=== PATIENT | male | born 1945 | race Caucasian/White ===

== ENCOUNTER 2024-01-19 13:45 | Observation (INO) | payer MEDICARE, OTHER, SELFPAY ==
[2024-01-19] VITALS (8 sets, daily range): BP systolic 148–163; BP diastolic 70–83; PULSE 67–78; RESP 15–20; TEMP 36.4–36.7; O2SAT 94–98; BMI 23.8
--- NOTE | ~2024-01-19 | CT_ITS ---
EXAMINATION: CTA chest PE protocol DATE: 01/19/2024 19:09 INDICATION: hypoxia, sob, cough, r/o pe/pna TECHNIQUE: Computed tomography angiography (CTA) of the chest was performed with 100 mL Omnipaque-350 intravenous contrast timed to evaluate the pulmonary arteries. Coronal maximum intensity projection 3D-reconstructions were created by the technologist. The dose-length product (DLP) was 428.00 mGy-cm. Automated exposure control and iterative reconstruction technique were employed. COMPARISON: X-ray chest, same date. FINDINGS: Lung parenchyma and airways: Clear airways. Scattered areas of central and dependent groundglass opac ities with septal thickening. Pleura: Unremarkable. Thoracic inlet, axillae and chest wall: Unremarkable. Thoracic aorta: Mild atherosclerotic calcification. Mediastinum: Normal. Heart and pericardium: Aortic valve calcification. Coronary artery calcifications: Absent. Upper abdomen: Left adrenal adenoma. Partially visualized likely simple right midpole cyst. Uncomplic ated gastric diverticulum. Bones: No acute osseous finding. Pulmonary arteries: Study quality: Adequate. No pulmonary emboli detected. IMPRESSION: No CT evidence of acute pulmonary embolus. Mild interstitial edema. Reviewed, dictated and finalized at location K.
--- NOTE | ~2024-01-19 | XR_ITS ---
EXAMINATION: XR chest 2V Exam Date/Time: 01/19/2024 16:57 CDT HISTORY: sob, cough Comparison: None. RESULT: Lines, tubes, and devices: None. Lungs and pleura: Senescent changes, otherwise clear. Cardiomediastinal silhouette: Ectasia of the ascending aorta and proximal arch. Other: No acute osseous or upper abdominal finding. IMPRESSION: No acute cardiopulmonary process. Ascending aortic ectasia. Reviewed, dictated and finalized at location K.
--- NOTE | 2024-01-19 16:55 | ECG_ITS ---
Measurements Intervals Wilson Rate: 65 P: 55 WV: 146 QRS: -12 QRSD: 113 T: 29 QT: 448 QTc: 468 Interpretive Statements SINUS RHYTHM LEFT VENTRICULAR HYPERTROPHY MINIMAL Q WAVES- HIGH LATERAL LEADS BASELINE ARTIFACT- I, II, AVR, AVL BORDERLINE ECG NO PREVIOUS ECG AVAILABLE FOR COMPARISON Electronically Signed On 01-19-2024 18:53:29 CDT by Krystian [place] D.O.
--- NOTE | 2024-01-19 17:03 | ED.URI ---
HPI - URI/Sore Throat General Chief Complaint: Upper Respiratory Infection <CRISTO Millan Last Filed: 01/19/24 22:09> Stated Complaint: Cough <CRISTO Millan Last Filed: 01/19/24 22:09> Time Seen by Provider: 01/19/24 16:54 <CRISTO Millan Last Filed: 01/19/24 22:09> Source: patient <CRISTO Millan Last Filed: 01/19/24 22:09> Mode of arrival: ambulatory <CRISTO Millan Last Filed: 01/19/24 22:09> Limitations: no limitations <CRISTO Millan Last Filed: 01/19/24 22:09> History of Present Illness HPI Narrative: Patient is a 78 y/o female who presents to the ED with c/o cough and shortness breath. Patient reports having a persistent dry cough over the last 1 week, which has been progressively worsening. He denies production of sputum. Denies known sick contacts. Has been feeling short of breath with coughing and with exertion. Denies chest pain. Denies wheezing. Denies previous lung issues. Denies lower extremity pain or swelling. Denies fevers, congestion, rhinorrhea. Patient tested himself for COVID at home which was negative <CRISTO Millan Last Filed: 01/19/24 22:09> Related Data Home Medications: Home Medications Medication Instructions Recorded Confirmed amiodarone 100 mg tablet (Pacerone) 100 mg PO DAILY 08/08/23 12/11/23 apixaban 5 mg tablet (Eliquis) 5 mg PO BID 08/08/23 12/11/23 atorvastatin 10 mg tablet 10 mg PO DAILY 08/08/23 12/11/23 diltiazem HCl 120 mg capsule,24 120 mg PO DAILY 08/08/23 12/11/23 hr,extended release <CRISTO Millan Last Filed: 01/19/24 22:09> Allergies/Adverse Reactions: Allergies Allergy/AdvReac Type Severity Reaction Status Date / Time No Known Allergies Allergy Unverified 12/11/23 13:12 <Stefanie Caraballo PA-C - Last Filed: 01/19/24 22:09> Review of Systems Review of Systems: CONSTITUTIONAL: Denies fever, chills, or sweats. ENT: Denies rhinorrhea, congestion, sore throat. CARDIOVASCULAR: Denies chest pain, palpitations, or edema. RESPIRATORY: See HPI. GASTROINTESTINAL: Denies abdominal pain, nausea, vomiting, or diarrhea. <Stefanie Caraballo PA-C - Last Filed: 01/19/24 22:09> All systems reviewed & are unremarkable except as noted in HPI and below <Stefanie Caraballo PA-C - Last Filed: 01/19/24 22:09> PMFSH Past Medical History Medical History: Medical History Arthritis of subtalar joint <Stefanie Caraballo PA-C - Last Filed: 01/19/24 22:09> Surgical History Surgical History: Surgical History History of cholecystectomy Status post ankle arthrodesis <Stefanie Caraballo PA-C - Last Filed: 01/19/24 22:09> Family History Family History: Family History Unknown Hypertension Diabetes mellitus Cerebrovascular accident Lung cancer <Stefanie Caraballo PA-C - Last Filed: 01/19/24 22:09> Social History Social History: Social History Smoking status: Never smoker Alcohol intake: unknown Substance use: unknown Occupation/Education: retired Gender identity (if verbalized by the patient): Male <Stefanie Caraballo PA-C - Last Filed: 01/19/24 22:09> Exam Narrative: GENERAL: Elderly, well-nourished, non-toxic, in no acute distress. HEAD: Normocephalic, atraumatic. RESPIRATORY: Airway patent, respirations nonlabored. Clear to auscultation bilaterally, no rales, rhonchi, wheezing. Occasional coughing on exam. No focal lung sounds. CARDIOVASCULAR: Regular rate and rhythm without murmurs, rubs, or gallops. Radial pulses easily palpable MUSCULOSKELETAL: Moves all extremities. No gross deformities. No calf tend
[2024-01-19 17:23] LABS: Basophils Percent Auto 0.3 % (0.2-1.2); Eosinophils Absolute Auto 0.3 K/mm3 (0-0.3); Eosinophils Percent Auto 2.2 % (0-4.4); Hematocrit 37.1 % (42.0-52.0); Hemoglobin 12.7 g/dL (14.0-18.0); Immature Granulocyte Absolute 0.04 K/mm3 (0.00-0.031); Immature Granulocyte Percent A 0.3 % (0-0.5); Lymphocytes Percent Auto 13.3 % (18.3-44.2); Mean Corpuscular HGB Conc 34.2 g/dl (32-36); Mean Corpuscular Hemoglobin 32.9 pg (26-34); Mean Corpuscular Volume 96.1 fl (80-100); Mean Platelet Volume 8.9 fl (7.4-10.4); Monocytes Absolute Auto 0.8 K/mm3 (0.1-0.6); Monocytes Percent Auto 6.2 % (2.6-8.5); Neutrophils Absolute Auto 9.3 K/mm3 (1.3-6.7); Neutrophils Percent Auto 77.7 % (45.5-73.1); Platelet Count Result 314 k/mm3 (150-375); Red Blood Count 3.86 M/mm3 (4.6-6.20); Red Cell Distribution Width 12.3 % (11.5-14.5)
[2024-01-19 17:35] LABS: INR 2.7; Partial Thromboplastin Time 42.7 Seconds (22.3-36.8)
[2024-01-19 17:36] LABS: Alanine Aminotransferase 15 U/L (6-50); Albumin Level 3.8 g/dL (3.5-5.1); Alkaline Phosphatase 89 U/L (38-126); Anion Gap 2 mmol/L (8-16); Aspartate Amino Transferase 31 U/L (17-59); Bilirubin,Total 0.7 mg/dL (0.2-1.3); Blood Urea Nitrogen 9 mg/dL (9-20); Calcium 9.5 mg/dL (8.4-10.2); Carbon Dioxide 31 mmol/L (22-30); Chloride 99 mmol/L (98-107); Estimated CRCL calculation 59 ml/min; Estimated Glomerular Filt Rate > 60; Glucose 105 mg/dL (65-110); Potassium 4.2 mmol/L (3.4-5.0); Sodium 132 mmol/L (137-145)
[2024-01-19 17:48] LABS: NT Pro B Type Natriuretic Pept 156 pg/mL (19.9-100); Troponin I < 0.012 ng/mL (0.000-0.034)
[2024-01-19 18:10] LABS: Influenza A QL RT-PCR Negative (Negative); Influenza B QL RT-PCR Negative (Negative); RSV RNA, RT-PCR Negative (Negative); SARS-CoV-2 RNA PCR Negative (Negative)
--- NOTE | 2024-01-19 20:37 | PC.NURSE ---
Per Stefanie LEMONS G. no blood cultures needed
[2024-01-19] MEDS: AZITHROMYCIN 500 MG/NS 250 ML 500 MG/250 ML BAG 250 MG IVPB (21:13)
--- NOTE | 2024-01-19 23:24 | ADMGEN ---
This patient, Bill Colon, was admitted to Medical Room 250-01. Patient/family oriented to hospital policies and general routines including ID bracelet, bed and alarms, visiting hours, pain management, procedures, bathroom and other care routines, personal items, smoking policy, room service/diet, and visiting hours. Information on how to activate the Rapid Response Team has been discussed. Patient/Family are encouraged to report perceived risks to care and to ask questions if they do not understand what they are told or what they should do.
--- NOTE | 2024-01-19 23:50 | PM.IMHP ---
H&P: HPI History of Present Illness Date/Time: 01/19/24 23:50 Chief Complaint: Shortness of breath, cough Narrative: 78-year-old male with a past medical history of rheumatoid arthritis, essential hypertension, hyperlipidemia, obstructive sleep apnea and paroxysmal atrial fibrillation who presented to the ER via private vehicle from home due to nonproductive cough and shortness of breath. Patient reports the started having nonproductive cough about a week ago. He has had increased shortness of breath with exertion over that time minutes cough became more intractable today. He had 3 episodes of coughing so severely they felt like he needed to go lay down in uses CPAP. After placing his CPAP on for several min into symptoms would resolve and he would go back to his routine activities. He denies any recent ill contacts and is fully vaccinated against COVID RSV and flu. His viral PCRs were negative in the ER. He stated that last week he went to primary care provider and had labs drawn which demonstrated leukocytosis. He has not been having any chest pain or palpitations. He denies any fevers or chills. He has been compliant with his cardiac medications. In the ER his white count was elevated and his x-ray finding suggested a broad differential. The patient subsequently underwent a CTA of the chest which radiology read as mild interstitial edema with scattered central and dependent ground-glass opacities with septal thickening. His BNP in the ER was 156. He denies having any lower extremity swelling, orthopnea, abdominal swelling or weight changes. He reports that his weight is been stable for 2 years. He does have obstructive sleep apnea but is only intermittently compliant with his CPAP. He reports that since he got a new CPAP last year he feels as if the pressure goes too high IM close out the mask into his eye. He has not had a repeat polysomnogram in many years. I am assuming that his CPAP was replaced due to the recall. Patient's vitals were stable in the ER until he was ambulated prior to discharge. On ambulation the patient's oxygen saturations dropped to 88%. Patient denies any history of smoking or chronic lung disease. He has not been wheezing. He reports that his AFib is managed by Dr. Veloz at [place]. He is on chronic anticoagulation with Xarelto. He has been receiving sample packets for quite some time. He has not been having any palpitations. He is in sinus rhythm when he arrived to the ER. Review of Systems Review of Systems: 12 systems were reviewed with pertinent positives and negatives per HPI. Except as documented in the HPI, all other systems were reviewed and are negative. [facility] Past Medical History Medical History (Updated 01/20/24 @ 02:37 by Christianne Manuel DO) Essential hypertension GERD (gastroesophageal reflux disease) Hyperlipidemia Obstructive sleep apnea on CPAP Paroxysmal atrial fibrillation Rheumatoid arthritis Surgical History Surgical History (Updated 01/20/24 @ 02:37 by Christianne Manuel DO) Finger joint replacement of left hand 1st and 2nd digit 1st PIP History of cholecystectomy (~2020) History of partial colectomy (~1989) Due to perforated bowel with colostomy and then later colostomy takedown History of total left knee replacement Status post ankle arthrodesis Status post cataract extraction of both eyes with insertion of intraocular lens Family History Family History Unknown Hypertension Diabetes mellitus Cerebrovascular accident Lung cancer Social History Social History (Updated 01/20/24 @ 02:41 by Christianne Manuel DO) Social History: Patient lives at home with his of 60 years. They raised a daughter and a son. He is retired from [employer]. He is a lifelong nonsmoker and does not drink alcohol or use illicit substances. He is independent activities of daily living. Code status
[2024-01-20] VITALS (11 sets, daily range): BP systolic 127–139; BP diastolic 67–70; PULSE 66–87; RESP 16–20; TEMP 36.7–37.2; O2SAT 93–96
[2024-01-20 05:45] LABS: Basophils Absolute Auto 0.1 K/mm3 (0.0-0.1); Basophils Percent Auto 0.5 % (0.2-1.2); Eosinophils Absolute Auto 0.3 K/mm3 (0-0.3); Eosinophils Percent Auto 3.2 % (0-4.4); Hematocrit 38.3 % (42.0-52.0); Hemoglobin 12.5 g/dL (14.0-18.0); Immature Granulocyte Absolute 0.02 K/mm3 (0.00-0.031); Immature Granulocyte Percent A 0.2 % (0-0.5); Lymphocytes Absolute Auto 1.45 K/mm3 (0.9-3.2); Lymphocytes Percent Auto 15.5 % (18.3-44.2); Mean Corpuscular HGB Conc 32.6 g/dl (32-36); Mean Corpuscular Hemoglobin 32.5 pg (26-34); Mean Corpuscular Volume 99.5 fl (80-100); Mean Platelet Volume 9.1 fl (7.4-10.4); Monocytes Absolute Auto 0.7 K/mm3 (0.1-0.6); Neutrophils Absolute Auto 6.9 K/mm3 (1.3-6.7); Neutrophils Percent Auto 73.6 % (45.5-73.1); Platelet Count Result 322 k/mm3 (150-375); Red Blood Count 3.85 M/mm3 (4.6-6.20); White Blood Count 9.4 K/mm3 (4.5-10.0)
[2024-01-20 05:58] LABS: Anion Gap 6 mmol/L (8-16); Blood Urea Nitrogen 8 mg/dL (9-20); Calcium 9.2 mg/dL (8.4-10.2); Carbon Dioxide 26 mmol/L (22-30); Chloride 100 mmol/L (98-107); Estimated CRCL calculation 67 ml/min; Estimated Glomerular Filt Rate > 60; Glucose 92 mg/dL (65-110); Potassium 3.8 mmol/L (3.4-5.0); Sodium 132 mmol/L (137-145)
[2024-01-20] MEDS: RIVAROXABAN 20 MG TABLET PO (09:20)
[2024-01-20] MEDS: PANTOPRAZOLE 40 MG TABLET PO (09:20)
--- NOTE | 2024-01-20 15:02 | PM.IMPN ---
Progress Note: A&P Assessment and Plan (1) Obstructive sleep apnea on CPAP: Code(s): G47.33 - Obstructive sleep apnea (adult) (pediatric) Status: Acute (2) Acute hypoxic respiratory failure: Code(s): J96.01 - Acute respiratory failure with hypoxia Status: Acute (3) Dyspnea on exertion: Code(s): R06.09 - Other forms of dyspnea Status: Acute (4) Arthritis of subtalar joint: Code(s): M19.079 - Primary osteoarthritis, unspecified ankle and foot Status: Acute (5) Bronchitis: Code(s): J40 - Bronchitis, not specified as acute or chronic Status: Acute Plan Place patient in medical unit under observation status Patient has no X-ray and clinical findings consistent with pneumonia He likely has acute bronchitis Patient started on IV antibiotics in the form of Rocephin and Zithromax which we'll continue on the floor Patient received Lasix 20 mg IV x1 dose in the ED Continue with the DuoNeb breathing treatments on the floor as needed Encourage ambulation on the floor DC patient home on oral antibiotics in am if patient is clinically stable and breathing is back to baseline ? Patient seen and examined at bedside during my morning rounds ? Collaborated with patient's nurse at the bedside in detail and addressed all concerns ? Labs, electrolytes, radiology, investigations and test results reviewed ? Consult/Nursing/Ancilliary notes on the chart reviewed and appreciated ? Spoke with patient/family at the bedside and answered all the questions that they had Repeat labs in a.m. Electrolyte replacement as per protocol. Patient will be monitored very closely on the floor. Further recommendations as per the hospital course. Subjective Date/time seen: 01/20/24 15:02 Interval history: Patient seen and evaluated bedside. Shortness of breath and cough is slowly improving. Review of Systems Review of Systems: 14 systems were reviewed with pertinent positives and negatives per HPI. Except as documented in the HPI/progress notes, all other systems were reviewed and are negative. All systems reviewed & are unremarkable except as noted in HPI and below Exam Narrative: PHYSICAL EXAMINATION: Vital signs: Please see the chart General physical exam: Elderly white gentleman, lying in bed, cooperative and pleasant with exam Head/eyes: Atraumatic, EOMI, PERRLA ENT: Moist mucous membranes, nasal passages clear Neck: Supple, full range of motion, trachea midline CVS: S1 + S2, regular rate and rhythm, no murmurs Respiratory: Bilaterally fair air entry in both lung suarez, mild B/L crackles, symmetric chest expansion, + mild scattered bibasilar rhonchi Abdomen: Soft, non-tender, bowel sounds +ve, no organomegaly Extremities: No clubbing, no cyanosis, no edema, no calf tenderness Musculoskeletal: Moves all, adequate range of motion, no muscle spasms Skin: Warm, dry, no jaundice, no cyanosis Neurological: Awake, alert, oriented x 3, cranial nerves II-XII intact, no focal neurological deficits Psychiatric: Normal mood, non suicidal Objective Data Vital Signs Vital Signs: Vital Signs - 24 hr 01/19/24 17:19 01/19/24 17:26 01/19/24 18:27 Temperature Pulse Rate 67 71 Respiratory Rate 20 15 Blood Pressure 163/77 H Pulse Oximetry 96 96 97 Oxygen Delivery Room Air 01/19/24 19:57 01/19/24 21:14 01/19/24 22:32 Temperature Pulse Rate 69 68 78 Respiratory Rate 20 19 19 Blood Pressure 148/70 H 153/78 H 148/75 H Pulse Oximetry 96 98 Oxygen Delivery 01/19/24 23:37 01/20/24 00:00 01/19/24 23:45 Temperature 36.4 C L Pulse Rate 74 73 Respiratory Rate 20 Blood Pressure 157/83 H Pulse Oximetry 94 Oxygen Delivery Room Air 01/20/24 03:16 01/20/24 04:00 Temperature 37.0 C Pulse Rate 76 66 Respiratory Rate 20 Blood Pressure 136/70 Pulse Oximetry 96 Oxygen Delivery Intake/Output Intake/Output: Intake & Output 01/17/24 01/18/24 0
[2024-01-20] MEDS: dilTIAZem HCL CD 120 MG CAP.24HR PO (17:40)
[2024-01-20] MEDS: AMIODARONE HCL 100 MG TABLET PO (17:40)
[2024-01-20] MEDS: ATORVASTATIN 10 MG TABLET PO (17:40)
[2024-01-20] MEDS: AZITHROMYCIN 500 MG/NS 250 ML 500 MG/250 ML BAG 250 MG IVPB (22:04)
[2024-01-21] VITALS (9 sets, daily range): BP systolic 132–134; BP diastolic 73–75; PULSE 64–86; RESP 16; TEMP 36.4; O2SAT 90–96
[2024-01-21 05:15] LABS: Basophils Absolute Auto 0.1 K/mm3 (0.0-0.1); Basophils Percent Auto 0.6 % (0.2-1.2); Eosinophils Absolute Auto 0.4 K/mm3 (0-0.3); Eosinophils Percent Auto 3.9 % (0-4.4); Hematocrit 36.3 % (42.0-52.0); Immature Granulocyte Absolute 0.01 K/mm3 (0.00-0.031); Immature Granulocyte Percent A 0.1 % (0-0.5); Lymphocytes Absolute Auto 1.44 K/mm3 (0.9-3.2); Mean Corpuscular HGB Conc 33.1 g/dl (32-36); Mean Corpuscular Hemoglobin 32.3 pg (26-34); Mean Corpuscular Volume 97.6 fl (80-100); Mean Platelet Volume 8.9 fl (7.4-10.4); Monocytes Absolute Auto 0.7 K/mm3 (0.1-0.6); Monocytes Percent Auto 7.7 % (2.6-8.5); Neutrophils Absolute Auto 6.5 K/mm3 (1.3-6.7); Neutrophils Percent Auto 71.7 % (45.5-73.1); Platelet Count Result 325 k/mm3 (150-375); Red Blood Count 3.72 M/mm3 (4.6-6.20); Red Cell Distribution Width 12.1 % (11.5-14.5)
[2024-01-21 05:38] LABS: Anion Gap 4 mmol/L (8-16); Blood Urea Nitrogen 7 mg/dL (9-20); Calcium 8.9 mg/dL (8.4-10.2); Carbon Dioxide 27 mmol/L (22-30); Chloride 98 mmol/L (98-107); Estimated CRCL calculation 59 ml/min; Estimated Glomerular Filt Rate > 60; Glucose 97 mg/dL (65-110); Magnesium 1.8 mg/dL (1.6-2.3); Potassium 3.7 mmol/L (3.4-5.0); Sodium 129 mmol/L (137-145)
[2024-01-21] MEDS: PANTOPRAZOLE 40 MG TABLET PO (08:24)
[2024-01-21] MEDS: ATORVASTATIN 10 MG TABLET PO (08:24)
[2024-01-21] MEDS: AMIODARONE HCL 100 MG TABLET PO (08:24)
[2024-01-21] MEDS: dilTIAZem HCL CD 120 MG CAP.24HR PO (08:24)
[2024-01-21] MEDS: RIVAROXABAN 20 MG TABLET PO (08:25)
--- NOTE | 2024-01-21 12:10 | PM.DS ---
DS: Admitting Diagnosis Discharge Date 01/21/2024: Admitting Diagnosis (1) Acute hypoxic respiratory failure: ?Code(s): J96.01 - Acute respiratory failure with hypoxia ?Status:?Acute (2) Dyspnea on exertion: ?Code(s): R06.09 - Other forms of dyspnea ?Status:?Acute (3) Obstructive sleep apnea on CPAP: ?Code(s): G47.33 - Obstructive sleep apnea (adult) (pediatric) ?Status:?Acute DS: Discharge Diagnosis Discharge Diagnosis (1) Bronchitis: Code(s): J40 - Bronchitis, not specified as acute or chronic Status: Acute (2) Obstructive sleep apnea on CPAP: Code(s): G47.33 - Obstructive sleep apnea (adult) (pediatric) Status: Acute (3) Acute hypoxic respiratory failure: Code(s): J96.01 - Acute respiratory failure with hypoxia Status: Acute (4) Dyspnea on exertion: Code(s): R06.09 - Other forms of dyspnea Status: Acute (5) Arthritis of subtalar joint: Code(s): M19.079 - Primary osteoarthritis, unspecified ankle and foot Status: Acute (6) Chronic anticoagulation: Code(s): Z79.01 - [facility] (current) use of anticoagulants Status: Acute (7) Chronic atrial fibrillation: Code(s): I48.20 - Chronic atrial fibrillation, unspecified Status: Acute DS: Summary Hospital Course Reason for hospitalization: Patient admitted with cough and shortness of breath Hospital Course: H&P: HPI History of Present Illness Date/Time: 01/19/24? 23:50 Chief Complaint: Shortness of breath, cough Narrative: 78-year-old male with a past medical history of rheumatoid arthritis, essential hypertension, hyperlipidemia, obstructive sleep apnea and paroxysmal atrial fibrillation who presented to the ER via private vehicle from home due to nonproductive cough and shortness of breath.? Patient reports the started having nonproductive cough about a week ago.? He has had increased shortness of breath with exertion over that time minutes cough became more intractable today.? He had 3 episodes of coughing so severely they felt like he needed to go lay down in uses CPAP.? After placing his CPAP on for several min into symptoms would resolve and he would go back to his routine activities.? He denies any recent ill contacts and is fully vaccinated against COVID RSV and flu.? His viral PCRs were negative in the ER.? He stated that last week he went to primary care provider and had labs drawn which demonstrated leukocytosis.? He has not been having any chest pain or palpitations.? He denies any fevers or chills.? He has been compliant with his cardiac medications.? In the ER his white count was elevated and his x-ray finding suggested a broad differential.? The patient subsequently underwent a CTA of the chest which radiology read as mild interstitial edema with scattered central and dependent ground-glass opacities with septal thickening.? His BNP in the ER was 156.? He denies having any lower extremity swelling, orthopnea, abdominal swelling or weight changes.? He reports that his weight is been stable for 2 years.? He does have obstructive sleep apnea but is only intermittently compliant with his CPAP.? He reports that since he got a new CPAP last year he feels as if the pressure goes too high IM close out the mask into his eye.? He has not had a repeat polysomnogram in many years.? I am assuming that his CPAP was replaced due to the recall.? Patient's vitals were stable in the ER until he was ambulated prior to discharge.? On ambulation the patient's oxygen saturations dropped to 88%.? Patient denies any history of smoking or chronic lung disease.? He has not been wheezing. He reports that his AFib is managed by Dr. Veloz at [place].? He is on chronic anticoagulation with Xarelto.? He has been receiving sample packets for quite some time.? He has not been having any palpitations.? He is in sinus rhythm when he arrived to the ER. 01/20/2024: Place patient in medical unit
--- NOTE | 2024-01-21 14:13 | HOMEO2EVAL ---
Evaluation was performed at [facility] Home Oxygen Evaluation RC: Home Oxygen (O2) Evaluation Start: 01/21/24 10:20 Freq: ONCE Status: Active Protocol: RPE Activity Type Activity Date Activity User E-sign Co-sign Detail Recorded Client Recorded Date Recorded By Document 01/21/24 13:45 GARY [email or web address] 01/21/24 14:13 GARY Document 01/21/24 13:50 GARY [email or web address] 01/21/24 14:13 GARY Document 01/21/24 14:00 GARY [email or web address] 01/21/24 14:13 GARY 01/21/24 01/21/24 01/21/24 13:45 13:50 14:00 Home O2 Evaluation [Oxygen] -Test Phase Resting Exercise Resting -Oxygen Delivery Room Air Room Air Room Air [Pulse Oximetry] -Pulse Oximetry (90-100 %) 96 90 95 [Pulse Rate] -Pulse Rate (60-100 beats/min) 69 86 72 [Comments] -Home Oxygen Evaluation Comments No home O2 needed at this time. [Charges] -Evaluation Charges O2 Evaluation by Pulmonary
--- NOTE | 2024-01-21 14:13 | PCRCNOTE ---
Home o2 eval done, no home O2 needed at this time.
== END 2024-01-21 14:31 | disposition home or self-care (01) ==
LOC: ANHED 21:08 → ANH3MEDSUR 22:00 → ANH2MED 22:50
PROVIDERS: Admitting Provider Internal Medicine; Emergency Provider Physician Assistant; PCP Internal Medicine; Visit Provider Family Medicine
DX: J96.01 Acute respiratory failure with hypoxia (principal); J40 Bronchitis, not specified as acute or chronic; I48.0 Paroxysmal atrial fibrillation; I77.819 Aortic ectasia, unspecified site; G47.33 Obstructive sleep apnea (adult) (pediatric); Z99.89 Dependence on other enabling machines and devices; Z20.822 Contact with and (suspected) exposure to COVID-19; M06.9 Rheumatoid arthritis, unspecified; M19.079 Primary osteoarthritis, unspecified ankle and foot; I10 Essential (primary) hypertension; K21.9 Gastro-esophageal reflux disease without esophagitis; E78.5 Hyperlipidemia, unspecified; Z96.692 Finger-joint replacement of left hand; Z96.652 Presence of left artificial knee joint; Z79.01 Long term (current) use of anticoagulants; Z79.899 Other long term (current) drug therapy
CPT/HCPCS: 36415; 71046; 71275; 80048; 80053; 83735; 83880; 84100; 84484; 85025; 85380; 85610; 85730; 87637; 93005; 94618; 96365; 96366; 96367; 99285; A9270; G0378; J0456; J0696; Q9967

== ENCOUNTER 2024-03-12 23:46 | Inpatient (IN) | payer MEDICARE, OTHER, SELFPAY ==
--- NOTE | ~2024-03-12 | XR_ITS ---
Supine and upright views of the abdomen Clinical history: Small bowel obstruction Findings: NG tube in satisfactory position. Bowel gas pattern is nonspecific. No evidence for obstruc tion or free air. No abnormal mass lesion or calcification is seen. Degenerative change of the lumbar spine noted. Impression: NG tube in satisfactory position. Nonspecific bowel gas pattern currently. Reviewed, dictated and finalized at [facility]. Impression: NG tube in satisfactory position. Nonspecific bowel gas pattern currently.
--- NOTE | ~2024-03-12 | XR_ITS ---
XR abdomen/kub 1V DATE: 03/15/2024 06:12 INDICATION: Small bowel obstruction TECHNIQUE: Portable supine AP views on 03/15/2024 at 0549 [id number] hours COMPARISON: 03/14/24 small bowel follow-through FINDINGS: There is mild residual radiographic contrast material in the rectum and colon. No bowel dil atation is evident. Associated as are intact. No visceromegaly is evident. Osteosclerotic lesions of the intertrochanteric area of the left femur show multiple different diagno sis includes bone islands, osseous sclerotic metastases. Degenerative changes of the lower thoracic and particularly the lumbar spine, including severe degene rative disc disease particularly at L4-5 and L5-S1. IMPRESSION: No evidence of bowel obstruction. Osteosclerotic lesions of the proximal left femur; differential diagnosis Islands, osteosclerotic met astases, possibly from prostate primary; recommend clinical correlation Degenerative changes of thoracic and lumbar spine Reviewed, dictated and finalized at [facility]. Reviewed, dictated and finalized at location [facility]. IMPRESSION: No evidence of bowel obstruction. Osteosclerotic lesions of the proximal left femur; differential diagnosis Islan ds, osteosclerotic metastases, possibly from prostate primary; recommend clinic al correlation Degenerative changes of thoracic and lumbar spine
--- NOTE | ~2024-03-12 | CT_ITS ---
CT of the Abdomen and Pelvis: Indication: Abdominal pain Technique: 2.5 mm axial scans were obtained through the abdomen and pelvis following intravenous adm inistration of 100 cc of Omnipaque 350. Dose reduction technique was used on this scan by utilizing a utomated exposure control and iterative reconstruction technique. The dose-length product (DLP) was 4 72.85 mGy-cm. Findings: Scans through the lung bases are unremarkable. The liver, spleen, pancreas, right adrenal gland, and kidneys are within normal limits. Gallbladder a bsent. 9 mm low-density left adrenal nodule is most likely an adenoma. There are atherosclerotic calc ifications of the aorta. No retroperitoneal lymphadenopathy. Proximal small bowel is relatively distended, and distal small bowel loops are collapsed. No focal, a brupt transition point clearly identified. Possible mild wall thickening of left-sided proximal small bowel loops. There is minimal haziness in the central mesentery with small shotty lymph nodes presen t. Images through the pelvis were performed. Urinary bladder unremarkable. No pelvic mass seen. No ascit es. 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 Impression: Findings suspicious for early or partial small bowel obstruction, as detailed above. Possible associa garrett small bowel enteritis. 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 Reviewed, dictated and finalized at location M. Impression: Findings suspicious for early or partial small bowel obstruction, as detailed a vishal. Possible associated small bowel enteritis. 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
--- NOTE | ~2024-03-12 | XR_ITS ---
Supine and upright views of the abdomen Clinical history: NG tube placement Findings: NG tube side-port is just below the diaphragm. Bowel gas pattern is nonspecific. No evidenc e for obstruction or free air. No abnormal mass lesion or calcification is seen. Osseous structures a re intact. Impression: NG tube side port just below the diaphragm. Further advancement to ensure adequate position in the st omach is advised. Reviewed, dictated and finalized at location . Impression: NG tube side port just below the diaphragm. Further advancement to ensure adequ ate position in the stomach is advised.
--- NOTE | ~2024-03-12 | XR_ITS ---
Portable chest x-ray Comparison: 01/19/2024 Clinical History: Fever Findings: NG tube in satisfactory position. Lungs are clear, without focal consolidation or pleural effusion. Cardiomediastinal silhouette is stable. Bones and soft tissues are unremarkable. Impression: Clear lungs. NG tube in place. Reviewed, dictated and finalized at location . Impression: Clear lungs. NG tube in place.
--- NOTE | ~2024-03-12 | XR_ITS ---
EXAMINATION: XR abdomen gastric tube rechec DATE: 03/13/2024 13:57 INDICATION: Nasogastric tube adjustment. TECHNIQUE: An upright view of the abdomen was obtained. COMPARISON: Abdomen radiograph at 1:41 AM FINDINGS: The lower abdomen is excluded. The nasogastric tube tip is in the distal stomach. IMPRESSION: 1. Nasogastric tube tip in the distal stomach. Reviewed, dictated and finalized at location A.
--- NOTE | ~2024-03-12 | XR_ITS ---
EXAMINATION: XR sm bowel follow through DATE: 03/14/2024 10:55 INDICATION: Small bowel obstruction. TECHNIQUE: Oral contrast was administered, and a time course of radiographs of the abdomen was obtain ed. Fluoroscopy of the small bowel was not performed. Fluoroscopy exposure time was 0 minutes. The to jacqueline number of images was 3. COMPARISON: CT abdomen and pelvis 03/13/2024 FINDINGS: The nasogastric tube tip is in the stomach. There is a diverticulum in the second portion of the duod enum. There are dilated loops of jejunum. The ileum is normal in caliber. Transit time from the stoma ch to proximal colon was approximately 45 minutes. IMPRESSION: 1. Dilated jejunum without focal transition point, consistent with adynamic ileus. Reviewed, dictated and finalized at location A. IMPRESSION: 1. Dilated jejunum without focal transition point, consistent with adynamic ile us.
[2024-03-12 23:52] VITALS: BP 136/80; PULSE 86; RESP 18; TEMP 36.2; O2SAT 100
[2024-03-13] VITALS (7 sets, daily range): BP systolic 112–132; BP diastolic 56–87; PULSE 72–98; RESP 16–22; TEMP 37–38.1; O2SAT 93–98; BMI 26.4
[2024-03-13 00:18] LABS: Basophils Percent Auto 0.3 % (0.2-1.2); Eosinophils Percent Auto 0.3 % (0-4.4); Hematocrit 45.2 % (42.0-52.0); Hemoglobin 15.3 g/dL (14.0-18.0); Immature Granulocyte Absolute 0.07 K/mm3 (0.00-0.031); Immature Granulocyte Percent A 0.6 % (0-0.5); Lymphocytes Absolute Auto 1.77 K/mm3 (0.9-3.2); Lymphocytes Percent Auto 16.1 % (18.3-44.2); Mean Corpuscular HGB Conc 33.8 g/dl (32-36); Mean Corpuscular Hemoglobin 32.7 pg (26-34); Mean Corpuscular Volume 96.6 fl (80-100); Mean Platelet Volume 9.8 fl (7.4-10.4); Monocytes Absolute Auto 0.4 K/mm3 (0.1-0.6); Monocytes Percent Auto 3.9 % (2.6-8.5); Neutrophils Absolute Auto 8.7 K/mm3 (1.3-6.7); Neutrophils Percent Auto 78.8 % (45.5-73.1); Platelet Count Result 274 k/mm3 (150-375); Red Blood Count 4.68 M/mm3 (4.6-6.20); Red Cell Distribution Width 12.5 % (11.5-14.5)
[2024-03-13 00:25] LABS: Appearance Urine Clear (Clear); Bacteria Urine None Seen /hpf; Bilirubin Urine Negative (Negative); Blood Urine Negative (Negative); Color Urine Dark Yellow (Yellow); Glucose Urine UA Negative (Negative); Ketones Urine Trace mg/dL (Negative); Leukocyte Esterase Ur Negative LEU/UL (Negative); Nitrate Urine Negative (Negative); Non Pathogenic Casts 0-2; Protein Urine Trace mg/dL (Negative); Specific Grav Ur 1.023 (1.001-1.035); Squamous Epithelial Cell Urine None Seen /hpf (Few); WBC Urine 0-5 /hpf (0-3)
[2024-03-13 00:26] LABS: Add Urine Microscopic? YES
--- NOTE | 2024-03-13 00:40 | ECG_ITS ---
SEE SCANNED COPY FOR CONFIRMED REPORT MTDD
[2024-03-13] MEDS: SODIUM CHLORIDE 0.9% IV 2,000 ML 999 ML IV CONT (00:49)
[2024-03-13] MEDS: ONDANSETRON INJ 4 MG/2 ML VIAL IV PUSH (00:50)
[2024-03-13] MEDS: HYDROmorphone HCL INJ (*CRX) 1 MG/ML SYR 0.5 MG IV PUSH (00:53)
--- NOTE | 2024-03-13 00:57 | PC.NURSE ---
Pt to CT via stretcher on tele monitor.
[2024-03-13 01:15] LABS: INR 1.9; Prothrombin Time 23.4 Seconds (11.1-14.7)
[2024-03-13 01:23] LABS: Estimated CRCL calculation 35 ml/min; Estimated Glomerular Filt Rate 49
[2024-03-13 01:30] LABS: Alanine Aminotransferase 20 U/L (6-50); Albumin Level 4.7 g/dL (3.5-5.1); Alkaline Phosphatase 98 U/L (38-126); Anion Gap 9 mmol/L (4-12); Aspartate Amino Transferase 36 U/L (17-59); Bilirubin,Total 1.5 mg/dL (0.2-1.3); Blood Urea Nitrogen 13 mg/dL (9-20); Calcium 10.1 mg/dL (8.4-10.2); Carbon Dioxide 26 mmol/L (22-30); Chloride 99 mmol/L (98-107); Estimated CRCL calculation 44 ml/min; Estimated Glomerular Filt Rate > 60; Glucose 118 mg/dL (65-110); Lipase 44 U/L (23-300); Potassium 4.2 mmol/L (3.4-5.0); Sodium 134 mmol/L (137-145)
[2024-03-13 01:35] LABS: Magnesium 1.9 mg/dL (1.6-2.3); Phosphorus 2.9 mg/dL (2.5-4.5)
--- NOTE | 2024-03-13 01:37 | ED.GENADULT ---
HPI - General Adult General Chief complaint: Abdominal Pain Stated complaint: abd pain Time Seen by Provider: 03/13/24 00:31 History of Present Illness HPI narrative: This is a 78-year-old male with history of small-bowel obstructions presenting with abdominal pain, nausea/vomiting. Symptoms started earlier today. The pain is primarily on the left side of his abdomen. He has had a bowel movement today which for several hard stools. Patient says this feels similar to when he has had small bowel obstructions in the past. Patient has history of partial colectomy due to diverticulitis in 1999. Related Data Home Medications Medication Instructions Recorded Confirmed amiodarone 100 mg tablet (Pacerone) 100 mg PO DAILY 08/08/23 03/12/24 atorvastatin 10 mg tablet 10 mg PO DAILY 08/08/23 03/12/24 diltiazem HCl 120 mg capsule,24 120 mg PO DAILY 08/08/23 03/12/24 hr,extended release omeprazole 20 mg capsule,delayed 20 mg PO DAILY 01/19/24 03/12/24 release rivaroxaban 20 mg tablet (Xarelto) 20 mg PO DAILY 01/19/24 03/12/24 Allergies Allergy/AdvReac Type Severity Reaction Status Date / Time No Known Allergies Allergy Unverified 03/12/24 08:49 [facility] Past Medical History Medical History Chronic anticoagulation Chronic atrial fibrillation Essential hypertension GERD (gastroesophageal reflux disease) Hyperlipidemia Obstructive sleep apnea on CPAP Paroxysmal atrial fibrillation Rheumatoid arthritis Surgical History Surgical History Finger joint replacement of left hand 1st and 2nd digit 1st PIP History of cholecystectomy (~2020) History of partial colectomy (~1989) Due to perforated bowel with colostomy and then later colostomy takedown History of total left knee replacement Status post ankle arthrodesis Status post cataract extraction of both eyes with insertion of intraocular lens Family History Family History Unknown Hypertension Diabetes mellitus Cerebrovascular accident Lung cancer Social History Social History Social History: Patient lives at home with his of 60 years. They raised a daughter and a son. He is retired from [employer]. He is a lifelong nonsmoker and does not drink alcohol or use illicit substances. He is independent activities of daily living. Code status: Full code (however he states he would not want to be on ventilator long-term or received G-tube feeds.) Healthcare power of box toe stitcher: Gage Colon (son) Smoking status: Never smoker Second hand tobacco smoke exposure: No Alcohol intake: never Substance use: never Substance use type: does not use Do You Feel Safe in your Home?: Yes Lack of Transportation: No Lack of Food: Never True Current Housing: I Have Housing Concerned About Future Housing: No Difficulty Paying Gas/Electric Bills: No Difficulty Paying for Meds: No Currently Unemployed: No Education: High School Diploma/GED Difficulty w/ Childcare or Family Care: No Occupation/Education: retired Gender identity (if verbalized by the patient): Male Spiritual care concerns: No Exam Narrative: APPEARANCE: patient is tremulous, he appears uncomfortable Head: atraumatic. EYES: EOMI, NOSE: Atraumatic NECK: Trachea midline RESPIRATORY: No increased rate of breathing CTAB CARDIOVASCULAR: RRR, No peripheral edema ABDOMINAL: abdomen is tender primarily in the left side with voluntary guarding. MUSCULOSKELETAl: No obvious deformities NEURO: Alert. Moving 4/4 extremities SKIN:: Warm, dry. Normal color PSYCHIATRIC: Normal affect Course Vital Signs Vital signs: Vital Signs Temperature 97.2 F L 03/12/24 23:52 Pulse Rate 86 03/12/24 23:52 Respiratory Rate 18 03/12/24 23:52
[2024-03-13] MEDS: LIDOCAINE HCL 1% LOCAL INJ 10 ML VIAL INFILTRATE (01:41)
[2024-03-13 02:24] LABS: Lactic Acid Reflex 1.6 mmol/L (0.7-2.0)
[2024-03-13 02:34] LABS: Influenza A QL RT-PCR Negative (Negative); Influenza B QL RT-PCR Negative (Negative); RSV RNA, RT-PCR Negative (Negative); SARS-CoV-2 RNA PCR Negative (Negative)
--- NOTE | 2024-03-13 04:18 | ADMGEN ---
This patient, Bill Colon, was admitted to 3 [facility] Surg Room 311-01. Patient/family oriented to hospital policies and general routines including ID bracelet, bed and alarms, visiting hours, pain management, procedures, bathroom and other care routines, personal items, smoking policy, room service/diet, and visiting hours. Information on how to activate the Rapid Response Team has been discussed. Patient/Family are encouraged to report perceived risks to care and to ask questions if they do not understand what they are told or what they should do.
[2024-03-13] MEDS: LACTATED RINGERS 1,000 ML 125 ML IV CONT ×3 (04:29→20:38)
--- NOTE | 2024-03-13 07:46 | PM.IMHP ---
H&P: HPI History of Present Illness Date/Time: 03/13/24 07:46 Chief Complaint: Abdominal pain Narrative: ?This is a 78-year-old male with history of of AFib on Xarelto, GERD, partial colectomy due to diverticulitis 2020,small-bowel obstructions present ED with a chief complaint of abdomen pain, nausea vomiting diarrhea started yesterday morning. The pain located left side of the abdomen, patient had a bowel movement yesterday. Patient denies chest pain, shortness breath, headache, focal weakness. patient came to ED for evaluation treatment. Upon arrival in the ED, patient had a low-grade fever 105 over the night, blood pressure stable, no O2 desaturation on room air, patient had tachycardia tachypnea 22. patient has mild leukocytosis 11,000. CT scan was done in the ED, showed early versus partial small-bowel obstruction on the left. NG tube was placed in the ED. and patient was admitted hospital for further evaluation and treatment. Review of Systems Review of Systems: ROS negative except above PMFSH Past Medical History Medical History (Updated 03/13/24 @ 08:00 by Elmer Neely MD) Chronic anticoagulation Chronic atrial fibrillation Essential hypertension GERD (gastroesophageal reflux disease) Hyperlipidemia Obstructive sleep apnea on CPAP Paroxysmal atrial fibrillation Rheumatoid arthritis Surgical History Surgical History Finger joint replacement of left hand 1st and 2nd digit 1st PIP History of cholecystectomy (~2020) History of partial colectomy (~1989) Due to perforated bowel with colostomy and then later colostomy takedown History of total left knee replacement Status post ankle arthrodesis Status post cataract extraction of both eyes with insertion of intraocular lens Family History Family History Unknown Hypertension Diabetes mellitus Cerebrovascular accident Lung cancer Social History Social History Social History: Patient lives at home with his of 60 years. They raised a daughter and a son. He is retired from [employer]. He is a lifelong nonsmoker and does not drink alcohol or use illicit substances. He is independent activities of daily living. Code status: Full code (however he states he would not want to be on ventilator long-term or received G-tube feeds.) Healthcare power of traffic law attorney: Gage Colon (son) Smoking status: Never smoker Second hand tobacco smoke exposure: No Alcohol intake: never Substance use: never Substance use type: does not use Do You Feel Safe in your Home?: Yes Lack of Transportation: No Lack of Food: Never True Current Housing: I Have Housing Concerned About Future Housing: No Difficulty Paying Gas/Electric Bills: No Difficulty Paying for Meds: No Currently Unemployed: No Education: Decline to Answer Difficulty w/ Childcare or Family Care: No Occupation/Education: retired Gender identity (if verbalized by the patient): Male Spiritual care concerns: No Meds Home Medications and Allergies Home Medications Medication Instructions Recorded Confirmed Type amiodarone 100 mg tablet (Pacerone) 200 mg PO DAILY 08/08/23 03/13/24 History atorvastatin 10 mg tablet 10 mg PO DAILY 08/08/23 03/13/24 History diltiazem HCl 120 mg capsule,24 120 mg PO DAILY 08/08/23 03/13/24 History hr,extended release omeprazole 20 mg capsule,delayed 20 mg PO DAILY 01/19/24 03/13/24 History release rivaroxaban 20 mg tablet (Xarelto) 20 mg PO DAILY 01/19/24 03/13/24 History Allergies Allergy/AdvReac Type Severity Reaction Status Date / Time No Known Allergies Allergy Unverified 03/12/24 08:49 Vital Signs Vital Signs - 24 hr 03/12/24 23:52 03/13/24 00:40 03/13/24 02:07 Temperature 97.2 F L Pulse Rate 86 87 94 Respirat
[2024-03-13] MEDS: PHENOL/SOD PHENO SPRAY CHERRY (*BKC) 1 SPRAY MUCOUS MEM (09:07)
[2024-03-13] MEDS: PIPERACILLN/TAZ 3.375GM/NS50ML 3.375 GM/50 ML BAG IVPB ×3 (09:08→20:37)
[2024-03-13] MEDS: ENOXAPARIN 80 MG/0.8 ML SYRINGE 75 MG SUB-Q ×2 (09:08→20:37)
[2024-03-13 10:41] LABS: Appearance Urine Clear (Clear); Bilirubin Urine Negative (Negative); Blood Urine Negative (Negative); Color Urine Yellow (Yellow); Glucose Urine UA Negative (Negative); Ketones Urine Negative (Negative); Leukocyte Esterase Ur Negative LEU/UL (Negative); Nitrate Urine Negative (Negative); Protein Urine Negative (Negative)
[2024-03-13 10:53] LABS: Add Urine Microscopic? NO; Specific Grav Ur 1.034 (1.001-1.035)
[2024-03-13 11:35] LABS: Toxigenic C. Diff NEGATIVE (NEGATIVE)
--- NOTE | 2024-03-13 13:11 | PM.CNGS ---
Assessment and Plan Assessment and plan (1) Partial small bowel obstruction: Code(s): K56.600 - Partial intestinal obstruction, unspecified as to cause Status: Acute Assessment and Plan: CT showing early or partial small bowel obstruction, as well as possible enteritis. He does have a history of abdominal surgery that could cause intraabdominal adhesions, as well as previous small bowel obstructions that have resolved with conservative management. He is already clinically improving and has had two bowel movements today. No peritoneal signs on exam. No signs of having a high-grade small bowel obstruction. We would recommend to continue conservative treatment with NG tube decompression, bowel rest, IV fluids and analgesics as needed. Will continue to monitor with serial abdominal exams and imaging. (2) Chronic atrial fibrillation: Code(s): I48.20 - Chronic atrial fibrillation, unspecified Status: Acute Assessment and Plan: EKG showing sinus rhythm with heart rate in the 80's. Currently taking Xarelto for anticoagulation. (3) Chronic anticoagulation: Code(s): Z79.01 - longterm (current) use of anticoagulants Status: Acute Assessment and Plan: Hold Xarelto (4) Essential hypertension: Code(s): I10 - Essential (primary) hypertension Status: Acute (5) GERD (gastroesophageal reflux disease): Code(s): K21.9 - Gastro-esophageal reflux disease without esophagitis Status: Acute Plan I have discussed the patient's case and plan of care with Dr. Pimentel. Thank you for allowing us to see the patient in consultation and we will continue to follow along with you. History of Present Illness Consult details Consult date: 03/13/24 Reason for consult: other (Small bowel obstruction) Requesting physician: Tucker Cox MD Narrative: This is a 78-year-old man who we have been asked to see in surgical consultation for a small bowel obstruction. He has had a colon resection with colostomy for perforated diverticulitis in 1999, with reversal of his colostomy three months later. He also has a history of small bowel obstructions x2 in the past treated conservatively at [facility]. His last hospitalization was over a year ago. He reports eating meatloaf two days ago and noticing some abdominal bloating the following day. Yesterday, he developed generalized abdominal pain and distention. This felt similar to his previous bowel obstructions. He developed nausea and vomiting, and decided to present to the ER for evaluation. In the ED, vital signs were stable and he was afebrile. Labs showed WBC count 11,000, PT 23.4, INR 1.9, lactic acid 1.6. UA negative. CTA abdomen and pelvis showed findings suspicious for early or partial small bowel obstruction with possible associated small bowel enteritis, probable mild mesenteric panniculitis. He was admitted to the Hospitalist. NG tube placed. KUB shows NG tube side port just below diaphragm, recommending advancement. CDiff was ordered and negative. He is now seen on the medical floor. He has had two loose bowel movements this morning. He feels his abdominal pain and distention has improved significantly since being admitted. He developed a low-grade fever early this morning with tmax 100.5F. He reports having some abdominal soreness, but no pain. He reports having loose stools chronically after he started taking some [id number] medication for his bowels. He believes it may be Metamucil. He reports about a week ago, he did have 4-5 liquid stools in one day, but no persistent new diarrhea. He also has a history of atrial fibrillation and is taking Xarelto. He reports taking his last dose yesterday morning. Review of Systems Review of Systems: All systems reviewed & are unremarkable except as noted in HPI and below Constitutional: Constitutional: Reports no additional constitutional complaints, Denies chills, Denies fatigue and Denies fever(s) Ey
[2024-03-14] MEDS: PIPERACILLN/TAZ 3.375GM/NS50ML 3.375 GM/50 ML BAG IVPB ×2 (03:48→08:14)
[2024-03-14 05:31] LABS: Hematocrit 36.7 % (42.0-52.0); Hemoglobin 11.7 g/dL (14.0-18.0); Mean Corpuscular HGB Conc 31.9 g/dl (32-36); Mean Corpuscular Hemoglobin 31.9 pg (26-34); Mean Platelet Volume 9.4 fl (7.4-10.4); Platelet Count Result 199 k/mm3 (150-375); Red Blood Count 3.67 M/mm3 (4.6-6.20); Red Cell Distribution Width 12.3 % (11.5-14.5); White Blood Count 6.4 K/mm3 (4.5-10.0)
[2024-03-14] MEDS: LACTATED RINGERS 1,000 ML 125 ML IV CONT (05:40)
[2024-03-14 05:43] LABS: Anion Gap 6 mmol/L (4-12); Blood Urea Nitrogen 9 mg/dL (9-20); Calcium 8.6 mg/dL (8.4-10.2); Carbon Dioxide 26 mmol/L (22-30); Chloride 104 mmol/L (98-107); Estimated CRCL calculation 48 ml/min; Estimated Glomerular Filt Rate > 60; Glucose 78 mg/dL (65-110); Potassium 3.9 mmol/L (3.4-5.0); Sodium 136 mmol/L (137-145)
[2024-03-14 06:00] VITALS: BP 152/70; PULSE 80; RESP 16; TEMP 36.4; O2SAT 95
[2024-03-14] MEDS: ENOXAPARIN 80 MG/0.8 ML SYRINGE 75 MG SUB-Q (08:14)
--- NOTE | 2024-03-14 10:27 | PM.IMPN ---
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: Code(s): I48.0 - Paroxysmal atrial fibrillation; I38 - Endocarditis, valve unspecified Status: Chronic (3) Essential hypertension: Code(s): I10 - Essential (primary) hypertension Status: Acute (4) GERD (gastroesophageal reflux disease): Code(s): K21.9 - Gastro-esophageal reflux disease without esophagitis Status: Acute (5) SIRS (systemic inflammatory response syndrome): Code(s): R65.10 - Systemic inflammatory response syndrome (SIRS) of non-infectious origin without acute organ dysfunction Status: Acute (6) Sepsis: Code(s): A41.9 - Sepsis, unspecified organism Status: Acute Plan small-bowel obstruction Patient has history of partial colectomy due to diverticulitis 1999, came to ED with abdomen pain associated with nausea vomiting CT scan showed early stage history of partial small-bowel obstruction NG tube is placed, place patient on intermittent suction Keep patient NPO Optimize pain management Start fluid resuscitation Follow-up BMP and electrolyte, correct electrolyte abnormality accordingly Consult general surgeon for evaluation treatment SIRS VERSUS SEPSIS patient has a fever 100.5, leukocytosis 11,000, tachycardia tachypnea, sepsis versus SIRS CT scan suggest small-bowel enteritis patient is immunocompromised will empirically start Zosyn IV 03/14 follow-up blood culture, stool culture, chest x-ray, , urinalysis, unremarkable c diff negative, received fluid resuscitation changed to Augmentin p.o. Paroxysmal AFib Now patient has sinus rhythm Telemetry monitoring Hold oral medications of amiodarone, Xarelto, Cardizem Provide Lovenox 1 milligram/kilos q.12 hour during p.o. 03/14 resume home meds GERD Hold omeprazole 20 mg daily p.o. Start Protonix 40 mg daily IV hold rest of the home medications during p.o. Patient may stay more than 2 midnights based on patient condition and clinical studies Subjective Date/time seen: 03/14/24 10:27 Interval history: patient feels better today, NG tube is removed, patient tolerated cardiac diet, patient has diarrhea, watery stool, patient afebrile, blood pressure stable Exam Narrative: GENERAL: Pleasant, in no acute distress. Well-nourished. - EYES: EOMI. Anicteric. - HENT: Moist mucous membranes. - LUNGS: Clear to auscultation bilaterally, no wheezing, rhonchi, or rales. - CARDIOVASCULAR: Regular rate and rhythm. No murmur. No JVD. - ABDOMEN: Soft, diffused , prominent left lower quadrant tender and somewhat distended. No palpable masses. - EXTREMITIES: No edema. Peripheral pulses 2+. Non-tender. - NEUROLOGIC: No focal neurological deficits. CN II-XII grossly intact. - PSYCHIATRIC: Awake, Alert and oriented x 3. Appropriate mood and affect. - SKIN: No rashes or lesions. Warm. - LYMPH: No cervical lymphadenopathy. Objective Data Vital Signs Vital Signs: Vital Signs - 24 hr 03/13/24 14:00 03/13/24 22:00 03/13/24 20:00 Temperature 98.6 F 99.5 F Pulse Rate 73 72 Respiratory Rate 16 20 Blood Pressure 112/56 L 123/60 Pulse Oximetry 95 96 Oxygen Delivery Room Air 03/14/24 06:00 03/14/24 08:00 Temperature 97.5 F L Pulse Rate 80 Respiratory Rate 16 Blood Pressure 152/70 H Pulse Oximetry 95 Oxygen Delivery Room Air Intake/Output Intake/Output: Intake & Output 03/11/24 03/12/24 03/13/24 03/14/24 23:59 23:59 23:59 23:59 Intake Total 3989.6 1275 Output Total 500 1100 Balance 3489.6 175 Meds/Results Medications: Active Medications Generic Name Dose Route Start Last Admin Trade Name Freq PRN Reason Stop Dose Admin Enoxaparin Sodium 75 mg 03/13/24 09:00 03/14/24 08:14 Enoxaparin
--- NOTE | 2024-03-14 13:56 | PM.PNGS ---
Progress Note: A&P Assessment and Plan (1) Partial small bowel obstruction: Code(s): K56.600 - Partial intestinal obstruction, unspecified as to cause Status: Acute Assessment and Plan: Appears to have resolved by small-bowel series done today. Will discontinue nasogastric tube and start full liquid diet. 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 Subjective Subjective Date/Time Seen: 03/14/24 13:56 Patient reports: feels better, pain is less (No abdominal pain), bowel movement and afebrile Interval history: Abdominal pain is gone. Patient had small-bowel follow-through with water-soluble contrast. Transit time was 45 minutes. Although some small intestine was still dilated, it can take some time for the bowel to resume its normal diameter even after it has started functioning normally again. Review of Systems Review of Systems: All systems reviewed & are unremarkable except as noted in HPI and below (HPI) Exam Const: General: comfortable and no acute distress Orientation/consciousness: patient oriented x3 GI: Inspection: non-distended, scaphoid and no visible herniation GI Palp: Yes Soft to palpation, No Tenderness to palpation present (GI), No Guarding due to palpation present (GI) and No Rebound tenderness present Auscultation: normal bowel sounds Neuro: General: patient oriented x3 and no focal motor deficits Extrem: General: no calf tenderness and no edema Psych: Affect: normal affect Insight: Good insight present (Psych) Judgement: Good judgement present (Psych) Objective Data Vital Signs Vital Signs: Vital Signs - 24 hr 03/13/24 14:00 03/13/24 22:00 03/13/24 20:00 Temperature 37.0 C 37.5 C Pulse Rate 73 72 Respiratory Rate 16 20 Blood Pressure 112/56 L 123/60 Pulse Oximetry 95 96 Oxygen Delivery Room Air 03/14/24 06:00 03/14/24 08:00 Temperature 36.4 C L Pulse Rate 80 Respiratory Rate 16 Blood Pressure 152/70 H Pulse Oximetry 95 Oxygen Delivery Room Air Intake/Output Intake/Output: Intake & Output 03/11/24 03/12/24 03/13/24 03/14/24 23:59 23:59 23:59 23:59 Intake Total 3989.6 2256.7 Output Total 500 1900 Balance 3489.6 356.7 Meds/Results Medications: Active Medications Generic Name Dose Route Start Last Admin Trade Name Freq PRN Reason Stop Dose Admin Amoxicillin/Clavulanate Potassium 1 tablet 03/14/24 21:00 Amoxicillin/Clavulanate K 875-125 Mg Tab PO Q12HR LILO Enoxaparin Sodium 75 mg 03/13/24 09:00 03/14/24 08:14 Enoxaparin 80 Mg/0.8 Ml Syringe SUB-Q 75 mg Q12HR LILO Administration Hydromorphone HCl 0.5 mg 03/13/24 14:00 Hydromorphone Hcl Inj (*Crx) 1 Mg/Ml Syr IV PUSH Q2H PRN Pain Rated 7-10 Ondansetron HCl 4 mg 03/13/24 03:06 Ondansetron Inj 4 Mg/2 Ml Vial IV PUSH Q4H PRN Nausea Phenol 1 spray 03/13/24 08:30 03/13/24 09:07 Phenol/Sod Pheno Runge Fernando (*Bkc) MUCOUS MEM 1 spray PRN PRN Administration Sore Throat Radiology Results: ITS Impressions Abdomen/Pelvis CTA 03/13/24 05:49 Impression: Findings suspicious for early or partial small bowel obstruction, as detailed above. Possible associated small bowel enteritis. 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 Chest X-Ray 03/13/24 08:42 Impression: Clear lungs. NG tube in place. Abdomen X-Ray 03/14/24 05:56 Impression: NG tube in satisfactory position. Nonspecific bowel gas pattern currently. Small Bowel X-Ray 03/14/24 10:58 IMPRESSION: 1. Dilated jejunu
[2024-03-14 14:00] VITALS: BP 152/77; PULSE 81; RESP 16; TEMP 36.3; O2SAT 96
[2024-03-14] MEDS: AMOXICILLIN/CLAVULANATE K 875-125 MG TAB 1 TABLET PO (20:02)
[2024-03-14 21:45] VITALS: BP 157/69; PULSE 99; RESP 13; TEMP 37.3; O2SAT 94
[2024-03-15 05:45] VITALS: BP 141/64; PULSE 72; RESP 13; TEMP 37; O2SAT 96
[2024-03-15 06:43] LABS: Hematocrit 38.8 % (42.0-52.0); Hemoglobin 12.4 g/dL (14.0-18.0); Mean Corpuscular Hemoglobin 32.1 pg (26-34); Mean Corpuscular Volume 100.5 fl (80-100); Mean Platelet Volume 9.6 fl (7.4-10.4); Platelet Count Result 226 k/mm3 (150-375); Red Blood Count 3.86 M/mm3 (4.6-6.20); Red Cell Distribution Width 12.2 % (11.5-14.5); White Blood Count 6.6 K/mm3 (4.5-10.0)
[2024-03-15 06:56] LABS: Anion Gap 5 mmol/L (4-12); Blood Urea Nitrogen 9 mg/dL (9-20); Calcium 9.2 mg/dL (8.4-10.2); Carbon Dioxide 28 mmol/L (22-30); Chloride 104 mmol/L (98-107); Estimated CRCL calculation 53 ml/min; Estimated Glomerular Filt Rate > 60; Glucose 84 mg/dL (65-110); Potassium 3.7 mmol/L (3.4-5.0); Sodium 137 mmol/L (137-145)
[2024-03-15] MEDS: RIVAROXABAN 20 MG TABLET PO (09:56)
[2024-03-15] MEDS: PANTOPRAZOLE 40 MG TABLET PO (09:56)
[2024-03-15 09:57] VITALS: PULSE 72
[2024-03-15] MEDS: AMIODARONE HCL 200 MG TABLET PO (09:57)
[2024-03-15] MEDS: AMOXICILLIN/CLAVULANATE K 875-125 MG TAB 1 TABLET PO (09:57)
[2024-03-15] MEDS: dilTIAZem HCL CD 120 MG CAP.24HR PO (09:57)
[2024-03-15] MEDS: ATORVASTATIN 10 MG TABLET PO (09:57)
--- NOTE | 2024-03-15 13:46 | PM.DS ---
DS: Admitting Diagnosis Discharge Date March 15, 2024 Admitting Diagnosis Bowel obstruction DS: Discharge Diagnosis Discharge Diagnosis (1) Partial small bowel obstruction: Code(s): K56.600 - Partial intestinal obstruction, unspecified as to cause Status: Acute (2) SIRS (systemic inflammatory response syndrome): Code(s): R65.10 - Systemic inflammatory response syndrome (SIRS) of non-infectious origin without acute organ dysfunction Status: Acute (3) Sepsis: Code(s): A41.9 - Sepsis, unspecified organism Status: Acute (4) GERD (gastroesophageal reflux disease): Code(s): K21.9 - Gastro-esophageal reflux disease without esophagitis Status: Acute (5) Essential hypertension: Code(s): I10 - Essential (primary) hypertension Status: Acute DS: Summary Hospital Course Hospital Course: A 78-year-old male with a past medical history AFib on Xarelto, GERD, partial colectomy with colostomy status post reversal due to diverticulitis, history of SBO, essential hypertension, hyperlipidemia, JULIA presented with abdominal pain and distension. He was admitted on 03/13 and had NG tube placed. Subsequently was removed on 03/14 patient has tolerated a full regular diet since then. He had evidence of sepsis with leukocytosis, fever, most likely due to small bowel enteritis/small-bowel obstruction. Changed to Augmentin. The patient is feeling well and tolerating diet and therefore he will be discharged home in stable condition on 03/15/2024 with a continued dosing of Augmentin. He will resume his amiodarone Xarelto on Cardizem and has for his paroxysmal AFib the patient was in sinus rhythm and there were no complications. He was full code during his admission. Adverse effects, risks, benefits of medications discussed with the patient to which he understands and agrees to the plan he knows follow-up with primary care physician within 2 weeks as well. Time Spent with Patient Time attestation: Total time spent providing and/or coordinating discharge services: Exam Const: General: comfortable and no acute distress Eyes: Pupils: Equal, round and reactive pupils present Neck: Neck: supple Resp: Effort & Inspection: normal respiratory effort Auscultation: clear to auscultation bilaterally Cardio: Rate: regular rate Rhythm: regular rhythm GI: Inspection: non-distended GI Palp: Yes Soft to palpation and No Tenderness to palpation present (GI) Extrem: General: no edema DS: Data Data Completed and Pending Labs on day of discharge: Labs from last 24 hours 03/15/24 06:28 WBC 6.6 RBC 3.86 L Hgb 12.4 L Hct 38.8 L MCV 100.5 H MCH 32.1 MCHC 32.0 RDW 12.2 Plt Count 226 MPV 9.6 Sodium 137 Potassium 3.7 Chloride 104 Carbon Dioxide 28 Anion Gap 5 BUN 9 Creatinine 0.90 Estim Creat Clear Calc 53 Estimated GFR > 60 Glucose 84 Calcium 9.2 Preliminary micro results at discharge 03/13/24 08:45 Blood Culture - Preliminary Blood 03/13/24 08:32 Blood Culture - Preliminary Blood 03/13/24 02:06 Blood Culture - Preliminary Blood 03/13/24 02:06 Blood Culture - Preliminary Blood Discharge Plan Discharge Attending physician on discharge: Selene Read Consulting providers: Andre Pimentel Discharging Clinician: Selene Read Patient Disposition: Home, Self-Care Activity: may shower Diet: low fiber Patient Instructions: Antibiotic Form, Low Fiber Diet (GEN), Pain Management (DC), Bowel Obstruction (DC) Stand Alone Forms: General Discharge Information Follow-up/Referrals: Josep,MD Andrea [Primary Care Provider] - 2 Weeks Discharge Medications: New amoxicillin-pot clavulanate 1,000-62.5 mg tablet extended release 12 hr 1 tablet PO Q12H Qty: 14 0RF Continued amiodarone [Pacerone] 100 mg tablet 200 mg PO DAILY atorvastatin 10 mg tablet 10 mg PO DAILY diltiazem HCl 120 mg c
== END 2024-03-15 14:35 | disposition home or self-care (01) | DRG 389 ==
LOC: ANHED 03-13 03:06 → ANH3MEDSUR 03-13 03:41
PROVIDERS: Hospitalist; Surgery; Admitting Provider Internal Medicine; Emergency Provider Emergency Medicine; PCP Internal Medicine; Visit Provider General Practice
DX: K56.600 Partial intestinal obstruction, unspecified as to cause (principal); I48.20 Chronic atrial fibrillation, unspecified; R65.10 Systemic inflammatory response syndrome (SIRS) of non-infectious origin without acute organ dysfunction; K52.9 Noninfective gastroenteritis and colitis, unspecified; I10 Essential (primary) hypertension; K21.9 Gastro-esophageal reflux disease without esophagitis; E78.5 Hyperlipidemia, unspecified; M06.9 Rheumatoid arthritis, unspecified; G47.33 Obstructive sleep apnea (adult) (pediatric); Z20.822 Contact with and (suspected) exposure to COVID-19; Z96.692 Finger-joint replacement of left hand; Z96.652 Presence of left artificial knee joint; Z79.01 Long term (current) use of anticoagulants; Z98.1 Arthrodesis status
CPT/HCPCS: 36415; 71045; 74018; 74174; 74250; 80048; 80053; 81001; 81003; 83605; 83690; 83735; 84100; 85025; 85027; 85610; 87040; 87045; 87427; 87449; 87493; 87637; 93005; 96361; 96374; 96375; 99285; A9270; J1170; J1650; J2405; J2543; J7030; J7120; Q9967

== ENCOUNTER 2024-03-25 10:46 | Outpatient (CLI) | payer MEDICARE, OTHER, SELFPAY ==
--- NOTE | 2024-03-25 11:07 | ECG_ITS ---
SEE SCANNED COPY FOR CONFIRMED REPORT MTDD
[2024-03-25 11:08] LABS: Basophils Percent Auto 0.5 % (0.2-1.2); Eosinophils Absolute Auto 0.2 K/mm3 (0-0.3); Eosinophils Percent Auto 2.3 % (0-4.4); Hematocrit 39.8 % (42.0-52.0); Hemoglobin 12.9 g/dL (14.0-18.0); Immature Granulocyte Absolute 0.01 K/mm3 (0.00-0.031); Immature Granulocyte Percent A 0.2 % (0-0.5); Lymphocytes Absolute Auto 1.56 K/mm3 (0.9-3.2); Lymphocytes Percent Auto 23.5 % (18.3-44.2); Mean Corpuscular HGB Conc 32.4 g/dl (32-36); Mean Corpuscular Hemoglobin 31.8 pg (26-34); Mean Platelet Volume 9.1 fl (7.4-10.4); Monocytes Absolute Auto 0.4 K/mm3 (0.1-0.6); Monocytes Percent Auto 6.5 % (2.6-8.5); Neutrophils Absolute Auto 4.5 K/mm3 (1.3-6.7); Platelet Count Result 284 k/mm3 (150-375); Red Blood Count 4.06 M/mm3 (4.6-6.20); Red Cell Distribution Width 12.2 % (11.5-14.5); White Blood Count 6.6 K/mm3 (4.5-10.0)
[2024-03-25 11:19] LABS: Anion Gap 5 mmol/L (4-12); Blood Urea Nitrogen 6 mg/dL (9-20); Calcium 9.3 mg/dL (8.4-10.2); Carbon Dioxide 30 mmol/L (22-30); Chloride 103 mmol/L (98-107); Estimated Glomerular Filt Rate > 60; Glucose 109 mg/dL (65-110); Potassium 3.7 mmol/L (3.4-5.0); Sodium 138 mmol/L (137-145)
== END 2024-03-25 10:47 | disposition home or self-care (01) ==
LOC: ANHLAB 10:48
PROVIDERS: PCP Internal Medicine; Visit Provider Orthopaedic Surgery
DX: R53.83 Other fatigue (principal); M19.079 Primary osteoarthritis, unspecified ankle and foot; I48.20 Chronic atrial fibrillation, unspecified; Z79.01 Long term (current) use of anticoagulants
CPT/HCPCS: 36415; 80048; 85025; 93005

== ENCOUNTER 2024-05-15 02:12 | Day surgery (SDC) | payer MEDICARE, OTHER, SELFPAY ==
--- NOTE | 2024-04-21 14:05 | PC.NURSE ---
Report to the Outpatient Waiting Room, entrance under the green pavilion located off [facility], at time _0630 on date _05/01/24 . Planned Procedure Time: ___829 . Time changes happen often and if your time is changed the preop area will call you the afternoon before. - You and your visitor will be asked to self-screen and do not enter if you have any COVID symptoms. - A mask is optional within the hospital at this time. Patients may have clear liquids (water, carbonated beverages, clear teas, apple juice) until 3 hours prior to surgery( 5:30 AM) with a maximum of 20 ounces. - No food from midnight until time of surgery - Infants may have breast milk until 4 hours before surgery, infant formula 6 hours prior to surgery. - Children will be allowed to drink immediately following surgery. If applicable, please bring a bottle or sippy cup to assist with drinking. Juice, water, soda, and popsicles are readily available. For infants on formula, please bring formula the day of surgery. Pacifiers are allowed. Take the following medications with a SIP of water the morning of surgery: ___NONE DO NOT STOP ANY OF YOUR OTHER PRESCRIPTION MEDICATIONS PRIOR TO SURGERY ?EXCEPT THE FOLLOWING Medications to discontinue per physician PT STATES PER DR SMALLS HOLD XARELTO 5 DAYS PRE OP .LAST DOSE 04/25/24. HOLD ALL VITAMINS 3 DAYS PRE OP.LAST DOSE 04/27/24 Please no make-up, nail north korean, hairspray, perfume, deodorant, or body powder the day of surgery. No jewelry (including any body piercings) or valuables the day of surgery, leave them at home. Please take a shower or bath the night before, or the morning of, surgery with an antibacterial soap. Wear comfortable, loose fitting clothing. Children are encouraged to wear pajamas. - Jewelry must be removed prior to entering the operating room. Rings and piercings that are not removed may be cut off. - The hospital will not accept responsibility for valuables. - Please leave all valuables, including medications, at home the day of surgery. If you are going home after surgery, a licensed shuttle driver must drive you home. - NO public transportation without another adult if you receive anesthesia. - We recommend that an adult stay with you for 24 hours following discharge. - We also recommend that you do not drive, make important decision, drink alcoholic beverages, or take any drugs that were not prescribed by your health care provider for at least 24 hours after your discharge time. For Pediatric surgeries, we recommend two adults accompany the child home. Follow any additional instructions given to you from your surgeon. If you or anyone in your household have experienced Covid symptoms in the past week, please notify your surgeon or the nurse liaison at the phone number below for possible testing. Telephone instructions given to __PT AND CHITRA and asked if any additional questions and then verbalized understanding. Patient advised to call surgeon office or pre surgery nurse liaison [phone] if any additional questions.
[2024-04-21 14:14] VITALS: BMI 26.3
--- NOTE | 2024-04-30 12:28 | PM.IMHP ---
H&P: HPI History of Present Illness Date/Time: 04/30/24 12:28 Chief Complaint: Right ankle pain Narrative: 78-year-old gentleman with right ankle pain for the past 3 years. 20 years status post ankle arthrodesis. Now pain around the hindfoot. Unrelieved with cortisone injections, bracing and medication. Presents for operative treatment. Review of Systems Constitutional: Constitutional: Denies fever(s) Eyes: Eyes: Denies blurry vision ENT: Reports Normal hearing present Cardiovascular: Cardiovascular: Denies chest pain and Denies dyspnea Respiratory: Respiratory: Denies dyspnea and Denies wheezing Gastrointestinal: Gastrointestinal: Denies abdominal pain Genitourinary: Genitourinary: Denies urinary urgency Musculoskeletal: Musculoskeletal: Reports as per HPI and Denies numbness Integumentary/Breasts: Skin/Breast: Denies changing lesions and Denies sores Neurologic: Reports Normal hearing present, Denies behavioral changes, Denies confusion, Denies numbness and Denies convulsions Psychiatric: Psychiatric: Denies behavioral changes, Denies confusion and Denies hallucinations Endocrine: Endocrine: Denies heat intolerance Hematologic/Lymphatic: Hematologic/Lymphatic: Denies easy bleeding Allergic/Immunologic: Allergic/Immunologic: Denies wheezing PMFSH Past Medical History Medical History Chronic anticoagulation Chronic atrial fibrillation Essential hypertension GERD (gastroesophageal reflux disease) Hyperlipidemia Obstructive sleep apnea on CPAP Paroxysmal atrial fibrillation Rheumatoid arthritis Surgical History Surgical History Finger joint replacement of left hand 1st and 2nd digit 1st PIP History of cholecystectomy (~2020) History of partial colectomy (~1989) Due to perforated bowel with colostomy and then later colostomy takedown History of total left knee replacement Status post ankle arthrodesis Status post cataract extraction of both eyes with insertion of intraocular lens Family History Family History Unknown Hypertension Diabetes mellitus Cerebrovascular accident Lung cancer Social History Social History Social History: Patient lives at home with his of 60 years. They raised a daughter and a son. He is retired from [employer]. He is a lifelong nonsmoker and does not drink alcohol or use illicit substances. He is independent activities of daily living. Code status: Full code (however he states he would not want to be on ventilator long-term or received G-tube feeds.) Healthcare power of ip attorney: Gage Colon (son) Smoking status: Never smoker Second hand tobacco smoke exposure: No Alcohol intake: never Substance use: never Substance use type: does not use Do You Feel Safe in your Home?: Yes Lack of Transportation: No Lack of Food: Never True Current Housing: I Have Housing Concerned About Future Housing: No Difficulty Paying Gas/Electric Bills: No Difficulty Paying for Meds: No Currently Unemployed: No Education: Decline to Answer Difficulty w/ Childcare or Family Care: No Living arrangements: with family Occupation/Education: retired Gender identity (if verbalized by the patient): Male Spiritual care concerns: No Meds Home Medications and Allergies Home Medications Medication Instructions Recorded Confirmed Type amiodarone 100 mg tablet (Pacerone) 200 mg PO HS 08/08/23 04/21/24 History atorvastatin 10 mg tablet 10 mg PO DAILY 08/08/23 04/21/24 History diltiazem HCl 120 mg capsule,24 120 mg PO HS 08/08/23 04/21/24 History hr,extended release omeprazole 20 mg capsule,delayed 20 mg PO DAILY 01/19/24 04/21/24 History release rivaroxaban 20 mg tablet (Xarelto) 20 mg PO
--- NOTE | 2024-05-09 13:46 | PC.NURSE ---
Report to the Outpatient Waiting Room, entrance under the green pavilion located off [facility], at time __7:00 AM on date _05/15/24 . Planned Procedure Time: __9:00 AM . Time changes happen often and if your time is changed the preop area will call you the afternoon before. - You and your visitor will be asked to self-screen and do not enter if you have any COVID symptoms. - A mask is optional within the hospital at this time. Patients may have clear liquids (water, carbonated beverages, clear teas, apple juice) until 3 hours prior to surgery( 6:00 AM) with a maximum of 20 ounces. - No food from midnight until time of surgery - Infants may have breast milk until 4 hours before surgery, infant formula 6 hours prior to surgery. - Children will be allowed to drink immediately following surgery. If applicable, please bring a bottle or sippy cup to assist with drinking. Juice, water, soda, and popsicles are readily available. For infants on formula, please bring formula the day of surgery. Pacifiers are allowed. Take the following medications with a SIP of water the morning of surgery: ___NONE DO NOT STOP ANY OF YOUR OTHER PRESCRIPTION MEDICATIONS PRIOR TO SURGERY ?EXCEPT THE FOLLOWING Medications to discontinue per physician ___HOLD ALL VITAMINS AND SUPPLEMENTS 3 DAYS PRE OP.LAST DOSE 05/11/24.PT STATES HOLD XARELTO PER DR SMALLS.LAST DOSE 05/08/24 Please no make-up, nail guyanese, hairspray, perfume, deodorant, or body powder the day of surgery. No jewelry (including any body piercings) or valuables the day of surgery, leave them at home. Please take a shower or bath the night before, or the morning of, surgery with an antibacterial soap. Wear comfortable, loose fitting clothing. Children are encouraged to wear pajamas. - Jewelry must be removed prior to entering the operating room. Rings and piercings that are not removed may be cut off. - The hospital will not accept responsibility for valuables. - Please leave all valuables, including medications, at home the day of surgery. If you are going home after surgery, a licensed bus driver supervisor must drive you home. - NO public transportation without another adult if you receive anesthesia. - We recommend that an adult stay with you for 24 hours following discharge. - We also recommend that you do not drive, make important decision, drink alcoholic beverages, or take any drugs that were not prescribed by your health care provider for at least 24 hours after your discharge time. Follow any additional instructions given to you from your surgeon. If you or anyone in your household have experienced Covid symptoms in the past week, please notify your surgeon or the nurse liaison at the phone number below for possible testing. Telephone instructions given to ___PATIENT and asked if any additional questions and then verbalized understanding. Patient advised to call surgeon office or pre surgery nurse liaison [phone] if any additional questions.
--- NOTE | 2024-05-09 14:01 | PC.NURSE ---
PT STATES HAD STRESS TEST 04/28/24 AND HEART CATH 04/30/24. CLEARED FOR SURGERY PER DR SMALLS. NO OTHER CHANGE IN HEALTH HX
--- NOTE | 2024-05-14 15:35 | WPDANESEPPF ---
Anes - Initial Pre Proc Eval Procedure: Operation Date: 05/15/24 09:00 Proposed Procedures p Right Subtalar Arthrodesis, - Nadeem Reyna MD s Possible Iliac Crest Bone Graft - Nadeem Reyna MD Date/Time: 05/14/24 15:35 Surgeon: Nadeem Reyna MD Pre Op Diagnosis: right subtalar arthritis, pain Patient Data Age: 78 Gender: M Height: 1.68 m Weight: 73.95 kg Allergies Allergy/AdvReac Type Severity Reaction Status Date / Time No Known Allergies Allergy Unverified 05/15/24 07:22 Home Medications Medication Instructions Recorded Confirmed Type amiodarone 100 mg tablet (Pacerone) 200 mg PO HS 08/08/23 05/15/24 History atorvastatin 10 mg tablet 10 mg PO DAILY 08/08/23 05/15/24 History diltiazem HCl 120 mg capsule,24 120 mg PO HS 08/08/23 05/15/24 History hr,extended release omeprazole 20 mg capsule,delayed 20 mg PO DAILY 01/19/24 05/15/24 History release rivaroxaban 20 mg tablet (Xarelto) 20 mg PO DAILY 01/19/24 05/15/24 History multivitamin 1 tablet PO DAILY 04/21/24 05/15/24 History tramadol 50 mg tablet 50 mg PO PRN PRN Pain 04/21/24 05/15/24 History Patient hx anesthesia problems: none Family hx anesthesia problems: none Results Review: All pre-operative results and documents have been reviewed as part of the pre-operative evaluation. [facility] Past Medical History Medical History Chronic anticoagulation Chronic atrial fibrillation Essential hypertension GERD (gastroesophageal reflux disease) Hyperlipidemia Obstructive sleep apnea on CPAP Paroxysmal atrial fibrillation Rheumatoid arthritis Surgical History Surgical History Finger joint replacement of left hand 1st and 2nd digit 1st PIP History of cholecystectomy (~2020) History of partial colectomy (~1989) Due to perforated bowel with colostomy and then later colostomy takedown History of total left knee replacement Status post ankle arthrodesis Status post cataract extraction of both eyes with insertion of intraocular lens Family History Family History Unknown Hypertension Diabetes mellitus Cerebrovascular accident Lung cancer Social History Social History Social History: Patient lives at home with his of 60 years. They raised a daughter and a son. He is retired from [employer]. He is a lifelong nonsmoker and does not drink alcohol or use illicit substances. He is independent activities of daily living. Code status: Full code (however he states he would not want to be on ventilator long-term or received G-tube feeds.) Healthcare power of county attorney: Gage Colon (son) Smoking status: Never smoker Second hand tobacco smoke exposure: No Alcohol intake: never Substance use: never Substance use type: does not use Do You Feel Safe in your Home?: Yes Lack of Transportation: No Lack of Food: Never True Current Housing: I Have Housing Concerned About Future Housing: No Difficulty Paying Gas/Electric Bills: No Difficulty Paying for Meds: No Currently Unemployed: No Education: Decline to Answer Difficulty w/ Childcare or Family Care: No Living arrangements: with family Occupation/Education: retired Gender identity (if verbalized by the patient): Male Spiritual care concerns: No Anes - Eval Final PreProcedure Day of Procedure 05/14/24 15:35 Patient weight: overweight Heart: regular rate and rhythm Lungs: clear to auscultation Airway: Mallampati scale class III Neurological: alert and oriented Last oral intake: >/= 8 hours ASA classification: III Emergent: no Anesthetic plan: proceed Anesthesia type and monitoring: general LMA and standard monitoring Results Review: All pre-operative results and documents have been reviewe
[2024-05-15] VITALS (9 sets, daily range): BP systolic 136–167; BP diastolic 54–71; PULSE 56–65; RESP 12–18; TEMP 36.3–36.7; O2SAT 96–100
--- NOTE | ~2024-05-15 | XR_ITS ---
EXAMINATION: XR surgery orthopedic DATE: 05/15/2024 11:16 INDICATION: Right subtalar arthrodesis TECHNIQUE: 3 fluoroscopic images of the right ankle and hindfoot were obtained during procedure perfo rmed by Dr. Reyna. Radiologist was not present for the imaging or procedure. The amount of fluorosc opy time used during this procedure was 0.4 minutes. COMPARISON: 08/08/2023 FINDINGS: Subtalar arthrodesis spanned by 3 cannulated screws which extend into the talus and one across the pr eviously diffuse ankle joint into the distal tibia. Smooth corticated margins to a prior distal fibul ar osteotomy. Alignment of the arthrodesis and visualized mid and hindfoot appears near-anatomic. No acute fractures identified. IMPRESSION: 1. Fluoroscopy utilized during right subtalar arthrodesis which appears in near-anatomic alignment, n egative for postoperative purposes. Reviewed, dictated and finalized at location A. IMPRESSION: 1. Fluoroscopy utilized during right subtalar arthrodesis which appears in near -anatomic alignment, negative for postoperative purposes.
--- NOTE | 2024-05-15 06:57 | WPDHPUPDATE1 ---
History and Physical Update Update Date/Time: 05/15/24 06:57 History and Physical has been reviewed, including an updated exam of the patient. There are NO changes in the patient's condition. Risks, benefits, and alternatives have been discussed and questions answered. Patient agrees to proceed with procedure.
[2024-05-15] MEDS: ACETAMINOPHEN 500 MG TABLET 1000 MG PO (07:16)
[2024-05-15] MEDS: KETOROLAC 15 MG/ML VIAL (*BKC) IV PUSH (07:16)
[2024-05-15] MEDS: LACTATED RINGERS 1,000 ML 30 ML IV CONT ×2 (07:16→11:33)
[2024-05-15 08:59] LABS: Prothrombin Time 13.7 Seconds (11.1-14.7)
--- NOTE | 2024-05-15 09:13 | WPDANESPNB ---
Anes - Peripheral Nerve Block Date/Time: 05/15/24 09:13 I have discussed with the patient/family/POA the placement of a peripheral nerve block for post-operative pain management, including associated risks, benefits, complications, and side effects. Alternative methods of post-operative analgesia were detailed. Questions were solicited and answers provided to the satisfaction of the patient/family/POA. Time-Out: A pre-procedural Time-Out was completed immediately before starting the procedure and confirmed: Patient Identification, Site, Procedure, Patient Position and the Availability of Requisite Equipment. Clinical Indications: Acute post-operative pain management requested by the operative surgeon. Nerve Block Insertion Note Anes-nerve block: posterior fossa sciatic right Patient position: supine (for adductor canal) and other (right lateral for popliteal) Skin prep: chlorhexidine Needle: 22 gauge, stimulating, insulated echogenic needle. Needle length: 80 mm Technique: nerve stimulation lost at (mA) (for popliteal lost at 0.2) and ultrasound Injectate: bupivacaine 0.5% with epi 5 mcg/ml (30 ml no epi) Observations: tolerated well Complications: none Procedure start time:: 904 Procedure end time:: 908
[2024-05-15] MEDS: ceFAZolin 2 GM/D5W 50 ML 2 GM/50 ML BAG IVPB (09:22)
--- NOTE | 2024-05-15 11:51 | P.OP_ITS ---
Procedure Note - Detailed Date of Procedure 05/15/24 Pre-op Diagnosis right subtalar arthritis, pain Post-op Diagnosis Same Procedure Performed Right ankle subtalar arthrodesis with allograft. 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 Failed treatment with bracing, cortisone injections and medication. Presents now for operative treatment. Description of Procedure Patient identified in the preoperative holding. Informed consent given. Operative extremity marked. Patient received intravenous antibiotics. Patient brought to the operating room where underwent general anesthetic by anesthesia team. Positioned supine on operating room table. Time-out performed confirming the patient, site of the surgery and the plan. A bump placed under the right hip. Right lower extremity then prepped draped usual sterile surgical fashion using a ChloraPrep skin solution. Foot and ankle exsanguinated and a thigh tourniquet inflated to 250 mmHg. Oblique incision made from the tip of the fibula to the base of the 4th metatarsal with a 15 blade knife. Hemostasis controlled electrocautery. Capsulotomy was performed over the sinus tarsi with a 15 blade knife. Joints were then prepared using osteotomes, curettes and rongeur to remove the cartilage and subchondral bone surface as well as feather the arthrodesis site. The subtalar joint was then reduced and pinned and checked with image intensification. Fixation was achieved with 7.0 mm cannulated screws placed percutaneously from the heel. Good reduction and compression were noted. Arthrocell allograft bone matrix prepared on the back table and applied to the graft site prior to fixation. the space in the sinus tarsi area was grafted with iliac crest allograft which was opened on the back table, shaped and impacted into the opening. Wound thoroughly irrigated With saline solution and fascia repaired with 0 Vicryl interrupted suture. Subcutaneous tissue repaired with 2 Vicryl suture subcutaneous tissue repaired with 3 0 Monocryl interrupted suture and skin repaired with harjit. Stab incisions closed with 3 Monocryl and harjit. Sterile gauze dressing applied. Well-padded short-leg Splint applied. The patient was then woken from anesthesia, extubated and taken to the recovery room in stable condition. All sponge, needle, instrument counts were correct at the end of the case. Implants Arthrex 7.0 mm cannulated screw x3 Estimated Blood Loss 10 Tourniquet Time Total Tourniquet Time: 70 Drains No Packing No Pathology None sent Complications None Condition Stable Disposition PACU [facility] Billing Surgery - Charge Forward: Surgery Billing ([id number])
[2024-05-15] MEDS: PROPARACAINE HCL 0.5% 15 ML OPHTH SOLN 1 DROP EACH EYE (12:17)
[2024-05-15] MEDS: DICLOFENAC SODIUM 0.1% OPHTH SOLN 2.5 ML BOTTLE 1 DROP EACH EYE (12:24)
== END 2024-05-15 13:53 | disposition home or self-care (01) ==
PROVIDERS: Anesthesiology; PCP Internal Medicine; Visit Provider Orthopaedic Surgery
PROC: (CPT 28750; principal; 2024-05-15 09:00)
PROC: (CPT 28725; 2024-05-15 09:00)
DX: M19.071 Primary osteoarthritis, right ankle and foot (principal); G89.18 Other acute postprocedural pain; I48.20 Chronic atrial fibrillation, unspecified; I10 Essential (primary) hypertension; K21.9 Gastro-esophageal reflux disease without esophagitis; E78.5 Hyperlipidemia, unspecified; G47.33 Obstructive sleep apnea (adult) (pediatric); M06.9 Rheumatoid arthritis, unspecified; Z79.01 Long term (current) use of anticoagulants; Z90.49 Acquired absence of other specified parts of digestive tract
CPT/HCPCS: 28725; 64445; 36415; 85610; 99199; A9270; C1713; J0690; J1644; J1885; J2405; J2704; J3010; J7120

== ENCOUNTER 2024-09-09 09:00 | Emergency (ER) | payer MEDICARE, OTHER, SELFPAY ==
[2024-09-09] VITALS (8 sets, daily range): BP systolic 141–156; BP diastolic 67–73; PULSE 60–71; RESP 14–16; TEMP 36.7–36.8; O2SAT 97–100
--- NOTE | ~2024-09-09 | XR_ITS ---
EXAMINATION: XR chest 2V DATE: 09/09/2024 09:25 INDICATION: Chest pain. TECHNIQUE: Frontal and lateral views of the chest were obtained. COMPARISON: Chest single view 03/13/2024, chest CT 01/19/2024 FINDINGS: There is no pneumonia, pleural effusion, or pneumothorax. The heart size is normal. The bra chiocephalic vessels are tortuous. There is mild chronic anterior wedging of T11 and T12 vertebral shayla dies. IMPRESSION: 1. No acute cardiopulmonary disease. Reviewed, dictated and finalized at location A. UNT MANAGER FOREST SERVICE
--- NOTE | 2024-09-09 09:01 | ECG_ITS ---
Test Date: 2024-09-09 09:11:24 Measurements Intervals [place] Rate: 71 P: -14 MN: 142 QRS: -18 QRSD: 109 T: 67 QT: 328 QTc: 356 Interpretive Statements SINUS RHYTHM LEFT VENTRICULAR HYPERTROPHY AND ST-T CHANGE BASELINE ARTIFACT- I, II, AVR, AVL, V4 BORDERLINE ECG No previous ECG available for comparison Electronically Signed On 09-09-2024 09:14:34 SCREW SUPERVISOR by Krystian Molina D.O.
--- NOTE | 2024-09-09 09:18 | ED.CHESTPAIN ---
HPI - Chest Pain General Chief Complaint: Chest Pain Stated Complaint: chest pain Time Seen by Provider: 09/09/24 09:07 Source: patient Mode of arrival: ambulatory History of Present Illness HPI narrative: Patient is a 78-year-old male, with PMH of AFIB on Xarelto/Amiodarone, HTN, HLD, who presents to the ED with c/o CP. Patient reports having pain throughout his L sided chest, L lateral chest, and under his L axillary region, for the past 3 or so days. States pain has been fairly constant. It is worse with movement of his LUE. Denies any recent strenuous activity or heavy lifting. Tried taking Tylenol w/o significant change in pain. Denies SOB or pleuritic pain. Reports minimal cough over past couple days. Denies fevers, lower extremity BLE pain or swelling. Patient reports he had his R ankle fused around [address] Reyna. He has been doing well since the surgery. He notes he had an abnormal stress test prior to the surgery but underwent cardiac catheterization as pre-op work-up, which he reports was unremarkable. Sees Dr. Veloz with Cardiology. Related Data Home Medications Medication Instructions Recorded Confirmed amiodarone 100 mg tablet (Pacerone) 200 mg PO HS 08/08/23 08/27/24 atorvastatin 10 mg tablet 10 mg PO DAILY 08/08/23 08/27/24 diltiazem HCl 120 mg capsule,24 120 mg PO HS 08/08/23 08/27/24 hr,extended release omeprazole 20 mg capsule,delayed 20 mg PO DAILY 01/19/24 08/27/24 release rivaroxaban 20 mg tablet (Xarelto) 20 mg PO DAILY 01/19/24 08/27/24 multivitamin 1 tablet PO DAILY 04/21/24 08/27/24 tramadol 50 mg tablet 50 mg PO PRN PRN Pain 04/21/24 08/27/24 Allergies Allergy/AdvReac Type Severity Reaction Status Date / Time No Known Allergies Allergy Verified 09/09/24 09:12 Review of Systems Review of Systems: All systems reviewed & are unremarkable except as noted in HPI. All systems reviewed & are unremarkable except as noted in HPI and below PMFSH Past Medical History Medical History Chronic anticoagulation Chronic atrial fibrillation Encounter for postoperative care Essential hypertension GERD (gastroesophageal reflux disease) Hyperlipidemia Obstructive sleep apnea on CPAP Paroxysmal atrial fibrillation Rheumatoid arthritis Surgical History Surgical History Finger joint replacement of left hand 1st and 2nd digit 1st PIP History of cholecystectomy (~2020) History of partial colectomy (~1989) Due to perforated bowel with colostomy and then later colostomy takedown History of total left knee replacement Status post ankle arthrodesis Status post cataract extraction of both eyes with insertion of intraocular lens Family History Family History Unknown Hypertension Diabetes mellitus Cerebrovascular accident Lung cancer Social History Social History Social History: Patient lives at home with his of 60 years. They raised a daughter and a son. He is retired from [employer] He is a lifelong nonsmoker and does not drink alcohol or use illicit substances. He is independent activities of daily living. Code status: Full code (however he states he would not want to be on ventilator long-term or received G-tube feeds.) Healthcare power of staff attorney: Gage Colon (son) Smoking status: Never smoker Second hand tobacco smoke exposure: No Alcohol intake: never Substance use: never Substance use type: does not use Do You Feel Safe in your Home?: Yes Lack of Transportation: No Lack of Food: Never True Current Housing: I Have Housing Concerned About Future Housing: No Difficulty Paying Gas/Electric Bills: No Difficulty Paying for Meds: No Currently Unemployed: No Education: Decline to Answer Difficulty w/ Childcare or Family Care: No Living arrangements: with family Occupation/Education: retired Gender identity (if verbalized by the patient): Male Spiritual care concerns: No Exam Narrative: GENERAL: Elderly but well appearing, well-nourished, non-toxic, in no acute distress. HEAD: Normocephalic, atraumatic. RESPIRATORY: Airway patent, respirations nonlabored. Clear to auscultation bilaterally, no rales, rhonchi, wheezing. CARDIOVASCULAR: Regular rate and rhythm without murmurs, rubs, or gallops. MUSCULOSKELETAL: Moves all extremities. No gross deformities. Mild TTP throughout L anterior/lateral chest wall into midline axillary region. No palpable bony deformities. Reproducible discomfort report with abduction/flexion of LUE. SKIN: Warm, dry, normal color. NEURO: A&O X3. Speech clear. Cranial nerves II-XII grossly intact. No ataxic movements. PSYCHIATRIC: Appropriate mood and affect. Normal interaction. Course Vital Signs Vital signs: Vital Signs Temperature 98.2 F 09/09/24 09:06 Pulse Rate 71 09/09/24 09:06 Respiratory Rate 15 09/09/24 09:06 Blood Pressure 154/73 H 09/09/24 09:06 Pulse Oximetry 99 09/09/24 09:06 Oxygen Delivery Room Air 09/09/24 09:06 Temperature 98.0 F 09/09/24 09:52 Pulse Rate 60 09/09/24 12:51 Respiratory Rate 16 09/09/24 12:51 Blood Pressure 156/72 H 09/09/24 12:51 Pulse Oximetry 100 09/09/24 12:51 Oxygen Delivery Room Air 09/09/24 11:10 MDM - Chest Pain MDM Narrative Medical decision making narrative: Patient presented to ED with several day history of left-sided chest wall pain. Worse with movement of left upper extremity. No recent reported strenuous activity. Vital signs are stable upon arrival. Patient is in no acute distress. He does have reproducible chest wall tenderness on exam. EKG is without concerning ischemic changes, does show LVH. Baseline troponin is undetectable. BNP WNL. Chest x-ray is clear. Remainder of basic laboratory studies are unremarkable. Patient is on Xarelto and is compliant with this. I have low suspicion for PE. He denies any shortness of breath, pleuritic pain, no tachycardia or hypoxia is noted today. Patient does have a HEART score =4, however 3 hr trop also undetectable. I have low suspicion for ACS at this time. Also reassuring is the fact patient had a recent cardiac cath which did not show any clinically significant stenosis. Additionally, he is feeling much better after tylenol and flexeril in the ED. Pain is more consistent with musculoskeletal etiology. Feel he is safe for discharge with close outpatient follow-up. Recommended continued f/u with grinding machine operator and pcp. Given strict return precautions. He is in agreement with this plan and feels comfortable going home. Discharged in stable condition. Medical Records Data Attestation: I reviewed the patient's medical records. Lab Data Attestation: I reviewed the patient's lab results. 09/09/24 09:18 09/09/24 09:18 Labs: Lab Results 09/09/24 09/09/24 Range/Units 09:18 11:55 WBC 5.4 (4.5-10.0) K/mm3 RBC 4.41 L (4.6-6.20) M/mm3 Hgb 13.9 L (14.0-18.0) g/dL Hct 42.6 (42.0-52.0) % MCV 96.6 (80-100) fl MCH 31.5 (26-34) pg MCHC 32.6 (32-36) g/dl RDW 12.7 (11.5-14.5) % Plt Count 265 (150-375) k/mm3 MPV 9.4 (7.4-10.4) fl Immature Gran % (Auto) 0.2 (0-0.5) % Neut % (Auto) 64.0 (45.5-73.1) % Lymph % (Auto) 25.8 (18.3-44.2) % [place] % (Auto) 7.2 (2.6-8.5) % Eos % (Auto) 2.2 (0-4.4) % Baso % (Auto) 0.6 (0.2-1.2) % Lymph # (Auto) 1.39 (0.9-3.2) K/mm3 [place] # (Auto) 0.4 (0.1-0.6) K/mm3 Eos # (Auto) 0.1 (0-0.3) K/mm3 Baso # (Auto) 0.0 (0.0-0.1) K/mm3 Abs Immat Gran (auto) 0.01 (0.00-0.031) K/mm3 Absolute Neuts (auto) 3.4 (1.3-6.7) K/mm3 Absolute Nucleated RBC 0.000 (0.0-0.012) K/mm3 Nucleated RBC % 0.0 (0.0-0.2) % PT 25.8 H (11.1-14.7) Seconds INR 2.3 APTT 37.8 H (22.3-36.8) Seconds Sodium 134 L (137-145) mmol/L Potassium 3.9 (3.4-5.0) mmol/L Chloride 99 (98-107) mmol/L Carbon Dioxide 26 (22-30) mmol/L Anion Gap 9 (4-12) mmol/L BUN 11 D (9-20) mg/dL Creatinine 1.00 (0.7-1.3) mg/dL Estim Creat Clear Calc 48 ml/min Estimated GFR > 60 (59 - ) Glucose 124 H (65-110) mg/dL Calcium 9.4 (8.4-10.2) mg/dL Total Bilirubin 0.9 (0.2-1.3) mg/dL AST 34 (17-59) U/L ALT 18 (6-50) U/L Alkaline Phosphatase 80 (38-126) U/L Troponin I < 0.012 < 0.012 (0.000-0.034) ng/mL NT-Pro-B Natriuret Pep 101 H (19.9-100) pg/mL Total Protein 8.0 (6.3-8.2) g/dL Albumin 4.5 (3.5-5.1) g/dL Lipase 104 (23-300) U/L Imaging Data Attestation: I personally reviewed and interpreted this imaging study as follows: Radiologist's impression: ITS Impressions Chest X-Ray 09/09/24 09:26 IMPRESSION: 1. No acute cardiopulmonary disease. ECG Data EKG #1: Attestation: I personally reviewed and interpreted this ECG as follows: ECG completion date: 09/09/24 ECG completion time: 09:11 EKG Interpretation: normal rate (71), sinus rhythm, non-specific ST changes and other (LVH) Discharge Plan Discharge Clinical Impression: Left-sided chest wall pain Patient Disposition: Home, Self-Care Condition: Stable Instructions: Antibiotic Form, Angina (ED), Chest Wall Pain (ED) Additional Instructions: Your workup here was reassuring against a cardiac cause of your chest pain. Continue home medications. Continue Tylenol as needed for pain. You may use lidocaine patches to area pain. Take muscle relaxers as needed and prescribed. Recommend taking these at night as they may cause sedation. Do not drive, operate heavy machinery, drink alcohol while on muscle relaxers as this may cause further sedation. Follow-up with your primary care doctor and grinding machine operator for further evaluation. Call offices to make appointments for follow-up. Return to the ED if you experience worsening or severe pain, difficulty breathing or feeling short of breath, unable to keep down food or drink, pain or swelling in legs, persistent fevers, or any other symptoms of concern. Prescriptions: New cyclobenzaprine 5 mg tablet 5 mg PO TID PRN (Reason: muscle spasm) Qty: 15 0RF lidocaine 5 % adhesive patch,medicated 1 patch topical DAILY Qty: 15 0RF Rx Instructions: leave on most painful area for up to 12 hrs No Action amiodarone [Pacerone] 100 mg tablet 200 mg PO HS atorvastatin 10 mg tablet 10 mg PO DAILY diltiazem HCl 120 mg capsule,extended release 24 hr 120 mg PO HS omeprazole 20 mg capsule,delayed release(DR/EC) 20 mg PO DAILY Xarelto 20 mg Tablet 20 mg PO DAILY multivitamin Tablet 1 tablet PO DAILY tramadol 50 mg tablet 50 mg PO PRN PRN (Reason: Pain) Hold Instructions: Resume on 06/15/24. While taking hydrocodone hydrocodone-acetaminophen 5-325 mg tablet 1 tablet PO Q6H PRN (Reason: pain) Qty: 20 0RF polyethylene glycol 3350 17 gram powder in packet 17 g PO DAILY PRN (Reason: constipation) Qty: 14 1RF sennosides-docusate sodium [Senna with Docusate Sodium] 8.6-50 mg tablet 1 tab-cap PO BID PRN (Reason: constipation) Qty: 20 1RF Follow-up/Referrals: Josep,MD Andrea [Primary Care Provider] - Time of Disposition: 12:17 Quality HEART score for chest pain patients History: slightly suspicious ECG: normal Age: > or = to 65 years Risk factors: > or = to 3 risk factors of atherosclerotic disease Troponin: < or = to 1x normal limit Heart score: 4
[2024-09-09 09:32] LABS: Basophils Percent Auto 0.6 % (0.2-1.2); Eosinophils Absolute Auto 0.1 K/mm3 (0-0.3); Eosinophils Percent Auto 2.2 % (0-4.4); Hematocrit 42.6 % (42.0-52.0); Hemoglobin 13.9 g/dL (14.0-18.0); Immature Granulocyte Absolute 0.01 K/mm3 (0.00-0.031); Immature Granulocyte Percent A 0.2 % (0-0.5); Lymphocytes Absolute Auto 1.39 K/mm3 (0.9-3.2); Lymphocytes Percent Auto 25.8 % (18.3-44.2); Mean Corpuscular HGB Conc 32.6 g/dl (32-36); Mean Corpuscular Hemoglobin 31.5 pg (26-34); Mean Corpuscular Volume 96.6 fl (80-100); Mean Platelet Volume 9.4 fl (7.4-10.4); Monocytes Absolute Auto 0.4 K/mm3 (0.1-0.6); Monocytes Percent Auto 7.2 % (2.6-8.5); Neutrophils Absolute Auto 3.4 K/mm3 (1.3-6.7); Platelet Count Result 265 k/mm3 (150-375); Red Blood Count 4.41 M/mm3 (4.6-6.20); Red Cell Distribution Width 12.7 % (11.5-14.5); White Blood Count 5.4 K/mm3 (4.5-10.0)
[2024-09-09 09:34] LABS: INR 2.3; Prothrombin Time 25.8 Seconds (11.1-14.7)
[2024-09-09 09:35] LABS: Partial Thromboplastin Time 37.8 Seconds (22.3-36.8)
[2024-09-09 09:38] LABS: Alanine Aminotransferase 18 U/L (6-50); Albumin Level 4.5 g/dL (3.5-5.1); Alkaline Phosphatase 80 U/L (38-126); Anion Gap 9 mmol/L (4-12); Aspartate Amino Transferase 34 U/L (17-59); Bilirubin,Total 0.9 mg/dL (0.2-1.3); Blood Urea Nitrogen 11 mg/dL (9-20); Calcium 9.4 mg/dL (8.4-10.2); Carbon Dioxide 26 mmol/L (22-30); Chloride 99 mmol/L (98-107); Estimated CRCL calculation 48 ml/min; Estimated Glomerular Filt Rate > 60; Glucose 124 mg/dL (65-110); Lipase 104 U/L (23-300); Potassium 3.9 mmol/L (3.4-5.0); Sodium 134 mmol/L (137-145)
[2024-09-09] MEDS: ASPIRIN 81 MG CHEWABLE TABLET 324 MG PO (09:41)
[2024-09-09] MEDS: ACETAMINOPHEN 500 MG TABLET 1000 MG PO (09:47)
[2024-09-09 09:49] LABS: Troponin I < 0.012 ng/mL (0.000-0.034)
[2024-09-09] MEDS: CYCLOBENZAPRINE HCL 5 MG TABLET PO (09:50)
[2024-09-09 10:29] LABS: NT Pro B Type Natriuretic Pept 101 pg/mL (19.9-100)
--- NOTE | 2024-09-09 11:54 | ECG_ITS ---
Test Date: 2024-09-09 12:00:31 Measurements Intervals [place] Rate: 58 P: 34 [place]: 175 QRS: -21 QRSD: 106 T: 1 QT: 461 QTc: 454 Interpretive Statements SINUS BRADYCARDIA LEFT VENTRICULAR HYPERTROPHY AND ST-T CHANGE MINIMAL Q WAVES- HIGH LATERAL LEADS BORDERLINE T WAVE ABNORMALITY- INFERIOR LEADS BORDERLINE ECG Compared to ECG 09/09/2024 09:11:24 HEART RATE HAS DECREASED Electronically Signed On 09-09-2024 12:16:01 PLOW SHAKER by Krystian Molina D.O.
[2024-09-09 12:24] LABS: Troponin I < 0.012 ng/mL (0.000-0.034)
== END 2024-09-09 12:53 | disposition home or self-care (01) ==
PROVIDERS: Emergency Medicine; Emergency Provider Physician Assistant; PCP Internal Medicine
DX: R07.89 Other chest pain (principal); I48.20 Chronic atrial fibrillation, unspecified; I10 Essential (primary) hypertension; E78.5 Hyperlipidemia, unspecified; M06.9 Rheumatoid arthritis, unspecified; G47.33 Obstructive sleep apnea (adult) (pediatric); K21.9 Gastro-esophageal reflux disease without esophagitis; Z96.698 Presence of other orthopedic joint implants; Z96.652 Presence of left artificial knee joint; Z98.1 Arthrodesis status; Z96.1 Presence of intraocular lens; Z98.42 Cataract extraction status, left eye; Z98.41 Cataract extraction status, right eye; Z90.49 Acquired absence of other specified parts of digestive tract; Z79.01 Long term (current) use of anticoagulants; Z79.899 Other long term (current) drug therapy; R00.1 Bradycardia, unspecified; I51.7 Cardiomegaly; R94.31 Abnormal electrocardiogram [ECG] [EKG]
CPT/HCPCS: 36415; 71046; 80053; 83690; 83880; 84484; 85025; 85610; 85730; 93005; 99284; A9270

== ENCOUNTER 2025-02-08 08:05 | Emergency (ER) | payer MEDICARE, OTHER, SELFPAY ==
[2025-02-08] VITALS (13 sets, daily range): BP systolic 100–185; BP diastolic 73–88; PULSE 59–72; RESP 7–19; TEMP 36.1; O2SAT 98–100
--- NOTE | ~2025-02-08 | XR_ITS ---
XR chest 2V Ordering provider: Gerry White MD History: 79 years Male with . CP . Comparison: September 09, 2024 FINDINGS: MEDIASTINUM: The cardiac silhouette is not enlarged. LUNGS: No infiltrates, effusions or pneumothorax. OTHER: No free air under the diaphragm. Degenerative changes of the spine. IMPRESSION: No acute cardiopulmonary pathology. Reviewed, dictated and finalized at location A.
--- NOTE | 2025-02-08 08:07 | ECG_ITS ---
Test Date: 2025-02-08 08:18:41 Measurements Intervals [place] Rate: 65 P: 33 MS: 155 QRS: -16 QRSD: 117 T: 52 QT: 412 QTc: 431 Interpretive Statements SINUS RHYTHM INTRAVENTRICULAR CONDUCTION DELAY LEFT VENTRICULAR HYPERTROPHY WITH ST-T CHANGE MINIMAL Q WAVES- HIGH LATERAL LEADS BASELINE ARTIFACT- I, II, III, AVR, AVL, AVF, V1-V6 BORDERLINE ECG Compared to ECG 09/09/2024 12:00:31 HEART RATE HAS INCREASED Electronically Signed On 02-08-2025 12:07:56 CDT by Krystian Molina D.O.
--- OUTSIDE RECORDS SUMMARY | 2025-02-08 08:07 | XMS_ITS | Clinical Summary ---
Author Organization [facility] Address [address] [place] [address] Care Team Providers Care Supervisor Coin Machine Name Role Phone Unavailable Primary Care Provider Unavailabl e Source Comments [facility],non-owned Affiliates and Associated Physician Practices is amultiple site organization consisting of ambulatory clinics and hospital sitesin [place], [place], [place] and [place]. This disclosure is being madepursuant to the Care Everywhere program and may not contain all information available regarding this patient. Last updated 18.[facility] [place] Social History Tobacco Use Types Packs/Day Years Used Date Smoking Tobacco: Never Assessed Sex and Gender Information Value Date Recorded Sex Assigned at Not on file Gender Identity Not on file Sexual Orientation Not on file Plan of Treatment Health Maintenance Due Date Last Done Comments MEDICARE AWV 12 MONTHS 1944 DTAP/TDAP/TD VACCINES (1 - Tdap) 1963 PNEUMOCOCCAL VACCINE 50+ (1 of 1 - PCV) 1994 ZOSTER VACCINE (1 of 2) 1994 Respiratory Syncytial Virus (RSV) Vaccine Pt: or over 60 yrs (1 - 1-dose 75+ series) 2019 COVID-19 VACCINE ( - 2023-2 5 season) 2024 INFLUENZA VACCINE (#1) 2024 DEPRESSION SCREENING 11/05/2024 HEPATITIS B VACCINE Aged Out No longe r eligible based on patient's age to complete this topic HIB VACCINE Aged Out No longer eligi ble based on patient's age to complete this topic HPV VACCINE Aged Out No longer eligi ble based on patient's age to complete this topic MENINGOCOCCAL (Group B) VACC INE SHARED DECISION-MAKING Aged Out No longer eligibl e based on patient's age to complete this topic MENINGOCOCCAL GROUPS A/C/Y/W VACCINE Aged Out No longer eligible b ased on patient's age to complete this topic
--- OUTSIDE RECORDS SUMMARY | 2025-02-08 08:07 | XMS_ITS | Encounter Summary ---
Author Organization [facility] Address [address] [place] [address] Care Team Providers Care Radar Systems Engineer Name Role Phone Unavailable Primary Care Provider Unavailabl e Encounter Details Date Type Department Care Team (Late st Contact Info) Description 12/11/2019 Lab Requisition [facility] [address] [place] [id number] Andre Sutton MD [address] [place] [address] Social History Tobacco Use Types Packs/Day Years Used Date Smoking Tobacco: Never Assessed Sex and Gender Information Value Date Recorded Sex Assigned at Not on file Gender Identity Not on file Sexual Orientation Not on file documented as of this encounter Plan of Treatment Not on file documented as of this encounter Procedures Procedure Name Priority Date/Time Associated Diagnosis Comments DERMATOPATHOLOGY Routine 12/09/2019 12:0 0 AM CASH MANAGEMENT COORDINATOR documented in this encounter Results * DERMATOPATHOLOGY (12/09/2019 12:00 AM CASH MANAGEMENT COORDINATOR) Case Report Dermatopathology Report Case: [id number] Authorizing Provider: Andre Sutton MD Collected: 12/09/2019 12:00 AM Ordering Location: [facility] Received: 12/11/2019 12:17 PM Pathologist: Brayan Loving MD Specimen: Skin, top left shoulder 0 4:52 PM CASH MANAGEMENT COORDINATOR DERMATOPATHOLOGY LABORATORY Final Diagnosis Specimen A. SKIN, top left shoulder: BENIGN VERRUCOUS KERATOSIS, INFLAMED (L82.1) 0 4:52 PM CASH MANAGEMENT COORDINATOR DERMATOPATHOLOGY LABORATORY Clinical History R/O SCC. 0 4:52 PM CASH MANAGEMENT COORDINATOR DERMATOPATHOLOGY LABORATORY Gross Description Specimen A: Received is one formalin filled container labeled with the patient's name and designated top left shoulder. The specimen consists of a shave biopsy measuring [id number], bisected. Jar 0. 0 4:52 PM [facility]ER[facility] Microscopic Description Specimen A. SKIN, top left shoulder: Sections show hyperkeratosis, papillomatosis, hypergranulosis, and acanthosis. Inflammatory cells are present within the dermis. These histological findings can be seen in a verruca vulgaris or a seborrheic keratosis. 0 4:52 PM [facility] DERMATOPATH[facility]Y [facility]OR[facility] Disclaimer An external and internal positive and negative controls are appropriate for the histochemical, immunohistochemical and immunofluorescence stain(s) in this case (if any), except where stated explicitly. The performance characteristics of the stain(s) cited in this report were developed and its performance characteristic determined by the Dermatopathology Laboratory at [facility], directed by Dr. Diana Loving. These tests need not be, and therefore are not, approved by the [place] Food and Drug Administration. The tests are used for clinical purposes. Billing Codes Specimen Charges Stain Charges 58374 1 0 4:52 PM [facility]ERMAT[facility] Embedded Images 0 4:52 PM [facility]ERMAT[facility]ORY Pathology/Cytolog y TISSUE SPECIMEN FROM SKIN / Unknown 12/09/2019 12/11/2019 12:17 PM CASH MANAGEMENT COORDINATOR Andre Sutton MD LAB - PATHOLOGY/CYTO LOGY ORDERABLES DERMATOPATHOLOGY LABORATORY [facility] - Department of Dermatology [address] [place] [address], [address] [place] [address], [facility] [phone] documented in this encounter Visit Diagnoses Not on filedocumented in this encounter
--- OUTSIDE RECORDS SUMMARY | 2025-02-08 08:07 | XMS_ITS | Encounter Summary ---
Author Organization [facility] Address [address] [place] [address] Care Team Providers Care Pet Nutrition Specialist Name Role Phone Unavailable Primary Care Provider Unavailabl e Encounter Details Date Type Department Care Team (Late st Contact Info) Description 11/20/2018 Lab Requisition [facility] Care DermPath Lab [address] [facility] [place] [id number] Andre Sutton MD [address] [place] [address] Social History Tobacco Use Types Packs/Day Years Used Date Smoking Tobacco: Never Assessed Sex and Gender Information Value Date Recorded Sex Assigned at Not on file Gender Identity Not on file Sexual Orientation Not on file documented as of this encounter Plan of Treatment Not on file documented as of this encounter Procedures Procedure Name Priority Date/Time Associated Diagnosis Comments DERMATOPATHOLOGY Routine 11/19/2018 12:0 0 AM [facility] documented in this encounter Results * DERMATOPATHOLOGY (11/19/2018 12:00 AM [facility]) Case Report Dermatopathology Report Case: [id number] Authorizing Provider: Andre Sutton MD Collected: 11/19/2018 12:00 AM Pathologist: Brayan Loving MD Received: 11/20/2018 11:33 AM Specimens: A) - Skin, left lateral upper eyelid B) - Skin, left lateral end of brow C) - Skin, left post edge of helix rim superiorly D) - Skin, left neck behind earlobe 9 2:45 PM [facility] DERMATOPATHOLOGY LABORATORY Final Diagnosis Specimen A. SKIN, left lateral upper eyelid: BASAL CELL CARCINOMA, NODULAR TYPE (C44.119) Specimen B. SKIN, left lateral end of brow: BASAL CELL CARCINOMA, NODULAR TYPE (C44.319) Specimen C. 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 SKIN, left neck behind earlobe: BASAL CELL CARCINOMA, INFILTRATIVE PATTERN (C44.41) 9 2:45 PM [facility] DERMATOPATHOLOGY LABORATORY Clinical History A-B: R/O BCC. C: R/O dys nevus, lentigo. D: R/O SCC. 9 2:45 PM [facility] DERMATOPATHOLOGY LABORATORY Gross Description Specimen A: Received is one formalin filled container labeled with the patient's name and designated left lateral upper eyelid. The specimen consists of a shave biopsy (2 pieces) measuring 5w6z4qj & 5q0y4kt. Jar 0+. Specimen B: Received is one formalin filled container labeled with the patient's name and designated left lateral end of brow. The specimen consists of a shave biopsy (2 pieces) measuring 2m8s5hl & 2d1j1bi. Jar 0. Specimen C: Received is one formalin filled container labeled with the patient's name and designated left post edge of helix rim superiorly. The specimen consists of a shave biopsy measuring 0s1w6ta. Jar 0. Specimen D: Received is one formalin filled container labeled with the patient's name and designated left neck behind earlobe. The specimen consists of a shave biopsy measuring 7x6x8tp. Jar 0. 9 2:45 PM [facility] DERMATOPATHOLOGY LABORATORY Microscopic Description Specimen A. SKIN, left lateral upper eyelid: Within the dermis there are aggregates of basaloid cells with a high nuclear to cytoplasmic ratio and peripheral palisading. Specimen B. SKIN, left lateral end of brow: Within the dermis there are aggregates of basaloid cells with a high nuclear to cytoplasmic ratio and peripheral palisading. Specimen C. SKIN, left post edge of helix rim superiorly: The epidermis is acanthotic and shows full thickness disorderly maturation of keratinocytes, mitoses at different levels, and dyskeratotic cells. There is overlying parakeratosis and hyperkeratosis. A Mib-1/Ki-67 immunostain shows an increased proliferative index throughout the epidermis. Specimen D. SKIN, left neck behind earlobe: Within the dermis there are nodular aggregates of basaloid cells associated with fibromyxoid stroma and epithelial-stromal clefts. At the advancing margin of the neoplasm, there are smaller angulated nests that infiltrate the dermis. 2:45 PM [facility] DERMATOPATHOLOGY LABORATORY Disclaimer An external and internal positive and negative controls are appropriate for the histochemical, immunohistochemical and immunofluorescence stain(s) in this case (if any), except where stated explicitly. The performance characteristics of the stain(s) cited in this report were developed and its performance characteristic determined by the Dermatopathology Laboratory at [facility], directed by Dr. Diana Loving. These tests need not be, and therefore are not, approved by the [place] Food and Drug Administration. The tests are used for clinical purposes. Billing Codes Specimen Charges Stain Charges 64977 35908 38483 38999 1 1 1 1 32126 1 9 2:45 PM [facility] DERMATOPATHOLOGY LABORATORY Embedded Images 2:45 PM [facility] DERMATOPATHOLOGY LABORATORY Pathology/Cytology TISSUE SPECIMEN FROM SKIN / Unknown 11/19/2018 11/20/2018 11:33 AM [facility] Miscellaneous samples (specimen) TISSUE SPECIMEN FROM SKIN / Unknown 11/19/2018 11/20/2018 11:33 AM [facility] Miscellaneous samples (specimen) TISSUE SPECIMEN FROM SKIN / Unknown 11/19/2018 11/20/2018 11:33 AM [facility] Miscellaneous samples (specimen) TISSUE SPECIMEN FROM SKIN / Unknown 11/19/2018 11/20/2018 11:33 AM [facility] Andre Sutton MD LAB - PATHOLOGY/CYTO LOGY ORDERABLES DERMATOPATHOLOGY LABORATORY [facility] - Department of Dermatology [address] [place] [address], 5th [place] [address], [facility] [phone] documented in this encounter Visit Diagnoses Not on filedocumented in this encounter
--- OUTSIDE RECORDS SUMMARY | 2025-02-08 08:07 | XMS_ITS | Clinical Summary ---
Author Organization [facility] Address [address] [address] Care Team Providers Care Summer Clerk Name Role Phone Andrea Car MD Primary Care Provider [phone] Social History Tobacco Use Types Packs/Day Years Used Date Smoking Tobacco: Never Assessed Sex and Gender Information Value Date Recorded Sex Assigned at Not on file Legal Sex Male 11:09 AM EST Gender Identity Not on file Sexual Orientation Not on file Plan of Treatment Health Maintenance Due Date Last Done Comments Influenza Vaccine (Season Ended) 2025 08/05/2021, 08/05/2020, 08/26/2019, Additional history exists Pneumococcal Vaccine: 65+ Years Completed 11/12/2018, 11/06/2017 Hepatitis B Vaccine Aged Out No longe r eligible based on patient's age to complete this topic Insurance MEDICARE [facility] [place] [address] Care Teams Summer Clerk Relationship Specialty Start Date End Date Andrea Car MD [address] [facility], [address] [place] [address] PCP - General Internal Medicine 10/31/24
--- OUTSIDE RECORDS SUMMARY | 2025-02-08 08:07 | XMS_ITS | Continuity of Care Document ---
Author Organization [facility] Address [address] [place] [address] Phone Care Team Providers Care Encoding Machine Operator Name Role Phone Doisy, Edward Unavailable Unavailable Advance Directives Directive Yes / No Effective Date File Name No Information Encounters Encounter Description Practice Location Reason(s) For Visit Diagnoses Date Provider Providers Copied on Encounter Formerly [facility], [address], [place], [place], [id number], [place] tel:[phone] [facility] No Information [phone] Doisy Edward. [address] [facility] , [address], [place], [address], [place]. tel:[phone] Family History Family Member Type Diagnosis Age At Onset No Information Payers Payer name Insurance type Covered republican ID Authoriza tion(s) No Information Social History [...]
--- OUTSIDE RECORDS SUMMARY | 2025-02-08 08:07 | XMS_ITS | Encounter Summary ---
Author Organization [facility] Address [address] [place] [address] Care Team Providers Care Side Piece Coverer Name Role Phone Unavailable Primary Care Provider Unavailabl e Encounter Details Date Type Department Care Team (Late st Contact Info) Description 08/01/2021 Lab Requisition [facility] DermPath Lab [address] [place] [phone] Andre Sutton MD [address] [place] [address] Social History Tobacco Use Types Packs/Day Years Used Date Smoking Tobacco: Never Assessed Sex and Gender Information Value Date Recorded Sex Assigned at Not on file Gender Identity Not on file Sexual Orientation Not on file documented as of this encounter Plan of Treatment Not on file documented as of this encounter Procedures Procedure Name Priority Date/Time Associated Diagnosis Comments DERMATOPATHOLOGY Routine 07/29/2021 12:0 0 AM CDT documented in this encounter Results * DERMATOPATHOLOGY (07/29/2021 12:00 AM CDT) Case Report Dermatopathology Report Case: [id number] Authorizing Provider: Andre Sutton MD Collected: 07/29/2021 12:00 AM Ordering Location: [facility] DermPath Lab Received: 08/01/2021 01:01 PM Pathologist: Vicky Robles MD Specimens: A) - Skin, right side nose B) - Skin, right medial cheek below eye C) - Skin, behind middle of left earlobe D) - Skin, dorsal left hand 2:54 PM CDT DERMATOPATHOLOGY LABORATORY Amended Report Regarding specimen B, site changed from right medial cheek above eye to right medial cheek below eye. 2:54 PM CDT DERMATOPATHOLOGY LABORATORY Final Diagnosis Specimen A. 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 SKIN, behind middle of left earlobe: HYPERPLASTIC (HYPERTROPHIC) ACTINIC KERATOSIS (L57.0) SEBORRHEIC KERATOSIS (L82.1) (see microscopic description) Specimen D. 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 Check margins. B-D: R/O SCC. 2:54 PM [facility] DERMATOPATHOLOGY LABORATORY Gross Description Specimen A: Received is one formalin filled container labeled with the patients name and designated right side nose. The specimen consists of a shave removal measuring 3a8x1ff. The margin is inked green. Jar 0. Specimen B: Received is one formalin filled container labeled with the patient's name and designated right medial cheek below eye. The specimen consists of a shave biopsy measuring 9h4g2pe and 8x9k0ys. Jar 0. Specimen C: Received is one formalin filled container labeled with the patient's name and designated behind middle of left earlobe. The specimen consists of a shave biopsy measuring 6n5x4jn. Jar 0. Specimen D: Received is one formalin filled container labeled with the patient's name and designated dorsal left hand. The specimen consists of a shave biopsy measuring 2d5t8lh. Jar 0. 1 2:54 PM [facility] DERMATOPATHOLOGY LABORATORY Microscopic Description Specimen A. SKIN, right side nose: Tangential sectioning is present, somewhat limiting evaluation. There are prominent sebaceous gland lobules present. There is no evidence of epithelial dysplasia or malignancy in multiple deeper sections examined. Specimen B. SKIN, right medial cheek below eye: The epidermis shows parakeratosis, full thickness disorderly maturation of keratinocytes, and dyskeratotic cells. There is adjacent epidermal hyperplasia with disorderly maturation of keratinocytes with nuclear pleomorphism confined to the lower half of the epidermis. Focally there is a suprabasilar cleft with acantholytic cells. Specimen C. SKIN, behind middle of left earlobe: There is hyperkeratosis alternating with parakeratosis. There is epidermal hyperplasia with disorderly maturation of keratinocytes with nuclear pleomorphism confined to the lower half of the epidermis. Adnexal extension of the lesion is seen. Sections show an associated acanthotic lesion composed of relatively uniform keratinocytes. There is hyperkeratosis and pseudo horn cysts formation. Specimen D. SKIN, dorsal left hand: The epidermis shows parakeratosis, full thickness disorderly maturation of keratinocytes, mitoses at different levels, and dyskeratotic cells. 1 2:54 PM CDT DERMATOPATHOLOGY LABORATORY Disclaimer An external and internal positive and negative controls are appropriate for the histochemical, immunohistochemical and immunofluorescence stain(s) in this case (if any), except where stated explicitly. The performance characteristics of the stain(s) cited in this report were developed and its performance characteristic determined by the Dermatopathology Laboratory at [facility], directed by Dr. Diana Loving. These tests need not be, and therefore are not, approved by the [place] Food and Drug Administration. The tests are used for clinical purposes. Billing Codes Specimen Charges Stain Charges 74335 58664 24615 90045 1 1 1 1 1 2:54 PM CDT DERMATOPATHOLOGY LABORATORY Embedded Images 1 2:54 PM CDT DERMATOPATHOLOGY LABORATORY Pathology/Cytology TISSUE SPECIMEN FROM SKIN / Unknown 07/29/2021 08/01/2021 1:01 PM CDT Miscellaneous samples (specimen) TISSUE SPECIMEN FROM SKIN / Unknown 07/29/2021 08/01/2021 1:01 PM CDT Miscellaneous samples (specimen) TISSUE SPECIMEN FROM SKIN / Unknown 07/29/2021 08/01/2021 1:01 PM CDT Miscellaneous samples (specimen) TISSUE SPECIMEN FROM SKIN / Unknown 07/29/2021 08/01/2021 1:01 PM CDT Andre Sutton MD LAB - PATHOLOGY/CYTO LOGY ORDERABLES DERMATOPATHOLOGY LABORATORY [facility] - Department of Dermatology [facility] Special[facility] [address] [place] [address], [address] [phone] documented in this encounter Visit Diagnoses Not on filedocumented in this encounter
--- OUTSIDE RECORDS SUMMARY | 2025-02-08 08:07 | XMS_ITS | Encounter Summary ---
Author Organization [facility] Address [address] [facility] [place] [address] Care Team Providers Care Driller Operator Name Role Phone Unavailable Primary Care Provider Unavailabl e Encounter Details Date Type Department Care Team (Late st Contact Info) Description 05/12/2019 Lab Requisition [facility] Care DermPath Lab [address] [place] [phone] Andre Sutton MD [address] [place] [address] Social History Tobacco Use Types Packs/Day Years Used Date Smoking Tobacco: Never Assessed Sex and Gender Information Value Date Recorded Sex Assigned at Not on file Gender Identity Not on file Sexual Orientation Not on file documented as of this encounter Plan of Treatment Not on file documented as of this encounter Procedures Procedure Name Priority Date/Time Associated Diagnosis Comments DERMATOPATHOLOGY Routine 05/09/2019 12:0 0 AM CDT documented in this encounter Results * DERMATOPATHOLOGY (05/09/2019 12:00 AM CDT) Case Report Dermatopathology Report Case: [id number] Authorizing Provider: Andre Sutton MD Collected: 05/09/2019 12:00 AM Pathologist: Brayan Loving MD Received: 05/12/2019 01:16 PM Specimen: Skin, right upper lateral cutaneous lip 9 4:19 PM CDT DERMATOPATHOLOGY LABORATORY Final Diagnosis Specimen A. SKIN, right upper lateral cutaneous lip: VERRUCA VULGARIS, IRRITATED AND INFLAMED (B07.8) OVERLYING CUTANEOUS HORN (L85.8) 9 4:19 PM CDT DERMATOPATHOLOGY LABORATORY Clinical History R/O ISK, SCC, HAK 4:19 PM CDT DERMATOPATHOLOGY LABORATORY Gross Description Specimen A: Received is one formalin filled container labeled with the patient's name and designated right upper lateral cutaneous lip. The specimen consists of a shave biopsy measuring 4x4x10 mm, bisected. Jar 0. 4:19 PM CDT DERMATOPATHOLOGY LABORATORY Microscopic Description Specimen A. SKIN, right upper lateral cutaneous lip: Sections show papillomatosis with overlying parakeratosis. Some of the cells within the granular layer show coarsened keratohyalin granules. Within the dermis, dilated vessels, and a patchy lymphocytic infiltrate are present. There is a column of marked compact hyperkeratosis. 4:19 PM CDT DERMATOPATHOLOGY LABORATORY Disclaimer An external and internal positive and negative controls are appropriate for the histochemical, immunohistochemical and immunofluorescence stain(s) in this case (if any), except where stated explicitly. The performance characteristics of the stain(s) cited in this report were developed and its performance characteristic determined by the Dermatopathology Laboratory at [facility], directed by Dr. Diana Loving. These tests need not be, and therefore are not, approved by the [place] Food and Drug Administration. The tests are used for clinical purposes. Billing Codes Specimen Charges Stain Charges 07624 1 4:19 PM CDT DERMATOPATHOLOGY LABORATORY Embedded Images 4:19 PM CDT DERMATOPATHOLOGY LABORATORY Pathology/Cytolog y TISSUE SPECIMEN FROM SKIN / Unknown 05/09/2019 05/12/2019 1:16 PM CDT Andre Sutton MD LAB - PATHOLOGY/CYTO LOGY ORDERABLES DERMATOPATHOLOGY LABORATORY [facility] - Department of Dermatology [address] [place] [address], [address] [place] [address], [facility] [[email or web address]] [phone] documented in this encounter Visit Diagnoses Not on filedocumented in this encounter
--- OUTSIDE RECORDS SUMMARY | 2025-02-08 08:07 | XMS_ITS | Patient Health Record ---
Author Organization [facility] Address [address] [place] [address] Care Team Providers Care Key Maker Name Role Phone Andrea Car Primary Care Provider Clari Dudley DPM, Maurice Unavailable [phone] ALLERGIES No Known Allergies REASON FOR REFERRAL No Information MEDICATIONS Medication SIG (Take, Route, Fr equency, Duration) Notes Start Date End Date Status Atorvastatin Calcium Active Omeprazole Active Eliquis Active Pacerone Active SOCIAL HISTORY Tobacco Use: Social History Observation Description Date Details (start date - stop date) Never Smoker NA - NA Sex Assigned At : Social History Observation Description Sex Assigned At Unknown Tobacco Use: Question Answer Notes Patient is a: nonsmoker Alcohol screening: Question Answer Notes Did you have a drink containing alcohol in the p ast year? No Points 0 Interpretation Negative PLAN OF TREATMENT No Information Insurance Providers Payer Name Payer Address Payer Phone Subscriber Number Group Number Insured Name Patient Relationship to Insured Coverage Start Date Coverage End Date Medicare [address] [place] [phone] [id number] Bill Colon Self - patient is the insured [place] [employer] [place] [address] [place] [phone] [id number] Bill Colon Self - patient is the insured MEDICAL (GENERAL) HISTORY Medical History History ICD Code heart disease Atrial fibrillation acid reflux rheumatoid arthritis Surgical History Surgery Date(Month/Year) gallbladder knee surgery colon resection
--- OUTSIDE RECORDS SUMMARY | 2025-02-08 08:08 | XMS_ITS | Data Portability ---
Author Organization [place] [facility], Main Office Address [address] [place] [address] Care Team Providers Care Supervisor Delivery Department Name Role Phone MONSE CAR Primary Care Provider [phone] MONSE ACR Referring Provider JAMESON VELOZ Rn Office [facility] - PULMONOLOGY Pulmonologi st CATIA PERDOMO Hand Surgeon Unavailable TAMELA WHITE Orthopedic Surgeon Assessment Encounter Date Assessment Date Assessment LastModified by Organization Details LastModified Time 01/08/2024 01/08/2024 12/06/2021: PSA 0.37 04/09/2023: MCV 99.1 08/07/2023: PSA 1.2 Glob 2.5, TP WNL MCV 99.3 01/01/2024: Glob 2.5L WBC 11.9, MCV 98.8 Not available 01/08/2024 10:04:23 01/29/2024 01/29/2024 12/06/2021: PSA 0.37 04/09/2023: MCV 99.1 08/07/2023: PSA 1.2 Glob 2.5, TP WNL MCV 99.3 01/01/2024: Glob 2.5L WBC 11.9, MCV 98.8 Not available 01/29/2024 16:52:10 04/03/2024 04/03/2024 12/06/2021: PSA 0.37 04/09/2023: MCV 99.1 08/07/2023: PSA 1.2 Glob 2.5, TP WNL MCV 99.3 01/01/2024: Glob 2.5L WBC 11.9, MCV 98.8 03/13/2024: WBC 11.0H 03/25/2024: Dr White H/H 12.9/39.8 12/06/2021: PSA 0.37 04/09/2023: MCV 99.1 08/07/2023: PSA 1.2 Glob 2.5, TP WNL MCV 99.3 01/01/2024: Glob 2.5L WBC 11.9, MCV 98.8 Not available 04/03/2024 10:00:30 06/10/2024 06/10/2024 12/06/2021: PSA 0.37 04/09/2023: MCV 99.1 08/07/2023: PSA 1.2 Glob 2.5, TP WNL MCV 99.3 01/01/2024: Glob 2.5L WBC 11.9, MCV 98.8 03/15/2024: Sushil H/H 12.4/38.8 06/06/2024: Na 131 Not available 06/10/2024 09:29:44 10/14/2024 10/14/2024 12/06/2021: PSA 0.37 04/09/2023: MCV 99.1 08/07/2023: PSA 1.2 Glob 2.5, TP WNL MCV 99.3 01/01/2024: Glob 2.5L WBC 11.9, MCV 98.8 03/15/2024: Sushil H/H 12.4/38.8 06/06/2024: Na 131 10/06/2204: Na 129 MCV 100 [email or web address] Not available 10/25/2024 14:16:42 Plan of Treatment Reminders Order Date Submit Date Provider Last Modified By Organization Details Last Modified Time Details Appointments Any 15 2024 09:15A Brayan salguero MD Not available Not available Not available Lab vitamin B12 + folate, serum or blood 2023 024 [email or web address] [facility] - Outpatient Lab, [address] [place], [address], 10/14/2024 11:12:12 lipid panel, serum [email or web address] - Outpatient Lab, [address] [place], [address], 10/14/2024 11:12:11 CMP, serum or plasma [email or web address] - Outpatient Lab, [address] [place], [address], 10/14/2024 11:12:11 CBC w/ auto diff [email or web address] [facility], [address] [place], [address], 10/14/2024 11:12:11 TSH + free T4, serum [address] - Outpatient Lab, [address] [place], [address], 10/14/2024 11:12:11 CBC w/ auto diff 2023 [address] [email or web address] [facility], [address] [place], [address], 10/14/2024 11:12:12 CMP, serum or plasma 2023 024 [facility] - Outpatient Lab, [address] [place], [address], 10/14/2024 12:01:38 CBC w/ auto diff 2023 024 [email or web address] [facility] Outpatient Lab, [address] [place], [address], 12/11/2024 12:17:27 vitamin B12 + folate, serum or blood 2023 024 [email or web address] [facility] - Outpatient Lab, [address] [place], [address], 12/11/2024 12:17:27 lipid panel, serum [address] Outpatient Lab, [address] [place], [address], 12/11/2024 12:17:26 CMP, serum or plasma [address] Outpatient Lab, [address] [place], [address], 12/11/2024 12:17:27 CBC w/ auto diff [address] Outpatient Lab, [address] [place], [address], 12/11/2024 12:17:27 TSH + free T4, serum [address] Outpatient Lab, [address] [place], [address], 12/11/2024 12:17:27 CBC w/ auto diff 2023 024 [facility] Outpatient Lab, [address] [place], [address], 06/06/2024 10:35:58 vitamin B12 + folate, serum or blood [address] Outpatient Lab, [address] [place], [address], 10/06/2024 09:05:59 lipid panel, serum 2023 024 [facility] Outpatient Lab, [address] [place], [address], 06/06/2024 11:01:46 CMP, serum or plasma 2023 024 [facility] Outpatient Lab, [address] [place], [address], 06/06/2024 11:01:55 CBC w/ auto diff [address] Outpatient Lab, [address] [place], [address], 10/06/2024 09:05:59 TSH + free T4, serum [address] Outpatient Lab, [address] [place], [address], 10/06/2024 09:05:59 CBC w/ auto diff 2023 024 [facility] Lab, [address] [place], [address], 03/25/2024 15:47:57 vitamin B12 + folate, serum or blood [address] Lab, [address] [place], [address], 07/09/2024 09:25:11 lipid panel, serum [address] Lab, [address] [place], [address], 07/09/2024 09:25:10 CMP, serum or plasma 2023 024 [facility] Outpatient Lab, [address] [place], [address], 03/13/2024 07:49:01 CBC w/ auto diff [address] Outpatient Lab, [address] [place], [address], 07/09/2024 09:25:11 TSH + free T4, serum [address] Outpatient Lab, [address] [place], [address], 07/09/2024 09:25:11 Referral orthopedi c surgeon referral - Please call patient to schedule. 2023 024 [email or web address] Tamela White MD, [address] [place] [address] [address], [place], [address], 10/27/2024 17:49:38 pulmonolo gist referral 2023 024 [email or web address] Helen Cerda, [address] [place] [address] [place] [address], [address], 10/14/2024 13:28:08 nephrolog ist referral - Please call patient to schedule. 2023 024 [email or web address] [place], [address] [address], [address], [place], [address], 12/30/2024 15:08:55 orthopedi c surgeon referral 2023 024 [email or web address] Tamela White MD, [address] [place] [address] [address], [place], [address], 12/11/2024 12:17:16 pulmonolo gist referral 2023 024 [email or web address] Helen Cerda, [address] [place] [address] [place] [address], [address], 12/11/2024 12:17:14 orthopedi c surgeon referral 2023 024 [email or web address] Tamela White MD, [address] [place] [address] [address], [place], [address], 10/06/2024 09:05:40 podiatris t referral 2023 024 [email or web address] Tamela White MD, [address] [place] [address] [address], [place], [address], 11/03/2024 17:20:35 cardiolog ist referral 2023 024 [email or web address] [place], [address], [address], [place], [address], 10/06/2024 09:05:39 pulmonolo gist referral 2023 024 [email or web address] Helen Cerda, [address] [facility] [address] [place], [address], 10/06/2024 09:05:38 pulmonolo gist referral 2023 024 [email or web address] Helen Cerda, [address] [facility] [address] [place], [address], 09/08/2024 09:00:45 orthopedi c surgeon referral 2023 024 [email or web address] Tamela White MD, [address] [facility] [address], [place], [address], 01/05/2025 08:47:47 cardiolog ist referral 2023 024 [email or web address] [place], [address], [address], [place], [address], 07/09/2024 09:25:27 pulmonolo gist referral 2023 024 [email or web address] Rocky Shirley MD, [address] [place], [address], 08/05/2024 08:42:51 Procedures None recorded. Surgeries None recorded. Imaging None recorded. Medication Orders None recorded. Patient TargetsNo targets recorded. Patient Instructions Encounter Date Encounter Id Patient Instructions Last Modified By Organization Details Last Modified Time 06/10/2024 [id number] Personalized Hea lt Plan and Screening Recommendations Advance Directives - Do you have one? Advance Directives - Do we have your advance directive on file in your health record? Primary Prevention/Interven tion (prevents or decreases the chance of common diseases from occurring) Smoking Risk: Alcohol Misuse Screening: Weight: Physical activity: Nutrition: Fall Risk (screened today): Vaccines Pneumococcal: Influenza: Chronic Disease Risks Stroke: I have no recommendations Active diagnosis, Continue current treatment plan Heart Attack: I have no recommendations Act karina diagnosis, Continue current treatment plan Clogging of the Arteries: I have no recommendations Act karina diagnosis, Continue current treatment plan Diabetes: Active diagnosis, Continue current treatment plan Secondary Prevention/Interven tion (detects treatable diseases before they may cause symptoms, disability, or ) Prostate Cancer Screening: Colon Cancer Screening: Date Screening Last Performed: Eye Disease Screening: Dementia Risk: Depression Screening: Active diagnosis, Continue current treatment plan [email or web address] Not available 06/10/2024 08:22:36 10/14/2024 [id number] dementia rating scale-2* [email or web address] Not available 11/03/2024 16:56:49 alcohol misuse* [email or web address] Not available 11/03/2024 16:56:59 depression screening* [email or web address] Not available 11/03/2024 16:57:04 Timed Up and Go test (TUG)* [email or web address] Not available 11/03/2024 16:57:13 multi-dimensiona l health assessment questionnaire* Not available 10/14/2024 11:26:14 advance care planning: care instructions [email or web address] Not available 10/25/2024 14:16:44 advance directiv es: care instructions [email or web address] Not available 10/25/2024 14:16:44 [place] Advance Directives [email or web address] Not available 10/25/2024 14:16:44 Personalized a lt Plan and Screening Recommendations Advance Directives - Do you have one? No You have indicated that you are capable of preparing your advance care directive Advance Directives - Do we have your advance directive on file in your health record? Primary Prevention/Interven tion (prevents or decreases the chance of common diseases from occurring) Smoking Risk: Non Smoker Alcohol Misuse Screening: Negative Weight: Appropriate Overwei ght continue your current weight loss efforts try to lose 5% of your body weight try to lose 10% of your body weight Physical activity: Need more exercise/physical activity minimum of 10-20 minutes of activity that causes mild breathlessness/day minimum of 20-30 minutes activity that causes mild breathlessness/day Nutrition: Good Average Refer to attached handout Heart-Healthy Diet: After Your Visit Fall Risk (screened today): Low Intermediate Refer to attached handout Preventing Falls: After your Visit Vaccines Pneumococcal: Ordered Recommended today Recommended today, but you have declined No further needed Influenza: Ordered Recommended today Chronic Disease Risks Stroke: Low Risk Intermediate Risk Heart Attack: Low risk Intermediate Risk Clogging of the Arteries: Low risk Intermediate Risk Diabetes: Low Risk Intermediate Risk I have no recommendations Ref er to attached handout Pre-diabetes: After Your Visit Drastically limit sugar and products made with any type of flour (bread, pasta, cereal, cookies, crackers, etc.) Secondary Prevention/Interven tion (detects treatable diseases before they may cause symptoms, disability, or ) Prostate Cancer Screening: Colon Cancer Screening: Colonoscopy Date Screening Last Performed: 05/21/2022 Eye Disease Screening: Ordered Recommended today Dementia Risk: Low I have no recommendations Depression Screening: Negative Not available 10/14/2024 08:28:55 Reason for Referral Physical Therapy Resident Referral for D yspnea on exertion Referring Physician: Zeus Loomis Medicine, Encounter Date: 01/08/2024 Rn Office Referral for At rial fibrillation Referring Physician: Zeus Loomis Medicine, Encounter Date: 01/08/2024 Orthopedic Surgeon Referral for Pain of right ankle joint Referring Physician: Zeus Loomis, Encounter Date: 01/08/2024 Physical Therapy Resident Referral for D yspnea on exertion Referring Physician: Zeus Loomis, Encounter Date: 01/29/2024 Physical Therapy Resident Referral for D yspnea on exertion Referring Physician: Zeus Loomis Medicine, Encounter Date: 06/10/2024 Orthopedic Surgeon Referral for Osteoarthritis Referring Physician: Zeus Loomis Medicine, Encounter Date: 06/10/2024 Physical Therapy Resident Referral for D yspnea on exertion Referring Physician: Zeus Loomis, Encounter Date: 04/03/2024 Rn Office Referral for At rial fibrillation Referring Physician: Zeus Loomis, Encounter Date: 04/03/2024 Orthopedic Surgeon Referral for Pain of right ankle joint Referring Physician: Monse Car Internal Medicine, Encounter Date: 04/03/2024 Data Processing Systems Consultant Referral for Pain in right foot Referring Physician: Monse Car Internal Medicine, Encounter Date: 04/03/2024 Physical Therapy Resident Referral for D yspnea on exertion Referring Physician: Monse Car Internal Medicine, Encounter Date: 10/14/2024 Orthopedic Surgeon Referral for Osteoarthritis Please call patient to schedule. Referring Physician: Monse Car Internal Medicine, Encounter Date: 10/14/2024 Polysomnograph Tech Referral for Hy ponatremia Please call patient to schedule. Referring Physician: Zeus Loomis Medicine, Encounter Date: 10/14/2024 Results Created Date Observation Date Name Description Value Unit Range Abnormal Flag Note LastModifiedBy Organization Detail LastModifiedTime 01/01/20 24 01/01/2024 CBC/C OMPLE TE BLD COUNT W/DIF F white blood cells 11.9 x10'3 /uL 4.2-10 .8 high Not Available [facility] (Lab) [address] [place], [address], 01/01/2024 11:07:46 01/01/20 24 01/01/2024 CBC/C OMPLE TE BLD COUNT W/DIF F red blood cells 4.01 x10'6 /uL 4.10-5 .80 low Not Available [facility] (Lab) [address] [place], [address], 01/01/2024 11:07:46 01/01/20 24 01/01/2024 CBC/C OMPLE TE BLD COUNT W/DIF F hemoglobin 13.5 g/dL 13.2-1 7.0 Not Available [facility] (Lab) [address] [place], [address], 01/01/2024 11:07:46 01/01/20 24 01/01/2024 CBC/C OMPLE TE BLD COUNT W/DIF F hematocrit 39.6 % 39.3-5 0.0 Not Available [facility] (Lab) [address] [place], [address], 01/01/2024 11:07:46 01/01/20 24 01/01/2024 CBC/C OMPLE TE BLD COUNT W/DIF F mean red cell volume 98.8 fL 80.0-9 7.0 high Not Available [facility] (Lab) [address] [place], [address], 01/01/2024 11:07:46 01/01/20 24 01/01/2024 CBC/C OMPLE TE BLD COUNT W/DIF F mean red cell hemoglobin 33.7 pg 27.0-3 3.0 high Not Available [facility] (Lab) [address] [place], [address], 01/01/2024 11:07:46 01/01/20 24 01/01/2024 CBC/C OMPLE TE BLD COUNT W/DIF F mean RBC HGB concentratio n 34.1 g/dL 31.0-3 6.0 Not Available [facility] (Lab) [address] [place], [address], 01/01/2024 11:07:46 01/01/20 24 01/01/2024 CBC/C OMPLE TE BLD COUNT W/DIF F red cell distribution width 12.7 % 11.8-1 5.5 Not Available [facility] (Lab) [address] [place], [address], 01/01/2024 11:07:46 01/01/20 24 01/01/2024 CBC/C OMPLE TE BLD COUNT W/DIF F platelets 321 x10'3 /uL 150-40 0 Not Available [facility] (Lab) [address] [place], [address], 01/01/2024 11:07:46 01/01/20 24 01/01/2024 CBC/C OMPLE TE BLD COUNT W/DIF F mean platelet volume 9.8 fL 9.0-12 .4 Not Available [facility] (Lab) [address] [place], [address], 01/01/2024 11:07:46 01/01/20 24 01/01/2024 CBC/C OMPLE TE BLD COUNT W/DIF F neutrophils 81.5 % 39.0-7 2.0 high Not Available [facility] (Lab) [address] [place], [address], 01/01/2024 11:07:46 01/01/20 24 01/01/2024 CBC/C OMPLE TE BLD COUNT W/DIF F lymphocytes 10.6 % 16.0-4 7.0 low Not Available [facility] (Lab) [address] [place], [address], 01/01/2024 11:07:46 01/01/20 24 01/01/2024 CBC/C OMPLE TE BLD COUNT W/DIF F monocytes 5.2 % 5.0-12 .0 Not Available [facility] (Lab) [address] [place], [address], 01/01/2024 11:07:46 01/01/20 24 01/01/2024 CBC/C OMPLE TE BLD COUNT W/DIF F eosinophils 1.9 % 1.0-7. 0 Not Available [facility] (Lab) [address] [place], [address], 01/01/2024 11:07:46 01/01/20 24 01/01/2024 CBC/C OMPLE TE BLD COUNT W/DIF F basophils 0.4 % 0.0-2. 0 Not Available [facility] (Lab) [address] [place], [address], 01/01/2024 11:07:46 01/01/20 24 01/01/2024 CBC/C OMPLE TE BLD COUNT W/DIF F immature granulocytes 0.4 % 0.00-0 .50 Not Available [facility] (Lab) [address] [place], [address], 01/01/2024 11:07:46 01/01/20 24 01/01/2024 CBC/C OMPLE TE BLD COUNT W/DIF F neutrophils, absolute count 9.72 x10'3 /uL 1.5-8. 0 high Not Available [facility] (Lab) [address] [facility] [place], [address], 01/01/2024 11:07:46 01/01/20 24 01/01/2024 CBC/C OMPLE TE BLD COUNT W/DIF F lymphocytes, absolute count 1.26 x10'3 /uL 1.07-3 .43 Not Available [facility] (Lab) [address] [place], [address], 01/01/2024 11:07:46 01/01/20 24 01/01/2024 CBC/C OMPLE TE BLD COUNT W/DIF F monocytes, absolute count 0.62 x10'3 /uL 0.29-0 .99 Not Available [facility] (Lab) [address] [place], [address], 01/01/2024 11:07:46 01/01/20 24 01/01/2024 CBC/C OMPLE TE BLD COUNT W/DIF F eosinophils, absolute count 0.23 x10'3 /uL 0.02-0 .53 Not Available [facility] (Lab) [address] [place], [address], 01/01/2024 11:07:46 01/01/20 24 01/01/2024 CBC/C OMPLE TE BLD COUNT W/DIF F basophils, absolute count 0.05 x10'3 /uL 0.01-0 .08 Not Available [facility] (Lab) [address] [place], [address], 01/01/2024 11:07:46 01/01/20 24 01/01/2024 CBC/C OMPLE TE BLD COUNT W/DIF F immature granulocytes ,absolute 0.05 x10'3 /uL 0.00-0 .05 Not Available [facility] (Lab) [address] [place], [address], 01/01/2024 11:07:46 01/01/20 24 01/01/2024 CBC/C OMPLE TE BLD COUNT W/DIF F nucleated red blood cells 0.0 % -0 Not Available [facility] (Lab) [address] [place], [address], 01/01/2024 11:07:46 01/01/20 24 01/01/2024 CBC/C OMPLE TE BLD COUNT W/DIF F NRBC# 0.00 x10'3 /uL Not Available [facility] (Lab) [address] [place], [address], 01/01/2024 11:07:46 01/01/20 24 01/01/2024 LIPID PANEL cholesterol 136 mg/dL 140-19 9 low NIH ROBERTO NSUS RECOM MENDA TION FOR STEF STERO L: ADULT CHILD LOW RISK: <200 <170 BORDE RLINE : <200- 239 ----- HIGH RISK: >240 >200 Not Available [facility] (Lab) [address] [place], [address], 01/01/2024 11:21:08 01/01/20 24 01/01/2024 LIPID PANEL triglyceride s 75 mg/dL 0-150 NIH ROBERTO NSUS REPOR T RECOM MENDA TION FOR TRIGL YCERI OLYA: ADULT CHILD LOW RISK: <150 ----- BODER LINE: 150-1 99 ----- HIGH RISK: >200 ----- Not Available [facility] (Lab) [address] [place], [address], 01/01/2024 11:21:08 01/01/20 24 01/01/2024 LIPID PANEL HDL cholesterol 53 mg/dL 40- Not Available [facility] (Lab) [address] [place], [address], 01/01/2024 11:21:08 01/01/20 24 01/01/2024 LIPID PANEL LDL cholesterol, calculated 68 mg/dL 0-130 NIH ROBERTO NSUS REPOR T RECOM MENDA TIONS FOR LDL: ADULT CHILD LOW RISK <130 <110 (OPTI MAL LDL) <100 ----- COLEDE RLINE : 130-1 59 ----- HIGH RISK: >160 >130 A TRIGL YCERI DE RESUL T >400 INVAL IDATE S THE CALCU LATIO N FOR LDL FRACT IONAT ION - THE LDL RESUL T WILL NOT BE REPOR MONICO. Not Available [facility] (Lab) [address] [place], [address], 01/01/2024 11:21:08 01/01/20 24 01/01/2024 COMPR EHENS KARINA METAB OLIC PANEL sodium 136 mmol/ L 137-14 5 low Not Available [facility] (Lab) [address] [place], [address], 01/01/2024 11:21:13 01/01/20 24 01/01/2024 COMPR EHENS KARINA METAB OLIC PANEL potassium 4.2 mmol/ L 3.5-5. 1 Not Available [facility] (Lab) [address] [place], [address], 01/01/2024 11:21:13 01/01/20 24 01/01/2024 COMPR EHENS KARINA METAB OLIC PANEL chloride 99 mmol/ L 98-107 Not Available [facility] (Lab) [address] [place], [address], 01/01/2024 11:21:13 01/01/20 24 01/01/2024 COMPR EHENS KARINA METAB OLIC PANEL carbon dioxide 29 mmol/ L 22-30 Not Available [facility] (Lab) [address] [place], [address], 01/01/2024 11:21:13 01/01/20 24 01/01/2024 COMPR EHENS KARINA METAB OLIC PANEL anion gap 12.2 mmol/ L 14-22 low Not Available [facility] (Lab) [address] [place], [address], 01/01/2024 11:21:13 01/01/20 24 01/01/2024 COMPR EHENS KARINA METAB OLIC PANEL glucose 84 mg/dL 70-99 Not Available [facility] (Lab) [address] [place], [address], 01/01/2024 11:21:13 01/01/20 24 01/01/2024 COMPR EHENS KARINA METAB OLIC PANEL BUN 8 mg/dL 8-19 Not Available [facility] (Lab) [address] [place], [address], 01/01/2024 11:21:13 01/01/20 24 01/01/2024 COMPR EHENS KARINA METAB OLIC PANEL creatinine 0.82 mg/dL 0.66-1 .25 Not Available [facility] (Lab) [address] [place], [address], 01/01/2024 11:21:13 01/01/20 24 01/01/2024 COMPR EHENS KARINA METAB OLIC PANEL GFR >60 Refer ence Range : [place] ge GFR Healt hy Adult : >60 mL/mi n/1.7 3 m2 Chron ic Kidne y Disea se: 15-60 mL/mi n/1.7 3 m2 Kidne y Failu re: <15/m L/min /1.73 m2 www.n iddk. nih.g ov The MDRD study equat ion has not been valid ated in child eddie <18 years of age; pregn ant women ; the elder ly >85 years of age; or in some racia l or ethni c subgr oups, such as Hispa nics. Outsi de the valid ated irma eters , estim ated GFR is less accur ate, requi ring clini gurpreet judgm ent on a case- by-ca se basis . Clini gurpreet inter preta tion for other races and ages must be made by the clini sarah. The MDRD study equat ion has not been valid ated for the evalu ation of serum creat inine relat ed to nutri blake l statu s or medic ation usage . For perso ns <18 years of age, a pedia tric GFR calcu lator is avail able on the [facility] websi te: https ://hardeep haynes.eliza malcolm.o rg/pr ofess ional s/kdo qi/gf r_cal culat or Not Available [facility] (Lab) [address] [place], [address], 01/01/2024 11:21:13 01/01/20 24 01/01/2024 COMPR EHENS KARINA METAB OLIC PANEL alkaline phosphatase 103 U/L 38-126 Not Available [facility] (Lab) [address] [place], [address], 01/01/2024 11:21:13 01/01/20 24 01/01/2024 COMPR EHENS KARINA METAB OLIC PANEL alanine aminotransfe rase 15 U/L 0-50 Not Available [facility] (Lab) [address] [place], [address], 01/01/2024 11:21:13 01/01/20 24 01/01/2024 COMPR EHENS KARINA METAB OLIC PANEL aspartate aminotransfe rase 29 U/L 15-46 Not Available [facility] (Lab) [address] [place], [address], 01/01/2024 11:21:13 01/01/20 24 01/01/2024 COMPR EHENS KARINA METAB OLIC PANEL bilirubin, total 0.90 mg/dL 0.20-1 .30 Not Available [facility] (Lab) [address] [place], [address], 01/01/2024 11:21:13 01/01/20 24 01/01/2024 COMPR EHENS KARINA METAB OLIC PANEL calcium 9.6 mg/dL 8.4-10 .2 Not Available [facility] (Lab) [address] [place], [address], 01/01/2024 11:21:13 01/01/20 24 01/01/2024 COMPR EHENS KARINA METAB OLIC PANEL total protein 6.5 g/dL 6.3-8. 2 Not Available [facility] (Lab) [address] [place], [address], 01/01/2024 11:21:13 01/01/20 24 01/01/2024 COMPR EHENS KARINA METAB OLIC PANEL albumin 4.0 g/dL 3.0-4. 4 Not Available [facility] (Lab) [address] [place], [address], 01/01/2024 11:21:13 01/01/20 24 01/01/2024 COMPR EHENS KARINA METAB OLIC PANEL globulin 2.5 g/dL 2.6-4. 2 low Not Available [facility] (Lab) [address] [place], [address], 01/01/2024 11:21:13 01/01/20 24 01/01/2024 COMPR EHENS KARINA METAB OLIC PANEL A/G ratio 1.6 ratio 1.0-2. 0 Not Available [facility] (Lab) [address] [place], [address], 01/01/2024 11:21:13 01/01/20 24 01/01/2024 T4 FREE free T4 1.45 NG/dL 0.78-2 .19 Not Available [facility] (Lab) [address] [place], [address], 01/01/2024 11:47:27 01/01/20 24 01/01/2024 TSH thyroid-stim ulating hormone 2.790 uIU/m L 0.465- 4.680 Not Available [facility] (Lab) [address] [place], [address], 01/01/2024 11:49:18 01/01/20 24 01/01/2024 VITAM IN B12 ([facility] ) vb12 404 pg/mL 239-93 1 Not Available [facility] (Lab) [address] [place], [address], 01/01/2024 12:27:58 01/01/20 24 01/01/2024 FOLAT E, SERUM /PLAS MA folate >20.0 NG/mL 2.76-2 0.0 Not Available [facility] (Lab) [address] [place], [address], 01/01/2024 12:28:04 06/06/20 24 06/06/2024 CBC/C OMPLE TE BLD COUNT W/DIF F white blood cells 4.6 x10'3 /uL 4.2-10 .8 Not Available [facility] (Lab) [address] [place], [address], 06/06/2024 10:35:58 06/06/20 24 06/06/2024 CBC/C OMPLE TE BLD COUNT W/DIF F red blood cells 4.34 x10'6 /uL 4.10-5 .80 Not Available [facility] (Lab) [address] [place], [address], 06/06/2024 10:35:58 06/06/20 24 06/06/2024 CBC/C OMPLE TE BLD COUNT W/DIF F hemoglobin 13.8 g/dL 13.2-1 7.0 Not Available [facility] (Lab) [address] [place], [address], 06/06/2024 10:35:58 06/06/20 24 06/06/2024 CBC/C OMPLE TE BLD COUNT W/DIF F hematocrit 41.5 % 39.3-5 0.0 Not Available [facility] (Lab) [address] [place], [address], 06/06/2024 10:35:58 06/06/20 24 06/06/2024 CBC/C OMPLE TE BLD COUNT W/DIF F mean red cell volume 95.6 fL 80.0-9 7.0 Not Available [facility] (Lab) [address] [place], [address], 06/06/2024 10:35:58 06/06/20 24 06/06/2024 CBC/C OMPLE TE BLD COUNT W/DIF F mean red cell hemoglobin 31.8 pg 27.0-3 3.0 Not Available [facility] (Lab) [address] [place], [address], 06/06/2024 10:35:58 06/06/20 24 06/06/2024 CBC/C OMPLE TE BLD COUNT W/DIF F mean RBC HGB concentratio n 33.3 g/dL 31.0-3 6.0 Not Available [facility] (Lab) [address] [place], [address], 06/06/2024 10:35:58 06/06/20 24 06/06/2024 CBC/C OMPLE TE BLD COUNT W/DIF F red cell distribution width 12.6 % 11.8-1 5.5 Not Available [facility] (Lab) [address] [place], [address], 06/06/2024 10:35:58 08/02/06/06/2024 CBC/C OMPLE TE BLD COUNT W/DIF F platelets 281 x10'3 /uL 150-40 0 Not Available [facility] (Lab) [address] [place], [address], 06/06/2024 10:35:58 06/06/20 24 06/06/2024 CBC/C OMPLE TE BLD COUNT W/DIF F mean platelet volume 9.8 fL 9.0-12 .4 Not Available [facility] (Lab) [address] [place], [address], 06/06/2024 10:35:58 06/06/20 24 06/06/2024 CBC/C OMPLE TE BLD COUNT W/DIF F neutrophils 55.2 % 39.0-7 2.0 Not Available [facility] (Lab) [address] [place], [address], 06/06/2024 10:35:58 06/06/20 24 06/06/2024 CBC/C OMPLE TE BLD COUNT W/DIF F lymphocytes 29.2 % 16.0-4 7.0 Not Available [facility] (Lab) [address] [place], [address], 06/06/2024 10:35:58 06/06/20 24 06/06/2024 CBC/C OMPLE TE BLD COUNT W/DIF F monocytes 10.3 % 5.0-12 .0 Not Available [facility] (Lab) [address] [place], [address], 06/06/2024 10:35:58 06/06/20 24 06/06/2024 CBC/C OMPLE TE BLD COUNT W/DIF F eosinophils 4.2 % 1.0-7. 0 Not Available [facility] (Lab) [address] [place], [address], 06/06/2024 10:35:58 06/06/20 24 06/06/2024 CBC/C OMPLE TE BLD COUNT W/DIF F basophils 0.9 % 0.0-2. 0 Not Available [facility] (Lab) [address] [place], [address], 06/06/2024 10:35:58 06/06/20 24 06/06/2024 CBC/C OMPLE TE BLD COUNT W/DIF F immature granulocytes 0.2 % 0.00-0 .50 Not Available [facility] (Lab) [address] [place], [address], 06/06/2024 10:35:58 06/06/20 24 06/06/2024 CBC/C OMPLE TE BLD COUNT W/DIF F neutrophils, absolute count 2.51 x10'3 /uL 1.5-8. 0 Not Available [facility] (Lab) [address] [place], [address], 06/06/2024 10:35:58 06/06/20 24 06/06/2024 CBC/C OMPLE TE BLD COUNT W/DIF F lymphocytes, absolute count 1.33 x10'3 /uL 1.07-3 .43 Not Available [facility] (Lab) [address] [place], [address], 06/06/2024 10:35:58 06/06/20 24 06/06/2024 CBC/C OMPLE TE BLD COUNT W/DIF F monocytes, absolute count 0.47 x10'3 /uL 0.29-0 .99 Not Available [facility] (Lab) [address] [place], [address], 06/06/2024 10:35:58 06/06/20 24 06/06/2024 CBC/C OMPLE TE BLD COUNT W/DIF F eosinophils, absolute count 0.19 x10'3 /uL 0.02-0 .53 Not Available [facility] (Lab) [address] [place], [address], 06/06/2024 10:35:58 06/06/20 24 06/06/2024 CBC/C OMPLE TE BLD COUNT W/DIF F basophils, absolute count 0.04 x10'3 /uL 0.01-0 .08 Not Available [facility] (Lab) [address] [place], [address], 06/06/2024 10:35:58 06/06/20 24 06/06/2024 CBC/C OMPLE TE BLD COUNT W/DIF F immature granulocytes ,absolute 0.01 x10'3 /uL 0.00-0 .05 Not Available [facility] (Lab) [address] [place], [address], 06/06/2024 10:35:58 06/06/20 24 06/06/2024 CBC/C OMPLE TE BLD COUNT W/DIF F nucleated red blood cells 0.0 % -0 Not Available [facility] (Lab) [address] [place], [address], 06/06/2024 10:35:58 06/06/20 24 06/06/2024 CBC/C OMPLE TE BLD COUNT W/DIF F NRBC# 0.00 x10'3 /uL Not Available [facility] (Lab) [address] [place], [address], 06/06/2024 10:35:58 06/06/20 24 06/06/2024 LIPID PANEL cholesterol 136 mg/dL 140-19 9 low NIH ROBERTO NSUS RECOM MENDA TION FOR STEF STERO L: ADULT CHILD LOW RISK: <200 <170 BORDE RLINE : <200- 239 ----- HIGH RISK: >240 >200 Not Available [facility] (Lab) [address] [place], [address], 06/06/2024 11:01:46 06/06/20 24 06/06/2024 LIPID PANEL triglyceride s 82 mg/dL 0-150 NIH ROBERTO NSUS REPOR T RECOM MENDA TION FOR TRIGL YCERI OLYA: ADULT CHILD LOW RISK: <150 ----- BODER LINE: 150-1 99 ----- HIGH RISK: >200 ----- Not Available [facility] (Lab) [address] [place], [address], 06/06/2024 11:01:46 06/06/20 24 06/06/2024 LIPID PANEL HDL cholesterol 60 mg/dL 40- Not Available [facility] (Lab) [address] [place], [address], 06/06/2024 11:01:46 06/06/20 24 06/06/2024 LIPID PANEL LDL cholesterol, calculated 60 mg/dL 0-130 NIH ROBERTO NSUS REPOR T RECOM MENDA TIONS FOR LDL: ADULT CHILD LOW RISK <130 <110 (OPTI MAL LDL) <100 ----- RUTH RLINE : 130-1 59 ----- HIGH RISK: >160 >130 A TRIGL YCERI DE RESUL T >400 INVAL IDATE S THE CALCU LATIO N FOR LDL FRACT IONAT ION - THE LDL RESUL T WILL NOT BE REPOR MONICO. Not Available [facility] (Lab) [address] [place], [address], 06/06/2024 11:01:46 06/06/20 24 06/06/2024 COMPR EHENS KARINA METAB OLIC PANEL sodium 131 mmol/ L 137-14 5 low Not Available [facility] (Lab) [address] [place], [address], 06/06/2024 11:01:55 06/06/20 24 06/06/2024 COMPR EHENS KARINA METAB OLIC PANEL potassium 4.5 mmol/ L 3.5-5. 1 Not Available [facility] (Lab) [address] [place], [address], 06/06/2024 11:01:55 06/06/20 24 06/06/2024 COMPR EHENS KARINA METAB OLIC PANEL chloride 100 mmol/ L 98-107 Not Available [facility] (Lab) [address] [place], [address], 06/06/2024 11:01:55 06/06/20 24 06/06/2024 COMPR EHENS KARINA METAB OLIC PANEL carbon dioxide 28 mmol/ L 22-30 Not Available [facility] (Lab) [address] [place], [address], 06/06/2024 11:01:55 06/06/20 24 06/06/2024 COMPR EHENS KARINA METAB OLIC PANEL anion gap 7.5 mmol/ L 14-22 low Not Available [facility] (Lab) [address] [place], [address], 06/06/2024 11:01:55 06/06/20 24 06/06/2024 COMPR EHENS KARINA METAB OLIC PANEL glucose 93 mg/dL 70-99 Not Available [facility] (Lab) [address] [place], [address], 06/06/2024 11:01:55 06/06/20 24 06/06/2024 COMPR EHENS KARINA METAB OLIC PANEL BUN 7 mg/dL 8-19 low Not Available [facility] (Lab) [address] [place], [address], 06/06/2024 11:01:55 06/06/20 24 06/06/2024 COMPR EHENS KARINA METAB OLIC PANEL creatinine 0.88 mg/dL 0.66-1 .25 Not Available [facility] (Lab) [address] [place], [address], 06/06/2024 11:01:55 06/06/20 24 06/06/2024 COMPR EHENS KARINA METAB OLIC PANEL GFR >60 Refer ence Range : [place] ge GFR Healt hy Adult : >60 mL/mi n/1.7 3 m2 Chron ic Kidne y Disea se: 15-60 mL/mi n/1.7 3 m2 Kidne y Failu re: <15/m L/min /1.73 m2 www.n iddk. nih.g ov The MDRD study equat ion has not been valid ated in child eddie <18 years of age; pregn ant women ; the elder ly >85 years of age; or in some racia l or ethni c subgr oups, such as Hispa nics. Outsi de the valid ated irma eters , estim ated GFR is less accur ate, requi ring clini gurpreet judgm ent on a case- by-ca se basis . Clini gurpreet inter preta tion for other races and ages must be made by the clini sarah. The MDRD study equat ion has not been valid ated for the evalu ation of serum creat inine relat ed to nutri blake l statu s or medic ation usage . For perso ns <18 years of age, a pedia tric GFR calcu lator is avail able on the [facility] websi te: https ://hardeep malcolm.o rg/pr ofess ional s/kdo qi/gf r_cal culat or Not Available [facility] (Lab) [address] [place], [address], 06/06/2024 11:01:55 06/06/20 24 06/06/2024 COMPR EHENS KARINA METAB OLIC PANEL alkaline phosphatase 85 U/L 38-126 Not Available [facility] (Lab) [address] [place], [address], 06/06/2024 11:01:55 06/06/20 24 06/06/2024 COMPR EHENS KARINA METAB OLIC PANEL alanine aminotransfe rase 27 U/L 0-50 Not Available [facility] (Lab) [address] [place], [address], 06/06/2024 11:01:55 06/06/20 24 06/06/2024 COMPR EHENS KARINA METAB OLIC PANEL aspartate aminotransfe rase 39 U/L 15-46 Not Available [facility] (Lab) [address] [place], [address], 06/06/2024 11:01:55 06/06/20 24 06/06/2024 COMPR EHENS KARINA METAB OLIC PANEL bilirubin, total 0.90 mg/dL 0.20-1 .30 Not Available [facility] (Lab) [address] [place], [address], 06/06/2024 11:01:55 06/06/20 24 06/06/2024 COMPR EHENS KARINA METAB OLIC PANEL calcium 9.7 mg/dL 8.4-10 .2 Not Available [facility] (Lab) [address] [place], [address], 06/06/2024 11:01:55 06/06/20 24 06/06/2024 COMPR EHENS KARINA METAB OLIC PANEL total protein 7.2 g/dL 6.3-8. 2 Not Available [facility] (Lab) [address] [place], [address], 06/06/2024 11:01:55 06/06/20 24 06/06/2024 COMPR EHENS KARINA METAB OLIC PANEL albumin 4.3 g/dL 3.0-4. 4 Not Available [facility] (Lab) [address] [place], [address], 06/06/2024 11:01:55 06/06/20 24 06/06/2024 COMPR EHENS KARINA METAB OLIC PANEL globulin 2.9 g/dL 2.6-4. 2 Not Available [facility] (Lab) [address] [place], [address], 06/06/2024 11:01:55 06/06/20 24 06/06/2024 COMPR EHENS KARINA METAB OLIC PANEL A/G ratio 1.5 ratio 1.0-2. 0 Not Available [facility] (Lab) [address] [place], [address], 06/06/2024 11:01:55 06/06/20 24 06/06/2024 TSH thyroid-stim ulating hormone 3.130 uIU/m L 0.465- 4.680 Not Available [facility] (Lab) [address] [place], [address], 06/06/2024 11:44:17 06/06/20 24 06/06/2024 T4 FREE free T4 1.27 NG/dL 0.78-2 .19 Not Available [facility] (Lab) [address] [place], [address], 06/06/2024 11:44:33 06/06/20 24 06/06/2024 VITAM IN B12 ([facility] ) vb12 474 pg/mL 239-93 1 Not Available [facility] (Lab) [address] [place], [address], 06/06/2024 12:07:47 06/06/20 24 06/06/2024 FOLAT E, SERUM /PLAS MA folate >20.0 NG/mL 2.76-2 0.0 Not Available [facility] (Lab) [address] [place], [address], 06/06/2024 12:08:07 01/19/20 24 01/19/2024 CT, angio gram, chest , w/ contr ast No observ ation record ed. [address] [address], [place], [address], 05/20/2024 09:20:59 03/13/20 24 03/13/2024 CT, angio gram, abdom en + pelvi s, w/ contr ast No observ ation record ed. [address], [place], [address], 05/21/2024 17:48:22 03/13/20 24 03/13/2024 XR, abdom en No observ ation record ed. [facility] [address], [place], [address], 05/21/2024 17:48:45 03/13/20 24 03/13/2024 XR, chest , 1 view No observ ation record ed. [address], [place], [address], 05/21/2024 17:48:59 03/13/20 24 03/13/2024 XR, abdom en No observ ation record ed. [address], [place], [address], 05/22/2024 12:31:18 03/14/20 24 03/14/2024 XR, kidne y + urete r + bladd er No observ ation record ed. [address] [address], [place], [address], 05/22/2024 12:31:39 03/14/20 24 03/14/2024 RF, small bowel , w/ contr ast PO No observ ation record ed. [address] [address], [place], [address], 05/22/2024 12:32:31 03/15/20 24 03/15/2024 XR, kidne y + urete r + bladd er No observ ation record ed. [address], [place], [address], 05/22/2024 12:35:13 04/28/20 24 04/28/2024 imagi ng/di agnos tic resul t No observ ation record ed. [address] [facility] [address], [place], [address], 09/11/2024 09:18:30 05/15/20 24 05/15/2024 imagi ng/di agnos tic resul t No observ ation record ed. [address] [address], [place], [address], 09/11/2024 09:19:46 05/21/20 24 05/21/2024 XR, ankle No observ ation record ed. [address], [place], [address], 09/15/2024 10:11:08 08/25/20 24 08/14/2024 compl ete PFT w/ post [facility] hodil ator mehreen metry * No observ ation record ed. [address] [place], [address], 09/15/2024 15:52:01 08/26/20 24 08/14/2024 PFT, compl ete No observ ation record ed. [address] [facility] [address], [place], [address], 09/18/2024 09:48:20 09/09/20 24 09/09/2024 imagi ng/di agnos tic resul t No observ ation record ed. [address], [place], [address], 09/09/2024 10:30:49 09/11/20 XR, hand, 3 or more view [facility] [address] [place], [place] [address] [phone] Patien t Name: BILL WRIGHT [facility] ion #: [id number] Sex: M : 1945 4 Dictat ed By: Jean Paul Waldrop ms Attend ing Physic rachael: CATIA PERDOMO Physic rachael: CATIA PERDOMO Exam Date: 2023 10:27 AM Exam Name: XR HAND RT 3V Admitt ing Diagno sis(es ): PROCED URE: Right hand radiog raphs. INDICA TION: 78 years old, Male; RT HAND PAIN. TECHNI QUE: 3 views of the right hand were obtain ed. COMPAR DUSTY: Radiog raphs of the right hand perfor med on 2022. FINDIN GS: There is no eviden ce of fractu re or disloc ation. There is narrow ing of the proxim al and distal interp halang eal joints with centra l erosio ns, consis tent with erosiv e arthri tis. This is increa sed since prior radiog raph from 2022. There is severe 1st carpom etacar pal joint space narrow ing. The joint spaces are otherw ise mainta ined. There are vascul ar calcif icatio ns in the wrist. IMPRES ALEXIS: 1. Severe erosiv e osteoa rthrit is, increa sed since the prior radiog raph from 2022. 2. Severe carpom etacar pal osteoa rthrit is. 3. No fractu re or disloc ation. Electr onical ly Signed by: Jean Paul Waldrop ms at 2023 10:41: 33 AM Page 1 [email or web address] [facility] (Imaging) [address] [place], [address], 09/11/2024 14:46:49 09/11/20 24 09/11/2024 imagi ng/di agnos tic resul t No observ ation record ed. [facility] [address] [place], [address], 09/11/2024 11:45:38 11/25/19 25 11/12/2024 XR, ankle No observ ation record ed. JOEL Not Available 2024 10:35:10 12/03/19 25 12/02/2024 imagi ng/di agnos tic resul t No observ ation record ed. [facility] [address], [place], [address], 12/03/2024 19:57:11 Result Notes None recorded. Problems Name Problem SNOMED Code Status Onset Date Resolution Date Notes Provider Name and Address Organization Details Recorded Time Cervical radiculiti s 32538656 Active Not Available [facility] 3 00:31:43 Nocturia 654691457 Active Not Available [facility] 3 00:31:44 Radiothera py follow-up 716028867 Active Not Available [facility] 3 00:31:44 Raynaud's phenomenon 569255899 Active Not Available [facility] 3 00:31:44 Disorder of prostate 41156090 Active 2021 Not Available [facility] 3 00:31:44 Osteoarthr itis 860040413 Active Not Available [facility] 3 00:31:44 Rupture of tendon of biceps 155589460 Active Not Available [facility] 3 00:31:44 Disorder of tendon of biceps 363169579 Active Not Available [facility] 3 00:31:44 Atrial fibrillati on 44208810 Active 2016 Not Available [facility] 3 00:31:44 Hyperlipid emia 39964450 Active [facility] Available [facility] 3 00:31:44 Essential hypertensi on 73245207 Active Not Available [facility] 3 00:31:44 Rheumatoid arthritis 38283644 Active Not Available [facility] 3 00:31:44 COVID-19 336073908 Active 2021 Not Available [facility] 3 00:31:44 Localized, primary osteoarthr itis of the hand 034668046 Active 2022 Not Available [facility] 3 00:31:44 Chronic constipati on 348146389 Active 2022 Not Available [facility] 3 00:31:44 Hypothyroi dism 47540765 Active 2022 Not Available [facility] 3 00:31:44 Gastroesop hageal reflux disease without esophagiti s 121533835 Active 2022 Not Available [facility] 3 00:31:44 Obstructiv e sleep apnea syndrome 35860637 Active 2022 Not Available [facility] 3 00:31:44 Skin lesion 87497135 Active 2022 Not Available [facility] 3 00:31:44 Small bowel obstructio n 539061501 Active 2022 Not Available [facility] 3 00:31:44 Cataract 734998431 Active 2022 Not Available [facility] 3 00:31:44 Pain in right foot 1335826992661 07 Active 2022 Not Available [facility] 3 00:31:44 Pain of bilateral hands 7468035797205 9109 Active 2022 Not Available [facility] 3 00:31:44 Cholecysti tis 23042082 Active 2022 Not Available [facility] 3 00:31:44 Benign paroxysmal positional vertigo 490291161 Active 2022 Not Available [facility] 3 00:31:44 Arthritis 7828233 Active 2022 Not Available [facility] 3 00:31:44 Dyspnea on exertion 09888878 Active 2022 Not Available [facility] 3 00:31:44 Pain of left knee joint 8119250443624 07 Active 2022 Not Available [facility] 3 00:31:44 Anemia 953437669 Active 2022 Angy vernon, [facility] 3 14:24:26 Macrocytos is 582134151 Active 2022 Monse boyd MD [address], [place], [address] , [facility] 3 09:15:36 Leukocytos is 309430556 Active 2023 oMnse boyd MD [address], [place], [address] , [facility] 4 09:58:35 Pain of right ankle joint 6872930230285 9106 Active 2023 Monse boyd MD [address] [facility] [address], [place], [address] , [facility] [employer] [facility] 4 10:03:53 Bronchitis 13642600 Active 2023 Monse boyd MD [address], [facility] [address], [place], [address] , [facility] [employer] [facility] 4 17:06:06 Nasal congestion 28409640 Active 2023 Chay Louis CMA null, [facility] [employer] [facility] 4 15:20:42 Hyponatrem ia 02924518 Active 2023 Monse boyd MD [address], [facility] [address], [place], [address] , [facility] [employer] [facility] 4 22:19:41 Notes:Medical History: COVID infection 04/2021 Eosinophils 10/uL JULIA on CPAP c/o [facility] Atrial fibrillation on Pacerone/Eliquis since 2016 Hypertension Hyperlipidemia ZECHARIAH B12 deficiency RA of fingers Raynaud's phenomenon Procedure History: Exploratory laparotomy for bowel perforation 1999 5 colonoscopies 1999- 2021 Right ankle fusion 2003 Left knee replacement surgery 2020 Cholecystectomy 2020 EGD 2020 Problem Notes None recorded. Procedures Surgical History Date Name Laterality Status Provider Name and Address Organization Details Recorded Time 10/14/20 24 Medicare Wellness CPT Code, subsequent completed Zay Grace LPN [facility] [employer] [facility] 10/14/2024 08:24:27 10/14/20 24 Advanced Care Planning completed Zay Grace LPN [facility] [employer] [facility] 10/14/2024 10:55:34 06/10/20 24 Medicare Wellness CPT Code, subsequent completed Zay Grace LPN [facility] [employer] [facility] 06/10/2024 08:22:38 04/12/20 23 Medicare Wellness CPT Code, subsequent completed Kati Lancaster RN [facility] [employer] [facility] 04/12/2023 09:19:11 05/18/20 22 Colonoscopy completed Not Available [facility] 01/03/2023 01:12:49 05/24/20 21 Knee Replacement completed Not Available [facility] 01/03/2023 01:12:49 06/16/20 19 Cataract Surgery completed Not Available [facility] 01/03/2023 01:12:49 08/03/20 15 repair of ruptured tendon completed Not Available [facility] 01/03/2023 01:12:49 Colon Surgery completed Not Available [facility] 01/03/2023 01:12:49 Orthopedic Surgery completed Not Available [facility] 01/03/2023 01:12:49 Orthopedic Surgery completed Not Available [facility] 01/03/2023 01:12:49 Orthopedic Surgery completed Not Available [facility] 01/03/2023 01:12:49 Orthopedic Surgery completed Not Available [facility] 01/03/2023 01:12:49 Cataract Surgery completed Not Available [facility] 01/03/2023 01:12:49 Cholecystectomy completed Not Available [facility] 01/03/2023 01:12:49 Ankle Surgery completed CLARISSE Hernandez CA - [facility] 10/14/2024 10:13:26 Imaging Results Imaging Date Name Status LastModified by Organization Details LastModified Time 01/19/2024 CT, angiogram, chest, w/ contrast completed [address], [address], 05/20/2024 09:20:59 03/13/2024 CT, angiogram, abdomen + pelvis, w/ contrast completed [address], [address], 05/21/2024 17:48:22 03/13/2024 XR, abdomen completed [address], [address], 05/21/2024 17:48:45 03/13/2024 XR, chest, 1 view completed [address], [address], 05/21/2024 17:48:59 03/13/2024 XR, abdomen completed [address], [address], 05/22/2024 12:31:18 03/14/2024 XR, kidney + ureter + bladder completed [address] [facility], [place], [address], 05/22/2024 12:31:39 03/14/2024 RF, small bowel, w/ contrast PO completed [address], [place], [address], 05/22/2024 12:32:31 03/15/2024 XR, kidney + ureter + bladder completed [address], [place], [address], 05/22/2024 12:35:13 04/28/2024 imaging/diagnostic result completed [address] [facility] [address], [place], [address], 09/11/2024 09:18:30 05/15/2024 imaging/diagnostic result completed [address] [address], [place], [address], 09/11/2024 09:19:46 05/21/2024 XR, ankle completed [address] [address], [place], [address], 09/15/2024 10:11:08 08/14/2024 complete PFT w/ post bronchodilator spirometry* completed [address] [place], [address], 09/15/2024 15:52:01 08/14/2024 PFT, complete completed [address] [facility] [address], [place], [address], 09/18/2024 09:48:20 09/09/2024 imaging/diagnostic result active [address] [place] [address], [address], 09/09/2024 10:30:49 09/11/2024 XR, hand, 3 or more view completed [email or web address] [facility] [address] [place], [address], 09/11/2024 14:46:49 09/11/2024 imaging/diagnostic result active [facility] [address] [place], [address], 09/11/2024 11:45:38 11/12/2024 XR, ankle active [place] Information no t available 11/25/2024 10:35:10 12/02/2024 imaging/diagnostic result active [facility] [address] [facility] [address], [place], [address], 12/03/2024 19:57:11 Procedure Notes None recorded. Medical Equipment None Reported. Allergies No known drug allergies Medications Name Sig Start Date Stop Date Status Note LastModified by Organization Details LastModified Time cyclobenz aprine 10 mg tablet Take 1 tablet every day by oral route at bedtime. 11/06 completed Not Available Not Available Not Available amoxicill in 500 mg capsule 04/15 completed Not Available Not Available Not Available Miralax 17 gram/dose oral powder Take 17 g by oral route. 08/25 completed Not Available Not Available Not Available cefuroxim e axetil 250 mg tablet active Not Available Not Available Not Available sildenafi l 50 mg tablet TAKE 1 TAB BY MOUTH 1/2 HR PRIOR TO SEX WEEKLY NEEDED. GO TO ER IF ERECTION LASTS MORE THAN 4 HOURS. active Not Available Not Available No t Available atorvasta tin 10 mg tablet TAKE 1 TABLET BY MOUTH ONCE DAILY active Not Available Not Available No t Available azithromy nellie 250 mg tablet Take by oral route.2t abs first day then 1 daily 12/14 completed Not Available Not Available Not Available ofloxacin 0.3 % eye drops INSTILL 1 DROP 3 TIMES DAILY STARTING 2 DAYS BEFORE SURGERY, CONTINUI NG FOR 1 WEEK AFTER. 12/14 completed Not Available Not Available Not Available amiodaron e 200 mg tablet TAKE 1 TABLET BY MOUTH ONCE DAILY active Not Available Not Available No t Available metoprolo l succinate ER 50 mg tablet,ex tended release 24 hr Take 1 tablet every day by oral route as directed for 90 days. 11/22 completed Not Available Not Available Not Available hydrocodo ne 5 mg-acetam inophen 325 mg tablet TAKE 1 TABLET BY MOUTH EVERY 6 HOURS NEEDED FOR PAIN active Not Available Not Available No t Available meloxicam 15 mg tablet TAKE ONE TABLET DAILY 11/06 completed Not Available Not Available Not Available Medrol (Javier) 4 mg tablets in a dose pack TAKE THE MEDROL DOSE PACK PO DIRECTED 03/09 completed Not Available Not Available Not Available fluoroura cil 5 % topical cream 01/05 completed Not Available Not Available Not Available sennoside s 8.6 mg-docusa te sodium 50 mg tablet Take 2 tablets every day by oral route. 08/25 completed Not Available Not Available Not Available prednison e 5 mg tablet TAKE 1 TO 3 TABLETS BY MOUTH ONCE DAILY active Not Available Not Available No t Available penicilli n V potassium 500 mg tablet active Not Available Not Available Not Available metronida zole 500 mg tablet TAKE 1 TABLET BY MOUTH THREE TIMES DAILY FOR 7 DAYS 02/14 completed Not Available Not Available Not Available acetamino phen 300 mg-codein e 30 mg tablet active Not Available Not Available Not Available Plavix 75 mg tablet Take 1 tablet every day by oral route. 08/31 completed Not Available Not Available Not Available ciproflox acin 500 mg tablet TAKE 1 TABLET BY MOUTH EVERY 12 HOURS FOR 7 DAYS 03/24 completed Not Available Not Available Not Available peg-elect rolyte solution 420 gram oral solution 08/10 completed Not Available Not Available Not Available tramadol 50 mg tablet TAKE 1 TABLET BY MOUTH EVERY 4 HOURS NEEDED FOR PAIN . DO NOT EXCEED 5 PER 24 HOURS 06/10 completed Not Available Not Available Not Available amoxicill in 500 mg tablet Take 1 tablet twice a day by oral route as directed for 7 days. 10/15 completed Not Available Not Available Not Available ketorolac 0.5 % eye drops INSTILL 1 DROP 3 TIMES DAILY STARTING 2 DAYS BEFORE SURGERY, CONTINUE FOR 2 WEEKS AFTER 12/14 completed Not Available Not Available Not Available meloxicam 7.5 mg tablet TAKE 1 TAB DAILY active Not Available Not Available No t Available Zofran 4 mg tablet Take 1 tablet twice a day by oral route as needed. active Not Available Not Available No t Available prednisol one acetate 1 % eye drops,shaniqua pension INSTILL 1 DROP 3 TIMES DAILY STARTING AFTER SURGERY, CONTINUE FOR 3 WEEKS 12/14 completed Not Available Not Available Not Available methotrex ate sodium 2.5 mg tablet TAKE 5 TABLETS BY MOUTH IN THE MORNING AND 5 IN THE EVENING EVERY 7 DAYS active Not Available Not Available No t Available Kenalog 10 mg/mL suspensio n for injection in office 08/30 completed [facility]: [phone] Not Available Not Available Not Available hydrocodo ne 7.5 mg-acetam inophen 325 mg tablet 04/12 completed Not Available Not Available Not Available cephalexi n 500 mg capsule TAKE 1 CAPSULE BY MOUTH EVERY 6 HOURS 01/05 completed Not Available Not Available Not Available erythromy nellie 5 mg/gram (0.5 %) eye ointment APPLY A SMALL AMOUNT TO LEFT EYE TWICE DAILY FOR 7 DAYS 04/03 completed Not Available Not Available Not Available indometha nellie 25 mg capsule active Not Available Not Available Not Available metoprolo l tartrate 50 mg tablet TAKE ONE TABLET TWICE DAILY 02/21 completed Not Available Not Available Not Available nitroglyc demetrius 0.4 mg sublingua l tablet DISSOLVE 1 TABLET UNDER THE TONGUE NEEDED FOR CHEST PAIN - TAKE 1 TABLET AT THE ONSET OF CHEST PAIN, REPEAT AFTER 5 MINUTES FOR 2 DOSES T 10/15 completed Not Available Not Available Not Available docusate sodium 100 mg capsule TAKE 1 CAPSULE BY MOUTH TWICE DAILY NEEDED FOR CONSTIPA TION 02/14 completed Not Available Not Available Not Available gabapenti n 300 mg capsule 10/15 completed Not Available Not Available Not Available omeprazol e 20 mg capsule,d elayed release TAKE 1 CAPSULE BY MOUTH ONCE DAILY NEEDED active Not Available Not Available No t Available cephalexi n 500 mg tablet Take 1 tablet every 6 hours by oral route. 06/07 completed Not Available Not Available Not Available diltiazem CD 120 mg capsule,e xtended release 24 hr TAKE 1 CAPSULE BY MOUTH ONCE DAILY active Not Available Not Available No t Available folic acid 1 mg tablet Take 1 tablet every day by oral route. 03/15 completed Not Available Not Available Not Available Aspir-81 mg tablet,de layed release Take 1 tablet every day by oral route for 90 days. 11/22 completed Not Available Not Available Not Available Cheratuss in AC 10 mg-100 mg/5 mL oral liquid Take 10 mL 3 times a day by oral route. active Not Available Not Available No t Available levofloxa nellie 500 mg tablet TAKE 1 TABLET BY MOUTH ONCE DAILY FOR 7 DAYS 01/05 completed Not Available Not Available Not Available fluticaso ne propionat e 50 mcg/actua tion nasal spray,shaniqua pension USE 1 SPRAY INTO EACH NOSTRIL ONCE A DAY 09/17 completed Not Available Not Available Not Available loratadin e 10 mg tablet TAKE ONE TABLET DAILY 09/17 completed Not Available Not Available Not Available amoxicill in 875 mg-potass ium clavulana te 125 mg tablet TAKE 1 TABLET BY MOUTH EVERY 12 HOURS FOR 7 DAYS active Not Available Not Available No t Available Tylenol Extra Strength 500 mg tablet Take 2 tablets every 6 hours by oral route. 08/25 completed Not Available Not Available Not Available oxycodone 5 mg tablet Take 1 tablet every 4 hours by oral route. active Not Available Not Available No t Available neomycin 3.5 mg/g-poly myxin B 10,000 unit/g-de xameth 0.1 % eye oint active Not Available Not Available Not Available azithromy nellie 500 mg tablet TAKE 1 TABLET BY MOUTH ONCE DAILY FOR 3 DAYS 01/28 completed Not Available Not Available Not Available amoxicill in-potass ium clavulana te 1,000 mg-62.5 mg tablet,ex t.rel 12hr TAKE 1 TABLET BY MOUTH EVERY 12 HOURS 04/03 completed Not Available Not Available Not Available ezetimibe 10 mg tablet 09/11 completed Not Available Not Available Not Available cyclobenz aprine 5 mg tablet TAKE 1 TABLET BY MOUTH THREE TIMES DAILY NEEDED FOR MUSCLE SPASM active Not Available Not Available No t Available Pacerone 100 mg tablet TAKE 1 TABLET BY MOUTH ONCE DAILY 01/07 completed Not Available Not Available Not Available metoprolo l tartrate 25 mg tablet TAKE 1 TABLET TWICE DAILY 05/27 completed Not Available Not Available Not Available methotrex ate 12/[address] Baak started with folic acid on 1, f.u in 2 months Not Available Not Available Not Available lidocaine (PF) 10 mg/mL (1 %) injection solution In office injectio n administ ered by the provider 04/06 completed [facility]: [id number] 6-17 Not Available Not Available Not Available Bystolic 10 mg tablet Take 1 tablet every day by oral route. active Not Available Not Available No t Available GaviLyte- G 236 gram-22.7 4 gram-6.74 gram-5.86 gram oral solution USE DIRECTED 08/10 completed Not Available Not Available Not Available Johanna Allergy 180 mg tablet Take 1 tablet every day by oral route for 6 days. active Not Available Not Available No t Available ropivacai ne (PF) 5 mg/mL (0.5 %) injection solution in office 08/30 completed [facility] 07083-07 4- Not Available Not Available Not Available Xarelto 20 mg tablet Take 1 tablet every day by oral route. active Not Available Not Available No t Available lidocaine 5 % topical ointment 10/15 completed Not Available Not Available Not Available Eliquis 5 mg tablet TAKE 1 TABLET BY MOUTH TWICE DAILY 08/30 completed changed to xarelto Not Available Not Available Not Available Eliquis 2.5 mg tablet TAKE 1 TABLET BY MOUTH TWICE DAILY 06/07 completed Not Available Not Available Not Available Eliquis take 2 tabs daily 11/25 completed Pt will start this when he is finished with his Xarelto per Vardi Not Available Not Available Not Available Procto-Me d HC 2.5 % topical cream perineal applicato r INSERT INTO THE RECTUM TWICE DAILY NEEDED FOR HEMORRHO IDS 04/06 completed Not Available Not Available Not Available Linzess 72 mcg capsule Take 1 capsule every day by oral route as needed for 90 days. 04/06 completed Not Available Not Available Not Available Shingrix (PF) 50 mcg/0.5 mL intramusc ular suspensio n, kit 11/25 completed Not Available Not Available Not Available Paxlovid 300 mg (150 mg x 2)-100 mg tablets in a dose pack Take 1 dose pk by oral route as directed for 5 days. 01/07 completed Not Available Not Available Not Available Vitals Date Recorded Body height Body mass index (BMI) Body weight Body temperature Heart rate Systolic blood pressure Diastolic blood pressure Provider Name and Address Organization Details Last Updated DateTime 4 165.1 cm 27.8 kg/m2 95117.9 3 g 97.7 [degF] 78 /min 120 mm[Hg] 62 mm[Hg] CLARISSE Hernandez Yodio 4 09:41:17 Date Recorded Body height Body mass index (BMI) Body weight Body temperature Heart rate Systolic blood pressure Diastolic blood pressure Provider Name and Address Organization Details Last Updated DateTime 4 165.1 cm 27.1 kg/m2 60216.5 6 g 97.7 [degF] 78 /min 118 mm[Hg] 62 mm[Hg] CLARISSE Hernandez Yodio 4 16:46:14 Date Recorded Body height Body mass index (BMI) Body weight Body temperature Heart rate Systolic blood pressure Diastolic blood pressure Provider Name and Address Organization Details Last Updated DateTime 4 165.1 cm 27 kg/m2 18704.9 6 g 97.7 [degF] 78 /min 144 mm[Hg] 76 mm[Hg] CLARISSE Hernandez Yodio 4 09:51:27 Date Recorded Body height Body temperature Heart rate Oxygen saturation Oxygen saturation in Arterial blood by Pulse oximetry Systolic blood pressure Diastolic blood pressure Provider Name and Address Organization Details Last Updated DateTime 4 165.1 cm 98.1 [degF] 66 /min 99 % 99 % 136 mm[Hg] 62 mm[Hg] Nelsy Romero MA Yodio 4 09:48:03 Date Recorded Body height Body mass index (BMI) Body weight Body temperature Heart rate Systolic blood pressure Diastolic blood pressure Provider Name and Address Organization Details Last Updated DateTime 4 165.1 cm 27.1 kg/m2 83794.5 6 g 97.7 [degF] 66 /min 120 mm[Hg] 68 mm[Hg] Bell Garg Mary Yodio 4 10:15:11 Date Recorded Respiratory rate Pain severity - 0-10 verbal numeric rating [Score] - Reported Provider Name and Address Organization Details Last Updated DateTime 10/14/2024 16 /min 0 Zay Grace LPN [place] - [facility] [employer] [facility] 10/14/2024 10:54:51 Social History Question Answer Notes LastModified by Organization Details LastModified Time Tobacco Smoking Status Never Smoker Not Available [facility] 01/03/2023 01:10:23 Do You Have An Advance Directive? No PATIENT DECLINED INFORMATION MIGRATION.030 [id number] Information not available 01/03/2023 What Is Your Level Of Alcohol Consumption? None MIGRATION.030 [id number] Information not available 01/03/2023 Are You Blind Or Do You Have Difficulty Seeing? No MIGRATION.030 [id number] Information not available 01/03/2023 What Is Your Level Of Caffeine Consumption? Heavy MIGRATION.030 [id number] Information not available 01/03/2023 In The 14 Days Before Symptom Onset, Have You Had Close Contact With A Laboratory-conf irmed COVID-19 While That Case Was Ill? No MIGRATION.030 [id number] Information not available 01/03/2023 In The 14 Days Before Symptom Onset, Have You Had Close Contact With A Person Who Is Under Investigation For COVID-19 While That Person Was Ill? No MIGRATION.030 [id number] Information not available 01/03/2023 Are You Currently Employed? No Retired Information not available 04/12/2023 Are You Deaf Or Do You Have Serious Difficulty Hearing? Yes MIGRATION.030 [id number] Information not available 01/03/2023 What Type Of Diet Are You Following? REGULAR MIGRATION.300 [id number] Information not available 01/03/2023 What Is The Highest Grade Or Level Of School You Have Completed Or The Highest Degree You Have Received? JD31519-6 MIGRATION.[id number] Information not available 01/03/2023 Do You Have An Electrostatic Air Filter? No Information not available 03/15/2023 Have There Been Any Changes To Your Family Or Social Situation? Yes MIGRATION.030 [id number] Information not available 01/03/2023 What Is The Fluoride Status Of Your Home? Unknown MIGRATION.300 [id number] Information not available 01/03/2023 Are There Any Guns Present In Your Home? Yes MIGRATION.0301 [id number] Information not available 01/03/2023 Do You Have A Humidifier? No Information not available 03/15/2023 Do You Use Insect Repellent Routinely? No MIGRATION.0301 [id number] Information not available 01/03/2023 Where Do You Live? [place]House MIGRATION.0301 [id number] Information not available 01/03/2023 Do You Have A Medical Power Of Environmental Remediation Specialist? No MIGRATION.0301 [id number] Information not available 01/03/2023 Do You Have Moisture Problems In Your Home? No Information not available 03/15/2023 What Was The Date Of Your Most Recent Tobacco Screening? 10/14/2024 Information not available 10/14/2024 Do You Have Any Pets? No MIGRATION.0301 [id number] Information not available 01/03/2023 What Is Your Relationship Status? MIGRATION.0301 [id number] Information not available 01/03/2023 Do You Use Your Seat Belt Or Car Seat Routinely? Yes MIGRATION.0301 [id number] Information not available 01/03/2023 Do You Have Smoke And Carbon Monoxide Detectors In Your Home? Yes MIGRATION.0301 675393 Information not available 01/03/2023 Are You Passively Exposed To Smoke? No MIGRATION.0301 [id number] Information not available 01/03/2023 Are There Any Smokers In Your House? No MIGRATION.0301 [id number] Information not available 01/03/2023 What Types Of Sporting Activities Do You Participate In? None MIGRATION.0301 [id number] Information not available 01/03/2023 Do You Feel Stressed (tense, Restless, Nervous, Or Anxious, Or Unable To Sleep At Night)? [id number] MIGRATION.0301 [id number] Information not available 01/03/2023 Do You Use Any Illicit Or Recreational Drugs? No MIGRATION.0301 [id number] Information not available 01/03/2023 Do You Use Sunscreen Routinely? Yes MIGRATION.0301 793007 Information not available 01/03/2023 Has Tobacco Cessation Counseling Been Provided? No N/a MIGRATION.0301 117142 Information not available 01/03/2023 Have You Recently Traveled Abroad? No MIGRATION.0301 [id number] Information not available 01/03/2023 Do You Have Any Dietary Restrictions? No MIGRATION.0301 145173 Information not available 01/03/2023 Do You Or Have You Ever Used Any Other Forms Of Tobacco Or Nicotine? No MIGRATION.0301 585011 Information not available 01/03/2023 Sex: Male Functional Status Question Answer Note LastModified by Organizat ion Details LastModified Time Do you have difficulty walking or climbing stairs? No MIGRATION.[id number] 026 Information not available 01/03/2023 Do you have transportation difficulties? No MIGRATION.[id number] 026 Information not available 01/03/2023 Are you able to walk? YESWOREST MIGRATION.[id number] 026 Information not available 01/03/2023 Do you have difficulty doing errands alone? No MIGRATION.[id number] 026 Information not available 01/03/2023 Are you able to care for yourself? Yes MIGRATION.[id number] 026 Information not available 01/03/2023 Do you have difficulty dressing or bathing? No MIGRATION.[id number] 026 Information not available 01/03/2023 What is your exercise level? Occasional MIGRATION.[id number] 026 Information not available 01/03/2023 Mental Status Question Answer Note LastModified by Organizat ion Details LastModified Time Do you have difficulty concentrating, remembering or making decisions? No MIGRATION.[id number] Information not available 01/03/2023 Family History Relationship Description Onset Age of this Age Resolved Age Notes LastModified by Organization Details LastModified Time Father Malignant tumor of lung MIGRATION.624 [id number] Not available 01/03/2023 01:12:57 Mother Cerebrovascu lar accident [email or web address] Not available 09/2023 11:45:57 Medical History Condition Response NERVE DISEASE N BLINDNESS N RHEUMATIC FEVER N KIDNEY STONES N BLADDER PROBLEMS N MRSA N OTHER # 1 Y POLIO N LUNG DISEASE/DISORDER N HISTORY OF DRUG ABUSE N COPD N RADIATION / CHEMOTHERAPY N Other # 2 N BLOOD DISEASES N EAR OR HEARING PROBLEMS N MUMPS N SHINGLES N DEPRESSION (INCLUDING POST ) N BOWEL PROBLEMS N STROKE/TIA N ULCERS N BENIGN PROSTATIC HYPERPLASIA N MEASLES N HYPOTENSION N MYOCARDIAL INFARCTION N OBESITY N GERD/NAUSEA Y ANEURYSM N URINARY/BLADDER/KIDNEY PROBLEMS N CORONARY ARTERY DISEASE (CAD) N ADDICTION CONCERNS N Impotence N ENDOMETRIOSIS N USE OF BLOOD THINNERS Y SKIN PROBLEMS Y GASTROINTESTINAL DISORDER N PERIPHERAL VASCULAR DISEASE N MUSCLE,JOINT OR BONE PROBLEMS N GASTROINTESTINAL BLEEDING N BLOOD CLOTS N ASTHMA N CATARACTS N ERECTILE DYSFUNCTION N VARICOSITIES N GI PROBLEMS N Low Testosterone N INFERTILITY N AIDS/HIV N CHEMOTHERAPY / RADIATION N LIVER DISEASE N MALE HYPOGONADISM N HYPERTENSION Y Deficiency N TOURETTE'S N ANXIETY DISORDER N BLOOD TRANSFUSION N ANEMIA/BLOOD DISORDER N CHRONIC EAR INFECTIONS N BRONCHITIS N TUBERCULOSIS N GLAUCOMA N FOOT PROBLEM N DIVERTICULITIS N CHICKENPOX N SLEEP APNEA Y INFECTIOUS DISEASE N HEART ARRHYTHMIA N PROSTATE N INSOMNIA N HIGH CHOLESTEROL / HYPERLIPIDEMIA Y EYE PROBLEMS N HYPERTHYROIDISM N EDEMA N CHRONIC PAIN SYNDROME N HYPOTHYROIDISM N CAROTID BLOCKAGE N CONSTIPATION N BACK / NECK PROBLEMS Y ATHEROSCLEROSIS N BREAST PROBLEMS N DIALYSIS N ECZEMA N OSTEOPOROSIS N ARTHRITIS Y APPENDICITIS N DIABETES, TYPE N BAD TEETH N ENT N HEARTBURN / REFLUX N AUTISM SPECTRUM DISORDER (ASD) N HEPATITIS / LIVER DISEASE N GOUT N SLEEP DISORDER N ALZHEIMER'S DISEASE N Brain Problems N HERPES N DEMENTIA N SEIZURES/EPILEPSY N HEADACHES/MIGRAINES N VASCULAR DISEASE N PACEMAKER N Blood Disorder N DIZZINESS Y KIDNEY DISEASE N HEART DISEASE/HEART PROBLEMS N MULTIPLE SCLEROSIS N CARDIAC ARRHYTHMIA N CANCER: SPECIFY N Gall Stones N ATRIAL FIBRILLATION Y PULMONARY EMBOLISM N AUTOIMMUNE DISEASE N Immunizations Vaccine Type Date Status Note Provider Nam e and Address Organization Details Recorded Time zoster recombinant 9 completed CYNDY Hunt, [facility] 06/05/2024 14:19:52 zoster recombinant 9 completed CYNDY Hunt, [facility] 06/05/2024 14:19:52 Influenza, high-dose, quadrivalent, PF 0 completed CYNDY Hunt, [facility] 06/05/2024 14:19:52 Influenza, high-dose, quadrivalent, PF 3 completed CYNDY Hunt, [facility] 06/05/2024 14:19:52 Influenza, high-dose, quadrivalent, PF 1 completed CYNDY Hunt, [facility] 06/05/2024 14:19:52 COVID-19, mRNA, LNP-S, PF, 100 mcg/0.5mL dose or 50 mcg/0.25mL dose 1 completed Zay Grace LPN null, [facility] 06/05/2024 14:19:52 COVID-19, mRNA, LNP-S, PF, 100 mcg/0.5mL dose or 50 mcg/0.25mL dose 1 completed Zay Grace LPN null, [facility] 06/05/2024 14:19:52 COVID-19, mRNA, LNP-S, PF, 100 mcg/0.5mL dose or 50 mcg/0.25mL dose 2 completed CYNDY Hunt, [facility] 06/05/2024 14:19:52 COVID-19, mRNA, LNP-S, bivalent, PF, 50 mcg/0.5 mL or 25mcg/0.25 mL dose 2 completed CYNDY Hunt, [facility] 06/05/2024 14:19:53 RSV, recombinant, protein subunit RSVpreF, adjuvant reconstituted, 0.5 mL, PF 3 [facility] 14:19:53 COVID-19, mRNA, LNP-S, PF, 50 mcg/0.5 mL 3 completed Zay Grace LPN null, [facility] 06/05/2024 14:19:53 Tdap 3 completed CYNDY Hunt, [facility] 06/05/2024 14:19:53 Influenza, high-dose, trivalent, PF 9 completed CYNDY Hunt, [facility] 06/05/2024 14:19:53 SARS-COV-2 (COVID-19) vaccine, UNSPECIFIED 1 completed CYNDY Hunt, [facility] 06/05/2024 14:19:53 SARS-COV-2 (COVID-19) vaccine, UNSPECIFIED 1 completed CYNDY Hunt, [facility] [employer] [facility] 06/05/2024 14:19:53 COVID-19, mRNA, LNP-S, PF, 100 mcg/0.5mL dose or 50 mcg/0.25mL dose 1 completed CYNDY Hunt, [facility] [employer] [facility] 06/05/2024 14:19:52 Influenza, high-dose, trivalent, PF 0 completed CYNDY Hunt, [facility] [employer] [facility] 06/05/2024 14:19:53 Influenza, high-dose, quadrivalent, PF 2 completed Not Available [facility] 07/27/2023 00:31:47 pneumococcal polysaccharide PPV23 9 completed Not Available [facility] 07/27/2023 00:31:47 Influenza, high-dose, trivalent, PF 8 completed Not Available [facility] 07/27/2023 00:31:47 Pneumococcal conjugate PCV 13 8 completed Not Available [facility] 07/27/2023 00:31:47 Influenza, high-dose, trivalent, PF 7 completed Not Available [facility] 07/27/2023 00:31:47 Influenza, high-dose, trivalent, PF 4 completed Not Available [facility] 07/27/2023 00:31:47 Influenza, high-dose, trivalent, PF 6 completed Not Available [facility] 07/27/2023 00:31:47 Influenza, high-dose, trivalent, PF 5 completed Not Available [facility] 07/27/2023 00:31:47 Influenza, split virus, trivalent, preservative 3 completed CYNDY Hunt, [facility] [employer] [facility] 06/05/2024 14:19:53 Past Encounters Encounter ID Performer Location Encounter Start Date Encounter Closed Date Diagnosis/Indication Diagnosis SNOMED-CT Code Diagnosis ICD10 Code Diagnosis Note [id number] [facility] [address] [place] [address] 01/12/2021 00:00:00 01/12/2021 15:50:11 [id number] [facility] Internal [facility] [address] [place] [address] Harrye., [facility] [address] [place] [address] 03/15/2021 00:00:00 03/15/2021 15:21:49 [id number] [facility] [address] [address] 03/24/2021 00:00:00 03/24/2021 15:05:25 [id number] [facility] [place] [address] [place] [address] 04/12/2021 00:00:00 04/19/2021 09:47:22 [id number] [facility] Internal [facility] [address] [place] [address] Jayleen., [address] [address] 04/28/2021 00:00:00 05/12/2021 10:17:56 [id number] [facility] [address] [address] 06/02/2021 00:00:00 06/02/2021 10:51:39 [id number] [facility] [address] [place] [address] Jayleen., [facility] [address] [place] [address] 06/07/2021 00:00:00 06/07/2021 18:00:53 [id number] [facility] [address] [address] 06/23/2021 00:00:00 07/03/2021 21:24:45 [id number] [facility] [address] [address] 07/07/2021 00:00:00 07/07/2021 11:44:45 [id number] [facility] [address] [address] 08/25/2021 00:00:00 08/25/2021 12:43:03 [id number] [facility] [place] [address] [place] [address] 08/30/2021 00:00:00 08/30/2021 12:50:00 [id number] [facility] [address] [place] [address] Harrye., [address] [address] 01/05/2022 00:00:00 01/05/2022 18:36:52 [id number] [facility] [place] [address] [place] [address] 02/14/2022 00:00:00 02/14/2022 12:31:28 [id number] [facility] [address] Harrye., [address] [address] 04/06/2022 00:00:00 04/12/2022 12:19:52 [id number] _ATHENA_M IGRATION_ DEFAULT_1 _1 , 04/26/2022 00:00:00 04/26/2022 12:23:04 [id number] [facility] [address] [address] 06/01/2022 00:00:00 06/01/2022 14:57:27 [id number] [facility] [place] [address] [place] [address] 07/26/2022 00:00:00 07/26/2022 17:46:04 [id number] [facility] [address] Harrye., [address] [address] 08/10/2022 00:00:00 08/10/2022 11:08:42 [id number] [facility] [place] [address] [place] [address] 10/25/2022 00:00:00 10/25/2022 17:25:47 [id number] [facility] [address] [address] 12/14/2022 00:00:00 12/14/2022 09:39:41 [id number] Catia Perdomo MD [facility] [place] [address] [facility] [address] [place] [address] 02/21/2023 15:55:42 02/21/2023 16:26:04 Pain of bilateral hands [id number] M79.641 M79.642 sterile technique in standard protocol we injected 1 cc xylocaine 1 cc Kenalog into the right index D IP and PIP and the right long D IP and PIP Localized, primary osteoarthritis of the hand [id number] M19.049 we will schedule the patient to do PIP arthroplas ties of the index and the long finger he understand s the risks the benefits alternativ es that there will be a little stiffness he will still have a little angulation of those digits especially the index which will tend to drift a little bit ulnarly and wishes to proceed having failed extensive conservati ve treatment Osteoarthritis 240596176 M19.90 [id number] Kuldeep [place] [address] 03/08/2023 10:36:51 03/08/2023 16:31:40 Pain of left knee joint 7207598657 51357 M25.562 [id number] Rocky Shirley MD [facility] [place] [address] 03/15/2023 10:42:20 03/16/2023 08:36:00 Dyspnea on exertion 02411243 R06.09 R05.9 T78.40XA D89.9 [id number] Monse boyd MD [facility] Internal Med [address] [address] 04/12/2023 08:49:16 04/12/2023 09:33:28 Screening - NAD 666669243 Z13.9 C-scope: 12/07/11 Dr Vizcarra and next in 7 years, referred again 04/15/19, and he will schedule this himselfC-s cope 07/30/19, Dr Vizcarra, next in 3 yearsC-sco pe: 05/18/2022 : Dr Jean, next in 5 yearrs UTD on flu shotUTD PCV #13 11/06/17 #23 11/12/18UT D shingles vaccineCan do tdap vaccineUTD on COVID 19 vaccineRTC in 6 months as per his requestdo labsER if worseHe and his did verbalize their understand ing of the above Atrial fibrillation 4943 6004 I48.91 ECHO 06/21/2022 Not on amiodarone On diltiazemO n eliquisSLH V Dr Veloz 05/04/[address] [address] Veloz 05/05/2022 Hyperlipidemia 56302210 E78.5 On atorvastat in 10mg dailyGet labs Chronic constipation 236 168365 K59.09 Was given linzess in the pastCan renew Hypothyroidism 30719413 E03.9 US thyroid: 04/13/2022 TSH/FT4 WNL 04/09/2023 Declines any meds 12/14/2022 Benign par oxysmal positional vertigo 295165307 H81.13 Bilateral -Doing very well now Gastroesop hageal reflux disease without esophagitis 493334861 K21.9 On PPI, take as neededDoes well Obstructiv e sleep apnea syndrome 35402863 G47.33 He does use his CPAP and is doing well on this Osteoarthritis 047321646 M19.[address] Benson, has given him shots in the neckDid see Dr Downs, and was told he may need surgery, he did get PT and he felt betterDoes wellDr Leanne 07/26/2022 , next 10/25/2022 Skin lesion 72998754 L98 .9 Noted on the left upper back, raised crusted, non tenderSeen by Dr Castañeda, the dermatolog ist in [place], [place] as he has been there beforeDoes well now History of total knee arthroplasty 2412910275 105 Z96.659 S/p L TKRDoes well now Small siva l obstruction 049970655 K56.609 Admitted 07/20 to 07/23 [facility], seen by G surgery, NG tube placed, cr improved from 1.43 to 1.04, was able to pass gas and stool and d/cDoes well today, no complaints Cataract 138249063 H26.9 Is to get L eye cataract surgeryDat e: TBDSurgeon : Dr Forbes Pain of bi lateral hands 4160921367 5112584 M79.[address] Perdomo, 04/10/2023 , next apt 05/22/2023 Pain in right foot 14186 20500 [address] Dudley Cholecystitis 54469028 K 81.9 S/p ERCP 10/20 and lap stef 10/21, then diagnosed with pancreatit is, now does well Dyspnea on exertion 6084 5006 R06.09 PFT 01/24/2023 : [facility] chest 03/15/2023 Dr Shirley 03/15/2023 Pain of le ft knee joint 0446435016 [address] Kc 03/08/2023 , treated with MDP Screening for malignant neoplasm of prostate 505227557 Z12.5 Adult heal th examination 665658394 Z00.00 Screening for disorder 923704326 Z13.9 [id number] Catia Perdomo MD [facility] [place] [address] [place] [address] 04/10/2023 13:47:16 04/10/2023 14:04:45 Arthritis 8415165 M19.049 remove sutures today. We will start him out with david taping for the 1st few weeks for the left index and long PIP. Localized, primary osteoarthritis of the hand 321548187 M19.049 Injected the right index and long PIP and D IP starting standard protocol with 1 cc xylocaine 1 cc Kenalog standard technique sterile protocol for each [id number] ROMERO Garcia [facility] [place] [address] [place] [address] 05/22/2023 13:42:13 05/22/2023 14:10:58 Localized, primary osteoarthritis of the hand 510072006 M19.049 [id number] ROMERO Vega [facility] [place] [address] [place] [address] 06/15/2023 14:01:02 06/15/2023 15:39:43 Localized, primary osteoarthritis of the hand 973732302 M19.638 [id number] Monse boyd MD [facility] Internal Med [address] [facility], [address] [place] [address] 08/30/2023 09:08:09 08/30/2023 10:36:13 Screening - NAD 212141463 Z13.9 C-scope: 12/07/11 Dr Vizcarra and next in 7 years, referred again 04/15/19, and he will schedule this himselfC-s cope 07/30/19, Dr Vizcarra, next in 3 yearsC-sco pe: 05/18/2022 : Dr Jean, next in 5 yearrs UTD on flu shotUTD PCV #13 11/06/17 #23 11/12/18UT D shingles vaccineCan do tdap vaccineUTD on COVID 19 vaccineRTC in 6 months as per his requestdo labsER if worseHe and his did verbalize their understand ing of the above Atrial fibrillation 4943 6004 I48.91 ECHO 06/21/2022 ECHO 08/02/2023 PFT 08/10/2023 : [facility] Not on amiodarone On diltiazemO n eliquis, unable to afford the eliquis, will switch to xarelto 20mg daily 08/30/2023 , did discuss with Dr Veloz too today and he agrees samples provided with 6 bottles with 7 pills each, lot # [id number], exp 06/2025[facility] V Dr Veloz 05/04/[address] [facility] [address] Veloz 05/05/2022 Hyperlipidemia 64069661 E78.5 On atorvastat in 10mg daily Get labs Chronic constipation 236 833189 K59.09 Was given linzess in the past Can renew Hypothyroidism 06164234 E03.9 US thyroid: 04/13/2022 TSH/FT4 WNL 04/09/2023 Declines any meds 12/14/2022 Benign par oxysmal positional vertigo 239701338 H81.13 Bilateral - Doing very well now Gastroesop hageal reflux disease without esophagitis 253531398 K21.9 On PPI, take as neededDoes well Obstructiv e sleep apnea syndrome 71518228 G47.33 He does use his CPAP and is doing well on this Osteoarthritis 644070380 M19.[address] Benson, has given him shots in the neck Did see Dr Downs, and was told he may need surgery, he did get PT and he felt better Does well Dr Perdomo 07/26/2022 , next 10/25/2022 Skin lesion 26943227 L98 .9 Noted on the left upper back, raised crusted, non tenderSeen by Dr Castañeda, the dermatolog ist in [place], [place] as he has been there before Does well now History of total knee arthroplasty 1488874582 105 Z96.659 S/p L TKR Does well now Small siva l obstruction 965775833 K56.609 Admitted 07/20 to 07/23 [facility], seen by G surgery, NG tube placed, cr improved from 1.43 to 1.04, was able to pass gas and stool and d/c Does well today, no complaints Cataract 248734405 H26.9 Is to get L eye cataract surgery Date: TBDSurgeon : Dr Forbes Pain of bi lateral hands 5378199096 6039978 M79.[address] Perdomo, 04/10/2023 , next apt 05/22/2023 Pain in right foot 02371 39449 [address] Dudley Cholecystitis 24670465 K 81.9 S/p ERCP 10/20 and lap stef 10/21, then diagnosed with pancreatit is, now does well Dyspnea on exertion 6084 5006 R06.09 PFT 01/24/2023 : [facility] chest 03/15/2023 Dr Shirley 03/15/2023 Pain of le ft knee joint 0412075824 [address] Kc 03/08/2023 , treated with MDP Macrocytosis 942834552 D 75.89 [id number] Monse boyd MD [facility] Internal Med [address] , [address] [place] [address] 01/08/2024 09:23:05 01/08/2024 10:05:49 Screening - NAD 087193093 Z13.9 C-scope: 12/07/11 Dr Vizcarra and next in 7 years, referred again 04/15/19, and he will schedule this himselfC-s cope 07/30/19, Dr Vizcarra, next in 3 yearsC-sco pe: 05/18/2022 : Dr Jean, next in 5 yearrs UTD on flu shotUTD PCV #13 18 #23 11/12/18UT D shingles vaccineCan do tdap vaccineUTD on COVID 19 vaccineRTC in 6 months as per his requestdo labsER if worseHe and his did verbalize their understand ing of the above Atrial fibrillation 4943 6004 I48.91 ECHO 06/21/2022 ECHO 08/02/2023 PFT 08/10/2023 : [facility] On amiodarone On xareltoOn diltiazemO n eliquis, unable to afford the eliquis, will switch to xarelto 20mg daily 08/30/2023 , did discuss with Dr Veloz too today and he agrees samples provided with 6 bottles with 7 pills each, lot # [id number], exp 06/2025[facility] V Dr Veloz 05/04/[address] [facility] [address] Veloz 05/05/2022 Hyperlipidemia 22492499 E78.5 On atorvastat in 10mg daily Get labs Chronic constipation 236 783794 K59.09 Was given linzess in the past Can renew Hypothyroidism 92022480 E03.9 US thyroid: 04/13/2022 TSH/FT4 WNL 04/09/2023 Declines any meds 12/14/2022 Benign par oxysmal positional vertigo 448641675 H81.13 Bilateral - Doing very well now Gastroesop hageal reflux disease without esophagitis 456981884 K21.9 On PPI, take as neededDoes well Obstructiv e sleep apnea syndrome 63847179 G47.33 He does use his CPAP and is doing well on this Osteoarthritis 713320383 M19.[address] Benson, has given him shots in the neck Did see Dr Downs, and was told he may need surgery, he did get PT and he felt better Does well Dr Perdomo 07/26/2022 , next 10/25/2022 Skin lesion 88282141 L98 .9 Noted on the left upper back, raised crusted, non tenderSeen by Dr Castañeda, the dermatolog ist in [place] as he has been there before Does well now History of total knee arthroplasty 8170232457 105 Z96.659 S/p L TKR Does well now Small siva l obstruction 390783436 K56.609 Admitted 07/20 to 07/23 [facility], seen by G surgery, NG tube placed, cr improved from 1.43 to 1.04, was able to pass gas and stool and d/c Does well today, no complaints Cataract 964219157 H26.9 Is to get L eye cataract surgery Date: TBDSurgeon : Dr Forbes Pain of bi lateral hands 3943899475 0825441 M79.[address] Perdomo, 04/10/2023 , next apt 05/22/2023 Pain in right foot 80370 89578 [address] Dudley Cholecystitis 00690982 K 81.9 S/p ERCP 10/20 and lap stef 10/21, then diagnosed with pancreatit is, now does well Dyspnea on exertion 6084 5006 R06.09 PFT 01/24/2023 : [facility] chest 03/15/2023 Dr Shirley 03/15/2023 Pain of le ft knee joint 8874788009 [address] Kc 03/08/2023 , treated with MDP Macrocytosis 745441038 D 75.89 Leukocytosis 660427306 D 72.829 Repeat the labs Pain of ri ght ankle joint 0127096883 1689973 M25.523 [id number] Monse boyd MD [facility] Internal [facility] [address] [facility], [address] [place] [address] 01/29/2024 16:31:21 01/29/2024 17:20:09 Screening - NAD 928676205 Z13.9 C-scope: 12/07/11 Dr Vizcarra and next in 7 years, referred again 04/15/19, and he will schedule this himselfC-s cope 07/30/19, Dr Vizcarra, next in 3 yearsC-sco pe: 05/18/2022 : Dr Jean, next in 5 yearrs UTD on flu shotUTD PCV #13 18 #23 11/12/18UT D shingles vaccineCan do tdap vaccineUTD on COVID 19 vaccineRTC in 6 months as per his requestdo labsER if worseHe and his did verbalize their understand ing of the above Bronchitis 33904077 J40 [facility], treated with IV rocephinDo es well now 01/29/2024 Pulse Ox 96% on RANo SOB or POLANCO, no cough, no wheezing nowShould see pulmonary, was referred last OV Dyspnea on exertion 6084 5006 R06.09 PFT 01/24/2023 : [facility] chest 03/15/2023 Dr Shirley 03/15/2023 OV 01/29/2024 :S/p d/c from [place] for bronchitis , does not want to see Dr Garcia to Dr Cerda in [place] [id number] Monse boyd MD [facility] Internal Med [facility] [address] [facility], [address] [place] [address] 06/10/2024 09:24:37 06/10/2024 10:22:53 Screening - NAD 510239633 Z13.9 C-scope: 12/07/11 Dr Vizcarra and next in 7 years, referred again 04/15/19, and he will schedule this himselfC-s cope 07/30/19, Dr Vizcarra, next in 3 yearsC-sco pe: 05/18/2022 : Dr Jean, next in 5 yearrs UTD on flu shotUTD PCV #13 11/06/17 #23 11/12/18UT D shingles vaccineCan do tdap vaccineUTD on COVID 19 vaccineGet RSV vaccineRTC in 3 months as per his requestdo labsNELDA if worseHe and his did verbalize their understand ing of the above Bronchitis 03050002 J40 Ad[facility] and [facility], treated with IV rocephinDo es well now 01/29/2024 Pulse Ox 96% on RANo SOB or POLANCO, no cough, no wheezing nowShould see pulmonary, was referred last OV Dyspnea on exertion 6084 5006 R06.09 PFT 01/24/2023 : [facility] chest 03/15/2023 Dr Shirley 03/15/2023 OV 01/29/2024 :S/p d/c from [place] for bronchitis , does not want to see Dr Garcia to Dr Cerda in [place] OV 06/10/2024 : Referral to Dr Cerda provided again Atrial fibrillation 4943 6004 I48.91 ECHO 06/21/2022 ECHO 08/02/2023 PFT 08/10/2023 : [facility] On amiodarone 200mg dailyOn xarelto 20mg dailyOn diltiazem Off eliquis, unable to afford the eliquis, switched to xarelto 20mg daily 08/30/2023 , did discuss with Dr Magdiel StoutHV Dr Veloz 05/04/[address] [facility] [address] Veloz 05/05/[address] [facility] [address] Veloz 05/28/2024 , next in 11/2024 Hyperlipidemia 59838967 E78.5 On atorvastat in 10mg dailyGet labs Chronic constipation 236 229726 K59.09 Was given linzess in the pastCan renew as needed Hypothyroidism 20904845 E03.9 US thyroid: 04/13/2022 TSH/FT4 WNL 04/09/2023 Declines any meds 12/14/2022 Benign par oxysmal positional vertigo 986506880 H81.13 Bilateral - Doing very well now Gastroesop hageal reflux disease without esophagitis 816661661 K21.9 On PPI, take as neededDoes well Obstructiv e sleep apnea syndrome 50395700 G47.33 He does use his CPAP and is doing well on this Osteoarthritis 230005587 M19.[address] Benson, has given him shots in the neckDid see Dr Downs, and was told he may need surgery, he did get PT and he felt betterDoes well Dr Perdomo 07/26/2022 , next 10/25/2022 [facility] D/c 03/15/2024 XR KUB 03/15/2024 : Dr Pimentel GI for SBO: Osteoscler otic lesions of the proximal L femurGet a referral to ortho Sees Dr Maribell Luna lesion 21238179 L98 .9 Noted on the left upper back, raised crusted, non tenderSeen by Dr Castañeda, the dermatolog ist in [place], [place] as he has been there before Does well now History of total knee arthroplasty 4637946162 105 Z96.659 S/p L TKR Does well now Small siva l obstruction 498400493 K56.609 Admitted 07/20 to 07/23 [facility], seen by G surgery, NG tube placed, cr improved from 1.43 to 1.04, was able to pass gas and stool and d/c Does well today, no complaints Admitted and d[facility]c [facility], [facility], treated with augmentin Cataract 654272453 H26.9 Is to get L eye cataract surgery Date: TBDSurgeon : Dr Forbes Pain of bi lateral hands 6215058951 2556657 M79.[address] Perdomo, 04/10/2023 , next apt 05/22/2023 Pain in right foot 11323 63389 9[address] Luiz White Cholecystitis 34687435 K 81.9 S/p ERCP 10/20 and lap stef 10/21, then diagnosed with pancreatit is, now does well Pain of le ft knee joint 2124919291 [address] Kc 03/08/2023 , treated with MDP Macrocytosis 109761906 D 75.89 Leukocytosis 719273999 D 72.829 Repeat the labs [id number] Monse boyd MD [facility] Internal Med [address] [facility], [address] [place] [address] 04/03/2024 09:40:41 04/03/2024 10:21:12 Screening - NAD 796322116 Z13.9 C-scope: 12/07/11 Dr Vizcarra and next in 7 years, referred again 04/15/19, and he will schedule this himselfC-s cope 07/30/19, Dr Vizcarra, next in 3 yearsC-sco pe: 05/18/2022 : Dr Jean, next in 5 yearrs UTD on flu shotUTD PCV #13 11/06/17 #23 11/12/18UT D shingles vaccineCan do tdap vaccineUTD on COVID 19 vaccineRTC in 6 months as per his requestdo angelicaER if worseHe and his did verbalize their understand ing of the above Bronchitis 68999452 J40 [place] [place] [place] [facility] [place], treated with IV rocephinDo es well now 01/29/2024 Pulse Ox 96% on RANo SOB or POLANCO, no cough, no wheezing nowShould see pulmonary, was referred last OV OV 04/03/2024 :Dr Shirley 03/05/2023, needs a f/u apt Dyspnea on exertion 6084 5006 R06.09 PFT 01/24/2023 : [facility] chest 03/15/2023 Dr Shirley 03/15/2023 OV 01/29/2024 :S/p d/c from [place] for bronchitis , does not want to see Dr Garcia to Dr Cerda in [place] Atrial fibrillation 4943 6004 I48.91 ECHO 06/21/2022 ECHO 08/02/2023 PFT 08/10/2023 : [facility] On amiodarone On xareltoOn diltiazem On eliquis, unable to afford the eliquis, will switch to xarelto 20mg daily 08/30/2023 , did discuss with Dr Veloz too today and he agrees samples provided with 6 bottles with 7 pills each, lot # [id number], exp 06/2025S V Dr Veloz 05/04/[address] [facility] [address] Veloz 05/05/2022 Hyperlipidemia 43156331 E78.5 On atorvastat in 10mg daily Get labs Chronic constipation 236 581183 K59.09 Was given linzess in the past Can renew Hypothyroidism 38089565 E03.9 US thyroid: 04/13/2022 TSH/FT4 WNL 04/09/2023 Declines any meds 12/14/2022 Benign par oxysmal positional vertigo 101688551 H81.13 Bilateral - Doing very well now Gastroesop hageal reflux disease without esophagitis 213623840 K21.9 On PPI, take as neededDoes well Obstructiv e sleep apnea syndrome 05358713 G47.33 He does use his CPAP and is doing well on this Osteoarthritis 624445683 M19.[address] Benson, has given him shots in the neckDid see Dr Downs, and was told he may need surgery, he did get PT and he felt better Does well Dr Perdomo 07/26/2022 Skin lesion 05457586 L98 .9 Noted on the left upper back, raised crusted, non tenderSeen by Dr Castañeda, the dermatolog ist in [place], [place] as he has been there before Does well now History of total knee arthroplasty 0210216119 105 Z96.659 S/p L TKR Does well now Small siva l obstruction 888177206 K56.609 Admitted 07/20 to 07/23 [facility], seen by G surgery, NG tube placed, cr improved from 1.43 to 1.04, was able to pass gas and stool and d/c Does well today, no complaints Admitted and D/c [facility] 03/13/2024 to 03/15/2024 , treated for enteritis with augmentin, does well now Pain in right foot 17592 57368 [address] Chava mistry sees Dr White and is to get surgery on 04/28/2024 to fuse the R ankle Cholecystitis 40694119 K 81.9 S/p ERCP 10/20 and lap stef 10/21, then diagnosed with pancreatit is, now does well Pain of le ft knee joint 0367497283 [address] Kc 03/08/2023 , treated with MDP Macrocytosis 310259154 D 75.89 Leukocytosis 786866941 D 72.829 Repeat the labs Pain of ri ght ankle joint 2306091621 3334335 M25.[address] White [id number] Monse boyd MD [facility] Internal Med [address] , [address] [place] [address] 10/14/2024 10:03:23 10/14/2024 11:08:17 Screening - NAD 472183411 Z13.9 C-scope: 12/07/11 Dr Vizcarra and next in 7 years, referred again 04/15/19, and he will schedule this himselfC-s cope 07/30/19, Dr Vizcarra, next in 3 yearsC-sco pe: 05/18/2022 : Dr Jean, next in 5 yearrs UTD on flu shotUTD PCV #13 18 #23 11/12/18UT D shingles vaccineCan do tdap vaccineUTD on COVID 19 vaccineGet RSV vaccineRTC in 3 months as per his requestdo Dino if worseHe and his did verbalize their understand ing of the above Bronchitis 27654490 J40 Ad[facility] and [facility], treated with IV rocephinDo es well now 01/29/2024 Pulse Ox 96% on RANo SOB or POLANCO, no cough, no wheezing nowShould see pulmonary, was referred last OV Dyspnea on exertion 6084 5006 R06.09 PFT 01/24/2023 : [facility] chest 03/15/2023 Dr Shirley 03/15/2023 OV 01/29/2024 :S/p d/c from [place] for bronchitis , does not want to see Dr Garcia to Dr Cerda in [place] OV 06/10/2024 : Referral to Dr Cerda provided again Atrial fibrillation 4943 6004 I48.91 ECHO 06/21/2022 ECHO 08/02/2023 PFT 08/10/2023 : [facility] On amiodarone 200mg dailyOn xarelto 20mg dailyOn diltiazem Off eliquis, unable to afford the eliquis, switched to xarelto 20mg daily 08/30/2023 , did discuss with Dr Magdiel StoutHV Dr Veloz 05/04/[address] [facility] [address] Veloz 05/05/[address] [facility] [address] Veloz 05/28/2024 , next in 11/2024 Hyperlipidemia 87722540 E78.5 On atorvastat in 10mg dailyGet labs Chronic constipation 236 476326 K59.09 Was given linzess in the pastCan renew as needed Hypothyroidism 55663336 E03.9 US thyroid: 04/13/2022 TSH/FT4 WNL 04/09/2023 Declines any meds 12/14/2022 Benign par oxysmal positional vertigo 437220904 H81.13 Bilateral - Doing very well now Gastroesop hageal reflux disease without esophagitis 245457232 K21.9 On PPI, take as neededDoes well Obstructiv e sleep apnea syndrome 49872248 G47.33 He does use his CPAP and is doing well on this Osteoarthritis 827312629 M19.[address] Benson, has given him shots in the neckDid see Dr Downs, and was told he may need surgery, he did get PT and he felt betterDoes well Dr Perdomo 07/26/2022 , next 10/25/2022 [facility] D/c 03/15/2024 XR KUB 03/15/2024 : Dr Pimentel GI for SBO: Osteoscler otic lesions of the proximal L femurGet a referral to ortho Sees Dr White Skin lesion 57622319 L98 .9 Noted on the left upper back, raised crusted, non tenderSeen by Dr Castañeda, the dermatolog ist in [place], [place] as he has been there before Does well now History of total knee arthroplasty 9326555066 105 Z96.659 S/p L TKR Does well now Small siva l obstruction 109156385 K56.609 Admitted 07/20 to 07/23 [facility], seen by G surgery, NG tube placed, cr improved from 1.43 to 1.04, was able to pass gas and stool and d/c Does well today, no complaints Admitted and d/c [facility]15[facility], [facility], treated with augmentin Pain of bi lateral hands 1212528698 3019547 M79.[address] Perdomo, 04/10/2023 , next apt 05/22/2023 Pain in right foot 30777 00265 [address] Luiz White Cholecystitis 54454031 K 81.9 S/p ERCP 10/20 and lap stef 10/21, then diagnosed with pancreatit is, now does well Pain of le ft knee joint 2366229232 [address] Kc 03/08/2023 , treated with MDP Macrocytosis 488618507 D 75.89 Leukocytosis 055793915 D 72.829 Repeat the labs Hyponatremia 92760652 E8 7.1 Get a referral to Dr Doyle neph[address], his sees him, also advised on fluid restrictio n and get labs again Adult heal th examination 427611911 Z00.00 Screening for disorder 208948248 Z13.9 Health Concerns Section Related Observation LastModified by Organization Detai ls LastModified Time None Recorded Concern Status LastModified by Organization Details LastModified Time None Recorded Advance Directives Directive N: PATIENT DECLINED INFORMAT ION Payers Encounter Date Sequence Insurance Name Policy Number Policy Hinds Covered Member ID Hinds Member ID Guarantor Name 01/08/2024 1 [place] Bill Colon [id number] Bill Colon 01/08/2024 2 [employer] (MEDICARE SUPPLEMENT) Bill Colon [id number] Bill Colon 01/29/2024 1 [place] Colon [id number] Bill Colon 01/29/2024 2 [employer] (MEDICARE SUPPLEMENT) Bill Colon [id number] Bill Colon 04/03/2024 1 [place] Bill Colon [id number] Bill Colon 04/03/2024 2 [employer] (MEDICARE SUPPLEMENT) Bill Colon [id number] Bill Colon 06/10/2024 1 [place] Bill Colon [id number] Bill Colon 06/10/2024 2 [employer] (MEDICARE SUPPLEMENT) Bill Colon [id number] Bill Colon 10/14/2024 1 [place] Bill Colon [id number] Bill Colon 10/14/2024 2 [employer] (MEDICARE SUPPLEMENT) Bill Colon [id number] Bill Colon Notes Date Note Type Note Provider Name and Address Organization Details Recorded Time 01/08/2024 text/html Here to mer Nice Hx:HTNGERDColon surgeryReviewed social family and surgical historyHere with his and is here to discuss above and get labs if needed OV 12/25/17:Here for his routine follow upHe did see Dr Veloz and is here to discuss his above visit OV 04/16/18:Here for his routine apt and also is here for his MVWHe states that he is doing well at this timeHe did do the labs on 04/10/18 and is here to discuss these OV 10/25/18:Here for his routine aptIs doing well at this timeHe did see his arthritis doctor OV 04/15/19:Here for his routine aptHe did do the labsHe may require cataract surgery, but feels really well and is doing a lot of his yard work now OV 05/27/19:Here for his pre-op surgical visit follow upHe is doing very wellIs to get cataract surgery OV 06/19/19:Here for ACV:C/o dizzy spells, when he gets up from a bent over positionNo chest painNo SOB, Syncope, presyncope, POLANCO, orthopnea or PNDNo headaches, no diplopiaDid have a earache, no fevers or chillsNo N/VNo rash OV 11/25/2019:Here for his routine aptHe is here with his wifeHe did do the labsHe feels well todayHe would like to get his viagra renewed, he is now on eliquis and would like to get samplesHe also has a mole on the back and would like to get a events assistant apt OV 05/25/2020:Here for his routine aptHe is doing very wellHe did do the labsWas admitted for SBO s/p surgery by Dr Abdul, now does well, good apetite is taking laxatives for constipation OV 12/07/2020;Here for his routine aptHe feels wellHe did do the labs and is here with his wifeHe has seen Dr Melendez, but still has c/o of hand painOV 06/07/2021:Here for his routine aptHe is doing very well, here with his Herson did do the labs on 06/03/2021OV 01/05/2022:Here for his routine aptHe is doing wellHe did do the labs OV 04/06/2022:Here for his routine 3 month f/u visit and MWVHe is here with his wifeHe is doing wellOV 08/10/2022:Post hosp, [facility] 07/20 to 07/23 for SBOStates that he is now doing well, his appetite is back and he is passing gas and stoolHe did do the labs on 08/07/2022 OV 12/14/2022:Here for his f/u apt, he is doing well today, he is here with his , would like to get eliquis samples, did do the labs on 12/12/2022 OV 04/12/2023: Here for his f/u apt with his , is doing well and he did do the labs OV 08/30/2023: Here for his routine apt, he did do the labs, here with his , also feels that the eliquis is getting more difficult to get as it is very expensive OV 01/08/2024: Here for his f/u apt, he feels well today, here with his Monse Car MD [address] [facility], [facility] [address], [place], [address], [place] [facility] [employer] 01/08/2024 14:14:53 01/29/2024 text/html Here to mer Nice Hx:HTNGERDColon surgeryReviewed social family and surgical historyHere with his and is here to discuss above and get labs if needed OV 12/25/17:Here for his routine follow upHe did see Dr Veloz and is here to discuss his above visit OV 04/16/18:Here for his routine apt and also is here for his MVWHe states that he is doing well at this timeHe did do the labs on 04/10/18 and is here to discuss these OV 10/25/18:Here for his routine aptIs doing well at this timeHe did see his arthritis doctor OV 04/15/19:Here for his routine aptHe did do the labsHe may require cataract surgery, but feels really well and is doing a lot of his yard work now OV 05/27/19:Here for his pre-op surgical visit follow upHe is doing very wellIs to get cataract surgery OV 08/15/19:Here for ACV:C/o dizzy spells, when he gets up from a bent over positionNo chest painNo SOB, Syncope, presyncope, POLANCO, orthopnea or PNDNo headaches, no diplopiaDid have a earache, no fevers or chillsNo N/VNo rash OV 11/25/2019:Here for his routine aptHe is here with his wifeHe did do the labsHe feels well todayHe would like to get his viagra renewed, he is now on eliquis and would like to get samplesHe also has a mole on the back and would like to get a events assistant apt OV 05/25/2020:Here for his routine aptHe is doing very wellHe did do the labsWas admitted for SBO s/p surgery by Dr Abdul, now does well, good apetite is taking laxatives for constipation OV 12/07/2020;Here for his routine aptHe feels wellHe did do the labs and is here with his wifeHe has seen Dr Melendez, but still has c/o of hand painOV 06/07/2021:Here for his routine aptHe is doing very well, here with his Herson did do the labs on 06/03/2021OV 01/05/2022:Here for his routine aptHe is doing wellHe did do the labs OV 04/06/2022:Here for his routine 3 month f/u visit and MWVHe is here with his wifeHe is doing wellOV 08/10/2022:Post hosp, [facility] 07/20 to 07/23 for SBOStates that he is now doing well, his appetite is back and he is passing gas and stoolHe did do the labs on 2OV 12/14/2022:Here for his f/u apt, he is doing well today, he is here with his , would like to get eliquis samples, did do the labs on 12/12/2022 OV 04/12/2023: Here for his f/u apt with his , is doing well and he did do the labs OV 08/30/2023: Here for his routine apt, he did do the labs, here with his , also feels that the eliquis is getting more difficult to get as it is very expensive OV 01/08/2024: Here for his f/u apt, he feels well today, here with his OV 01/29/2024: S/p hospitalization for bronchitis, d/c from [facility] on 01/21/2024, does very well now Monse Car MD [address], [address], [place], [address], [facility] [employer] 01/29/2024 17:46:33 04/03/2024 text/html Here to mer Nice Hx:HTNGERDColon surgeryReviewed social family and surgical historyHere with his and is here to discuss above and get labs if needed OV 12/25/17:Here for his routine follow upHe did see Dr Veloz and is here to discuss his above visit OV 04/16/18:Here for his routine apt and also is here for his MVWHe states that he is doing well at this timeHe did do the labs on 04/10/18 and is here to discuss these OV 10/25/18:Here for his routine aptIs doing well at this timeHe did see his arthritis doctor OV 04/15/19:Here for his routine aptHe did do the labsHe may require cataract surgery, but feels really well and is doing a lot of his yard work now OV 05/27/19:Here for his pre-op surgical visit follow upHe is doing very wellIs to get cataract surgery OV 06/19/19:Here for ACV:C/o dizzy spells, when he gets up from a bent over positionNo chest painNo SOB, Syncope, presyncope, POLANCO, orthopnea or PNDNo headaches, no diplopiaDid have a earache, no fevers or chillsNo N/VNo rash OV 11/25/2019:Here for his routine aptHe is here with his wifeHe did do the labsHe feels well todayHe would like to get his viagra renewed, he is now on eliquis and would like to get samplesHe also has a mole on the back and would like to get a events assistant apt OV 05/25/2020:Here for his routine aptHe is doing very wellHe did do the labsWas admitted for SBO s/p surgery by Dr Abdul, now does well, good apetite is taking laxatives for constipation OV 12/07/2020;Here for his routine aptHe feels wellHe did do the labs and is here with his wifeHe has seen Dr Melendez, but still has c/o of hand painOV 06/07/2021:Here for his routine aptHe is doing very well, here with his Herson did do the labs on 06/03/2021OV 01/05/2022:Here for his routine aptHe is doing wellHe did do the labs OV 04/06/2022:Here for his routine 3 month f/u visit and MWVHe is here with his wifeHe is doing wellOV 08/10/2022:Post hosp, [facility] 07/20 to 07/23 for SBOStates that he is now doing well, his appetite is back and he is passing gas and stoolHe did do the labs on 2OV 12/14/2022:Here for his f/u apt, he is doing well today, he is here with his , would like to get eliquis samples, did do the labs on 12/12/2022 OV 04/12/2023: Here for his f/u apt with his , is doing well and he did do the labs OV 08/30/2023: Here for his routine apt, he did do the labs, here with his , also feels that the eliquis is getting more difficult to get as it is very expensive OV 01/08/2024: Here for his f/u apt, he feels well today, here with his OV 01/29/2024: S/p hospitalization for bronchitis, d/c from [facility] on 01/21/2024, does very well now Monse Car MD [address] [facility], [facility] [address], [place], [address], [place] [facility] [employer] 04/03/2024 10:43:43 06/10/2024 text/html Here to mer Nice Hx:HTNGERDColon surgeryReviewed social family and surgical historyHere with his and is here to discuss above and get labs if needed OV 12/25/17:Here for his routine follow upHe did see Dr Veloz and is here to discuss his above visit OV 04/16/18:Here for his routine apt and also is here for his MVWHe states that he is doing well at this timeHe did do the labs on 04/10/18 and is here to discuss these OV 10/25/18:Here for his routine aptIs doing well at this timeHe did see his arthritis doctor OV 04/15/19:Here for his routine aptHe did do the labsHe may require cataract surgery, but feels really well and is doing a lot of his yard work now OV 05/27/19:Here for his pre-op surgical visit follow upHe is doing very wellIs to get cataract surgery OV 06/19/19:Here for ACV:C/o dizzy spells, when he gets up from a bent over positionNo chest painNo SOB, Syncope, presyncope, POLANCO, orthopnea or PNDNo headaches, no diplopiaDid have a earache, no fevers or chillsNo N/VNo rash OV 11/25/2019:Here for his routine aptHe is here with his wifeHe did do the labsHe feels well todayHe would like to get his viagra renewed, he is now on eliquis and would like to get samplesHe also has a mole on the back and would like to get a events assistant apt OV 05/25/2020:Here for his routine aptHe is doing very wellHe did do the labsWas admitted for SBO s/p surgery by Dr Abdul, now does well, good apetite is taking laxatives for constipation OV 12/07/2020;Here for his routine aptHe feels wellHe did do the labs and is here with his wifeHe has seen Dr Melendez, but still has c/o of hand painOV 06/07/2021:Here for his routine aptHe is doing very well, here with his Herson did do the labs on 06/03/2021OV 01/05/2022:Here for his routine aptHe is doing wellHe did do the labs OV 04/06/2022:Here for his routine 3 month f/u visit and MWVHe is here with his wifeHe is doing wellOV 08/10/2022:Post hosp, [facility] 07/20 to 07/23 for SBOStates that he is now doing well, his appetite is back and he is passing gas and stoolHe did do the labs on 08/07/2022V 12/14/2022:Here for his f/u apt, he is doing well today, he is here with his , would like to get eliquis samples, did do the labs on 12/12/2022 OV 04/12/2023: Here for his f/u apt with his , is doing well and he did do the labs OV 08/30/2023: Here for his routine apt, he did do the labs, here with his , also feels that the eliquis is getting more difficult to get as it is very expensive OV 01/08/2024: Here for his f/u apt, he feels well today, here with his OV 01/29/2024: S/p hospitalization for bronchitis, d/c from [place] on 01/21/2024, does very well now OV 06/10/2024: Here for his f/u apt, he is doing well today, he did have his foot surgery done and is using a scooter now, here with his Monse Car MD [address] [facility], [facility] [address], [place], [address], [facility] [employer] 06/10/2024 10:26:42 10/14/2024 text/html Here to mer Nice Hx:HTNGERDColon surgeryReviewed social family and surgical historyHere with his and is here to discuss above and get labs if needed OV 12/25/17:Here for his routine follow upHe did see Dr Veloz and is here to discuss his above visit OV 04/16/18:Here for his routine apt and also is here for his MVWHe states that he is doing well at this timeHe did do the labs on 04/10/18 and is here to discuss these OV 10/25/18:Here for his routine aptIs doing well at this timeHe did see his arthritis doctor OV 04/15/19:Here for his routine aptHe did do the labsHe may require cataract surgery, but feels really well and is doing a lot of his yard work now OV 05/27/19:Here for his pre-op surgical visit follow upHe is doing very wellIs to get cataract surgery OV 06/19/19:Here for ACV:C/o dizzy spells, when he gets up from a bent over positionNo chest painNo SOB, Syncope, presyncope, POLANCO, orthopnea or PNDNo headaches, no diplopiaDid have a earache, no fevers or chillsNo N/VNo rash OV 11/25/2019:Here for his routine aptHe is here with his wifeHe did do the labsHe feels well todayHe would like to get his viagra renewed, he is now on eliquis and would like to get samplesHe also has a mole on the back and would like to get a events assistant apt OV 05/25/2020:Here for his routine aptHe is doing very wellHe did do the labsWas admitted for SBO s/p surgery by Dr Abdul, now does well, good apetite is taking laxatives for constipation OV 12/07/2020;Here for his routine aptHe feels wellHe did do the labs and is here with his wifeHe has seen Dr Melendez, but still has c/o of hand painOV 06/07/2021:Here for his routine aptHe is doing very well, here with his Herson did do the labs on 06/03/2021OV 01/05/2022:Here for his routine aptHe is doing wellHe did do the labs OV 04/06/2022:Here for his routine 3 month f/u visit and MWVHe is here with his wifeHe is doing wellOV 08/10/2022:Post hosp, [facility] 07/20 to 07/23 for SBOStates that he is now doing well, his appetite is back and he is passing gas and stoolHe did do the labs on 2OV 12/14/2022:Here for his f/u apt, he is doing well today, he is here with his , would like to get eliquis samples, did do the labs on 12/12/2022 OV 04/12/2023: Here for his f/u apt with his , is doing well and he did do the labs OV 08/30/2023: Here for his routine apt, he did do the labs, here with his , also feels that the eliquis is getting more difficult to get as it is very expensive OV 01/08/2024: Here for his f/u apt, he feels well today, here with his OV 01/29/2024: S/p hospitalization for bronchitis, d/c from [facility] on 01/21/2024, does very well now OV 06/10/2024: Here for his f/u apt, he is doing well today, he did have his foot surgery done and is using a scooter now, here with his OV 10/14/2024: Here for his f/u apt, he is doing well today, he is here with his Monse Car MD [address] [place] [address], [address], [place], [address], [facility] 10/25/2024 14:19:28
--- OUTSIDE RECORDS SUMMARY | 2025-02-08 08:08 | XMS_ITS | Data Portability ---
Author Organization [place] - [facility], [facility] Vascular Address [address] [place] [address] Care Team Providers Care Power Tool Repairer Name Role Phone MONSE JARA Primary Care Provider MONSE JARA Referring Provider [phone] CATIA PERDOMO Orthopedic Surgeon [phone] Assessment No assessment recorded. Plan of Treatment Reminders Order Date Submit Date Provider Last Modified By Organization Details Last Modified Time Details Appointments None recorded. Lab None recorded. Referral None recorded. Procedures None recorded. Surgeries None recorded. Imaging None recorded. Medication Orders Kenalog 40 mg/mL suspension for injection 2023 024 [email or web address] Not available 15:39:39 Kenalog 40 mg/mL suspension for injection 2023 024 rhanegan Not available 4 15:28:31 Kenalog 40 mg/mL suspension for injection 2023 024 rhanegan Not available 4 15:29:57 Kenalog 40 mg/mL suspension for injection 2023 024 rhanegan Not available 4 15:37:25 Kenalog 40 mg/mL suspension for injection 2023 024 rhanegan Not available 4 15:38:38 Kenalog 40 mg/mL suspension for injection 2022 023 rhanegan Not available 4 11:58:16 Kenalog 40 mg/mL suspension for injection 2022 023 rhanegan Not available 4 11:58:16 Kenalog 40 mg/mL suspension for injection 2022 023 rhanegan Not available 4 11:58:16 Kenalog 40 mg/mL suspension for injection 2022 023 rhanegan Not available 4 11:58:16 Patient TargetsNo targets recorded. Patient InstructionsNo instructions recorded. Reason for Referral None Reported. Results Created Date Observation Date Name Description Value Unit Range Abnormal Flag Note LastModifiedBy Organization Detail LastModifiedTime 09/11/20 24 09/11/2024 XR, hand, 3 or more view No observ ation record ed. rhanegan [facility] [address] [place] [address], [address], 09/11/2024 13:33:49 Result Notes None recorded. Problems Name Problem SNOMED Code Status Onset Date Resolution Date Notes Provider Name and Address Organization Details Recorded Time Pain in finger of right hand 2506322676397 09 Active 2022 Ovi vernon, [facility] 3 10:00:02 Osteoarthr itis of joint of bilateral hands 1900138893495 09 Active 2022 Catia Perdomo MD [address] [place] [address], [phone] , [facility] 3 10:10:48 Pain in right hand 6853624599229 09 Active 2023 Mya Velasquez null, [facility] 4 09:52:08 Pain in finger of left hand 7262913058320 05 Active 2023 Ovi vernon, [facility] 4 12:20:23 Localized, primary osteoarthr itis of the hand 106754552 [place] 2023 [place] [address] [place] [address], [phone] , [facility] 4 13:14:23 Renewal of prescripti on Active 2021 Not Available [facility] 3 04:54:51 Cervical radiculiti s 30094600 Active Not Available [facility] 3 04:54:51 Nocturia 251478770 Active Not Available [facility] 3 04:54:51 Pain of right ankle joint 9881871765838 9106 Active 2021 Not Available [facility] 3 04:54:51 Radiothera py follow-up 690771721 Active Not Available [facility] 3 04:54:52 Raynaud's disease 827947784 Active Not Available [facility] 3 04:54:52 Raynaud's phenomenon 497227963 Active Not Available [facility] 3 04:54:52 Sprain of elbow and forearm 217774379 Active Not Available [facility] 3 04:54:52 Disorder of prostate 26435545 Active 2021 Not Available [facility] 3 04:54:52 Follow-up orthopedic assessment 356297135 Active Not Available [facility] 3 04:54:52 Sinusitis 46302464 Active Not Available [facility] 3 04:54:52 Cervical arthritis 945806070 Active Not Available [facility] 3 04:54:52 Osteoarthr itis 825841581 Active Not Available [facility] 3 04:54:52 Rupture of tendon of biceps 010570056 Active Not Available [facility] 3 04:54:52 Disorder of tendon of biceps 758484312 Active Not Available [facility] 3 04:54:52 Screening for malignant neoplasm of prostate Active 2021 Not Available [facility] 3 04:54:52 Atrial fibrillati on 00391860 Active 2016 Not Available [facility] 3 04:54:53 Upper respirator y infection 06889254 Active 2021 Not Available [facility] 3 04:54:53 Hyperlipid emia 93465251 Active Not Available [facility] 3 04:54:53 Essential hypertensi on 49122549 Active Not Available [facility] 3 04:54:53 Cardiac arrhythmia 535666337 Active Not Available [facility] 3 04:54:53 Rheumatoid arthritis 96968896 Active Not Available [facility] 3 04:54:53 Pain in elbow 35277786 Active Not Available [facility] 3 04:54:53 COVID-19 285764272 Active 2021 Not Available [facility] 3 04:54:53 Pain in limb 52342463 Active Not Available [facility] 3 04:54:53 Problem Notes None recorded. Procedures Surgical History Date Name Laterality Status Provider Name and Address Organization Details Recorded Time 05/18/20 22 Colonoscopy completed Not Available [facility] 11/12/2022 04:53:44 05/24/20 21 Knee Replacement completed Not Available [facility] 11/12/2022 04:53:44 06/16/20 19 Cataract Surgery completed Not Available [facility] 11/12/2022 04:53:44 08/03/20 15 repair of ruptured tendon completed Not Available [facility] 11/12/2022 04:53:44 Colon Surgery completed Not Available [facility] 11/12/2022 04:53:44 Orthopedic Surgery completed Not Available [facility] 11/12/2022 04:53:44 Orthopedic Surgery completed Not Available [facility] 11/12/2022 04:53:44 Orthopedic Surgery completed Not Available [facility] 11/12/2022 04:53:44 Orthopedic Surgery completed Not Available [facility] 11/12/2022 04:53:44 Cholecystectomy completed Not Available [facility] 11/12/2022 04:53:44 Imaging Results Imaging Date Name Status LastModified by Organiz ation Details LastModified Time 09/11/2024 XR, hand, 3 or more view completed [facility] [address] [address], [place], [address], 09/11/2024 13:33:49 Procedure Notes None recorded. Medical Equipment None [...] Not Available Not Available No t Available ofloxacin 0.3 % eye drops INSTILL 1 DROP 3 TIMES DAILY STARTING 2 DAYS BEFORE SURGERY, CONTINUI NG FOR 1 WEEK AFTER. 09/02 completed Not Available Not Available Not Available [...] MOUTH EVERY 6 HOURS NEEDED FOR PAIN 09/11 completed Not Available Not Available Not Available meloxicam 15 mg tablet TAKE ONE [...] Not Available Not Available No t Available Zithromax Z-Javier 250 mg tablet Take by oral route.2t abs first day then 1 daily 09/02 completed Not Available Not Available Not Available penicilli n V potassium 500 mg [...] DO NOT EXCEED 5 PER 24 HOURS 09/11 completed Not Available Not Available Not Available amoxicill in 500 mg tablet Take 1 tablet twice a day by oral route as directed for 7 days. 10/15 completed Not Available Not Available Not Available ketorolac 0.5 % eye drops INSTILL 1 DROP 3 TIMES DAILY STARTING 2 DAYS BEFORE SURGERY, CONTINUE FOR 2 WEEKS AFTER 09/02 completed Not Available Not Available Not Available Kenalog 40 mg/mL suspensio n for injection Take 1 mL by injectio n route. 2023 active 1ml kenalog 40mg/ml with 1ml 1% lidocain e injected into left small PIP joint Not Available Not Available Not Available meloxicam [...] STARTING AFTER SURGERY, CONTINUE FOR 3 WEEKS 09/02 completed Not Available Not Available Not Available methotrex ate sodium 2.5 mg tablet TAKE 5 TABLETS BY MOUTH IN THE MORNING AND 5 IN THE EVENING EVERY 7 DAYS active Not Available Not Available No t Available Kenalog 10 mg/mL suspensio n for injection In office injectio n administ ered by the provider 09/02 completed ND: [id number] 4-20 Not Available Not Available Not Available hydrocodo ne 7.5 mg-acetam inophen 325 mg tablet 09/02 completed Not Available Not Available Not Available cephalexi n 500 mg capsule TAKE 1 CAPSULE BY MOUTH EVERY 6 HOURS 01/05 completed Not Available Not Available Not Available erythromy nellie 5 mg/gram (0.5 %) eye ointment APPLY A SMALL AMOUNT TO LEFT EYE TWICE DAILY FOR 7 DAYS 09/11 completed Not Available Not Available Not [...] completed Not Available Not Available Not Available methylpre dnisolone 4 mg tablets in a dose pack TAKE BY MOUTH DIRECTED ON INSIDE OF PACKAGE 09/02 completed Not Available Not Available Not Available [...] te 125 mg tablet TAKE 1 TABLET EVERY 12 HOURS FOR 7 DAYS UNTIL ALL TAKEN 09/17 completed Not Available Not Available Not Available Tylenol Extra Strength 500 mg tablet [...] BY MOUTH ONCE DAILY FOR 3 DAYS 09/11 completed Not Available Not Available Not Available amoxicill in-potass ium clavulana te 1,000 mg-62.5 mg tablet,ex t.rel 12hr TAKE 1 TABLET BY MOUTH EVERY 12 HOURS 09/11 completed Not Available Not Available Not Available ezetimibe 10 mg tablet 09/11 completed Not Available Not Available Not Available Pacerone 100 mg tablet TAKE 1 TABLET BY MOUTH ONCE DAILY active Not Available Not Available No t Available metoprolo l tartrate 25 mg tablet TAKE 1 TABLET TWICE DAILY 05/27 completed Not Available Not Available Not Available methotrex ate 12/[address] Melendez started with folic acid on 1, f.u in 2 months Not Available Not Available Not Available tramadol active Not Available Not Avai lable Not Available lidocaine (PF) 10 mg/mL (1 %) injection solution In office injectio n administ ered by the provider 04/06 completed [facility]: [phone] Not Available Not Available Not [...] (PF) 5 mg/mL (0.5 %) injection solution Take 80 mg by injectio n route. active Not Available Not Available No t Available Xarelto 20 mg tablet Take 1 tablet every day by oral route. active Not Available Not Available No t Available lidocaine 5 % topical ointment 10/15 completed Not Available Not Available Not Available Eliquis 5 mg tablet TAKE 1 TABLET BY MOUTH TWICE DAILY 09/11 completed Not Available Not Available Not [...] mg tablets in a dose pack Take 3 tablets twice a day by oral route for 5 days. active Not Available Not Available No t Available Vitals Date Recorded Body height Heart rate Oxygen saturation Oxygen saturation in Arterial blood by Pulse oximetry Body mass index (BMI) Body weight Systolic blood pressure Diastolic blood pressure Provider Name and Address Organization Details Last Updated DateTime 3 165.1 cm 72 /min 97 % 97 % 28.6 kg/m2 26909.8 9 g 188 mm[Hg] 86 mm[Hg] [facility] 3 09:54:59 Date Recorded Body height Body mass index (BMI) Body weight Heart rate Oxygen saturation Oxygen saturation in Arterial blood by Pulse oximetry Systolic blood pressure Diastolic blood pressure Provider Name and Address Organization Details Last Updated DateTime 4 165.1 cm 27 kg/m2 25586.9 6 g 73 /min 96 % 96 % 175 mm[Hg] 102 mm[Hg] [facility] 4 11:58:36 Date Recorded Body mass index (BMI) Body height Heart rate Body temperature Body weight Systolic blood pressure Diastolic blood pressure Provider Name and Address Organization Details Last Updated DateTime 2 28.7 kg/m2 162.56 cm 60 /min 97.6 [degF] 80110.9 3 g 140 mm[Hg] 72 mm[Hg] Not Available [facility] 04:54:27 Date Recorded Body mass index (BMI) Body height Body weight Provider Name and Address Organization Details Last Updated DateTime 10/25/2022 29 kg/m2 165.1 cm 00930.07 g Not Available [facility] 11/12/2022 04:54:34 Date Recorded Body height Provider Name an d Address Organization Details Last Updated DateTime 07/26/2022 162.56 cm Not Available [facility] 04:54:29 Social History Question Answer Notes LastModified by Organization Details LastModified Time Tobacco Smoking Status Never Smoker Not Available [facility] 11/12/2022 04:53:30 Do You Have An Advance Directive? No PATIENT DECLINED INFORMATION MIGRATION.106 [id number] Information not available 11/12/2022 What Is Your Level Of Alcohol Consumption? None MIGRATION.106 496331 Information not available 11/12/2022 Are You Blind Or Do You Have Difficulty Seeing? No MIGRATION.106 [id number] Information not available 11/12/2022 What Is Your Level Of Caffeine Consumption? Heavy MIGRATION.106 407721 Information not available 11/12/2022 In The 14 Days Before Symptom Onset, Have You Had Close Contact With A Laboratory-conf irmed COVID-19 While That Case Was Ill? No MIGRATION.106 [id number] Information not available 11/12/2022 In The 14 Days Before Symptom Onset, Have You Had Close Contact With A Person Who Is Under Investigation For COVID-19 While That Person Was Ill? No MIGRATION.106 511738 Information not available 11/12/2022 Are You Currently Employed? No RETIRED MIGRATION.106 [id number] Information not available 11/12/2022 Are You Deaf Or Do You Have Serious Difficulty Hearing? Yes MIGRATION.106 132341 Information not available 11/12/2022 What Type Of Diet Are You Following? REGULAR MIGRATION.106 054913 Information not available 11/12/2022 What Is The Highest Grade Or Level Of School You Have Completed Or The Highest Degree You Have Received? [id number] MIGRATION.106 Information not available 11/12/2022 Have There Been Any Changes To Your Family Or Social Situation? Yes MIGRATION.106 468372 Information not available 11/12/2022 What Is The Fluoride Status Of Your Home? Unknown MIGRATION.106 881662 Information not available 11/12/2022 Are There Any Guns Present In Your Home? Yes MIGRATION.106 520674 Information not available 11/12/2022 Do You Use Insect Repellent Routinely? No MIGRATION.106 358273 Information not available 11/12/2022 Where Do You Live? [place] MIGRATION.106 Information not available 11/12/2022 Do You Feel Safe At Home Yes MIGRATION.106 Information not available 11/12/2022 Do You Have A Medical Power Of Garage Manager? No MIGRATION.106 073965 Information not available 11/12/2022 What Was The Date Of Your Most Recent Tobacco Screening? 09/11/2024 rhanegan Information not available 09/02/2024 Do You Have Any Pets? No MIGRATION.106 976671 Information not available 11/12/2022 What Is Your Relationship Status? MIGRATION.106 Information not available 11/12/2022 Do You Use Your Seat Belt Or Car Seat Routinely? Yes MIGRATION.106 525324 Information not available 11/12/2022 Do You Have Smoke And Carbon Monoxide Detectors In Your Home? Yes MIGRATION.106 756694 Information not available 11/12/2022 Are You Passively Exposed To Smoke? No MIGRATION.106 236822 Information not available 11/12/2022 Are There Any Smokers In Your House? No MIGRATION.106 411091 Information not available 11/12/2022 What Types Of Sporting Activities Do You Participate In? None MIGRATION.106 868252 Information not available 11/12/2022 Do You Feel Stressed (tense, Restless, Nervous, Or Anxious, Or Unable To Sleep At Night)? [id number] MIGRATION.106 Information not available 11/12/2022 Do You Use Any Illicit Or Recreational Drugs? No MIGRATION.106 212097 Information not available 11/12/2022 Do You Use Sunscreen Routinely? Yes MIGRATION.106 388470 Information not available 11/12/2022 Has Tobacco Cessation Counseling Been Provided? No N/a MIGRATION.0107 201565 Information not available 11/12/2022 Have You Recently Traveled Abroad? No MIGRATION.0107 915027 Information not available 11/12/2022 Do You Have Any Dietary Restrictions? No MIGRATION.0107 015888 Information not available 11/12/2022 Do You Or Have You Ever Used Any Other Forms Of Tobacco Or Nicotine? No MIGRATION.0107 931250 Information not available 11/12/2022 Sex: Male Functional Status Question Answer Note LastModified by Organizat ion Details LastModified Time Do you have difficulty walking or climbing stairs? No MIGRATION.2795176 200 Information not available 11/12/2022 Do you have transportation difficulties? No MIGRATION.3951699 200 Information not available 11/12/2022 Are you able to walk? YESWOREST MIGRATION.5060327 200 Information not available 11/12/2022 Do you have difficulty doing errands alone? No MIGRATION.6274445 200 Information not available 11/12/2022 Do you have difficulty dressing or bathing? No MIGRATION.0743665 200 Information not available 11/12/2022 What is your exercise level? Occasional MIGRATION.2574578 200 Information not available 11/12/2022 Mental Status Question Answer Note LastModified by Organizat ion Details LastModified Time Do you have difficulty concentrating, remembering or making decisions? No MIGRATION.029805279 0 Information not available 11/12/2022 Family History Relationship Description Onset Age of this Age Resolved Age Notes LastModified by Organization Details LastModified Time Unspecified Relation Heart disease MIGRATION.183 [id number] Not available 11/12/2022 04:53:45 Unspecified Relation Family history of stroke MIGRATION.114 [id number] Not available 11/12/2022 04:53:45 Unspecified Relation Family history of malignant neoplasm MIGRATION.514 [id number] Not available 11/12/2022 04:53:45 Unspecified Relation Hypertensive disorder MIGRATION.461 5077051 Not available 11/12/2022 04:53:45 Unspecified Relation Diabetes mellitus MIGRATION.184 4451909 Not available 11/12/2022 04:53:45 Father Malignant tumor of lung MIGRATION.474 9618783 Not available 11/12/2022 04:53:45 Medical History Condition Response NERVE DISEASE N [...] GLAUCOMA N FOOT PROBLEM N DIVERTICULITIS N SLEEP APNEA Y CHICKENPOX N INFECTIOUS DISEASE N PROSTATE N HEART ARRHYTHMIA N INSOMNIA N HIGH CHOLESTEROL / HYPERLIPIDEMIA Y HYPERTHYROIDISM N EYE PROBLEMS N EDEMA N CHRONIC PAIN SYNDROME N HYPOTHYROIDISM N CONSTIPATION N CAROTID BLOCKAGE N BACK / NECK PROBLEMS Y ATHEROSCLEROSIS [...] Y PULMONARY EMBOLISM N AUTOIMMUNE DISEASE N ABDOMINAL PAIN N Immunizations Vaccine Type Date Status Note Provider Nam e and Address Organization Details Recorded Time SARS-COV-2 (COVID-19) vaccine, UNSPECIFIED 1 completed Not Available [facility] 11/12/2022 04:55:52 SARS-COV-2 (COVID-19) vaccine, UNSPECIFIED 1 completed Not Available [facility] 11/12/2022 04:55:52 COVID-19, mRNA, LNP-S, PF, 100 mcg/0.5mL dose or 50 mcg/0.25mL dose 1 completed Not Available [facility] 11/12/2022 04:55:52 Influenza, high-dose, trivalent, PF 0 completed Not Available [facility] 11/12/2022 04:55:52 Influenza, high-dose, quadrivalent, PF 2 completed Not Available [facility] 11/12/2022 04:55:52 pneumococcal polysaccharide PPV23 9 completed Not Available [facility] 11/12/2022 04:55:53 Influenza, high-dose, trivalent, PF 8 completed Not Available [facility] 11/12/2022 04:55:53 Pneumococcal conjugate PCV 13 8 completed Not Available [facility] 11/12/2022 04:55:53 Influenza, high-dose, trivalent, PF 7 completed Not Available [facility] 11/12/2022 04:55:53 Influenza, high-dose, trivalent, PF 4 completed Not Available [facility] 11/12/2022 04:55:53 Influenza, high-dose, trivalent, PF 6 completed Not Available [facility] 11/12/2022 04:55:53 Influenza, high-dose, trivalent, PF 5 completed Not Available [facility] 11/12/2022 04:55:53 Influenza, split virus, trivalent, preservative 3 completed Not Available [facility] 11/12/2022 04:55:54 Past Encounters Encounter ID Performer Location Encounter Start Date Encounter Closed Date Diagnosis/Indication Diagnosis SNOMED-CT Code Diagnosis ICD10 Code Diagnosis Note [id number] _ATHENA_M IGRATION_ DEFAULT_1 _5 , 01/12/2021 00:00:00 01/12/2021 15:50:11 [id number] _ATHENA_M IGRATION_ DEFAULT_1 _5 , 03/15/2021 00:00:00 03/15/2021 15:21:49 [id number] _ATHENA_M IGRATION_ DEFAULT_1 _5 , 03/24/2021 00:00:00 03/24/2021 15:05:25 [id number] _ATHENA_M IGRATION_ DEFAULT_1 _5 , 04/12/2021 00:00:00 04/19/2021 09:47:22 [id number] _ATHENA_M IGRATION_ DEFAULT_1 _5 , 04/28/2021 00:00:00 05/12/2021 10:17:56 [id number] _ATHENA_M IGRATION_ DEFAULT_1 _5 , 06/02/2021 00:00:00 06/02/2021 10:51:39 [id number] _ATHENA_M IGRATION_ DEFAULT_1 _5 , 06/07/2021 00:00:00 06/07/2021 18:00:53 [id number] _ATHENA_M IGRATION_ DEFAULT_1 _5 , 06/23/2021 00:00:00 07/03/2021 21:24:45 [id number] _ATHENA_M IGRATION_ DEFAULT_1 _5 , 07/07/2021 00:00:00 07/07/2021 11:44:45 [id number] _ATHENA_M IGRATION_ DEFAULT_1 _5 , 08/25/2021 00:00:00 08/25/2021 12:43:03 [id number] _ATHENA_M IGRATION_ DEFAULT_1 _5 , 08/30/2021 00:00:00 08/30/2021 12:50:00 [id number] _ATHENA_M IGRATION_ DEFAULT_1 _5 , 01/05/2022 00:00:00 01/05/2022 18:36:52 [id number] _ATHENA_M IGRATION_ DEFAULT_1 _5 , 02/14/2022 00:00:00 02/14/2022 12:31:28 [id number] _ATHENA_M IGRATION_ DEFAULT_1 _5 , 04/06/2022 00:00:00 04/12/2022 12:19:52 [id number] [facility] 4 [facility] [address] [place] [address] 04/26/2022 00:00:00 04/26/2022 12:23:04 [id number] _ATHENA_M IGRATION_ DEFAULT_1 _5 , 06/01/2022 00:00:00 06/01/2022 14:57:27 [id number] _ATHENA_M IGRATION_ DEFAULT_1 _5 , 07/26/2022 00:00:00 07/26/2022 17:46:04 [id number] _JOEL_M IGRATION_ DEFAULT_1 _5 , 08/10/2022 00:00:00 08/10/2022 11:08:42 [id number] _JOEL_M IGRATION_ DEFAULT_1 _5 , 10/25/2022 00:00:00 10/25/2022 17:25:47 [id number] Catia Perdomo MD [facility] [address] [address] 09/20/2023 09:45:20 09/20/2023 10:26:05 Pain in finger of right hand 9282662102 81509 M79.644 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 Injected the DIP and PIP index along the total of 4 injections with 1 cc of xylocaine and 1 cc Kenalog sterile technique standard protocol. 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 Injected the DIP and PIP index along the total of 4 injections with 1 cc of xylocaine and 1 cc Kenalog sterile technique standard protocol. We will see him back when these wear off and discuss in the future possibilit y of arthroplas ty Body mass index 25-29 - overweight 111489755 Z68.27 Pain in fi nger of left hand 3273920030 21488 M79.645 Localized, primary osteoarthritis of the hand 781915323 M19.049 sterile technique standard protocol injected the distal interphala ngeal joint of the index and long proximal interphala ngeal joint of the index and long on the right and the proximal interphala ngeal joint of the left small. See him back in a few months for follow-up continue conservati ve treatment otherwise injected each joint with 1 cc of 1% lidocaine and 1 cc of 40 mg of Kenalog sterile technique standard protocol Health Concerns Section Related Observation LastModified by Organization Detai ls LastModified Time None Recorded Concern Status LastModified by Organization Details LastModified Time None Recorded Advance Directives Directive N: PATIENT DECLINED INFORMAT ION Payers Encounter Date Sequence Insurance Name Policy Number Policy Hinds Covered Member ID Hinds Member ID Guarantor Name 09/20/2023 1 [place] Bill Colon [id number] Bill Argelia Isaiah 09/20/2023 2 [employer] (MEDICARE SUPPLEMENT) Bill Colon [id number] Bill Colon 09/11/2024 1 [place] Bill Colon [id number] Bill Colon 09/11/2024 2 [employer] (MEDICARE SUPPLEMENT) Bill Colon [id number] Bill Colon Notes Date Note Type Note Provider Name and Address Organization Details Recorded Time 09/20/2023 text/html patient has anna re osteoarthritis medial ends of his fingers we have done his left index and long PIP those have done well. Patient still having pain in his right index and long PIP and DIP. Patient comes in for follow-up injections which have helped as he is getting ready to [place] [address] [place] [address], [phone], [facility] 09/20/2023 10:11:43 09/11/2024 text/html patient has significant osteoarthritis of the hand comes in today for injections left small PIP right long and index PIP and DIP. patient is doing well with the left index and long PIP arthroplasties Catia Perdomo MD [address] [place], [address], [facility] 09/11/2024 13:15:08
--- OUTSIDE RECORDS SUMMARY | 2025-02-08 08:08 | XMS_ITS | Continuity of Care Document ---
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 Name Role Phone Castillo Acosta MD Unavailable Unavailable Procedures Procedure Date Office/outpatient visit,[facility] 2007 Drain/inject intermed joint/bursa X-ray exam of ankle, complete 8 Office/outpatient visit,[facility] 2006 Drain/inject intermed joint/bursa Depo Medrol Methylprednisolone 40 MG inj Office/outpatient visit,[facility] 2006 Drain/inject major jointor bursa 2006 Depo Medrol Methylprednisolone 40 MG inj Office/outpatient visit,[facility] 2006 X-ray exam of ankle, complete 7 Advance Directives Directive Yes / No Effective Date File Name No Information Encounters Encounter Description Practice Location Reason(s) For Visit Diagnoses Date Provider Providers Copied on Encounter Office/outpat ient visit,[facility], [address] [place] [address], [id number], tel:[phone] [facility] No Information 8 Karla Chong. [address] [place] [address], [place], [place], [id number] , [place]. tel:[phone] Office/outpat ient visit,[facility], [address] [place] [address], [id number], tel:[phone] [facility] No Information 7 Karla Castillo. [address] [facility], [address], [place], [place], [id number] , [place]. tel: [phone] Office/outpat ient visit,est, low [facility], [address], [id number], [place] [phone] [facility] No Information 7 Kostajorge Chong. [address] [facility], [facility] [address], [place], [place], [id number] , [place]. tel: [phone] Office/outpat ient visit,[place], [email or web address], [address], [id number], [place] [phone] [facility] No Information 0 7 Kostajorge Chong. [address], [id number] , [place]. tel: [phone] Family History Family Member Type Diagnosis Age [...]
--- OUTSIDE RECORDS SUMMARY | 2025-02-08 08:08 | XMS_ITS | CONTINUITY OF CARE DOCUMENT ---
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 Latoya Lopes MD HTN ESSENTIAL active Jameson Veloz MD CHEST PAIN completed - Alexandre Yoo CAROTID ARTERY DISEASE- CAROTID NEG completed - Jameson Veloz MD Shortness of breath completed - Alexandre Yoo Palpitations completed - Alexandre Yoo Aortic regurgitation active Jameson Veloz MD Mitral regurgitation completed - Jameson Veloz MD Tricuspid regurgitation active Jameson Veloz MD Obstructive sleep apnea - on CPAP active Jameson Veloz MD Atrial fibrillation, paroxysmal active Alexandre Yoo Current use of anticoagulants active Alexandre Yoo Hyperlipidemia active Jameson Veloz MD Current long-term use of Amiodarone active Alexandre Yoo Bradycardia active Alexandre Yoo Preop exam completed - Alexandre Yoo Dizziness completed - Alexandre Yoo Cardiology examination active 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 machado 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 Date Type Provider Location Encounter Diag nosis - In-person encounter Office Visit Jameson Veloz MD [facility] Office Visit Jameson Veloz [facility] - [facility]-person encounter Office Visit Jameson Veloz MD [facility] Cardiology examination - In-person encounter Office Visit Jameson Veloz MD [facility] - In-person encounter Office Visit Jameson Veloz MD [facility] - In-person encounter Office Visit Jameson Veloz MD [facility] - In-person encounter Office Visit Jameson Veloz MD [facility] - In-person encounter Office Visit Derek Mendez MD [facility] - In-person encounter Office Visit Jameson Veloz MD [facility] - In-person encounter Office Visit Jameson Veloz MD [facility] Current long-term use of Amiodarone - In-person encounter Office Visit Jaemson Veloz MD [facility] Shortness of breathPalpitationsCurrent use of anticoagulantsPreop examDizziness - In-person encounter Office Visit Jameson Veloz MD [facility] CHEST PAIN - In-person encounter Office Visit Rene Torres MD [facility] - In-person encounter Office Visit Jameson Veloz MD [facility] - In-person encounter Office Visit Jameson Veloz MD [facility] - In-person encounter Office Visit Jameson Veloz MD [facility] Obstructive sleep apnea - on CPAPBradycardia - In-person encounter Office Visit Jameson Veloz MD [facility] - In-person encounter Office Visit Jameson Veloz MD [facility] CAD - In-person encounter Office Visit Jameson Veloz MD [facility] CADHyperlipidemiaCurrent long-term use of Amiodarone - In-person encounter Office Visit Jameson Veloz MD [facility] Mitral regurgitationAtrial fibrillation, paroxysmalCurrent use of anticoagulants - In-person encounter Office Visit Jameson Veloz MD [facility] CADHTN ESSENTIALCAROTID ARTERY DISEASE- CAROTID NEGAortic regurgitationMitral regurgitationTricuspid regurgitationObstructive sleep apnea - on CPAP - In-person encounter Office Visit Latoya Lopes MD [facility] CADHTN ESSENTIALCHEST PAIN - In-person encounter Office Visit Latoya Lopes MD [facility] CADOBESITYHTN ESSENTIALCHEST PAIN VITAL SIGNS Date Observation Value Provider Body Mass Index (Ratio) 27.12 kg/m2 Raza Fonseca blood pressure, diastolic 82 mm[Hg] Shu yla [facility] blood pressure, systolic 147 mm[Hg] Lucía la [facility] oxygen saturation, oximetry 99 % Ann [facility] pulse rate 76 /min Ann [facility] weight E&M 163 [lb_av] Ann [facility] height E&M 65 [in_i] Ann [facility] blood pressure, diastolic 79 mm[Hg] Ja rret blood pressure, systolic 163 mm[Hg] Jar ret pulse rate 75 /min Kane y blood pressure, cuff size regular Ja rret respiratory rate E&M 14 /min Kane oxygen saturation, oximetry 98 % Kane height E&M 65 [in_i] Kane y Body Mass Index (Ratio) 27.12 kg/m2 Avery Wisdom blood pressure, diastolic 825 mm[Hg] Evonne plummerLogic blood pressure, systolic 128 mm[Hg] Gris [facility]Logic weight E&M 163 [lb_av] Phoebe [place] pulse rate 67 /min Phoebe [place] blood pressure, cuff size regular Marc ritter [place] blood pressure, diastolic 82 mm[Hg] Marc ritter [place] blood pressure, systolic 128 mm[Hg] Tab [facility] [place] oxygen saturation, oximetry 97 % Phoebe [place] respiratory rate E&M 12 /min Phoebe [place] height E&M 65 [in_i] [facility] Body Mass Index (Ratio) 28.92 kg/m2 Bhavik Kim blood pressure, cuff size regular Ashkan Matamoros RN blood pressure, diastolic 50 mm[Hg] Ashkan Matamoros RN blood pressure, systolic 150 mm[Hg] Darrick Matamoros RN oxygen saturation, oximetry 97 % Darrick Matamoros RN respiratory rate E&M 20 /min Darrick briseno RN pulse rate 74 /min Darrick Matamoros RN weight E&M 173.8 [lb_av] Darrick Matamoros RN Body Mass Index (Ratio) 28.62 kg/m2 Pb [place] blood pressure, diastolic 84 mm[Hg] [facility] leonel Leonard blood pressure, systolic 162 mm[Hg] De Leonard oxygen saturation, oximetry 99 % Christin Leonard pulse rate 69 /min Christin Leonard respiratory rate E&M 16 /min Christin slater weight E&M 172 [lb_av] Christin Leonard height E&M 65 [in_i] Christinbrigitte Leonard Body Mass Index (Ratio) 28.95 kg/m2 Minna Rivas blood pressure, diastolic 76 mm[Hg] Ca therine William blood pressure, systolic 158 mm[Hg] Cat herine William oxygen saturation, oximetry 97 % Amanda [place] pulse rate 70 /min Amanda [place] respiratory rate E&M 16 /min Catheri ne [place] weight E&M 174 [lb_av] Amanda [place] blood pressure, cuff size regular Ca therine [place] height E&M 65 [in_i] Amanda [place] Body Mass Index (Ratio) 29.78 kg/m2 Minna Wrightcarlos blood pressure, diastolic 78 mm[Hg] yue [place] blood pressure, systolic 140 mm[Hg] [facility] fabienne [place] oxygen saturation, oximetry 97 % Dyan Jean pulse rate 70 /min Shervilla Figueroa ayala respiratory rate E&M 18 /min Carlos Manuel shruti Jean weight E&M 179 [lb_av] Sherkeitha Craw ayala height E&M 65 [in_i] Sherkeitha Craw ayala Body Mass Index (Ratio) 30.45 kg/m2 Romero Mendez MD blood pressure, cuff size large Ke rri Kiranuenelg blood pressure, diastolic 80 mm[Hg] Ke rri Gruenenfelder blood pressure, systolic 168 mm[Hg] Radha Ignacio oxygen saturation, oximetry 98 % Annabelle Sandee respiratory rate E&M 16 /min Annabelle Pang noelleanalara pulse rate 64 /min Annabelle [place] [facility] weight E&M 183 [lb_av] Annabelle [place] [facility] height E&M 65 [in_i] Annabelle [place] [facility] Body Mass Index (Ratio) 30.12 kg/m2 Vishal pretty [facility] pulse rate 76 /min [facility] blood pressure, diastolic 80 mm[Hg] Al leonela [facility] blood pressure, systolic 159 mm[Hg] Dionne rizvi [facility] weight E&M 181 [lb_av] [facility] height E&M 65 [in_i] [facility] Body Mass Index (Ratio) 30.78 kg/m2 Vishal pretty [facility] blood pressure, cuff size regular [facility] oxygen saturation, oximetry 98 % [facility] respiratory rate E&M 19 /min Adele [place] pulse rate 69 /min [facility] blood pressure, diastolic 80 mm[Hg] Kr isty [place] blood pressure, systolic 140 mm[Hg] [facility]&M 185 [lb_av] Adele Felice height E&M 65 [in_i] [facility] Body Mass Index (Ratio) 29.62 kg/m2 Vishal pretty [facility] pulse rate 70 /min Minnie Block oxygen saturation, oximetry 98 % Minnie Block blood pressure, diastolic 70 mm[Hg] Br ittany Block blood pressure, systolic 142 mm[Hg] Sydney ttany Block weight E&M 178 [lb_av] Minnie Block respiratory rate E&M 16 /min Brittan y Block height E&M 65 [in_i] Minnie Haley Body Mass Index (Ratio) 30.45 kg/m2 Vishal pretty Naila blood pressure, diastolic 76 mm[Hg] Fe sisi [place] blood pressure, systolic 136 mm[Hg] Mitzy icia [place] pulse rate 65 /min Lindsay [place] oxygen saturation, oximetry 97 % Lindsay [place] respiratory rate E&M 16 /min Lindsay [place] weight E&M 183 [lb_av] Lindsay [place] height E&M 65 [in_i] Lindsay [place] blood pressure, diastolic, left arm 66 mm [Hg] [facility] blood pressure, systolic, left arm 130 mm [Hg] [facility] blood pressure, diastolic, right arm 70 m m[Hg] [facility] blood pressure, systolic, right arm 132 m m[Hg] [facility] Body Mass Index (Ratio) 30.12 kg/m2 Vishal sukhwinder [facility] blood pressure, cuff size regular Cy dustindeb Chavo blood pressure, diastolic 66 mm[Hg] Cy bayron Tony blood pressure, systolic 130 mm[Hg] Suyapa Tony oxygen saturation, oximetry 96 % Sparkle Tony respiratory rate E&M 16 /min Sparkle Tony pulse rate 88 /min Sparkle Campbel l weight E&M 181 [lb_av] Sparkle Campbel l height E&M 65 [in_i] Sparkle Campbel l Body Mass Index (Ratio) 29.95 kg/m2 Liset Torres MD blood pressure, diastolic, left arm 80 mm [Hg] Kinjal Chinchilla blood pressure, systolic, left arm 130 mm [Hg] Kinjal [place]illa blood pressure, diastolic, right arm 80 m m[Hg] Kinjal [place]illa blood pressure, systolic, right arm 130 m m[Hg] Kinjal [place] blood pressure, diastolic 80 mm[Hg] Mark guevara blood pressure, systolic 130 mm[Hg] Lou jerome [place] oxygen saturation, oximetry 98 % [place]illa respiratory rate E&M 16 /min [place]illa pulse rate 64 /min [place] weight E&M 180 [lb_av] Kinjal height E&M 65 [in_i] Kinjal Ch[place]illa Body Mass Index (Ratio) 31.12 kg/m2 Jameson Veloz MD blood pressure, cuff size large Ke rri [facility] blood pressure, diastolic 80 mm[Hg] Ke rri [facility] blood pressure, systolic 130 mm[Hg] Radha buzz Ignacio oxygen saturation, oximetry 97 % Annabelle [facility] respiratory rate E&M 20 /min Annabelle Poly gregorio pulse rate 66 /min Annabelle Nan [facility] weight E&M 187 [lb_av] Annabelle Thaie [facility] height E&M 65 [in_i] Annabelle Nan [facility] Body Mass Index (Ratio) 30.62 kg/m2 Vishal Yoo blood pressure, cuff size regular Kr isty [place] blood pressure, diastolic 70 mm[Hg] Kr isty [place] blood pressure, systolic 130 mm[Hg] Kri shannon [place] respiratory rate E&M 17 /min Adele Felice oxygen saturation, oximetry 98 % Adele [place] pulse rate 66 /min Adele Felice weight E&M 184 [lb_av] Adele [place] height E&M 65 [in_i] Adele [place] Body Mass Index (Ratio) 31.28 kg/m2 Vishal Yoo blood pressure, diastolic 70 mm[Hg] Leesa Qureshi blood pressure, systolic 142 mm[Hg] Iza Qureshi oxygen saturation, oximetry 98 % Nia Qureshi respiratory rate E&M 18 /min Lucy Qureshi pulse rate 50 /min Nia amezquita weight E&M 188 [lb_av] Nia amezquita height E&M 65 [in_i] Nia amezquita Body Mass Index (Ratio) 31.28 kg/m2 Jameson Veloz MD blood pressure, diastolic 69 mm[Hg] Leesa Qureshi blood pressure, systolic 133 mm[Hg] Iza Qureshi oxygen saturation, oximetry 97 % Nia Qureshi respiratory rate E&M 18 /min Lucy Qureshi pulse rate 60 /min Nia amezquita weight E&M 188 [lb_av] Nia amezquita height E&M 65 [in_i] Nia amezquita Body Mass Index (Ratio) 32.11 kg/m2 Vishal Yoo blood pressure, cuff size regular Gin Robles blood pressure, diastolic 80 mm[Hg] Gin Robles blood pressure, systolic 130 mm[Hg] Ramón Robles oxygen saturation, oximetry 97 % Mayuri Robles respiratory rate E&M 16 /min Mayuri Robles pulse rate 51 /min Mayuri Robles weight E&M 193 [lb_av] Mayuri Robles height E&M 65 [in_i] Mayuri Robles Body Mass Index (Ratio) 31.18 kg/m2 Vishal Yoo blood pressure, diastolic 79 mm[Hg] Leesa Qureshi blood pressure, systolic 147 mm[Hg] Iza Qureshi oxygen saturation, oximetry 97 % Nia Qureshi respiratory rate E&M 18 /min Lucy Qureshi pulse rate 65 /min Nia amezquita weight E&M 187.4 [lb_av] Nia gaston height E&M 65 [in_i] Nia amezquita Body Mass Index (Ratio) 32.08 kg/m2 Vishal Yoo blood pressure, diastolic 80 mm[Hg] Slick Viveros blood pressure, systolic 140 mm[Hg] Veronica Viveros pulse rate 69 /min Adele Viveros respiratory rate E&M 18 /min Adele Viveros oxygen saturation, oximetry 95 % Adele Viveros weight E&M 192.8 [lb_av] Adele Viveros blood pressure, cuff size regular Slick Viveros height E&M 65 [in_i] Adele Viveros Body Mass Index (Ratio) 32.05 kg/m2 Vishal Yoo blood pressure, resting Yes Jameson Veloz MD blood pressure, diastolic 86 mm[Hg] Leesa Qureshi blood pressure, systolic 170 mm[Hg] Iza Qureshi oxygen saturation, oximetry 97 % Nia Qureshi respiratory rate E&M 18 /min Lucy Qureshi pulse rate 74 /min Nia amezquita weight E&M 192.6 [lb_av] Nia gaston height E&M 65 [in_i] Nia amezquita Body Mass Index (Ratio) 33.40 kg/m2 Luis Galloway blood pressure, diastolic, left arm 80 mm [Hg] [place] blood pressure, systolic, left arm 134 mm [Hg] [facility], [facility], right arm 86 m m[Hg] [facility] blood [facility], systolic, right arm 134 m m[Hg] Steve [place] blood pressure, diastolic 86 mm[Hg] Yamila seph [place] blood pressure, systolic 134 mm[Hg] [place] [place] pulse rate 62 /min [facility], oximetry 98 % [facility] respiratory rate E&M 16 /min [facility] weight E&M 200 [lb_av] [facility] Body Mass Index (Ratio) 33.57 kg/m2 Walker i Sandee blood pressure, diastolic 90 mm[Hg] Armando rri [place] blood pressure, systolic 146 mm[Hg] Radha Ignacio pulse rate 71 /min Annabelle coffey oxygen saturation, oximetry 97 % Annabelle Ignacio respiratory rate E&M 16 /min Annabelle gregorio weight E&M 201 [lb_av] Annabelle coffey height E&M 65 [in_i] Annabelle coffey ALLERGIES Allergy Name Onset Date Reaction Criticality 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 sexual side effects Low Criticality active ZETIA MYALGIA MYALGIA Low Criticality acti ve STATINS MUSCLE ACHES Low Criticality active CRESTOR MUSCLE ACHES Low Criticality active RESULTS Date Observation Value Provider Reference Range Interpretation Location free thyroxine index 2.2 [facility] 1.2-4.9 triiodothyronine resin uptake 28 % [facility] 24-39 thyroxine, serum, total 7.7 ug/dL [facility] 4.5-12.0 thyroid stimulating hormone, serum 5.850 u[IU]/mL [facility] 0.450-4.500 High alanine aminotransferase (SGPT), serum 21 1/L [facility] 0-44 aspartate aminotransferase (SGOT), serum 23 1/L [facility] 0-40 alkaline phosphatase, serum 63 1/L [facility] 39-117 bilirubin, serum, direct 0.18 mg/dL [facility] 0.00-0.40 bilirubin, serum, total 0.6 mg/dL [facility] 0.0-1.2 albumin, serum 4.5 g/dL [facility] 3.7-4.7 protein, total, serum 7.0 g/dL [facility] 6.0-8.5 magnesium, serum 2.1 mg/dL [facility] 1.6-2.3 calcium, serum 9.3 mg/dL [facility] 8.6-10.2 carbon dioxide, venous blood 24 mmol/L [facility] 20-29 chloride, serum 99 mmol/L [facility] 96-106 potassium, serum 3.9 mmol/L [facility] 3.5-5.2 sodium, serum 138 mmol/L [facility] 372-645 8110/12/ 09 urea nitrogen/creatinine ratio, serum 10 [facility] 10-24 eGFR if 70 mL/min/{1 .73_m2} [facility] >59 eGFR if not 61 mL/min/{1 .73_m2} [facility] >59 creatinine, serum 1.17 mg/dL [facility] 0.76-1.27 urea nitrogen, blood 12 mg/dL [facility] 8-27 blood glucose, random 94 mg/dL [facility] 65-99 thyroid stimulating hormone, serum 1.570 u[IU]/mL [facility] platelet count 266 10*3/uL [facility] red blood cell distribution width 13.2 % [facility] mean corpuscular hemoglobin concentration, RBC 31.5 g/dL [facility] mean corpuscular hemoglobin, RBC 30.1 pg [facility] mean corpuscular volume, RBC 95.4 fL [facility] hematocrit, blood 41.9 % [facility] hemoglobin, blood 13.2 g/dL [facility] erythrocyte (RBC) count 4.39 10*6/mm3 [facility] leukocyte count, blood 6.8 10*3/mm3 [facility] triglyceride, serum, fasting 87 mg/dL [facility] HDL cholesterol, serum 42 mg/dL [facility] LDL cholesterol, serum 75 mg/dL [facility] cholesterol, serum 134 mg/dL [facility] protein, total, serum 6.5 g/dL [facility] albumin, serum 3.9 g/dL [facility] bilirubin, serum, total 0.80 mg/dL [facility] alkaline phosphatase, serum 72 1/L [facility] alanine aminotransferase (SGPT), serum 18 1/L [facility] aspartate aminotransferase (SGOT), serum 26 1/L [facility] calcium, serum 9.3 mg/dL [facility] blood glucose, random 99 mg/dL [facility] creatinine, serum 1.00 mg/dL [facility] urea nitrogen, blood 15 mg/dL [facility] carbon dioxide, serum, total 28 mmol/L [facility] chloride, serum 103 mmol/L [facility] potassium, serum 3.8 mmol/L [facility] sodium, serum 139 mmol/L [facility] thyroid stimulating hormone, serum 2.630 u[IU]/mL [facility] platelet count 248 10*3/uL [facility] red blood cell distribution width 13.9 % [facility] mean corpuscular hemoglobin concentration, RBC 32.4 g/dL [facility] mean corpuscular hemoglobin, RBC 30.5 pg [facility] mean corpuscular volume, RBC 94.2 fL [facility] hematocrit, blood 42.6 % [facility] hemoglobin, blood 13.8 g/dL [facility] erythrocyte (RBC) count 4.52 10*6/mm3 [facility] leukocyte count, blood 5.8 10*3/mm3 [facility] triglyceride, serum, fasting 86 mg/dL [facility] HDL cholesterol, serum 50 mg/dL [facility] LDL cholesterol, serum 85 mg/dL [facility] cholesterol, serum 152 mg/dL [facility] protein, total, serum 7.0 g/dL [facility] albumin, serum 4.2 g/dL [facility] bilirubin, serum, total 0.70 mg/dL [facility] alkaline phosphatase, serum 67 1/L [facility] alanine aminotransferase (SGPT), serum 26 1/L [facility] aspartate aminotransferase (SGOT), serum 29 1/L [facility] calcium, serum 9.8 mg/dL [facility] blood glucose, random 93 mg/dL [facility] creatinine, serum 1.17 mg/dL [facility] urea nitrogen, blood 16 mg/dL [facility] carbon dioxide, serum, total 28 mmol/L [facility] chloride, serum 102 mmol/L [facility] potassium, serum 4.3 mmol/L [facility] sodium, serum 140 mmol/L [facility] LDL cholesterol, serum 85 mg/dL [facility] alanine aminotransferase (SGPT), serum 15 1/L [facility] 0-44 aspartate aminotransferase (SGOT), serum 22 1/L [facility] 0-40 alkaline phosphatase, serum 53 1/L [facility] 39-117 bilirubin, serum, direct 0.14 mg/dL [facility] 0.00-0.40 bilirubin, serum, total 0.4 mg/dL [facility] 0.0-1.2 albumin, serum 3.9 g/dL [facility] 3.5-4.8 protein, total, serum 6.4 g/dL [facility] 6.0-8.5 thyroxine, serum, free 1.26 ng/dL [facility] 0.82-1.77 LDL cholesterol, serum 181 mg/dL Jameson Veloz MD alanine aminotransferase (SGPT), serum 20 1/L [facility] 0-44 aspartate aminotransferase (SGOT), serum 21 1/L [facility] 0-40 alkaline phosphatase, serum 44 1/L [facility] 39-117 bilirubin, serum, direct 0.16 mg/dL [facility] 0.00-0.40 bilirubin, serum, total 0.5 mg/dL [facility] 0.0-1.2 albumin, serum 4.4 g/dL [facility] 3.5-4.8 protein, total, serum 6.5 g/dL [facility] 6.0-8.5 thyroxine, serum, free 1.35 ng/dL [facility] 0.82-1.77 free thyroxine index 7.8 ??g/dL [facility] 4.4 - 11.4 triiodothyronine uptake 0.9 TBI [facility] 0.8 - 1.3 thyroxine, serum, total 7.0 ??G/DL [facility] 4.5 - 11.7 thyroid stimulating hormone, serum 5.300 ??IU/ML [facility] 0.270 - 4.200 High albumin/globulin ratio, serum 1.7 g/dL [facility] 1.1 - 2.5 globulin, serum 2.6 [facility] 2.3 - 3.8 albumin, serum 4.4 g/dL [facility] 3.5 - 5.2 aspartate aminotransferase (SGOT), serum 18.0 1/L [facility] 0.0 - 40.0 alkaline phosphatase, serum 73.0 1/L [facility] 40.0 - 130.0 alanine aminotransferase (SGPT), serum 14.0 1/L [facility] 0.0 - 41.0 protein, total, serum 7.0 g/dL [facility] 6.6 - 8.7 bilirubin, serum, total 0.4 mg/dL [facility] 0.0 - 1.2 platelet count 240 10*3/mm3 [facility] hematocrit, blood 44.8 % [facility] lipoprotein, beta, serum, point, quantitative, calculated 177 mg/dL [facility] cholesterol, serum 244 mg/dL [facility] international normalized ratio (INR) 1.0 [facility] creatinine, serum 0.94 mg/dL [facility] potassium, serum 4.4 mmol/L [facility] sodium, serum 141 mmol/L [facility] HISTORY OF MEDICATION USE Medication Status Instructions Dates Provider Indications Com ments Xarelto 20 mg tablet active TAKE 1 TABLET BY MOUTH EVERY DAY Meagan GONZALEZ diltiazem HCl (Cardizem CD) 120 mg capsule,extende d release 24hr active Take 1 capsule by mouth once daily Annabelle Ignacio amiodarone 200 mg tablet active Take 1 tablet by mouth once daily Nilda Dow Pacerone 100 mg tablet completed TAKE 1 TABLET BY MOUTH ONCE DAILY *NEED APPT* - Danielle O'Luis Pacerone 100 mg tablet completed Take 1 tablet by mouth once daily - Raza Ahmedzai atorvastatin 10 mg tablet active Take 1 tablet by mouth once daily Annabelle Ignacio METHOTREXATE TABLET completed As directed - Annabelle Ignacio amiodarone 100 mg tablet completed One tablet daily - Raza Ahprincesszawilfredo TYLENOL CAPSULE active as needed Adele Felice PREDNISONE 5 MG ORAL TABLET completed TAKE 1 TO 3 TABLETS BY MOUTH ONCE DAILY - Alexandre Yoo #90, 30 days supply, Prescribed by DEBBIE MELENDEZ, Filled 10/06/2020 Eliquis 5 mg tablet completed 1 tablet twice a day - Emilee Cash RN ELIQUIS 5 MG ORAL TABLET completed one tablet twice daily - Jameson Veloz MD Lipitor 10 mg tablet completed ONE TAB. DAILY - Jameson Veloz MD omeprazole 20 mg tablet,delayed release (DR/EC) active Take 1 once a day Annabelle Ignacio LIDOCAINE 5 % EXTERNAL PATCH completed APPLY ONE PATCH NEEDED - Nia Qureshi ZETIA 10 MG ORAL TABLET completed ONE TABLET DAILY - SEE IF YOU GET MUSCLE ACHES - Jameson Veloz MD COLACE 100 MG ORAL CAPSULE completed One tablet three times daily as needed - Nia Qureshi diltiazem HCl 120 mg capsule,extende d release 24hr completed Take 1 capsule by mouth once a day - Inna Aranda ZETIA 10 MG ORAL TABLET completed ONE TABLET DAILY--ON HOLD TO SEE IF MYALGIAS/ARTHR ITIS PAIN IMPROVES - Ivis Lizarraga AMIODARONE HCL 100 MG ORAL TABLET completed One tablet daily - Alexandre Yoo DILTIAZEM HCL ER COATED BEADS 120 MG ORAL CAPSULE EXTENDED RELEASE 24 HOUR completed One capsule daily - Mayuri Robles XARELTO 20 MG ORAL TABLET completed One tablet daily with evening meal - Arleen Dooley NP METOPROLOL TARTRATE 25 MG ORAL TABLET completed one tab. twice daily - Jameson Veloz MD ADULT ASPIRIN EC LOW STRENGTH 81 MG ORAL TABLET DELAYED RELEASE completed take one pill a day - Jameson Veloz MD BYSTOLIC 10 MG ORAL TABLET completed take one pill a day - Nia Qureshi MELOXICAM 7.5 MG ORAL TABLET completed take one pill a day - Nia Qureshi OMEPRAZOLE 20 MG ORAL TABLET DELAYED RELEASE completed take one pill a day - Jameson Veloz MD SOCIAL HISTORY Date Observation Value Provider personal history of marijuana use no Meagan Ventimiglia [facility] drug use no Meagan Ventimig lalito [facility] alcohol use no Meagan Ventimig lalito [facility] passive cigarette sm branden exposure yes Meagan Ventimiglia [facility] chewing tobacco use Never Meagan V entimiglia [facility] smoking status Never smoker Meagan Ventim iglia [facility] personal history of marijuana use no Jameson Veloz MD drug use no Jameson Veloz MD alcohol use no Jameson Veloz MD passive cigarette sm branden exposure yes Jameson Veloz MD chewing tobacco use Never Jameson ramirez MD smoking status Never smoker Jameson Humphreys personal history of marijuana use no Meagan Ventimiglia [facility] drug use no Meagan Ventimig lalito [employer]ERK alcohol use no Meagan Ventimig lalito [employer]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 Jameson Veloz MD social history reviewed E&M revi ewed - no changes required Jmaeson Veloz MD social history E&M Marital Statu s: L paco with family/friends E thnicity: Smoking History: P atiesha has never smoked. Jameson Veloz MD social history reviewed E&M revi ewed - no changes required Jameson Veloz MD chewing tobacco use Never Christinbrigitte Villalpando smoking status Never smoker Christinbrigitte Leonard caffeine use, averag e drinks per day 3 /d Christin Horacio passive cigarette sm branden exposure yes Christin Leonard social history E&M Marital Statu s: L paco with family/friends E thnicity: Smoking History: P atiesha has never smoked. Jameson Veloz MD social history reviewed E&M revi ewed - no changes required Jameson Veloz MD caffeine use, averag e drinks per day 3 /d Amanda [place] passive cigarette sm branden exposure yes Amanda [place] smoking status Never smoker Amanda Barbi s social history E&M Marital Statu s: L paco with family/friends E thnicity: Smoking History: P atiesha has never smoked. Jameson Veloz MD social history reviewed E&M revi ewed - no changes required Jameson Veloz MD caffeine use, averag e drinks per day 3 /d Dyan Figueroaford passive cigarette sm branden exposure yes Dyan Jean smoking status Never smoker Dyan causeylucy social history E&M Marital Statu s: L paco with family/friends E thnicity: Smoking History: Rayna rosenberg has never smoked. Derek Mendez MD social history reviewed E&M revi ewed - no changes required Derek Mendez MD caffeine use, averag e drinks per day 3 /d Annabelle Sandee passive cigarette sm branden exposure yes Annabelle [place] smoking status Never smoker Annabelle Eladio wooten caffeine use, averag e drinks per day 3 /d Adele Williamsonby passive cigarette sm branden exposure yes Adele Williamsonby smoking status Never smoker Adele Williamsonby social history reviewed E&M revi ewed - no changes required Alexandre Yoo caffeine use, averag e drinks per day 3 /d Minnie Haley passive cigarette sm branden exposure yes Minnie Block smoking status Never smoker Minnie Singh k social history reviewed E&M revi ewed - no changes required Alexandre Yoo caffeine use, averag e drinks per day 3 /d Lindsay Apodaca passive cigarette sm branden exposure yes Lindsay Apodaca smoking status Never smoker Lindsay Apodaca social history reviewed E&M revi ewed - no changes required Jameson Veloz MD caffeine use, averag e drinks per day 3 /d Sparkle Tony passive cigarette sm branden exposure yes Spakrle Tony smoking status Never smoker Sparkle morrison caffeine use, averag e drinks per day 3 /d Kinjal Chinchilla passive cigarette sm branden exposure yes Kinjal Chinchilla smoking status Never smoker Kinjal arriaza social history reviewed E&M revi ewed - no changes required Jameson Veloz MD alcohol use no Annabelle Beckjayce lder caffeine use, averag e drinks per day 3 /d Annabelle Sandee drug use no Annabelle Nan lder passive cigarette sm branden exposure yes Annabelle Sandee smoking status Never smoker Annabelle Richardsvishal je alcohol use no Alexandre Lundb erg caffeine use, averag e drinks per day 3 /d Alexandre Naila drug use no Alexandre Lundb erg passive cigarette sm branden exposure yes Alexandre Naila smoking status Never smoker Alexandre [facility] social history reviewed E&M revi ewed - no changes required Jameson Veloz MD alcohol use no NiaCollette Esqueda nson caffeine use, averag e drinks per day 3 /d Nia Qureshi drug use no Nia Esqueda nson passive cigarette sm branden exposure yes Nia Qureshi smoking status Never smoker Nia Sebastian number of grandchildren Jameson Dooley NP social history reviewed E&M revi ewed - no changes required Arleen Dooley NP alcohol use no Nia Esqueda nson caffeine use, averag e drinks per day 3 /d Nia Qureshi drug use no Nia amezquita passive cigarette sm branden exposure yes Nia Qureshi smoking status Never smoker Nia Sebastian social history reviewed E&M revi ewed - no changes required Alexandre Yoo alcohol use no Mayuri Robles caffeine use, averag e drinks per day 3 /d Mayuri Robles drug use no Mayuri Robles passive cigarette sm branden exposure yes Mayuri Robles smoking status Never smoker Mayuri Robles social history reviewed E&M andrey ewed - no changes required Jameson Veloz MD alcohol use no Nia Esqueda nson caffeine use, averag e drinks per day 3 /d NiaCollette Qureshi drug use no Nia Esqueda nson passive cigarette sm branden exposure yes Nia Titus smoking status Never smoker Nia Ryan britta social history reviewed E&M andrey ewed - no changes required Jameson Veloz MD alcohol use no Adele [place] caffeine use, averag e drinks per day 3 /d Adele [place] drug use no Adele [place] passive cigarette sm branden exposure yes Adele [place] smoking status Never smoker Adele Felice social history E&M Marital Statu s: L paco with family/friends E thnicity: Smoking History: Rayna rosenberg has never smoked. Jameson Velzo MD social history reviewed E&M andrey ewed - no changes required Jameson Veloz MD alcohol use no Nia Esqueda bia caffeine use, averag e drinks per day 3 /d Nia Qureshi drug use no Nia Esqueda nson passive cigarette sm branden exposure yes Nia Qureshi smoking status Never smoker Nia Ryan britta social history reviewed E&M reviewed Darrick Matamoros RN caffeine use, averag e drinks per day 3 /d Steve Manacorayna passive cigarette sm branden exposure yes Steve Manacop social history E&M Marital Statu s: L paco with family/friends E thnicity: Darrick Matamoros RN social history reviewed E&M reviewed Darrick Matamoros RN drug use no Annabelle Nan escobedoer passive cigarette sm branden exposure no Annabelle Sandee smoking status never smoker Annabelle wooten FUNCTIONAL STATUS Date Observation Value Provider HRA, CV Assess/Plan, Angina (inactive) Management Plan continue current therapy Jameson Veloz MD HRA, CV Assess/Plan, Angina (inactive) Management Plan continue current therapy Jameson Veloz MD HRA, CV Assess/Plan, Angina (inactive) Management Plan continue current therapy Jameson Veloz MD HRA, CV Assess/Plan, Angina (inactive) Management Plan continue current therapy Jameson Veloz MD HRA, CV Assess/Plan, Angina (inactive) Management Plan continue current therapy Jameson Veloz MD HRA, CV Assess/Plan, Angina (inactive) Management Plan continue current therapy Derek Mendez MD HRA, CV Assess/Plan, Angina (inactive) Management Plan continue current therapy [facility] HRA, CV Assess/Plan, Angina (inactive) Management Plan continue current therapy [facility] HRA, CV Assess/Plan, Angina (inactive) Management Plan continue current therapy [facility] HRA, CV Assess/Plan, Angina (inactive) Management Plan continue current therapy Jameson Veloz MD HRA, CV Assess/Plan, Angina (inactive) Management Plan continue current therapy Arleen Dooley NP HRA, CV Assess/Plan, Angina (inactive) Management Plan continue current therapy Jameson Veloz MD HRA, CV Assess/Plan, Angina (inactive) Management Plan continue current therapy Jameson Veloz MD HRA, CV Assess/Plan, Angina (inactive) Management Plan continue current therapy Jameson Veloz MD HRA, CV Assess/Plan, Angina (inactive) Management Plan continue current therapy Maurice Cordero HRA, CV Assess/Plan, Angina (inactive) Management Plan continue current therapy Jameson Veloz MD HRA, CV Assess/Plan, Angina (inactive) Management Plan continue current therapy Jameson Veloz MD MENTAL STATUS Date Observation Value Provider assessment of judgme nt and insight E&M Alert and oriented to time, place and person. Mood and affect are normal. Darrick Matamoros RN assessment of judgme nt and insight E&M Alert and oriented to time, place and person. Mood and affect are normal. Darrick Matamoros RN FAMILY HISTORY Family Member Condition Mother Family History of Castro dden Cardiac : Mother Family History of Hy pertension: Mother Family History of CV A or Stroke: INSURANCE PROVIDERS Payer name Policy type / Coverage type [place] red libertarian ID [place] [employer] Medicare [id number] [facility] [employer] [phone] ADVANCE DIRECTIVES Name Date DISCUSSED - NO DECISION MADE TREATMENT PLAN Date Name Performer [id number],C, B P today: 150/50 P rior BP: 162/84 (11/08/2022) Labs Reviewed: C reat: 1.17 (10/13/2020) C hol: 134 (05/18/2020) HDL: 42 (05/18/2020) LDL: 75 (05/18/2020) T (05/18/2020) His updated medication list for this problem includes: Diltiazem Hcl 120 Mg Capsule,extended Release 24hr (Diltiazem hcl) ..... Take 1 capsule by mouth once a day Jameson Veloz MD [id number],S, H is updated medication list for this problem includes: Diltiazem Hcl 120 Mg Capsule,extended Release 24hr (Diltiazem hcl) ..... Take 1 capsule by mouth once daily Pacerone 100 Mg Tablet (Amiodarone) ..... Take 1 tablet by mouth once daily *need appt* Jameson Veloz MD [id number],S, H is updated medication list for this problem includes: Atorvastatin 10 Mg Tablet (Atorvastatin) ..... Take 1 tablet by mouth once daily Jameson Veloz MD [id number],S, H is updated medication list for this problem includes: Diltiazem Hcl 120 Mg Capsule,extended Release 24hr (Diltiazem hcl) ..... Take 1 capsule by mouth once daily Jameson Veloz MD [id number],S, B P today: 162/84 P rior BP: 158/76 (05/03/2022) Labs Reviewed: C reat: 1.17 (10/13/2020) C hol: 134 (05/18/2020) HDL: 42 (05/18/2020) LDL: 75 (05/18/2020) T (05/18/2020) His updated medication list for this problem includes: Diltiazem Hcl 120 Mg Capsule,extended Release 24hr (Diltiazem hcl) ..... Take 1 capsule by mouth once daily Jameson Veloz MD [id number],C, H is updated medication list for this problem includes: Atorvastatin 10 Mg Tablet (Atorvastatin) ..... Take 1 tablet by mouth once daily Minnie Rivas [id number],S, T he patient is using CPAP on a regular basis. The patient has been benefiting from therapy and should continue use. Minnie Rivas [id number],S, W eight loss advised. Minnie Rivas [id number],C, B P today: 158/76 P rior BP: 140/78 (05/04/2021) Labs Reviewed: C reat: 1.17 (10/13/2020) C hol: 134 (05/18/2020) HDL: 42 (05/18/2020) LDL: 75 (05/18/2020) T (05/18/2020) His updated medication list for this problem includes: Diltiazem Hcl 120 Mg Capsule,extended Release 24hr (Diltiazem hcl) ..... Take 1 capsule by mouth once daily Minnie Rivas [id number],C, N o chest pain. His updated medication list for this problem includes: Diltiazem Hcl 120 Mg Capsule,extended Release 24hr (Diltiazem hcl) ..... Take 1 capsule by mouth once daily Minnie Rivas [id number],C,T he pt is feeing very well, no palpitations. . He is on amiodarone 100 mg daily, no side effects. Will obtain PFTs, LFTs, and TFS. Schedule echo. Minnie Marinraj [id number],C,T he pt is feeing very well, no palpitations. He is on amiodarone 100 mg daily, no side effects. Will obtain PFTs, LFTs, and TFS. Schedule echo. H is updated medication list for this problem includes: Diltiazem Hcl 120 Mg Capsule,extended Release 24hr (Diltiazem hcl) ..... Take 1 capsule by mouth once daily Pacerone 100 Mg Tablet (Amiodarone) ..... Take 1 tablet by mouth once daily *need appt* Minnie Rivas [id number],C,C HOL: 134 (05/18/2020) LDL: 75 (05/18/2020) HDL: 42 (05/18/2020) T (05/18/2020) His updated medication list for this problem includes: Lipitor 10 Mg Oral Tablet (Atorvastatin calcium) ..... One tab. daily Jameson Veloz MD [id number],S, T TE in 2019 showed moderate aortic valve regurgitation. Jameson Veloz MD [id number],C,H e may hold Eliquis for any duration requested by the surgeon. Jameson Veloz MD [id number],C,N o further palpitations, tolerating Amiodarone well. He is cleared for knee surgery. He may hold Eliquis for any duration requested by the surgeon. His updated medication list for this problem includes: Amiodarone Hcl 100 Mg Oral Tablet (Amiodarone hcl) ..... One tablet daily Cartia Xt 120 Mg Oral Capsule Extended Release 24 Hour (Diltiazem hcl coated beads) ..... Take 1 capsule by mouth once daily Jameson Veloz MD Cardiology:BP 147/82 c ontinue present medication regimen H is updated medication list for this problem includes: Diltiazem Hcl (cardizem Cd) 120 Mg Capsule,extended Release 24hr (Diltiazem hcl (cardizem cd)) ..... Take 1 capsule by mouth once daily [facility] Cardiology:Unable to use CPAP as machine is not working properly h ave asked him to f/u with CPAP company i f repeat sleep study warranted will arrange [facility] Cardiology:remains i n NSR O n amiodarone and recent PFTs wnl H is PCP is doing labs O n xarelto for AC H is updated medication list for this problem includes: Diltiazem Hcl (cardizem Cd) 120 Mg Capsule,extended Release 24hr (Diltiazem hcl (cardizem cd)) ..... Take 1 capsule by mouth once daily Pacerone 200 Mg Tablet (Amiodarone) ..... Take 1 tablet by mouth once daily [facility] Cardiology:moderate per last echo W lll update echo prior to next visit [facility] Cardiology:moderate on last cardiac cath n o new chest pain or SOB His updated medication list for this problem includes: Diltiazem Hcl (cardizem Cd) 120 Mg Capsule,extended Release 24hr (Diltiazem hcl (cardizem cd)) ..... Take 1 capsule by mouth once daily [facility] Cardiology: H is updated medication list for this problem includes: Atorvastatin 10 Mg Tablet (Atorvastatin) ..... Take 1 tablet by mouth once daily This visit has been a part of the consistent, comprehensive, and ongoing management of the chronic medical condition(s) listed above for the patient. Jameson Veloz MD Cardiology Jameson Veloz MD Cardiology: B P today: 163/79 P rior BP: 128/825 (04/21/2024) His updated medication list for this problem includes: Diltiazem Hcl (cardizem Cd) 120 Mg Capsule,extended Release 24hr (Diltiazem hcl (cardizem cd)) ..... Take 1 capsule by mouth once daily This visit has been a part of the consistent, comprehensive, and ongoing management of the chronic medical condition(s) listed above for the patient. Jameson Veloz MD Cardiology: He has d ifficulties with CPAP machine and we will schedule titration study. Jameson Veloz MD Cardiology:Cardiac c ath in April showed moderate CAD. His updated medication list for this problem includes: Diltiazem Hcl (cardizem Cd) 120 Mg Capsule,extended Release 24hr (Diltiazem hcl (cardizem cd)) ..... Take 1 capsule by mouth once daily Jameson Veloz MD Cardiology:Cardiac c ath in April showed moderate CAD. Jameson Veloz MD Cardiology:with poor fitting cpap and concern pressures may need to be adjusted F ollowing with pulmonary now W ill have them adjust CPAP settings [facility] Cardiology: H is updated medication list for this problem includes: Atorvastatin 10 Mg Tablet (Atorvastatin) ..... Take 1 tablet by mouth once daily [facility] Cardiology:BP at goa l continue present medication regimen H is updated medication list for this problem includes: Diltiazem Hcl 120 Mg Capsule,extended Release 24hr (Diltiazem hcl) ..... Take 1 capsule by mouth once daily [facility] Cardiology:Has histo ry of minimal non-obstructive CAD R ecent hospital stay for SOB W ill plan nuclear stress test to r/o ischemia in setting of SOB and prior to surgery H is updated medication list for this problem includes: Diltiazem Hcl 120 Mg Capsule,extended Release 24hr (Diltiazem hcl) ..... Take 1 capsule by mouth once daily [facility] Cardiology:In NSR at this time. Remains on amiodarone O n xarelto for AC H is updated medication list for this problem includes: Diltiazem Hcl 120 Mg Capsule,extended Release 24hr (Diltiazem hcl) ..... Take 1 capsule by mouth once daily Pacerone 200 Mg Tablet (Amiodarone) ..... Take 1 tablet by mouth once daily Meagan Rasheed INVOICE CLASSIFICATION CLERK Cardiology: B P today: 150/50 P rior BP: 162/84 (11/08/2022) Labs Reviewed: C reat: 1.17 (10/13/2020) C hol: 134 (05/18/2020) HDL: 42 (05/18/2020) LDL: 75 (05/18/2020) T (05/18/2020) His updated medication list for this problem includes: Diltiazem Hcl 120 Mg Capsule,extended Release 24hr (Diltiazem hcl) ..... Take 1 capsule by mouth once a day Jameson Veloz MD Cardiology: H is updated medication list for this problem includes: Diltiazem Hcl 120 Mg Capsule,extended Release 24hr (Diltiazem hcl) ..... Take 1 capsule by mouth once daily Pacerone 100 Mg Tablet (Amiodarone) ..... Take 1 tablet by mouth once daily *need appt* Jameson Veloz MD Cardiology: H is updated medication list for this problem includes: Atorvastatin 10 Mg Tablet (Atorvastatin) ..... Take 1 tablet by mouth once daily Jameson Veloz MD Cardiology: H is updated medication list for this problem includes: Diltiazem Hcl 120 Mg Capsule,extended Release 24hr (Diltiazem hcl) ..... Take 1 capsule by mouth once daily Jameson Veloz MD Cardiology: B P today: 162/84 P rior BP: 158/76 (05/03/2022) Labs Reviewed: C reat: 1.17 (10/13/2020) C hol: 134 (05/18/2020) HDL: 42 (05/18/2020) LDL: 75 (05/18/2020) T (05/18/2020) His updated medication list for this problem includes: Diltiazem Hcl 120 Mg Capsule,extended Release 24hr (Diltiazem hcl) ..... Take 1 capsule by mouth once daily Jameson Veloz MD Cardiology: H is updated medication list for this problem includes: Atorvastatin 10 Mg Tablet (Atorvastatin) ..... Take 1 tablet by mouth once daily Minnie Rivas Cardiology: T he patient is using CPAP on a regular basis. The patient has been benefiting from therapy and should continue use. Minnie Rivas Cardiology: W eight loss advised. Minnie Rivas Cardiology: B P today: 158/76 P rior BP: 140/78 (05/04/2021) Labs Reviewed: C reat: 1.17 (10/13/2020) C hol: 134 (05/18/2020) HDL: 42 (05/18/2020) LDL: 75 (05/18/2020) T (05/18/2020) His updated medication list for this problem includes: Diltiazem Hcl 120 Mg Capsule,extended Release 24hr (Diltiazem hcl) ..... Take 1 capsule by mouth once daily Minine Rivas Cardiology: N o chest pain. His updated medication list for this problem includes: Diltiazem Hcl 120 Mg Capsule,extended Release 24hr (Diltiazem hcl) ..... Take 1 capsule by mouth once daily Minnie Rivas Cardiology:The pt is feeing very well, no palpitations. . He is on amiodarone 100 mg daily, no side effects. Will obtain PFTs, LFTs, and TFS. Schedule echo. Minnie Rivas Cardiology:The pt is feeing very well, no palpitations. He is on amiodarone 100 mg daily, no side effects. Will obtain PFTs, LFTs, and TFS. Schedule echo. H is updated medication list for this problem includes: Diltiazem Hcl 120 Mg Capsule,extended Release 24hr (Diltiazem hcl) ..... Take 1 capsule by mouth once daily Pacerone 100 Mg Tablet (Amiodarone) ..... Take 1 tablet by mouth once daily *need appt* Minnie Rivas Cardiology:CHOL: 134 (05/18/2020) LDL: 75 (05/18/2020) HDL: 42 (05/18/2020) T (05/18/2020) His updated medication list for this problem includes: Lipitor 10 Mg Oral Tablet (Atorvastatin calcium) ..... One tab. daily Jameson Veloz MD Cardiology: T TE in 2019 showed moderate aortic valve regurgitation. Jameson Veloz MD Cardiology:He may ho ld Eliquis for any duration requested by the surgeon. Jameson Veloz MD Cardiology:No furthe r palpitations, tolerating Amiodarone well. He is cleared for knee surgery. He may hold Eliquis for any duration requested by the surgeon. His updated medication list for this problem includes: Amiodarone Hcl 100 Mg Oral Tablet (Amiodarone hcl) ..... One tablet daily Cartia Xt 120 Mg Oral Capsule Extended Release 24 Hour (Diltiazem hcl coated beads) ..... Take 1 capsule by mouth once daily Jameson Veloz MD Cardiology Follow up :reviewd issues of elevated bp and he checks at esther 140mmhg usually h e has taken meds today c hecks pressures with once week or more r educe sodium intake & #13;BP today: 168/80 P rior BP: 159/80 (11/23/2020) Labs Reviewed: C reat: 1.17 (10/13/2020) C hol: 134 (05/18/2020) HDL: 42 (05/18/2020) LDL: 75 (05/18/2020) T (05/18/2020) & #13;His updated medication list for this problem includes: Cartia Xt 120 Mg Oral Capsule Extended Release 24 Hour (Diltiazem hcl coated beads) ..... Take 1 capsule by mouth once daily Derek Mendez MD Cardiology Follow up : T he patient is using CPAP on a regular basis. The patient has been benefiting from therapy and should continue use. Derek Mendez MD Cardiology Follow up : on eliquis no bleeding noted Derek Mendez MD Cardiology Follow up : P t reports a few episodes of AFib, lasting about 45-50 minutes at a time. He would like to resume Amiodarone. His only side effect from the Amiodarone was redness of the face when out in the sun. We will resume Amiodarone 100mg daily and he was advised to use suncreen and wear wide brim hats when out in the sun. He reports Dr. Melendez is starting him on Methotrexate and I asked him to notify Dr. Melendez that we are resuming Amiodarone. January 31, 2021 N SR on ekg with amio 100 once daily t sh was mildly elevated at 5.85 and otherwise liver labs were nl p fts pending Derek Mendez MD Cardiology Follow up : P sami had a few episodes of dizziness upon standing up. We will check telesentry to see if he has episodes of bradycardia. We may need to stop the Diltiazem. January 31, 2021 d kishore want montor today s eems nsr h e cheks bp at home and notes the rate/rhtym are ok Derek Mendez MD TeleHealth:No chest pain. His updated medication list for this problem includes: Diltiazem Hcl Er Coated Beads 120 Mg Oral Capsule Extended Release 24 Hour (Diltiazem hcl coated beads) ..... One capsule daily Alexadnre Yoo TeleHealth:His [facility] ed medication list for this problem includes: Lipitor 10 Mg Oral Tablet (Atorvastatin calcium) ..... One tab. daily Alexandre Yoo TeleHealth:BP today (provided by the pt): 159/80 P rior BP: 140/80 (10/12/2020) His updated medication list for this problem includes: Diltiazem Hcl Er Coated Beads 120 Mg Oral Capsule Extended Release 24 Hour (Diltiazem hcl coated beads) ..... One capsule daily Alexandre Yoo TeleHealth:Pt report s a few episodes of AFib, lasting about 45-50 minutes at a time. He would like to resume Amiodarone. His only side effect from the Amiodarone was redness of the face when out in the sun. We will resume Amiodarone 100mg daily and he was advised to use suncreen and wear wide brim hats when out in the sun. He reports Dr. Melendez is starting him on Methotrexate and I asked him to notify Dr. Melendez that we are resuming Amiodarone. [facility] TeleHealth:Pt report s a few episodes of AFib, lasting about 45-50 minutes at a time. He would like to resume Amiodarone. His only side effect from the Amiodarone was redness of the face when out in the sun. We will resume Amiodarone 100mg daily and he was advised to use suncreen and wear wide brim hats when out in the sun. [facility] Cardiology:The patie nt is using CPAP on a regular basis. The patient has been benefiting from therapy and should continue use. [facility] Cardiology [facility] Cardiology [facility] Cardiology:His [facility] ed medication list for this problem includes: Lipitor 10 Mg Oral Tablet (Atorvastatin calcium) ..... One tab. daily [facility] Cardiology:BP today: 140/80 P rior BP: 142/70 (08/04/2020) His updated medication list for this problem includes: Diltiazem Hcl Er Coated Beads 120 Mg Oral Capsule Extended Release 24 Hour (Diltiazem hcl coated beads) ..... One capsule daily [facility] Cardiology:Chest tig htness with palpitations but none otherwise. His updated medication list for this problem includes: Diltiazem Hcl Er Coated Beads 120 Mg Oral Capsule Extended Release 24 Hour (Diltiazem hcl coated beads) ..... One capsule daily [facility] Cardiology:Pt had an episode of palpitations associated with chest tightness. He believes he had a bout of AFib. Will check BMP and Mag. If he has more episodes, we will consider anti-arrhythmics. H is updated medication list for this problem includes: Diltiazem Hcl Er Coated Beads 120 Mg Oral Capsule Extended Release 24 Hour (Diltiazem hcl coated beads) ..... One capsule daily Eliquis 5 Mg Oral Tablet (Apixaban) .... One tablet twice daily [facility] Cardiology:His upd ed medication list for this problem includes: Lipitor 10 Mg Oral Tablet (Atorvastatin calcium) ..... One tab. daily [facility] Cardiology:BP today: 142/70 P rior BP: 136/76 (06/08/2020) His updated medication list for this problem includes: Diltiazem Hcl Er Coated Beads 120 Mg Oral Capsule Extended Release 24 Hour (Diltiazem hcl coated beads) ..... One capsule daily [facility] Cardiology [facility] Cardiology:Has had s ome chest discomfort since working on a car. We will schedule echo and stress myoview. [facility] Cardiology:Pt compla ins of redness and flushing of the face with exertion. We will stop AMiodarone. Recent PFT's were normal. He's advised that he may develop AFib again and to call us if he does. [facility] Cardiology:Pt compla ins of redness and flushing of the face with exertion. No SOB or palpitations. Recent PFT's were normal. We will stop Amiodarone. He's advised that he may develop AFib again and to call us if he does. We will schedule echo and stress myoview. The following medications were removed from the medication list: Amiodarone Hcl 100 Mg Oral Tablet (Amiodarone hcl) ..... One tablet daily His updated medication list for this problem includes: Diltiazem Hcl Er Coated Beads 120 Mg Oral Capsule Extended Release 24 Hour (Diltiazem hcl coated beads) ..... One capsule daily Eliquis 5 Mg Oral Tablet (Apixaban) .... One tablet twice daily [facility] Cardiology [facility] Cardiology [facility] Cardiology:His upd ed medication list for this problem includes: Lipitor 10 Mg Oral Tablet (Atorvastatin calcium) ..... One tab. daily [facility] Cardiology:BP today: 136/76 P rior BP: 130/66 (07/08/2019) His updated medication list for this problem includes: Diltiazem Hcl Er Coated Beads 120 Mg Oral Capsule Extended Release 24 Hour (Diltiazem hcl coated beads) ..... One capsule daily [facility] Cardiology:No chest pain. His updated medication list for this problem includes: Diltiazem Hcl Er Coated Beads 120 Mg Oral Capsule Extended Release 24 Hour (Diltiazem hcl coated beads) ..... One capsule daily [facility] Cardiology Alexandre [facility] Cardiology:Last year PFT's were normal. CMP and TSH were normal last month. Will obtain f/u PFT's. Continues on 100mg daily. [facility] Cardiology:No more d izziness. Denies palpitations, chest pain or SOB. Telesentry was unremarkable. PFT's were normal. CMP and TSH were normal last month. Will obtain f/u PFT's. Will continue current medications. His updated medication list for this problem includes: Diltiazem Hcl Er Coated Beads 120 Mg Oral Capsule Extended Release 24 Hour (Diltiazem hcl coated beads) ..... One capsule daily Amiodarone Hcl 100 Mg Oral Tablet (Amiodarone hcl) ..... One tablet daily Eliquis 5 Mg Oral Tablet (Apixaban) .... One tablet twice daily [facility] Cardiology follow up :His updated medication list for this problem includes: Diltiazem Hcl Er Coated Beads 120 Mg Oral Capsule Extended Release 24 Hour (Diltiazem hcl coated beads) ..... One capsule daily Amiodarone Hcl 100 Mg Oral Tablet (Amiodarone hcl) ..... One tablet daily [facility] Cardiology follow up Alexandre Arnel [facility] Cardiology follow up :PFT's are scheduled. [facility] Cardiology follow up :Pt had a few episodes of dizziness upon standing up. We will check telesentry to see if he has episodes of bradycardia. We may need to stop the Diltiazem. [facility] Cardiology follow up :Pt had a few episodes of dizziness upon standing up. He will check BP to see if BP is dropping. We may need to stop the Diltiazem. BP today: 130/66 P rior BP: 130/80 (06/09/2019) His updated medication list for this problem includes: Diltiazem Hcl Er Coated Beads 120 Mg Oral Capsule Extended Release 24 Hour (Diltiazem hcl coated beads) ..... One capsule daily Alexandre Perezberg Cardiology follow up :Pt had a few episodes of dizziness upon standing up. We will check telesentry to see if he has episodes of bradycardia. In addition, he will check BP to see if BP is dropping. We may need to stop the Diltiazem. Alexandre Naila Cardiology:On Lipitor. Arleen lim NP Cardiology:Controlled. Arleen lim NP Cardiology:Labs done by PCP. Paul lopez check PFT's. Arleen Dooley NP Cardiology:Cleared t o hold for his colonoscopy and cataract surgery. Switching to Eliquis due to cost. Arleen Dooley NP Cardiology:Remains i n sinus rhythm. On Amiodarone and Diltiazem. Would like to switch from Xarelto to Eliquis due to the cost. Will obtain a f/u echo. Arleen Dooley NP Cardiology Follow up :His updated medication list for this problem includes: Diltiazem Hcl Er Coated Beads 120 Mg Oral Capsule Extended Release 24 Hour (Diltiazem hcl coated beads) ..... One capsule daily Amiodarone Hcl 100 Mg Oral Tablet (Amiodarone hcl) ..... One tablet daily Jameson Veloz MD Cardiology Follow up :BP today: 130/80 P rior BP: 130/70 (12/19/2017) His updated medication list for this problem includes: Diltiazem Hcl Er Coated Beads 120 Mg Oral Capsule Extended Release 24 Hour (Diltiazem hcl coated beads) ..... One capsule daily Jameson Veloz MD Cardiology Follow up :His updated medication list for this problem includes: Diltiazem Hcl Er Coated Beads 120 Mg Oral Capsule Extended Release 24 Hour (Diltiazem hcl coated beads) ..... One capsule daily Jameson Veloz MD Cardiology Follow up Jameson Veloz MD Cardiology Follow up Jameson Veloz MD Cardiology Follow up Jameson Veloz MD Cardiology Follow up :LDL: 181 (04/10/2018) In the past, pt was not able to tolerate statins or Zetia due to muscle aches but he would like to try again. Will start Lipitor 10mg daily. Jameson Veloz MD Cardiology:No chest pain or SOB. His updated medication list for this problem includes: Diltiazem Hcl Er Coated Beads 120 Mg Oral Capsule Extended Release 24 Hour (Diltiazem hcl coated beads) ..... One capsule daily Metoprolol Tartrate 25 Mg Oral Tablet (Metoprolol tartrate) ..... One tab. twice daily [facility] Cardiology:BP today: 130/70 P rior BP: 142/70 (07/25/2017) His updated medication list for this problem includes: Diltiazem Hcl Er Coated Beads 120 Mg Oral Capsule Extended Release 24 Hour (Diltiazem hcl coated beads) ..... One capsule daily Metoprolol Tartrate 25 Mg Oral Tablet (Metoprolol tartrate) ..... One tab. twice daily [facility] Cardiology:The patie nt is using CPAP on a regular basis. The patient has been benefiting from therapy and should continue use. [facility] Cardiology Alexandre [facility] Cardiology:Orders: S NOMED-CT: [id number] Current Medications Documented ([facility]-[id number]) H EPATIC FUNCTION PANEL (59721) T SH, 3RD GENERATION (899) T -4, FREE (866) F VC - 92682 (82342) F RC - 46665 (10326) D LCO - 18892 (29567) [facility] Cardiology:He has boykin d no palpitations. His updated medication list for this problem includes: Diltiazem Hcl Er Coated Beads 120 Mg Oral Capsule Extended Release 24 Hour (Diltiazem hcl coated beads) ..... One capsule daily Amiodarone Hcl 100 Mg Oral Tablet (Amiodarone hcl) ..... One tablet daily Metoprolol Tartrate 25 Mg Oral Tablet (Metoprolol tartrate) ..... One tab. twice daily Xarelto 20 Mg Oral Tablet (Rivaroxaban) .... One tablet daily with evening meal Alexandre Yoo Cardiology:The arthr itis/muscle pains resolved when pt stopped Zetia and he will stay off Zetia. Alexandre Yoo Cardiology:Weight loss advised. Jameson Veloz MD Cardiology:BP today: 142/70 P rior BP: 133/69 (04/30/2017) His updated medication list for this problem includes: Diltiazem Hcl Er Coated Beads 120 Mg Oral [id number] (Diltiazem hcl coated beads) ..... One capsule daily Metoprolol Tartrate 25 Mg Tabs (Metoprolol tartrate) ..... One tab. twice daily Jameson Veloz MD Cardiology:The patie nt is actively using CPAP on a regular basis. He has been benefiting from therapy and should continue use. Jameson Veloz MD Cardiology Jameson Veloz MD Cardiology:His [facility] ed medication list for this problem includes: Diltiazem Hcl Er Coated Beads 120 Mg Oral [id number] (Diltiazem hcl coated beads) ..... One capsule daily Amiodarone Hcl 100 Mg Oral Tabs (Amiodarone hcl) ..... One tablet daily Metoprolol Tartrate 25 Mg Tabs (Metoprolol tartrate) ..... One tab. twice daily Xarelto 20 Mg Tabs (Rivaroxaban) .... One tablet daily with evening meal Jameson Veloz MD Cardiology:No chest pain or SOB. His updated medication list for this problem includes: Diltiazem Hcl Er Coated Beads 120 Mg Oral [id number] (Diltiazem hcl coated beads) ..... One capsule daily Metoprolol Tartrate 25 Mg Tabs (Metoprolol tartrate) ..... One tab. twice daily Jameson Veloz MD Cardiology:He feels that since he started Zetia he experiences more arthritis and muscle pains. Will stop Zetia for a few weeks. Jameson Veloz MD Cardiology:Complaini ng of sun sensitivity. WIll reduce Amiodarone to 100mg daily. PFT's were normal. Jameson Veloz MD Cardiology : B P today: 133/69 His updated medication list for this problem includes: Diltiazem Hcl Er Coated Beads 120 Mg Oral [id number] (Diltiazem hcl coated beads) ..... One capsule daily - stop taking and see if constipation improves Metoprolol Tartrate 25 Mg Tabs (Metoprolol tartrate) ..... One tab. twice daily Maurice Cordero Cardiology :Patient advised to avoid sun exposure due to high sensitivity to sun. Maurice Cordero Cardiology :Patient compliant with CPAP. Uses 7 hours nightly. Visit was face to face followup for CPAP compliance. Arleen Dooley NP Cardiology Follow up:Weight loss advised. Alexandre Yoo Cardiology Follow up :BP today: 130/80 P rior BP: 147/79 (11/15/2016) His updated medication list for this problem includes: Diltiazem Hcl Er Coated Beads 120 Mg Oral [id number] (Diltiazem hcl coated beads) ..... One capsule daily - stop taking and see if constipation improves Metoprolol Tartrate 25 Mg Tabs (Metoprolol tartrate) ..... One tab. twice daily Alexandre Yoo Cardiology Follow up :He initially stopped Zetia because he believed it caused him muscle aches but he would like to try again. Alexandre Yoo Cardiology Follow up :PFT's, thyroid function and liver function were normal. Alexandre Yoo Cardiology Follow up Alexandre lambert Cardiology Follow up :His updated medication list for this problem includes: Diltiazem Hcl Er Coated Beads 120 Mg Oral [id number] (Diltiazem hcl coated beads) ..... One capsule daily - stop taking and see if constipation improves Amiodarone Hcl 200 Mg Tabs (Amiodarone hcl) ..... One tablet daily Metoprolol Tartrate 25 Mg Tabs (Metoprolol tartrate) ..... One tab. twice daily Alexandre Yoo Cardiology Follow up:No chest pa in or SOB. Alexandre Yoo Cardiology Follow up :The pt was found to have severe JULIA and now has BiPAP machine. [facility] Cardiology:BP today: 147/79 P rior BP: 140/80 (11/01/2016) His updated medication list for this problem includes: Diltiazem Hcl Er Coated Beads 120 Mg Oral [id number] (Diltiazem hcl coated beads) ..... One capsule daily Metoprolol Tartrate 25 Mg Tabs (Metoprolol tartrate) ..... One tab. twice daily [facility] Cardiology [facility] Cardiology:Starting Amiodarone 200mg daily. Will obtain baseline PFT's, liver panel and thyroid panel. [facility] Cardiology:He previo usly tried multiple statins and could not tolerate any of them due to muscle aches. Will start Zetia 10mg daily. LDL was 162 in October 2016 in [facility]. [facility] Cardiology:Cardiac cath revealed mild/moderate CAD. [facility] Cardiology:Pt had an other admission for Afib/flutter with RVR. Treated with IV cardizem and is back in NSR. Will start Amiodarone 200mg daily. He was evaluated by Dr. Gallagher. His updated medication list for this problem includes: Amiodarone Hcl 200 Mg Tabs (Amiodarone hcl) ..... One tablet daily Diltiazem Hcl Er Coated Beads 120 Mg Oral [id number] (Diltiazem hcl coated beads) ..... One capsule daily Metoprolol Tartrate 25 Mg Tabs (Metoprolol tartrate) ..... One tab. twice daily [facility] Cardiology:Starting 20mg Xarelto daily for Afib. Alexandre [facility] Cardiology Alexandre Canarachele Cardiology:BP today: 140/80 P rior BP: 170/86 (09/27/2016) His updated medication list for this problem includes: Metoprolol Tartrate 50 Mg Tabs (Metoprolol tartrate) ..... One tablet twice daily <-- Increased today [facility] Cardiology:Rescheduling the home sleep study. [facility] Cardiology Alexandre Kumar Cardiology:Was admit garrett with Afib with RVR. Tele also showed episodes of Afib. His updated medication list for this problem includes: Metoprolol Tartrate 50 Mg Tabs (Metoprolol tartrate) ..... One tablet twice daily <--- Increased today Xarelto 20 Mg Tabs (Rivaroxaban) .... One tablet daily with evening meal <--- Started today Alexandre Perezberg Cardiology:TTE in 20 12 showed moderate tricuspid valve regurgitation. Alexandre Perezberg Cardiology:TTE in 20 12 showed mild mitral valve regurgitation. Alexandre Perezberg Cardiology:TTE in 20 12 showed moderate aortic valve regurgitation. Alexandre Perezberg Cardiology:BP today: 170/86 P rior BP: 134/86 (11/20/2012) His updated medication list for this problem includes: Metoprolol Succinate 50 Mg Tb24 (Metoprolol succinate) ..... One tab. daily Adult Aspirin Ec Low Strength 81 Mg Tbec (Aspirin) ..... Take one pill a day Alexandre Perezberg Cardiology:Orders: S lee Study Home (CPT-50418) Alexandre Naila Cardiology:Orders: S NOMED-CT: [id number] Current Medications Documented (SCT-[id number]) E KG (CPT-62306) M obile Cardiac Tele (CPT-45495) S TR - Nuclear (CPT-03950) Alexandre Yoo Cardiology:The pt co mplains of chest discomfort and palpitations. Cardiac cath in 2011 showed no CAD. Orders: S NOMED-CT: [id number] Current Medications Documented (SCT-[id number]) E KG (CPT-35567) S TR - Nuclear (CPT-88475) Alexandre Yoo Date Name Complete Echo Sleep Study Titratio n Stress Regadenoson DLCO - 58371 FRC - 77980 FVC - 74005 T-4, FREE TSH, 3RD GENERATION HEPATIC FUNCTION NDIAYE DLCO - 80577 FRC - 56660 FVC - 91277 Complete Echo RPM (remote patient monitoring) RPM (remote patient monitoring) T-4, FREE TSH, 3RD GENERATION HEPATIC FUNCTION NDIAYE DLCO - 94795 FRC - 05622 FVC - 58888 Complete Echo HEPATIC FUNCTION NDIAYE TSH, free T4, total T3 DLCO - 11713 FRC - 31229 FVC - 76378 MAGNESIUM BASIC METABOLIC PANE L W/EGFR CT, Coronary Calcium Score Stress Exercise Card iolite Complete Echo DLCO - 50411 FRC - 90665 FVC - 65914 Mobile Cardiac Tele DLCO - 71316 FRC - 72291 FVC - 95576 Complete Echo T-4, FREE TSH, 3RD GENERATION HEPATIC FUNCTION [facility] T-4, FREE TSH, 3RD GENERATION HEPATIC FUNCTION NDIAYE DLCO - 35428 FRC - 94768 FVC - 99625 T-4, FREE TSH, 3RD GENERATION HEPATIC FUNCTION NDIAYE Carotid Duplex Bilat eral THYROID PANEL WITH T SH, 3RD GENERATION HEPATIC FUNCTION [facility] DLCO - 84902 FRC - 52454 FVC - 36943 Complete Echo STR - Nuclear Sleep Study Home Mobile Cardiac Tele Cardiac Cath - Left - GC Carotid Duplex Bilat eral Complete Echo HISTORY OF PROCEDURES Procedure Date Procedure Name Provider Procedure Notes S tatus EKG Jameson Veloz MD completed Spirometry Jameson Veloz MD completed FVC / MVV with bronchodilator - 16319 Jameson Veloz MD completed FRC - 54232 Jameson Veloz MD completed SpO2 w/o 6min walk/titration Jameson Veloz MD completed SVC - 78902 Jameson Veloz MD completed DLCO - 77708 Jameson Veloz MD complete d Spirometry Jameson Veloz MD completed FVC / MVV with bronchodilator - 70687 Jameson Veloz MD completed FRC - 64667 Jameson Veloz MD completed SpO2 w/o 6min walk/titration Jameson Veloz MD completed SVC - 43181 Jameson Veloz MD completed DLCO - 22114 Jameson Veloz MD complete d Spirometry Jameson Veloz MD completed FVC / MVV with bronchodilator - 21822 Jameson Veloz MD completed FRC - 51667 Jameson Veloz MD completed SpO2 w/o 6min walk/titration Jameson Veloz MD completed SVC - 97993 Jameson Veloz MD completed DLCO - 53635 Jameson Veloz MD complete d FRC - 26734 Jameson Veloz MD completed Spirometry Jameson Veloz MD completed FVC / MVV - 27034 Jameson Veloz MD com pleted SpO2 w/o 6min walk/titration Jameson Veloz MD completed SVC - 35787 Jameson Veloz MD completed DLCO - 08639 Jameson Veloz MD complete d EKG Derek Mendez MD completed EKG Jameson Veloz MD completed FVC / MVV - 83938 Jameson Veloz MD com pleted FRC - 03281 Jameson Veloz MD completed SpO2 w/o 6min walk/titration Jameson Veloz MD completed DLCO - 81278 Jameson Veloz MD complete d EKG Jameson Veloz MD completed FVC / MVV with bronchodilator - 27265 Jameson Veloz MD completed BLOOD COUNT HEMOGLOBIN Jameson Veloz MD completed FRC - 54239 Jameson Veloz MD completed SpO2 w/o 6min walk/titration Jameson Veloz MD completed DLCO - 19018 Jameson Veloz MD complete d Mobile Cardiac Telem etry - Tech Jameson Veloz MD completed Mobile Cardiac Telem etry - Prof Jameson Veloz MD completed EKG Rene Torres MD complet ed FVC / MVV with bronchodilator - 64492 Jameson Veloz MD completed FRC - 06344 Jameson Veloz MD completed SpO2 w/o 6min walk/titration Jameson Veloz MD completed DLCO - 54460 Jameson Veloz MD complete d SNOMED-CT: [id number] 426048 Current Medications Documented Jameson Veloz MD completed EKG Jameson Veloz MD completed SNOMED-CT: 621906396 390343 Current Medications Documented Jameson Veloz MD completed FVC / MVV with bronchodilator - 82356 Jameson Veloz MD completed FRC - 95015 Jameson Veloz MD completed SpO2 - 34307 Jameson Veloz MD complete d DLCO - 66569 Jameson Veloz MD complete d SNOMED-CT: [id number] 372847 Current Medications Documented Jameson Veloz MD completed SNOMED-CT: 763700697 468926 Current Medications Documented Jameson Veloz MD completed FVC - 02571 Jameson Veloz MD completed FRC - 93950 Jameson Veloz MD completed DLCO - 36661 Jameson Veloz MD complete d EKG Jameson Veloz MD completed SNOMED-CT: 201245356 377868 Current Medications Documented Jameson Veloz MD completed SNOMED-CT: 615045538 308872 Current Medications Documented Jameson Veloz MD completed Stress EKG Arvin Vidal MD complete d Cardiolite, 2 units Jameson Veloz MD c ompleted SPECT Images Elkin Ribera MD complet ed Mobile Cardiac Telem etry - Tech Jameson Veloz MD completed Mobile Cardiac Telem etry - Prof Jameson Veloz MD completed EKG Jameson Veloz MD completed SNOMED-CT: 783102424 785420 Current Medications Documented Jameson Veloz MD completed
--- OUTSIDE RECORDS SUMMARY | 2025-02-08 08:08 | XMS_ITS | Encounter Summary ---
Author Organization [facility] Address [address] [place] [address] Care Team Providers Care Coating And Embossing Unit Operator Name Role Phone Unavailable Primary Care Provider Unavailabl e Encounter Details Date Type Department Care Team (Late st Contact Info) Description 08/29/2023 Lab Requisition [facility] - DermPath Lab [address] [place] [phone] Andre Sutton MD [address] [place] [address] Social History Tobacco Use Types Packs/Day Years Used Date Smoking Tobacco: Never Assessed Sex and Gender Information Value Date Recorded Sex Assigned at Not on file Gender Identity Not on file Sexual Orientation Not on file documented as of this encounter Plan of Treatment Not on file documented as of this encounter Procedures Procedure Name Priority Date/Time Associated Diagnosis Comments DERMATOPATHOLOGY Routine 08/28/2023 3:33 AM CDT documented in this encounter Results * DERMATOPATHOLOGY (08/28/2023 3:33 AM CDT) Case Report Dermatopathology Report Case: [id number] Authorizing Provider: Andre Sutton MD Collected: 08/28/2023 03:33 AM Ordering Location: [facility] DermPath Lab Received: 08/29/2023 02:11 PM Pathologist: Elizabeth Robles MD Specimen: Skin, top of right helix 3 3:30 PM CDT DERMATOPATHOLOGY LABORATORY Final Diagnosis Specimen A. SKIN, top of right helix: SQUAMOUS CELL CARCINOMA, WELL DIFFERENTIATED (C44.222) 3 3:30 PM CDT DERMATOPATHOLOGY LABORATORY Clinical History R/O SCC 3:30 PM CDT DERMATOPATHOLOGY LABORATORY Gross Description Specimen A: Received is one formalin filled container labeled with the patient's name and designated top of right helix. The specimen consists of a shave biopsy measuring 11x7x3 mm. Jar 0. 3:30 PM CDT DERMATOPATHOLOGY LABORATORY Microscopic Description Specimen A. SKIN, top of right helix: Arising in the epidermis and extending into the dermis there are irregularly shaped aggregates of keratinocytes showing evidence of premature cornification. 3:30 PM CDT DERMATOPATHOLOGY LABORATORY Disclaimer An external and internal positive and negative controls are appropriate for the histochemical, immunohistochemical and immunofluorescence stain(s) in this case (if any), except where stated explicitly. The performance characteristics of the stain(s) cited in this report were developed and its performance characteristic determined by the Dermatopathology Laboratory at [facility], directed by Dr. Diana Loving. These tests need not be, and therefore are not, approved by the [place] Food and Drug Administration. The tests are used for clinical purposes. Billing Codes Specimen Charges Stain Charges 95561 1 3:30 PM CDT DERMATOPATHOLOGY LABORATORY Embedded Images 3:30 PM CDT DERMATOPATHOLOGY LABORATORY Pathology/Cytolo gy TISSUE SPECIMEN FROM SKIN / Unknown 08/28/2023 3:33 AM CDT 08/29/2023 2:11 PM CDT Andre Sutton MD LAB - PATHOLOGY/CYTO LOGY ORDERABLES DERMATOPATHOLOGY LABORATORY [facility] - Department of Dermatology [address], [address] [phone] documented in this encounter Visit Diagnoses Not on filedocumented in this encounter
--- OUTSIDE RECORDS SUMMARY | 2025-02-08 09:11 | XMS_ITS | Encounter Summary ---
Author Organization [facility] Address [address] [facility] [place] [address] Care Team Providers Care Artist'S Model Name Role Phone Unavailable Primary Care Provider Unavailabl e Encounter Details Date Type Department Care Team (Late st Contact Info) Description 08/01/2021 Lab Requisition [facility] DermPath Lab [address] [place] [phone] Andre Sutton MD [address] [place] [address] Social History Tobacco Use Types Packs/Day Years [...] AM CDT) Case Report Dermatopathology Report Case: [id number] Authorizing Provider: Andre Sutton MD Collected: 07/29/2021 12:00 AM Ordering Location: [facility] DermPath Lab Received: 08/01/2021 01:01 PM Pathologist: [...] 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 Check margins. B-D: R/O SCC. 2:54 PM [facility] DERMATOPATHOLOGY LABORATORY Gross Description Specimen A: Received is one formalin filled container labeled with the patients name and designated right side nose. The specimen consists of a shave removal measuring 0c0j2xv. The margin is inked green. Jar 0. Specimen B: Received is one formalin filled container labeled with the patient's name and designated right medial cheek below eye. The specimen consists of a shave biopsy measuring 5l4o4lq and 2u5d8cm. Jar 0. Specimen C: Received is one formalin filled container labeled with the patient's name and designated behind middle of left earlobe. The specimen consists of a shave biopsy measuring 4q1i9wg. Jar 0. Specimen D: Received is one formalin filled container labeled with the patient's name and designated dorsal left hand. The specimen consists of a shave biopsy measuring 4i8i9sa. Jar 0. 1 2:54 PM [facility] DERMATOPATHOLOGY LABORATORY Microscopic Description Specimen A. SKIN, [...] characteristic determined by the Dermatopathology Laboratory at [facility], directed by Dr. Diana Loving. These tests need not be, and therefore are not, approved by the [place] Food and Drug Administration. The tests are used for clinical purposes. Billing Codes Specimen Charges Stain Charges 35200 09560 04132 32071 1 1 1 1 1 2:54 PM [...] DERMATOPATHOLOGY LABORATORY [facility] - Department of Dermatology [facility] [address] [place] [address], [address] [phone] documented in this encounter Visit Diagnoses Not on filedocumented in this encounter
--- OUTSIDE RECORDS SUMMARY | 2025-02-08 09:11 | XMS_ITS | Clinical Summary ---
Author Organization [facility] Address [address] [address] Care Team Providers Care Senior Accounts Payable Specialist Name Role Phone Andrea Car MD Primary Care Provider [phone] Social History Tobacco Use Types Packs/Day Years [...] age to complete this topic Insurance MEDICARE [facility] [place] [address] Care Teams Senior Accounts Payable Specialist Relationship Specialty Start Date End Date Andrea Car MD [address] [facility], [address] [place] [address] PCP - General Internal Medicine 10/31/24
--- OUTSIDE RECORDS SUMMARY | 2025-02-08 09:11 | XMS_ITS | Continuity of Care Document ---
Author Organization [facility] Address [address] [place] [address] Phone Care Team Providers Care Burn Out Scarfing Operator Name Role Phone Doisy, Edward Unavailable Unavailable Advance Directives Directive Yes / No Effective Date File Name No Information Encounters Encounter Description Practice Location Reason(s) For Visit Diagnoses Date Provider Providers Copied on Encounter [facility], [address], [place], [place], [id number], [place] tel:[phone] SEC [facility] No Information 3-200 5 Doisy Edward. [address] [facility] , [address], [place], [address], [place]. tel:[phone] Family History Family Member Type Diagnosis Age [...]
--- OUTSIDE RECORDS SUMMARY | 2025-02-08 09:11 | XMS_ITS | Encounter Summary ---
Author Organization [facility] Address [address] [place] [address] Care Team Providers Care Grief Counsellor Name Role Phone Unavailable Primary Care Provider Unavailabl e Encounter Details Date Type Department Care Team (Late st Contact Info) Description 12/11/2019 Lab Requisition [facility] DermPath Lab [address] [place] [phone] Andre Sutton MD [address] [place] [address] Social History Tobacco Use Types Packs/Day Years [...] Comments DERMATOPATHOLOGY Routine 12/09/2019 12:0 0 AM FIELD SERVICER documented in this encounter Results * DERMATOPATHOLOGY (12/09/2019 12:00 AM FIELD SERVICER) Case Report Dermatopathology Report Case: [id number] Authorizing Provider: Andre Sutton MD Collected: 12/09/2019 12:00 AM Ordering Location: [facility] DermPath Lab Received: 12/11/2019 12:17 PM Pathologist: Brayan Loving MD Specimen: Skin, top left shoulder 0 4:52 PM FIELD SERVICER DERMATOPATHOLOGY LABORATORY Final Diagnosis Specimen A. SKIN, top left shoulder: BENIGN VERRUCOUS KERATOSIS, INFLAMED (L82.1) 0 4:52 PM FIELD SERVICER DERMATOPATHOLOGY LABORATORY Clinical History R/O SCC. 0 4:52 PM FIELD SERVICER DERMATOPATHOLOGY LABORATORY Gross Description Specimen A: Received is one formalin filled container labeled with the patient's name and designated top left shoulder. The specimen consists of a shave biopsy measuring 7x9r8mu, bisected. Jar 0. 0 4:52 PM [facility] [[email or web address]] DERMATOPATHOLOGY LABORATORY Microscopic Description Specimen A. SKIN, top left shoulder: Sections show hyperkeratosis, papillomatosis, hypergranulosis, and acanthosis. Inflammatory cells are present within the dermis. These histological findings can be seen in a verruca vulgaris or a seborrheic keratosis. 0 4:52 PM [facility] [[email or web address]] DERMATOPATHOLOGY LABORATORY Disclaimer An external and internal positive and negative controls are appropriate for the histochemical, immunohistochemical and immunofluorescence stain(s) in this case (if any), except where stated explicitly. The performance characteristics of the stain(s) cited in this report were developed and its performance characteristic determined by the Dermatopathology Laboratory at [facility], directed by Dr. Diana Loving. These tests need not be, and therefore are not, approved by the [place] Food and Drug Administration. The tests are used for clinical purposes. Billing Codes Specimen Charges Stain Charges 48897 1 0 4:52 PM [facility] [[email or web address]] DERMATOPATHOLOGY LABORATORY Embedded Images 0 4:52 PM [facility] [[email or web address]] DERMATOPATHOLOGY LABORATORY Pathology/Cytolog y TISSUE SPECIMEN FROM SKIN / Unknown 12/09/2019 12/11/2019 12:17 PM FIELD SERVICER Andre Sutton MD LAB - PATHOLOGY/CYTO LOGY ORDERABLES DERMATOPATHOLOGY LABORATORY [facility] - Department of Dermatology [address] [place] [address], [address]th [place] [address], [facility] [phone] documented in this encounter Visit Diagnoses Not on filedocumented in this encounter
--- OUTSIDE RECORDS SUMMARY | 2025-02-08 09:11 | XMS_ITS | Referral Summary ---
Author Organization [facility] [address] [place] [address] Care Team Providers Care Forging Operator Name Role Phone Dwayne Car MD Primary Care Provide r Jared White MD Unavailable [phone] AnsNorbert nicholson MD Unavailable Allergies No known active allergies Medications amiodarone (PACERONE) 200 mg tablet Take 1 tablet (200 mg total) by mouth nightly 1 Active atorvastatin (LIPITOR) 10 mg tablet Take 1 tablet (10 mg total) by mouth nightly 1 Active dilTIAZem CD 120 mg 24 hr capsule Take 1 capsule (120 mg total) by mouth nightly 1 Active omeprazole (PriLOSEC) 20 mg capsule Take 1 capsule (20 mg total) by mouth daily 1 Active polyethylene glycol (MIRALAX) 17 gram packetIndicatio ns:constipation Take 1 packet (17 g total) by mouth daily Active rivaroxaban (XARELTO) 20 mg tablet Take 1 tablet (20 mg total) by mouth daily with breakfast Active Active Problems Problem Noted Date Diagnosed Date SBO (small bowel obstruction) 10/18/2023 PAF (paroxysmal atrial fibrillation) 10/18/2023 Left adrenal gland nodule 10/18/2023 Gastric diverticulum 10/18/2023 JULIA (obstructive sleep apnea) 10/18/2023 Retroperitoneal air 10/23/2021 Choledocholithiasis 10/18/2021 Overview (10/18/2021): Added automatically from request for surgery [id number] Lumbar spondylosis with right S1 radiculopathy 0 07/05/2018 Spondylosis without myelopat hy or radiculopathy, cervical region 07/05/2018 Immunizations Immunization Administration Dates Next Due Influenza, Unspecified 08/05/2021 Social History Tobacco Use Types Packs/Day Years Used Date Smoking Tobacco: Never Smokeless Tobacco: Never Tobacco Cessation:Counseling Given: Not Answered Alcohol Use Standard Drinks/Week Comments No 0 (1 standard drink = 0.6 oz pur e alcohol) [facility] Utilities Answer Date Recorded In the past 12 months has th e electric, gas, oil, or water [employer] threatened to shut off services in your home? No 10/19/2023 Social Connection and Isolat ion Panel [NHANES] Answer Date Recorded In a typical week, how many times do you talk on the phone with family, friends, or neighbors? Patient unable to answer 10/19/2023 How often do you get togethe r with friends or relatives? Patient unable to answer 10/19/2023 How often do you attend chur ch or catholic services? More than 4 times per year 10/19/2023 Do you belong to any clubs o r organizations such as jain groups, unions, fraternal or athletic groups, or school groups? No 10/19/2023 How often do you attend meet ings of the clubs or organizations you belong to? Never 10/19/2023 Are you , , di vorced, , never , or living with a partner? 10/19/2023 AUDIT-C Answer Date Recorded Frequency of Alcohol Consumption Not on file 10/18/2023 Q2: How many drinks containi ng alcohol do you have on a typical day when you are drinking? Patient does not drink Frequency of Binge Drinking Not on file 10/05 Overall Financial Resource Strain (CARDIA) Answe r Date Recorded How hard is it for you to pa y for the very basics like food, housing, medical care, and heating? Not hard at all 10/19/2023 PHQ-2 Answer Date Recorded PHQ-2 Total Score (If total score is 3 or more points, staff should administer the PHQ-9) 0 11/17/2021 Hunger Vital Sign Answer Date Recorded Within the past 12 months, y ou worried that your food would run out before you got the money to buy more. Never true 10/19/20 23 Within the past 12 months, t he food you bought just didn't last and you didn't have money to get more. Never true 10/19/2023 PRAPARE - Transportation Answer Date Re corded In the past 12 months, has l ack of transportation kept you from medical appointments or from getting medications? No 10/05 In the past 12 months, has l ack of transportation kept you from meetings, work, or from getting things needed for daily living? No 10/19/2023 Housing Stability Vital Sign Answer Edd e Recorded In the last 12 months, was t here a time when you were not able to pay the mortgage or rent on time? No 10/19/2023 In the last 12 months, how many places have you lived? 1 10/19/2023 In the last 12 months, was t here a time when you did not have a steady place to sleep or slept in a long-term (including now)? No 10/19/2023 Personal Safety Answer Date Recorded Have you ever been in or are you currently in a harmful physical or emotional relationship or is someone making you feel afraid or unsafe? Denies 10/17/2023 Sex and Gender Information Value Date Recorded Sex Assigned at Not on file Legal Sex Male 10:04 PM BARREL LAPPER Gender Identity Not on file Sexual Orientation Not on file Last Filed Vital Signs Vital Sign Reading Time Taken Comments Blood Pressure 124/72 10/20/2023 7:54 AM BARREL LAPPER Pulse 62 10/20/2023 7:54 AM BARREL LAPPER Temperature 36.9 C (98.4 F) 10/20/2023 7:54 AM BARREL LAPPER Respiratory Rate 19 10/20/2023 7:54 AM BARREL LAPPER Oxygen Saturation 95% 10/20/2023 7:54 AM BARREL LAPPER Inhaled Oxygen Concentration - - Weight 74.4 kg (164 lb 0.4 oz) 10/18/2023 6:15 P M BARREL LAPPER Height 169 cm (5' 6.54 ) 10/18/2023 6:15 PM BARREL LAPPER Body Mass Index 26.05 10/18/2023 6:15 PM BARREL LAPPER Plan of Treatment Not on file Medical Devices Implanted Type Area [employer] Inspector Device Identifier Shelf Expiration Date Model / Serial / Lot [employer] [id number] Wallflex Permalume 10mm 8.5fr 60mm 194cm Fully Cover Catheter - [id number] Implanted:Qty: 1 on 10/25/2021 by Norbert Pichardo MD at [facility] Stent [employer] 07/25/2023 [id number] / / [id number] [employer] [id number] Advanix Naviflex 10fr 7cm Preload Radiopaque Rapid Exchange - [id number] Implanted:Qty: 1 on 10/20/2021 by Norbert Pichardo MD at [facility] N/A: Other - see comments [employer] 09/08/2023 [id number] / / [id number] Description:COMMON BILE DUCT [employer] 6541 4fr 3cm Pliable Pigtail Curve Stent Pancreatic - [id number] Implanted:Qty: 1 on 10/20/2021 by Norbert Pichardo MD at [facility] N/A: Pancreas [employer] 01/03/2026 [id number] / / [id number] Insurance MEDICARE [facility] [place] [address] MEDICARE [facility] MEDICARE [facility] [place] [place] [address] Advance Directives For more information, please contact: [phone] * Full Code (Latest Code Status on File) Date Activated Date Inactivated Comments 10/18/2023 2:43 AM 10/20/2023 7:14 PM * Full Code Date Activated Date Inactivated Comments 10/25/2021 2:21 PM 10/28/2021 2:43 PM * Full Code Date Activated Date Inactivated Comments 10/23/2021 12:07 PM 10/25/2021 2:21 PM * Full Code Date Activated Date Inactivated Comments 10/20/2021 10:35 AM 10/21/2021 9:22 PM * Full Code Date Activated Date Inactivated Comments 10/19/2021 2:30 AM 10/20/2021 10:35 AM Care Teams Forging Operator Relationship Specialty Start Date End Date Dwayne Car MD [id number] [address] PCP - General Internal Medicine 07/05/18 Jared hWite MD [address] [address] Surgeon General Surgery 10/21/21 Norbert Pichardo MD [address] [address] Consulting Physician Gastroenterology 10/28/21
--- OUTSIDE RECORDS SUMMARY | 2025-02-08 09:11 | XMS_ITS | Clinical Summary ---
Author Organization [facility] Address [address] [place] [address] Care Team Providers Care Blood Bank Calendar Control Clerk Name Role Phone Unavailable Primary Care Provider Unavailabl e Source Comments [facility],non-owned Affiliates and Associated Physician Practices is amultiple site organization consisting of ambulatory clinics and hospital sitesin [place], [place], [place] and [place]. This disclosure is being madepursuant to the Care Everywhere program and may not contain all information available regarding this patient. Last updated 18.[facility] [employer] Social History Tobacco Use Types Packs/Day Years [...]
--- OUTSIDE RECORDS SUMMARY | 2025-02-08 09:11 | XMS_ITS | Encounter Summary ---
Author Organization [facility] Address [address] [facility] [place] [address] Care Team Providers Care Tax Consultant Name Role Phone Unavailable Primary Care Provider Unavailabl e Encounter Details Date Type Department Care Team (Late st Contact Info) Description 11/20/[address] [facility] Care DermPath Lab [address] [facility] [place] [phone] Andre Sutton MD [address] [place] [address] Social History Tobacco Use Types Packs/Day Years [...] Comments DERMATOPATHOLOGY Routine 11/19/2018 12:0 0 AM HAIR WORKER documented in this encounter Results * DERMATOPATHOLOGY (11/19/2018 12:00 AM HAIR WORKER) Case Report Dermatopathology Report Case: [id number] Authorizing Provider: Andre Sutton MD Collected: 11/19/2018 12:00 AM Pathologist: Brayan Loving MD Received: 11/20/2018 11:33 AM Specimens: A) - Skin, left lateral upper eyelid B) - Skin, left lateral end of brow C) - Skin, left post edge of helix rim superiorly D) - Skin, left neck behind earlobe 9 2:45 PM HAIR WORKER DERMATOPATHOLOGY LABORATORY Final Diagnosis Specimen A. SKIN, [...] CARCINOMA, INFILTRATIVE PATTERN (C44.41) 9 2:45 PM [facility] DERMATOPATHOLOGY LABORATORY Clinical History A-B: R/O BCC. C: R/O dys nevus, lentigo. D: R/O SCC. 9 2:45 PM [facility] DERMATOPATHOLOGY LABORATORY Gross Description Specimen A: Received is one formalin filled container labeled with the patient's name and designated left lateral upper eyelid. The specimen consists of a shave biopsy (2 pieces) measuring 1f0f2lv & 2a1i0vj. Jar 0+. Specimen B: Received is one formalin filled container labeled with the patient's name and designated left lateral end of brow. The specimen consists of a shave biopsy (2 pieces) measuring 2j5c6tj & 9w5a8xd. Jar 0. Specimen C: Received is one formalin filled container labeled with the patient's name and designated left post edge of helix rim superiorly. The specimen consists of a shave biopsy measuring 9t6v4jg. Jar 0. Specimen D: Received is one formalin filled container labeled with the patient's name and designated left neck behind earlobe. The specimen consists of a shave biopsy measuring 1i3s0uc. Jar 0. 9 2:45 PM [facility] DERMATOPATHOLOGY LABORATORY Microscopic Description Specimen A. [...] nests that infiltrate the dermis. 2:45 PM [facility] DERMATOPATHOLOGY LABORATORY Disclaimer An external and internal positive and negative controls are appropriate for the histochemical, immunohistochemical and immunofluorescence stain(s) in this case (if any), except where stated explicitly. The performance characteristics of the stain(s) cited in this report were developed and its performance characteristic determined by the Dermatopathology Laboratory at [facility], directed by Dr. Diana Loving. These tests need not be, and therefore are not, approved by the [place] Food and Drug Administration. The tests are used for clinical purposes. Billing Codes Specimen Charges Stain Charges 79022 54147 91331 55219 1 1 1 1 82699 1 9 2:45 PM [facility] DERMATOPATHOLOGY LABORATORY Embedded Images 2:45 PM HAIR WORKER DERMATOPATHOLOGY LABORATORY Pathology/Cytology TISSUE SPECIMEN FROM SKIN / Unknown 11/19/2018 11/20/2018 11:33 AM HAIR WORKER Miscellaneous samples (specimen) TISSUE SPECIMEN FROM SKIN / Unknown 11/19/2018 11/20/2018 11:33 AM HAIR WORKER Miscellaneous samples (specimen) TISSUE SPECIMEN FROM SKIN / Unknown 11/19/2018 11/20/2018 11:33 AM HAIR WORKER Miscellaneous samples (specimen) TISSUE SPECIMEN FROM SKIN / Unknown 11/19/2018 11/20/2018 11:33 AM HAIR WORKER Andre Sutton MD LAB - PATHOLOGY/CYTO LOGY ORDERABLES DERMATOPATHOLOGY LABORATORY [facility] - Department of Dermatology [address] [place] [address], 5th [place] [address], [facility] [phone] documented in this encounter Visit Diagnoses Not on filedocumented in this encounter
--- OUTSIDE RECORDS SUMMARY | 2025-02-08 09:11 | XMS_ITS | Continuity of Care Document ---
Author Organization [facility] Address [address] [place] [address] [address] Phone Care Team Providers Care Pharmacy Informatics Manager Name Role Phone Castillo Acosta MD Unavailable Unavailable Procedures Procedure Date Office/outpatient visit,[facility] 2007 Drain/inject intermed joint/bursa X-ray exam of ankle, complete 8 Office/outpatient visit,[facility] 2006 Drain/inject intermed joint/bursa Depo Medrol Methylprednisolone 40 MG inj Office/outpatient visit,[facility] 2006 Drain/inject major jointor bursa 2006 Depo Medrol Methylprednisolone 40 MG inj Office/outpatient visit,[facility] 2006 X-ray exam of ankle, complete 7 Advance Directives Directive Yes / No Effective Date File Name No Information Encounters Encounter Description Practice Location Reason(s) For Visit Diagnoses Date Provider Providers Copied on Encounter Office/outpat ient visit,[facility], [address] [place] [address], [id number], tel:[phone] [facility] No Information 8 Karla Chong. [address] [place] [address], [place], [place], [id number] , [place]. tel:[phone] Office/outpat ient visit,[facility], [address] [place] [address], [id number], tel:[phone] [facility] No Information 7 Karla Castillo. [address], [address], [place], [place], [id number] , [place]. tel: [phone] Office/outpat ient visit,est, low [facility], [address], [id number], [place] [phone] [facility] No Information 7 Kostajorge Chong. [address], [facility], [place], [place], [id number] , [place]. tel: [phone] [place] [facility], [address], [id number], [place] [phone] [facility] No Information 0 7 Kostajorge Chong. [address], [id number] , [place]. tel: [phone] Family History Family Member Type Diagnosis Age At Onset No Information Payers Payer name Insurance type Covered green party ID Authoriza tion(s) No Information Social [...]
--- OUTSIDE RECORDS SUMMARY | 2025-02-08 09:11 | XMS_ITS | Encounter Summary ---
Author Organization [facility] Address [address] [place] [address] Care Team Providers Care Stock Feeder Name Role Phone Unavailable Primary Care Provider Unavailabl e Encounter Details Date Type Department Care Team (Late st Contact Info) Description 08/29/2023 Lab Requisition [facility] [address] [place] [id number] Andre Sutton MD [address] [place] [address] Social History Tobacco Use Types [...] AM CDT) Case Report Dermatopathology Report Case: [id number] Authorizing Provider: Andre Sutton MD Collected: 08/28/2023 03:33 AM Ordering Location: [facility] Received: 08/29/2023 02:11 PM Pathologist: [...] purposes. Billing Codes Specimen Charges Stain Charges 49840 1 3:30 PM CDT DERMATOPATHOLOGY LABORATORY Embedded Images 3:30 PM CDT DERMATOPATHOLOGY LABORATORY Pathology/Cytolo gy TISSUE SPECIMEN FROM SKIN / Unknown 08/28/2023 3:33 AM CDT 08/29/2023 2:11 PM CDT Andre Sutton MD LAB - PATHOLOGY/CYTO LOGY ORDERABLES DERMATOPATHOLOGY LABORATORY [facility] - Department of Dermatology [address] [phone] documented in this encounter Visit Diagnoses Not on filedocumented in this encounter
--- OUTSIDE RECORDS SUMMARY | 2025-02-08 09:11 | XMS_ITS | CONTINUITY OF CARE DOCUMENT ---
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 Date Type Provider Location Encounter Diag nosis - In-person encounter Office Visit Jameson Veloz MD [facility] - In-person encounter Office Visit Jameson Veloz MD [facility] - In-person encounter Office Visit Jameson Veloz MD [facility] Cardiology examination - In-person encounter Office Visit Jameson Veloz MD [facility] - In-person encounter Office Visit Jameson Veloz MD [facility] - In-person encounter Office Visit Jameson Veloz MD [facility] - In-person encounter Office Visit Jameson Veloz MD [facility] - In-person encounter Office Visit Derek Mendez MD [facility] - In-person encounter Office Visit Jameson Veloz MD [facility] Office - In-person encounter Office Visit Jameson Veloz MD [facility] Current long-term use of Amiodarone - In-person encounter Office Visit Jameson Veloz MD [facility] Shortness of breathPalpitationsCurrent use of anticoagulantsPreop examDizziness - In-person encounter Office Visit Jameson Veloz MD [facility] CHEST PAIN - In-person encounter Office Visit Rene Torres MD [facility] - In-person encounter Office Visit Jameson Veloz MD [facility] - In-person encounter Office Visit Jameson Veloz MD [facility] - In-person encounter Office Visit Jameson Veloz MD [facility] Obstructive sleep apnea - on CPAPBradycardia - In-person encounter Office Visit Jameson Veloz MD [facility] - In-person encounter Office Visit Jameson Veloz MD [facility] CAD - In-person encounter Office Visit Jameson Veloz MD [facility] CADHyperlipidemiaCurrent long-term use of Amiodarone - In-person encounter Office Visit Jameson Veloz MD [facility] Mitral regurgitationAtrial fibrillation, paroxysmalCurrent use of anticoagulants - In-person encounter Office Visit Jameson Veloz MD [facility] CADHTN ESSENTIALCAROTID ARTERY DISEASE- CAROTID NEGAortic regurgitationMitral regurgitationTricuspid regurgitationObstructive sleep apnea - on CPAP - In-person encounter Office Visit Latoya Lopes MD [facility] CADHTN ESSENTIALCHEST PAIN - In-person encounter Office Visit Latoya Lopes MD [facility] CADOBESITYHTN ESSENTIALCHEST PAIN VITAL SIGNS Date Observation Value Provider Body Mass Index (Ratio) 27.12 kg/m2 Raza Fonseca blood pressure, diastolic 82 mm[Hg] Shu yla [facility] blood pressure, systolic 147 mm[Hg] Lucía la [facility] oxygen saturation, oximetry 99 % Ann [facility] pulse rate 76 /min Ann [facility] weight E&M 163 [lb_av] Ann [facility] height E&M 65 [in_i] Ann [facility] blood pressure, diastolic 79 mm[Hg] Ja rret [...] Gris kLogic weight E&M 163 [lb_av] Phoebe [place] pulse rate 67 /min Phoebe [place] blood pressure, cuff size regular Marc ritter [place] blood pressure, diastolic 82 mm[Hg] Marc ritter [place] blood pressure, systolic 128 mm[Hg] [facility] [place] oxygen saturation, oximetry 97 % Phoebe [place] respiratory rate E&M 12 /min Phoebe [place] height E&M 65 [in_i] [facility] Body Mass Index (Ratio) 28.92 kg/m2 Bhavik [...] blood pressure, diastolic 84 mm[Hg] [facility] le[facility] Leoanrd blood pressure, systolic 162 mm[Hg] De Leonard [...] William oxygen saturation, oximetry 97 % Amanda Rye pulse rate 70 /min Amanda Rye respiratory rate E&M 16 /min Catheri ne Rye weight E&M 174 [lb_av] Amanda Rye blood pressure, cuff size regular Ca therine Rye height E&M 65 [in_i] Amanda Rye Body Mass Index (Ratio) 29.78 kg/m2 Minna Wrightcarlos blood pressure, diastolic 78 mm[Hg] yue [place] blood pressure, systolic 140 mm[Hg] [facility] fabienne [place] oxygen saturation, oximetry 97 [...] noelleanalara pulse rate 64 /min Annabelle [place] [facility] weight E&M 183 [lb_av] Annabelle [place] [facility] height E&M 65 [in_i] Annabelle [place] [facility] Body Mass Index (Ratio) 30.12 kg/m2 Vishal pretty [facility] pulse rate 76 /min [facility] blood pressure, diastolic 80 mm[Hg] Al leonela [facility] blood pressure, systolic 159 mm[Hg] Dionne rizvi [facility] weight E&M 181 [lb_av] [facility] height E&M 65 [in_i] [facility] Body Mass Index (Ratio) 30.78 kg/m2 Vishal pretty [facility] blood pressure, cuff size regular [facility] oxygen saturation, oximetry 98 % [facility] respiratory rate E&M 19 /min Adele Ash[place] pulse rate 69 /min [facility], diastolic 80 mm[Hg] Kr isty [place] blood pressure, systolic 140 mm[Hg] [facility]&M 185 [lb_av] Adele Felice height E&M 65 [in_i] [facility] Body Mass Index (Ratio) 29.62 kg/m2 Vishal pretty [facility] pulse rate 70 /min Minnie Block oxygen [...] pressure, diastolic, left arm 66 mm [Hg] [facility] blood pressure, systolic, left arm 130 mm [Hg] [facility] blood pressure, diastolic, right arm 70 m m[Hg] [facility] blood pressure, systolic, right arm 132 m m[Hg] [facility] Body Mass Index (Ratio) 30.12 kg/m2 Vish[address] sukhwinder [facility] blood pressure, cuff size regular Cy dustindeb [...] jerome Ch[place] oxygen saturation, oximetry 98 % [place] respiratory rate E&M 16 /min [place] pulse rate 64 /min [place] weight E&M 180 [lb_av] Kinjal height E&M 65 [in_i] Kinjal [place] Body Mass Index (Ratio) 31.12 kg/m2 Jameson Veloz MD blood pressure, cuff size large Ke rri [facility] blood pressure, diastolic 80 mm[Hg] Ke rri [facility] blood pressure, systolic 130 mm[Hg] Radha buzz Ignacio oxygen saturation, oximetry 97 % Annabelle Thairockingham [facility] hospital[facility] respiratory rate E&M 20 /min Annabelle Poly gregorio pulse rate 66 /min Annabelle Nan [facility] weight E&M 187 [lb_av] Annabelle hTaie [facility] height E&M 65 [in_i] Annabelle Nan [facility] Body Mass Index (Ratio) 30.62 kg/m2 Vishal Yoo blood pressure, cuff size regular Kr isty [place] blood pressure, diastolic 70 mm[Hg] Kr isty [place] blood pressure, systolic 130 mm[Hg] Kri shannon [place] respiratory rate E&M 17 /min Adele Felice oxygen saturation, oximetry 98 % Adele Ashburn pulse rate 66 /min Adele Felice weight E&M 184 [lb_av] Adele Ashburn height E&M 65 [in_i] Adele Ashburn Body Mass Index (Ratio) 31.28 kg/m2 Vishal [...] pressure, diastolic, left arm 80 mm [Hg] Borup [place] blood pressure, systolic, left arm 134 mm [Hg] [facility], diastolic, right arm 86 m m[Hg] [facility] blood pressure, systolic, right arm 134 m m[Hg] Steve [place] blood pressure, diastolic 86 mm[Hg] Yamila seph [place] blood pressure, systolic 134 mm[Hg] [place] [facility] [place] pulse rate 62 /min [facility] oxygen saturation, oximetry 98 % [facility] respiratory rate E&M 16 /min [facility] weight E&M 200 [lb_av] [facility] Body Mass Index (Ratio) 33.57 kg/m2 Walker [...] LinkLogic 3.5-5.2 sodium, serum 138 mmol/L [employer] [id number] 6867/12/ 09 urea nitrogen/creatinine ratio, serum 10 [employer] 10-24 eGFR if 70 mL/min/{1 .73_m2} [employer] >59 eGFR if not 61 mL/min/{1 .73_m2} [employer] >59 creatinine, serum 1.17 mg/dL [employer] 0.76-1.27 urea nitrogen, blood 12 mg/dL [employer] 8-27 blood glucose, random 94 mg/dL [employer] 65-99 thyroid stimulating hormone, serum 1.570 u[IU]/mL [facility] platelet count 266 10*3/uL [facility] red blood cell distribution width 13.2 % [facility] mean corpuscular hemoglobin concentration, RBC 31.5 g/dL [facility] mean corpuscular hemoglobin, RBC 30.1 pg [facility] mean corpuscular volume, RBC 95.4 fL [facility] hematocrit, blood 41.9 % [facility] hemoglobin, blood 13.2 g/dL [facility] erythrocyte (RBC) count 4.39 10*6/mm3 [facility] leukocyte count, blood 6.8 10*3/mm3 [facility] triglyceride, serum, fasting 87 mg/dL [facility] HDL cholesterol, serum 42 mg/dL [facility] LDL cholesterol, serum 75 mg/dL [facility] cholesterol, serum 134 mg/dL [facility] protein, total, serum 6.5 g/dL [facility] albumin, serum 3.9 g/dL [facility] bilirubin, serum, total 0.80 mg/dL [facility] alkaline phosphatase, serum 72 1/L [facility] alanine aminotransferase (SGPT), serum 18 1/L [facility] aspartate aminotransferase (SGOT), serum 26 1/L [facility] calcium, serum 9.3 mg/dL [facility] blood glucose, random 99 mg/dL [facility] creatinine, serum 1.00 mg/dL [facility] urea nitrogen, blood 15 mg/dL [facility] carbon dioxide, serum, total 28 mmol/L [facility] chloride, serum 103 mmol/L [facility] potassium, serum 3.8 mmol/L [facility] sodium, serum 139 mmol/L [facility] thyroid stimulating hormone, serum 2.630 u[IU]/mL [facility] platelet count 248 10*3/uL [facility] red blood cell distribution width 13.9 % [facility] mean corpuscular hemoglobin concentration, RBC 32.4 g/dL [facility] mean corpuscular hemoglobin, RBC 30.5 pg [facility] mean corpuscular volume, RBC 94.2 fL [facility] hematocrit, blood 42.6 % [facility] hemoglobin, blood 13.8 g/dL [facility] erythrocyte (RBC) count 4.52 10*6/mm3 [facility] leukocyte count, blood 5.8 10*3/mm3 [facility] triglyceride, serum, fasting 86 mg/dL [facility] HDL cholesterol, serum 50 mg/dL [facility] LDL cholesterol, serum 85 mg/dL [facility] cholesterol, serum 152 mg/dL [facility] protein, total, serum 7.0 g/dL [facility] albumin, serum 4.2 g/dL [facility] bilirubin, serum, total 0.70 mg/dL [facility] alkaline phosphatase, serum 67 1/L [facility] alanine aminotransferase (SGPT), serum 26 1/L [facility] aspartate aminotransferase (SGOT), serum 29 1/L [facility] calcium, serum 9.8 mg/dL [facility] blood glucose, random 93 mg/dL [facility] creatinine, serum 1.17 mg/dL [facility] urea nitrogen, blood 16 mg/dL [facility] carbon dioxide, serum, total 28 mmol/L [facility] chloride, serum 102 mmol/L [facility] potassium, serum 4.3 mmol/L [facility] sodium, serum 140 mmol/L [facility] LDL cholesterol, serum 85 mg/dL [facility] alanine aminotransferase (SGPT), serum 15 1/L [employer] [...] 0.0 - 1.2 platelet count 240 10*3/mm3 [facility] hematocrit, blood 44.8 % [facility] lipoprotein, beta, serum, point, quantitative, calculated 177 mg/dL [facility] cholesterol, serum 244 mg/dL [facility] international normalized ratio (INR) 1.0 [facility] creatinine, serum 0.94 mg/dL [facility] potassium, serum 4.4 mmol/L [facility] sodium, serum 141 mmol/L [facility] HISTORY OF MEDICATION USE Medication Status [...] history of marijuana use no Meagan Ventimiglia [facility] drug use no Meagan Ventimig lalito [facility] alcohol use no Meagan Ventimig lalito [facility] passive cigarette sm branden exposure yes Meagan Ventimiglia [facility] chewing tobacco use Never Meagna V entimiglia [facility] smoking status Never smoker Meagan Ventim iglia [facility] personal history of marijuana use no Jameson Veloz MD drug use no Jameson eVloz MD alcohol use no Jameson Veloz MD passive cigarette sm branden exposure yes Jameson Veloz MD chewing tobacco use Never Jameson ramirez MD smoking status Never smoker Jameson Humphreys personal history of marijuana use no Meagan Ventimiglia [facility] drug use no Meagan 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 Meagan 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 passive cigarette sm branden exposure yes Meagan Ventimiglia [facility] chewing tobacco use Never Meagan Radha entimiglia [facility] smoking status Never smoker Meagan Ventisofiya iglia [facility] caffeine use, averag e drinks per day [...] - no changes required Jameson Veloz MD social history E&M Marital Statu [...] e drinks per day 3 /d Amanda Rye passive cigarette sm branden exposure yes Amanda Rye smoking status Never smoker Amanda Barbi s [...] Tony passive cigarette sm branden exposure yes Sparkle Tony smoking status Never smoker Sparkle morrison [...] Alexandre Naila smoking status Never smoker Alexandre [facility] social history reviewed E&M revi ewed - [...] Jameson Veloz MD alcohol use no Adele Ashburn caffeine use, averag e drinks per day 3 /d Adele Ashburn drug use no Adele Ashburn passive cigarette sm branden exposure yes Adele Ashburn smoking status Never smoker Adele Felice social history E&M Marital Statu s: L paco with family/friends E thnicity: Smoking History: Rayna rosenberg has never smoked. Jameson Veloz MD social history reviewed E&M andrey ewed [...] Angina (inactive) Management Plan continue current therapy [facility] HRA, CV Assess/Plan, Angina (inactive) Management Plan continue current therapy [facility] HRA, CV Assess/Plan, Angina (inactive) Management Plan continue current therapy [facility] HRA, CV Assess/Plan, Angina (inactive) Management Plan [...] Payer name Policy type / Coverage type [place] [employer] party ID [place] [employer] Medicare [id number] [facility] [employer] [id number] ADVANCE DIRECTIVES Name Date DISCUSSED - NO DECISION MADE TREATMENT PLAN Date Name Performer [id number],C, B P today: 150/50 P rior BP: 162/84 (11/08/2022) Labs Reviewed: C reat: 1.17 (10/13/2020) C hol: 134 (05/18/2020) HDL: 42 (05/18/2020) LDL: 75 (05/18/2020) T (05/18/2020) His updated medication list for this problem includes: Diltiazem Hcl 120 Mg Capsule,extended Release 24hr (Diltiazem hcl) ..... Take 1 capsule by mouth once a day Jameson Veloz MD [id number],S, H is updated medication list for this problem includes: Diltiazem Hcl 120 Mg Capsule,extended Release 24hr (Diltiazem hcl) ..... Take 1 capsule by mouth once daily Pacerone 100 Mg Tablet (Amiodarone) ..... Take 1 tablet by mouth once daily *need appt* Jameson Veloz MD [id number],S, H is updated medication list for this problem includes: Atorvastatin 10 Mg Tablet (Atorvastatin) ..... Take 1 tablet by mouth once daily Jameson Veloz MD [id number],S, H is updated medication list for this problem includes: Diltiazem Hcl 120 Mg Capsule,extended Release 24hr (Diltiazem hcl) ..... Take 1 capsule by mouth once daily Jameson Veloz MD [id number],S, B P today: 162/84 P rior BP: 158/76 (05/03/2022) Labs Reviewed: C reat: 1.17 (10/13/2020) C hol: 134 (05/18/2020) HDL: 42 (05/18/2020) LDL: 75 (05/18/2020) T (05/18/2020) His updated medication list for this problem includes: Diltiazem Hcl 120 Mg Capsule,extended Release 24hr (Diltiazem hcl) ..... Take 1 capsule by mouth once daily Jameson Veloz MD [id number],C, H is updated medication list for this problem includes: Atorvastatin 10 Mg Tablet (Atorvastatin) ..... Take 1 tablet by mouth once daily Minnie Rivas [id number],S, T he patient is using CPAP on a regular basis. The patient has been benefiting from therapy and should continue use. Minnie Rivas [id number],S, W eight loss advised. Minnie Rivas [id number],C, B P today: 158/76 P rior BP: 140/78 (05/04/2021) Labs Reviewed: C reat: 1.17 (10/13/2020) C hol: 134 (05/18/2020) HDL: 42 (05/18/2020) LDL: 75 (05/18/2020) T (05/18/2020) His updated medication list for this problem includes: Diltiazem Hcl 120 Mg Capsule,extended Release 24hr (Diltiazem hcl) ..... Take 1 capsule by mouth once daily Minnie Rivas [id number],C, N o chest pain. His updated medication list for this problem includes: Diltiazem Hcl 120 Mg Capsule,extended Release 24hr (Diltiazem hcl) ..... Take 1 capsule by mouth once daily Minnie Rivas [id number],C,T he pt is feeing very well, no palpitations. . He is on amiodarone 100 mg daily, no side effects. Will obtain PFTs, LFTs, and TFS. Schedule echo. Minnie Marinraj [id number],C,T he pt is feeing very well, no [...] mouth once daily *need appt* Minnie Rivas [id number],C,C HOL: 134 (05/18/2020) LDL: 75 (05/18/2020) HDL: 42 (05/18/2020) T (05/18/2020) His updated medication list for this problem includes: Lipitor 10 Mg Oral Tablet (Atorvastatin calcium) ..... One tab. daily Jameson Veloz MD [id number],S, T TE in 2019 showed moderate aortic valve regurgitation. Jameson Veloz MD [id number],C,H e may hold Eliquis for any duration requested by the surgeon. Jameson Veloz MD [id number],C,N o further palpitations, tolerating Amiodarone well. He [...] Take 1 capsule by mouth once daily [facility]:Unable to use CPAP as machine is not working properly h ave asked him to f/u with CPAP company i f repeat sleep study warranted will arrange [facility] Card[facility]:remains i n NSR O n amiodarone [...] Take 1 tablet by mouth once daily [facility]:moderate per last echo W lll update echo prior to next visit [facility]:moderate on last cardiac cath n o new chest pain or SOB His updated medication list for this problem includes: Diltiazem Hcl (cardizem Cd) 120 Mg Capsule,extended Release 24hr (Diltiazem hcl (cardizem cd)) ..... Take 1 capsule by mouth once daily [facility]: H is updated medication list for [...] W ill have them adjust CPAP settings [facility]: H is updated medication list for this problem includes: Atorvastatin 10 Mg Tablet (Atorvastatin) ..... Take 1 tablet by mouth once daily [facility]:BP at goa l continue present medication regimen H is updated medication list for this problem includes: Diltiazem Hcl 120 Mg Capsule,extended Release 24hr (Diltiazem hcl) ..... Take 1 capsule by mouth once daily [facility]:Has histo ry of minimal non-obstructive CAD R ecent hospital stay for SOB W ill plan nuclear stress test to r/o ischemia in setting of SOB and prior to surgery H is updated medication list for this problem includes: Diltiazem Hcl 120 Mg Capsule,extended Release 24hr (Diltiazem hcl) ..... Take 1 capsule by mouth once daily [facility]:In NSR at this time. Remains on amiodarone O n xarelto for AC H is updated medication list for this problem includes: Diltiazem Hcl 120 Mg Capsule,extended Release 24hr (Diltiazem hcl) ..... Take 1 capsule by mouth once daily Pacerone 200 Mg Tablet (Amiodarone) ..... 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 His [...] beads) ..... One capsule daily Alexandre Yoo TeleHealth:His [facility] ed medication list for this problem [...] Dr. Melendez that we are resuming Amiodarone. [facility] TeleHealth:Pt report s a few episodes of AFib, lasting about 45-50 minutes at a time. He would like to resume Amiodarone. His only side effect from the Amiodarone was redness of the face when out in the sun. We will resume Amiodarone 100mg daily and he was advised to use suncreen and wear wide brim hats when out in the sun. [facility] Cardiology:The patie nt is using CPAP on a regular basis. The patient has been benefiting from therapy and should continue use. [facility] Cardiology [facility] Cardiology [facility] Cardiology:His [facility] ed medication list for this problem includes: Lipitor 10 Mg Oral Tablet (Atorvastatin calcium) ..... One tab. daily [facility] Cardiology:BP today: 140/80 P rior BP: 142/70 (08/04/2020) His updated medication list for this problem includes: Diltiazem Hcl Er Coated Beads 120 Mg Oral Capsule Extended Release 24 Hour (Diltiazem hcl coated beads) ..... One capsule daily [facility] Cardiology:Chest tig htness with palpitations but none otherwise. His updated medication list for this problem includes: Diltiazem Hcl Er Coated Beads 120 Mg Oral Capsule Extended Release 24 Hour (Diltiazem hcl coated beads) ..... One capsule daily [facility] Cardiology:Pt had an episode of palpitations associated [...] Tablet (Apixaban) .... One tablet twice daily [facility] Cardiology:His upd ed medication list for this problem includes: Lipitor 10 Mg Oral Tablet (Atorvastatin calcium) ..... One tab. daily [facility] Cardiology:BP today: 142/70 P rior BP: 136/76 (06/08/2020) His updated medication list for this problem includes: Diltiazem Hcl Er Coated Beads 120 Mg Oral Capsule Extended Release 24 Hour (Diltiazem hcl coated beads) ..... One capsule daily [facility] Cardiology [facility] Cardiology:Has had s ome chest discomfort since working on a car. We will schedule echo and stress myoview. [facility] Cardiology:Pt compla ins of redness and flushing of the face with exertion. We will stop AMiodarone. Recent PFT's were normal. He's advised that he may develop AFib again and to call us if he does. [facility] Cardiology:Pt compla ins of redness and flushing [...] Tablet (Apixaban) .... One tablet twice daily [facility] Cardiology [facility] Cardiology [facility] Cardiology:His upd ed medication list for this problem includes: Lipitor 10 Mg Oral Tablet (Atorvastatin calcium) ..... One tab. daily [facility] Cardiology:BP today: 136/76 P rior BP: 130/66 (07/08/2019) His updated medication list for this problem includes: Diltiazem Hcl Er Coated Beads 120 Mg Oral Capsule Extended Release 24 Hour (Diltiazem hcl coated beads) ..... One capsule daily [facility] Cardiology:No chest pain. His updated medication list for this problem includes: Diltiazem Hcl Er Coated Beads 120 Mg Oral Capsule Extended Release 24 Hour (Diltiazem hcl coated beads) ..... One capsule daily [facility] [facility]re [facility] Card[facility]:Last year PFT's were normal. CMP and TSH were normal last month. Will obtain f/u PFT's. Continues on 100mg daily. [facility]:No more d izziness. Denies palpitations, chest [...] Tablet (Apixaban) .... One tablet twice daily [facility] follow up :His updated medication list for this problem includes: Diltiazem Hcl Er Coated Beads 120 Mg Oral Capsule Extended Release 24 Hour (Diltiazem hcl coated beads) ..... One capsule daily Amiodarone Hcl 100 Mg Oral Tablet (Amiodarone hcl) ..... One tablet daily [facility] follow up Alexandre [facility] Cardiology follow up :PFT's are scheduled. [facility] follow up :Pt had a few episodes of dizziness upon standing up. We will check telesentry to see if he has episodes of bradycardia. We may need to stop the Diltiazem. [facility] follow up :Pt had a few [...] (Metoprolol tartrate) ..... One tab. twice daily [facility]:BP today: 130/70 P rior BP: 142/70 (07/25/2017) His updated medication list for this problem includes: Diltiazem Hcl Er Coated Beads 120 Mg Oral Capsule Extended Release 24 Hour (Diltiazem hcl coated beads) ..... One capsule daily Metoprolol Tartrate 25 Mg Oral Tablet (Metoprolol tartrate) ..... One tab. twice daily [facility]:The patie nt is using CPAP on a regular basis. The patient has been benefiting from therapy and should continue use. [facility] Alexandre [facility] Cardiology:Orders: S NOMED-CT: [id number] Current Medications Documented ([facility]-[id number]) H EPATIC FUNCTION PANEL (14938) T SH, 3RD GENERATION (899) T -4, FREE (866) F VC - 20575 (75562) F RC - 09647 (27319) D LCO - 89332 (90772) [facility]:He has boykin d no palpitations. His [...] Hcl Er Coated Beads 120 Mg Oral [id number] (Diltiazem hcl coated beads) ..... One capsule daily Metoprolol Tartrate 25 Mg Tabs (Metoprolol tartrate) ..... One tab. twice daily Jameson Veloz MD Cardiology:The patie nt is actively using CPAP on a regular basis. He has been benefiting from therapy and should continue use. Jameson Veloz MD Cardiology Jameson Veloz MD Cardiology:[facility] for [facility] problem includes: Diltiazem Hcl Er Coated Beads 120 Mg Oral [id number]-vtv (Diltiazem hcl coated beads) ..... One capsule [...] Hcl Er Coated Beads 120 Mg Oral [id number]-[id number] (Diltiazem hcl coated beads) ..... One capsule [...] Hcl Er Coated Beads 120 Mg Oral Eu49r-aai (Diltiazem hcl coated beads) ..... One capsule [...] Hcl Er Coated Beads 120 Mg Oral [id number]-kmh (Diltiazem hcl coated beads) ..... One capsule [...] Hcl Er Coated Beads 120 Mg Oral Lq68j-hnr (Diltiazem hcl coated beads) ..... One capsule [...] severe JULIA and now has BiPAP machine. [facility]:BP today: 147/79 P rior BP: 140/80 (11/01/2016) His updated medication list for this problem includes: Diltiazem Hcl Er Coated Beads 120 Mg Oral Ox15q-mzj (Diltiazem hcl coated beads) ..... One capsule daily Metoprolol Tartrate 25 Mg Tabs (Metoprolol tartrate) ..... One tab. twice daily [facility] Cardiology:Starting Amiodarone 200mg daily. Will obtain baseline PFT's, liver panel and thyroid panel. [facility]:He previo usly tried multiple statins and could not tolerate any of them due to muscle aches. Will start Zetia 10mg daily. LDL was 162 in October 2016 in [facility]. [facility]:Cardiac cath revealed mild/moderate CAD. [facility]:Pt had an other admission for Afib/flutter with RVR. Treated with IV cardizem and is back in NSR. Will start Amiodarone 200mg daily. He was evaluated by Dr. Gallagher. His updated medication list for this problem includes: Amiodarone Hcl 200 Mg Tabs (Amiodarone hcl) ..... One tablet daily Diltiazem Hcl Er Coated Beads 120 Mg Oral [id number]-onq (Diltiazem hcl coated beads) ..... One capsule daily Metoprolol Tartrate 25 Mg Tabs (Metoprolol tartrate) ..... One tab. twice daily [facility] Card[facility]:Starting 20mg Xarelto daily for Afib. Alexandre [facility]re [place] [facility]:BP today: 140/80 P rior BP: 170/86 (09/27/2016) His updated medication list for this problem includes: Metoprolol Tartrate 50 Mg Tabs (Metoprolol tartrate) ..... One tablet twice daily <-- Increased today [facility]:Rescheduling the home sleep study. [facility] Alexandre Kumar Cardiology:Was admit garrett with [...] Alexandre Perezberg Cardiology:Orders: S lee Study Home (CPT-05769) Alexandre Naila Cardiology:Orders: S NOMED-CT: [id number] Current Medications Documented (SCT-[id number]) E KG (CPT-79493) M obile Cardiac Tele (CPT-88741) S TR - Nuclear (CPT-90759) Alexandre Yoo Cardiology:The pt co mplains of chest discomfort and palpitations. Cardiac cath in 2011 showed no CAD. Orders: S NOMED-CT: [id number] Current Medications Documented (SCT-[id number]) E KG (CPT-29086) S TR - Nuclear (CPT-00022) Alexandre Yoo Date Name Complete Echo Sleep Study Titratio n Stress Regadenoson DLCO - 45556 FRC - 24387 FVC - 78249 T-4, FREE TSH, 3RD GENERATION HEPATIC FUNCTION NDIAYE DLCO - 34835 FRC - 81687 FVC - 75734 Complete Echo RPM (remote patient monitoring) RPM (remote patient monitoring) T-4, FREE TSH, 3RD GENERATION HEPATIC FUNCTION NDIAYE DLCO - 60892 FRC - 03863 FVC - 08416 Complete Echo HEPATIC FUNCTION NDIAYE TSH, free T4, total T3 DLCO - 39841 FRC - 88152 FVC - 53161 MAGNESIUM BASIC METABOLIC PANE L W/EGFR CT, Coronary Calcium Score Stress Exercise Card iolite Complete Echo DLCO - 36855 FRC - 06289 FVC - 16288 Mobile Cardiac Tele DLCO - 18311 FRC - 32522 FVC - 47850 Complete Echo T-4, FREE TSH, 3RD GENERATION HEPATIC FUNCTION [facility] T-4, FREE TSH, 3RD GENERATION HEPATIC FUNCTION NDIAYE DLCO - 02624 FRC - 50962 FVC - 89432 T-4, FREE TSH, 3RD GENERATION HEPATIC FUNCTION NDIAYE Carotid Duplex Bilat eral THYROID PANEL WITH T SH, 3RD GENERATION HEPATIC FUNCTION [facility] DLCO - 18141 FRC - 80893 FVC - 86322 Complete Echo STR - Nuclear Sleep Study Home Mobile Cardiac Tele Cardiac Cath - Left - GC Carotid Duplex Bilat eral Complete Echo HISTORY OF PROCEDURES Procedure Date Procedure Name Provider Procedure Notes S tatus EKG Jameson Veloz MD completed Spirometry Jameson Veloz MD completed FVC / MVV with bronchodilator - 04115 Jameson Veloz MD completed FRC - 90297 Jameson Veloz MD completed SpO2 w/o 6min walk/titration Jameson Veloz MD completed SVC - 24707 Jameson Veloz MD completed DLCO - 43792 Jameson Veloz MD complete d Spirometry Jameson Veloz MD completed FVC / MVV with bronchodilator - 25802 Jameson Veloz MD completed FRC - 70384 Jameson Veloz MD completed SpO2 w/o 6min walk/titration Jameson Veloz MD completed SVC - 19336 Jameson Veloz MD completed DLCO - 00095 Jameson Veloz MD complete d Spirometry Jameson Veloz MD completed FVC / MVV with bronchodilator - 36704 Jameson Veloz MD completed FRC - 01128 Jameson Veloz MD completed SpO2 w/o 6min walk/titration Jameson Veloz MD completed SVC - 28269 Jameson Veloz MD completed DLCO - 93456 Jameson Veloz MD complete d FRC - 84524 Jameson Veloz MD completed Spirometry Jameson Veloz MD completed FVC / MVV - 09990 Jameson Veloz MD com pleted SpO2 w/o 6min walk/titration Jameson Veloz MD completed SVC - 43739 Jameson Veloz MD completed DLCO - 83098 Jameson Veloz MD complete d EKG Derek Mendez MD completed EKG Jameson Veloz MD completed FVC / MVV - 78589 Jameson Veloz MD com pleted FRC - 48556 Jameson Veloz MD completed SpO2 w/o 6min walk/titration Jameson Veloz MD completed DLCO - 35992 Jameson Veloz MD complete d EKG Jameson Veloz MD completed FVC / MVV with bronchodilator - 08799 Jameson Veloz MD completed BLOOD COUNT HEMOGLOBIN Jameson Veloz MD completed FRC - 15223 Jameson Veloz MD completed SpO2 w/o 6min walk/titration Jameson Veloz MD completed DLCO - 00700 Jameson Veloz MD complete d Mobile Cardiac Telem etry - Tech Jameson Veloz MD completed Mobile Cardiac Telem etry - Prof Jameson Veloz MD completed EKG Rene Torres MD complet ed FVC / MVV with bronchodilator - 79912 Jameson Veloz MD completed FRC - 59407 Jameson Veloz MD completed SpO2 w/o 6min walk/titration Jameson Veloz MD completed DLCO - 71427 Jameson Veloz MD complete d SNOMED-CT: 455934892 899198 Current Medications Documented Jameson Veloz MD completed EKG Jameson Veloz MD completed SNOMED-CT: 602191472 775970 Current Medications Documented Jameson Veloz MD completed FVC / MVV with bronchodilator - 12260 Jameson Veloz MD completed FRC - 91875 Jameson Veloz MD completed SpO2 - 89035 Jameson Veloz MD complete d DLCO - 43552 Jameson Veloz MD complete d SNOMED-CT: 287888205 474706 Current Medications Documented Jameson Veloz MD completed SNOMED-CT: 881902319 498313 Current Medications Documented Jameson Veloz MD completed FVC - 39531 Jameson Veloz MD completed FRC - 96887 Jameson Veloz MD completed DLCO - 42767 Jameson Veloz MD complete d EKG Jameson Veloz MD completed SNOMED-CT: 094995119 644194 Current Medications Documented Jameson Veloz MD completed SNOMED-CT: 625250631 363611 Current Medications Documented Jameson Veloz MD completed Stress EKG Arvin Vidal MD complete d Cardiolite, 2 units Jameson Veloz MD c ompleted SPECT Images Elkin Ribera MD complet ed Mobile Cardiac Telem etry - Tech Jameson Veloz MD completed Mobile Cardiac Telem etry - Prof Jameson Veloz MD completed EKG Jameson Veloz MD completed SNOMED-CT: 896373889 210250 Current Medications Documented Jameson Veloz MD completed
--- OUTSIDE RECORDS SUMMARY | 2025-02-08 09:11 | XMS_ITS | Encounter Summary ---
Author Organization [facility] Address [address] [place] [address] Care Team Providers Care Health Underwriter Name Role Phone Unavailable Primary Care Provider Unavailabl e Encounter Details Date Type Department Care Team (Late st Contact Info) Description 05/12/2019 Lab Requisition [facility] Care [facility] Lab [address] [place] [id number] Andre Sutton MD [address] [place] [address] Social History Tobacco Use Types Packs/Day Years [...] AM CDT) Case Report Dermatopathology Report Case: [id number] Authorizing Provider: Andre Sutton MD Collected: 05/09/2019 [...] determined by the Dermatopathology Laboratory at [facility], directed by Dr. Diana Loving. These tests need not be, and therefore are not, approved by the [place] Food and Drug Administration. The tests are used for clinical purposes. Billing Codes Specimen Charges Stain Charges 53655 1 4:19 PM CDT DERMATOPATHOLOGY LABORATORY Embedded Images 4:19 PM CDT DERMATOPATHOLOGY LABORATORY Pathology/Cytolog y TISSUE SPECIMEN FROM SKIN / Unknown 05/09/2019 05/12/2019 1:16 PM CDT Andre Sutton MD LAB - PATHOLOGY/CYTO LOGY ORDERABLES DERMATOPATHOLOGY LABORATORY [facility] - Department of Dermatology [address] [place] [address], [address] [place] [address], [facility] [[email or web address]] [phone] documented in this encounter Visit Diagnoses Not on filedocumented in this encounter
--- OUTSIDE RECORDS SUMMARY | 2025-02-08 09:11 | XMS_ITS | Clinical Summary ---
Author Organization [facility] [address] [place] [id number] Care Team Providers Care Mining Plant Operator Name Role Phone Dwayne Car MD Primary Care Provide r Jared White MD Unavailable AnsNorbert nicholson MD Unavailable Allergies No known [...] (10/18/2021): Added automatically from request for surgery [id number] Lumbar spondylosis with right S1 radiculopathy 0 07/05/2018 Spondylosis without myelopat hy or radiculopathy, cervical region 07/05/2018 Immunizations Immunization Administration Dates Next Due Influenza, Unspecified 08/05/2021 Surgical History Surgery Date Site/Laterality Comments CHOLECYSTECTOMY ERCP Medical History Medical History Date Comments Hx Other Medical 1999 resection Hx Other Medical rt ankle fusion Hx Other Medical 2003 rotatoer cuff r epair right Gastroesophageal reflux disease GERD Atrial fibrillation (HCC) Bowel obstruction (HCC) Sleep apnea Family History Medical History Relation Name Comments Cancer Other 1 Family history of Cancer -; Hypertension Other 2 Family history of Hypertension; Stroke Other 3 Family history of Stroke; Relation Name Status Comments Other 1 Other 2 Other 3 Social History Tobacco Use Types Packs/Day Years Used Date Smoking Tobacco: Never Smokeless Tobacco: Never Tobacco Cessation:Counseling Given: Not Answered Alcohol Use Standard Drinks/Week Comments No 0 (1 standard drink = 0.6 oz pur e alcohol) [employer] Answer Date Recorded In the past 12 months has [employer], gas, oil, or water [employer] threatened to shut off services in your [...] answer 10/19/2023 How often do you attend [facility] or protestant services? More than 4 times per year 10/19/2023 Do you belong to any clubs o r organizations such as religious groups, unions, fraternal or athletic groups, or [...] place to sleep or slept in a usp (including now)? No 10/19/2023 Personal Safety Answer Date Recorded Have you ever been in or are you currently in a harmful physical or emotional relationship or is someone making you feel afraid or unsafe? Denies 10/17/2023 Sex and Gender Information Value Date Recorded Sex Assigned at Not on file Legal Sex Male 10:04 PM OPERATING ROOM SURGICAL TECHNICIAN Gender Identity Not on file Sexual Orientation Not on file Obstetrics History Last Filed Vital Signs Vital Sign Reading Time Taken Comments Blood Pressure 124/72 10/20/2023 7:54 AM OPERATING ROOM SURGICAL TECHNICIAN Pulse 62 10/20/2023 7:54 AM OPERATING ROOM SURGICAL TECHNICIAN Temperature 36.9 C (98.4 F) 10/20/2023 7:54 AM OPERATING ROOM SURGICAL TECHNICIAN Respiratory Rate 19 10/20/2023 7:54 AM OPERATING ROOM SURGICAL TECHNICIAN Oxygen Saturation 95% 10/20/2023 7:54 AM OPERATING ROOM SURGICAL TECHNICIAN Inhaled Oxygen Concentration - - Weight 74.4 kg (164 lb 0.4 oz) 10/18/2023 6:15 P M OPERATING ROOM SURGICAL TECHNICIAN Height 169 cm (5' 6.54 ) 10/18/2023 6:15 PM OPERATING ROOM SURGICAL TECHNICIAN Body Mass Index 26.05 10/18/2023 6:15 PM OPERATING ROOM SURGICAL TECHNICIAN Plan of Treatment Health Maintenance Due Date Last Done Comments DTaP/Tdap/Td Vaccine (1 - Tdap) 1956 Hepatitis B Screening 1962 Well Visit 65+ 2009 Depression Screening 11/17/2022 11/17/2021 Covid-19 Vaccine (2023-2 5 season) 2024 09/26/2021, 01/11/2021, 01/03/2021, Additional history exists Influenza Vaccine (#1) 2024 , 08/05/2021, 08/05/2020, Additional history exists Fall Risk Assessment 10/20/2024 10/20/2023 Pneumococcal vaccine 65+ Completed 11/12/2018, 12/2017 Zoster Vaccine Completed 10/27/2019, 08/26/2019 Medical Devices Implanted Type Area Director Law Enforcement Device Identifier Shelf Expiration Date Model / Serial / Lot [employer] [id number] Wallflex Permalume 10mm 8.5fr 60mm 194cm Fully Cover Catheter - [id number] Implanted:Qty: 1 on 10/25/2021 by Norbert Pichardo MD at [facility] Stent [employer] 07/25/2023 [id number] / / [id number] [employer] [id number] Advanix Naviflex 10fr 7cm Preload Radiopaque Rapid Exchange - [id number] Implanted:Qty: 1 on 10/20/2021 by Norbert Pichardo MD at [facility] N/A: Other - see comments [employer] 09/08/2023 [id number] / / [id number] Description:COMMON BILE DUCT [employer] 6541 4fr 3cm Pliable Pigtail Curve Stent Pancreatic - [id number] Implanted:Qty: 1 on 10/20/2021 by Norbert Pichardo MD at [facility] N/A: Pancreas [employer] 01/03/2026 [id number] / / [id number] Insurance MEDICARE [facility] MEDICARE [facility] [place] [id number] MEDICARE [facility] [place] [id number] Advance Directives For more information, please contact: [phone] * Full Code (Latest Code Status on [...] 2:30 AM 10/20/2021 10:35 AM Care Teams Mining Plant Operator Relationship Specialty Start Date End Date Dwayne Car MD [address] [address] PCP - General Internal Medicine 07/05/18 Jared White MD [address] [address] Surgeon General Surgery 10/21/21 Norbert Pichardo MD [address] [address] Consulting Physician Gastroenterology 10/28/21
[2025-02-08 09:19] LABS: Basophils Percent Auto 0.6 % (0.2-1.2); Eosinophils Absolute Auto 0.2 K/mm3 (0-0.3); Eosinophils Percent Auto 2.3 % (0-4.4); Hematocrit 45.3 % (42.0-52.0); Hemoglobin 14.7 g/dL (14.0-18.0); Immature Granulocyte Absolute 0.01 K/mm3 (0.00-0.031); Immature Granulocyte Percent A 0.1 % (0-0.5); Lymphocytes Absolute Auto 1.04 K/mm3 (0.9-3.2); Lymphocytes Percent Auto 15.2 % (18.3-44.2); Mean Corpuscular HGB Conc 32.5 g/dl (32-36); Mean Corpuscular Hemoglobin 32.9 pg (26-34); Mean Corpuscular Volume 101.3 fl (80-100); Mean Platelet Volume 8.9 fl (7.4-10.4); Monocytes Absolute Auto 0.5 K/mm3 (0.1-0.6); Monocytes Percent Auto 7.6 % (2.6-8.5); Neutrophils Absolute Auto 5.1 K/mm3 (1.3-6.7); Neutrophils Percent Auto 74.2 % (45.5-73.1); Platelet Count Result 266 k/mm3 (150-375); Red Blood Count 4.47 M/mm3 (4.6-6.20); Red Cell Distribution Width 12.5 % (11.5-14.5); White Blood Count 6.9 K/mm3 (4.5-10.0)
[2025-02-08 09:31] LABS: INR 2.7; Prothrombin Time 28.7 Seconds (11.1-14.7)
[2025-02-08 09:32] LABS: Partial Thromboplastin Time 37.7 Seconds (22.3-36.8)
[2025-02-08 09:41] LABS: Alanine Aminotransferase 27 U/L (6-50); Albumin Level 4.9 g/dL (3.5-5.1); Alkaline Phosphatase 81 U/L (38-126); Anion Gap 12 mmol/L (4-12); Aspartate Amino Transferase 38 U/L (17-59); Bilirubin,Total 0.8 mg/dL (0.2-1.3); Blood Urea Nitrogen 8 mg/dL (9-20); Calcium 9.5 mg/dL (8.4-10.2); Carbon Dioxide 27 mmol/L (22-30); Chloride 97 mmol/L (98-107); Estimated CRCL calculation 54 ml/min; Estimated Glomerular Filt Rate > 60; Glucose 107 mg/dL (65-110); Lipase 76 U/L (23-300); Potassium 3.7 mmol/L (3.4-5.0); Sodium 136 mmol/L (137-145)
[2025-02-08 09:50] LABS: Troponin I < 0.012 ng/mL (0.000-0.034)
[2025-02-08] MEDS: TIZANIDINE HCL 2 MG TABLET PO (09:57)
[2025-02-08] MEDS: KETOROLAC 15 MG/ML VIAL (*BKC) IV PUSH (09:57)
--- NOTE | 2025-02-08 11:00 | ECG_ITS ---
Test Date: 2025-02-08 11:03:05 Measurements Intervals [place] Rate: 63 P: 36 VA: 160 QRS: -19 QRSD: 103 T: 13 QT: 426 QTc: 438 Interpretive Statements SINUS RHYTHM LEFT VENTRICULAR HYPERTROPHY WITH ST-T CHANGE MINIMAL Q WAVES- HIGH LATERAL LEADS BORDERLINE T WAVE ABNORMALITY- INFERIOR LEADS BASELINE ARTIFACT- I, II, AVR BORDERLINE ECG Compared to ECG 02/08/2025 08:18:41 NO SIGNIFICANT CHANGE Electronically Signed On 02-08-2025 12:10:57 CDT by Krystian Molina D.O.
[2025-02-08 11:32] LABS: Troponin I < 0.012 ng/mL (0.000-0.034)
--- NOTE | 2025-02-08 12:10 | ED_ITS ---
HPI - Chest Pain General Chief Complaint: Chest Pain Stated Complaint: left sided CP radiates to back Time Seen by Provider: 02/08/25 08:52 History of Present Illness HPI narrative: Patient is an 79-year-old male who presents ER with chest pain. Located in left chest. Began this morning. Worse with physical movements. No pain with deep breath. No exertional discomfort. Denies fevers or chills or sweats. Patient is anticoagulated made on Xarelto. Related Data Home Medications ?Medication ?Instructions ?Recorded ?Confirmed ?Last Taken ?Type amiodarone 100 mg tablet (Pacerone) 200 mg PO HS 08/08/23 12/24/24 Unknown History atorvastatin 10 mg tablet 10 mg PO DAILY 08/08/23 12/24/24 Unknown History diltiazem HCl 120 mg capsule,24 120 mg PO HS 08/08/23 12/24/24 Unknown History hr,extended release omeprazole 20 mg capsule,delayed 20 mg PO DAILY 01/19/24 12/24/24 Unknown History release rivaroxaban 20 mg tablet (Xarelto) 20 mg PO DAILY 01/19/24 12/24/24 05/07/24 History multivitamin 1 tablet PO DAILY 04/21/24 12/24/24 Unknown History Allergies Allergy/AdvReac Type Severity Reaction Status Date / Time No Known Allergies Allergy Verified 12/24/24 07:53 Review of Systems 2 Review of Systems: All systems reviewed & are unremarkable except as noted in HPI and below Constitutional: Constitutional: Reports no additional constitutional complaints Cardiovascular: Cardiovascular: Reports no additional cardiovascular complaints Respiratory: Respiratory: Reports no additional respiratory complaints Gastrointestinal: Gastrointestinal: Reports no additional gastrointestinal complaints Musculoskeletal: Musculoskeletal: Reports no additional musculoskeletal complaints [facility] Past Medical History Medical History Encounter for postoperative care Chronic atrial fibrillation Chronic anticoagulation GERD (gastroesophageal reflux disease) Hyperlipidemia Obstructive sleep apnea on CPAP Essential hypertension Rheumatoid arthritis Paroxysmal atrial fibrillation Surgical History Surgical History History of partial colectomy (~1989) Due to perforated bowel with colostomy and then later colostomy takedown Finger joint replacement of left hand 1st and 2nd digit 1st PIP History of total left knee replacement Status post cataract extraction of both eyes with insertion of intraocular lens Status post ankle arthrodesis History of cholecystectomy (~2020) Family History Family History Unknown Hypertension Diabetes mellitus Cerebrovascular accident Lung cancer Social History Social History Social History: Patient lives at home with his of 60 years. They raised a daughter and a son. He is retired from [employer]. He is a lifelong nonsmoker and does not drink alcohol or use illicit substances. He is independent activities of daily living. Code status: Full code (however he states he would not want to be on ventilator long-term or received G-tube feeds.) Healthcare power of title attorney: Gage Colon (son) Smoking status: Never smoker Second hand tobacco smoke exposure: No Alcohol intake: never Substance use: never Substance use type: does not use Do You Feel Safe in your Home?: Yes Lack of Transportation: No Lack of Food: Never True Current Housing: I Have Housing Concerned About Future Housing: No Difficulty Paying Gas/Electric Bills: No Difficulty Paying for Meds: No Currently Unemployed: No Education: Decline to Answer Difficulty w/ Childcare or Family Care: No Living arrangements: with family Occupation/Education: retired Gender identity (if verbalized by the patient): Male Spiritual care concerns: No Exam 2 Narrative: GENERAL: Well-appearing, well-nourished, and in no acute distress. HEAD: Normocephalic, atraumatic. ENT: Mucous membranes moist. CHEST: Clear to auscultation. No respiratory distress. Tender to left pectoralis with light palpation. HEART: Regular rate and rhythm. Normal peripheral pulses. ABDOMEN: Soft, nontender, nondistended. EXTREMITIES: Normal range of motion. No edema. SKIN: Warm, dry, no rash. NEURO: Alert and oriented x3. PSYCH: Normal mood and affect. Course Course Emergency Course: Pain improved with tizanidine and Toradol. Troponins negative x2. Pain seems very much musculoskeletal. Appropriate for discharge home. Vital Signs Vital signs: Vital Signs Temperature 97 F L 02/08/25 08:10 Pulse Rate 72 02/08/25 08:10 Respiratory Rate 16 02/08/25 08:10 Blood Pressure 177/78 H 02/08/25 08:10 Pulse Oximetry 100 02/08/25 08:10 Oxygen Delivery Room Air 02/08/25 08:10 Temperature 97 F L 02/08/25 08:10 Pulse Rate 62 02/08/25 12:15 Respiratory Rate 18 02/08/25 12:00 Blood Pressure 138/88 02/08/25 12:00 Pulse Oximetry 100 02/08/25 12:00 Oxygen Delivery Room Air 02/08/25 09:10 MDM - Chest Pain Lab Data 02/08/25 09:10 02/08/25 09:10 Labs: Lab Results 02/08/25 02/08/25 Range/Units 09:10 11:03 WBC 6.9 (4.5-10.0) K/mm3 RBC 4.47 L (4.6-6.20) M/mm3 Hgb 14.7 (14.0-18.0) g/dL Hct 45.3 (42.0-52.0) % MCV 101.3 H (80-100) fl MCH 32.9 (26-34) pg MCHC 32.5 (32-36) g/dl RDW 12.5 (11.5-14.5) % Plt Count 266 (150-375) k/mm3 MPV 8.9 (7.4-10.4) fl Immature Gran % (Auto) 0.1 (0-0.5) % Neut % (Auto) 74.2 H (45.5-73.1) % Lymph % (Auto) 15.2 L (18.3-44.2) % [place] % (Auto) 7.6 (2.6-8.5) % Eos % (Auto) 2.3 (0-4.4) % Baso % (Auto) 0.6 (0.2-1.2) % Lymph # (Auto) 1.04 (0.9-3.2) K/mm3 [place] # (Auto) 0.5 (0.1-0.6) K/mm3 Eos # (Auto) 0.2 (0-0.3) K/mm3 Baso # (Auto) 0.0 (0.0-0.1) K/mm3 Abs Immat Gran (auto) 0.01 (0.00-0.031) K/mm3 Absolute Neuts (auto) 5.1 (1.3-6.7) K/mm3 Absolute Nucleated RBC 0.000 (0.0-0.012) K/mm3 Nucleated RBC % 0.0 (0.0-0.2) % PT 28.7 H (11.1-14.7) Seconds INR 2.7 APTT 37.7 H (22.3-36.8) Seconds Sodium 136 L (137-145) mmol/L Potassium 3.7 (3.4-5.0) mmol/L Chloride 97 L (98-107) mmol/L Carbon Dioxide 27 (22-30) mmol/L Anion Gap 12 (4-12) mmol/L BUN 8 L (9-20) mg/dL Creatinine 0.86 (0.7-1.3) mg/dL Estim Creat Clear Calc 54 ml/min Estimated GFR > 60 (59 - ) Glucose 107 (65-110) mg/dL Calcium 9.5 (8.4-10.2) mg/dL Total Bilirubin 0.8 (0.2-1.3) mg/dL AST 38 (17-59) U/L ALT 27 (6-50) U/L Alkaline Phosphatase 81 (38-126) U/L Troponin I < 0.012 < 0.012 (0.000-0.034) ng/mL Total Protein 8.0 (6.3-8.2) g/dL Albumin 4.9 (3.5-5.1) g/dL Lipase 76 (23-300) U/L Imaging Data Radiologist's impression: ITS Impressions Chest X-Ray 02/08/25 08:54 IMPRESSION: No acute cardiopulmonary pathology. ECG Data EKG #1: ECG completion date: 02/08/25 ECG completion time: 11:03 EKG Interpretation: normal rate (63), sinus rhythm, no ST changes, normal QRS, normal QT and NL axis Discharge Plan Discharge Clinical Impression: Chest wall pain Patient Disposition: Home, Self-Care Condition: Stable Instructions: Chest Wall Pain (ED) Additional Instructions: Please return to the emergency department if you develop severe and persistent chest pain, difficulty breathing, dizziness, leg swelling or if you are coughing up blood as these can be signs of a medical emergency. Please call your doctor for a follow up appointment to determine the need for further testing. Patient Language: Yoruba Prescriptions: New cyclobenzaprine 5 mg tablet 5 mg PO TID PRN (Reason: muscle spasm) Qty: 12 0RF No Action amiodarone [Pacerone] 100 mg tablet 200 mg PO HS atorvastatin 10 mg tablet 10 mg PO DAILY diltiazem HCl 120 mg capsule,extended release 24 hr 120 mg PO HS hydrocodone-acetaminophen 5-325 mg tablet 1 tablet PO Q6H PRN (Reason: pain) Qty: 30 0RF cyclobenzaprine 5 mg tablet 5 mg PO TID PRN (Reason: muscle spasm) Qty: 15 0RF lidocaine 5 % adhesive patch,medicated 1 patch topical DAILY Qty: 15 0RF Rx Instructions: leave on most painful area for up to 12 hrs omeprazole 20 mg capsule,delayed release(DR/EC) 20 mg PO DAILY Xarelto 20 mg Tablet 20 mg PO DAILY multivitamin Tablet 1 tablet PO DAILY polyethylene glycol 3350 17 gram powder in packet 17 g PO DAILY PRN (Reason: constipation) Qty: 14 1RF sennosides-docusate sodium [Senna with Docusate Sodium] 8.6-50 mg tablet 1 tab-cap PO BID PRN (Reason: constipation) Qty: 20 1RF Follow-up/Referrals: Josep,MD Andrea [Primary Care Provider] - 1 Week Quality HEART score for chest pain patients History: slightly suspicious ECG: normal Age: > or = to 65 years Risk factors: 1 or 2 risk factors Troponin: < or = to 1x normal limit Heart score: 3
== END 2025-02-08 12:47 | disposition home or self-care (01) ==
PROVIDERS: Emergency Provider Emergency Medicine; PCP Internal Medicine
DX: R07.89 Other chest pain (principal); Z79.01 Long term (current) use of anticoagulants; I48.20 Chronic atrial fibrillation, unspecified; K21.9 Gastro-esophageal reflux disease without esophagitis; G47.33 Obstructive sleep apnea (adult) (pediatric); I10 Essential (primary) hypertension; M06.9 Rheumatoid arthritis, unspecified
CPT/HCPCS: 36415; 71046; 80053; 83690; 84484; 85025; 85610; 85730; 93005; 96374; 99284; A9270; J1885

== ENCOUNTER 2025-04-29 12:49 | Outpatient (CLI) | payer MEDICARE, OTHER, SELFPAY ==
--- NOTE | ~2025-04-29 | CT_ITS ---
EXAMINATION: CT pelvis wo con DATE: 04/29/2025 13:13 INDICATION: Other specified disorders of bone, thigh. Sclerotic lesion at the proximal left femur. TECHNIQUE: Computed tomography (CT) of the pelvis was performed without intravenous contrast. Automat ed exposure control and iterative reconstruction technique were employed.The dose-length product was 314.44 mGy-cm. COMPARISON: CT dated 03/23/2024 FINDINGS: Postoperative changes prior partial colectomy with SLAC suture line at the distal aspect of the short sigmoid colon and multiple surgical clips in the region of the sigmoid mesentery. Mandibular the vis ualized bowels are unremarkable with no obstruction. Small bilateral fat-containing inguinal hernias, right greater than left. No free fluid in the pelvis. Numerous small dystrophic calcifications along the peripheral facet of the penis consistent with Peyronie's disease. No pathologically enlarged pel zohra or inguinal lymphadenopathy. No significant interval change in a large mixed lytic and sclerotic lesion of the left innominate bone with suggestion of mild expansion of bone, mild thickening of the surrounding cortices and a few thickened thickened trabecula extending across the central fatty marro w. 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 There is also been no interval change in a few large sclerotic lesions with spiculated margins consistent with bone islands, one in the right innominate bone and 2 in the proximal left femur. Severe lower lumbar spondylosis. IMPRESSION: 1. No interval change since 03/23/2024 and pagetoid changes in the left innominate bone and large scle rotic bone islands at the proximal left femur and right innominate bone. 2. Severe lower lumbar spondylosis. 3. Small bilateral fat-containing inguinal hernias. 4. Peyronie's disease. Reviewed, dictated and finalized at location A. IMPRESSION: 1. No interval change since 03/23/2024 and pagetoid changes in the left innomina te bone and large sclerotic bone islands at the proximal left femur and right i nnominate bone. 2. Severe lower lumbar spondylosis. 3. Small bilateral fat-containing inguinal hernias. 4. Peyronie's disease.
== END 2025-04-29 12:50 | disposition home or self-care (01) ==
PROVIDERS: PCP Internal Medicine; Visit Provider Orthopaedic Surgery
DX: M89.8X5 Other specified disorders of bone, thigh (principal); K40.20 Bilateral inguinal hernia, without obstruction or gangrene, not specified as recurrent; M47.896 Other spondylosis, lumbar region; N48.6 Induration penis plastica
CPT/HCPCS: 72192

== ENCOUNTER 2025-07-29 09:34 | Outpatient (CLI) | payer MEDICARE, OTHER, SELFPAY ==
--- OUTSIDE RECORDS SUMMARY | 2005-03-17 04:30 | XMS_ITS | Continuity of Care Document ---
Author Organization [facility] Address [address] [place] [address] Phone Care Team Providers Care Tube Winder Hand Name Role Phone Doisy, Edward Unavailable Unavailable Advance Directives Directive Yes / No Effective Date File Name No Information Encounters Encounter Description Practice Location Reason(s) For Visit Diagnoses Date Provider Providers Copied on Encounter [facility], [address], [place], [place], [id number], [place] tel:[phone] [facility] No Information 3-200 5 Doisy Edward. [address] [facility] , [address], [place], [address], [place]. tel:[phone] Family History Family Member Type Diagnosis Age At Onset No Information Payers Payer name Insurance type Covered constitution party ID Authoriza tion(s) No Information Social History Type Description Quantity Date Captured Comments Sex Male Smoking Status No Information Chief Complaint And Reason For Visit No Information Reason For Referral Reason For Referral No Information History Of Present Illness Encounter Date Complaint History Of Prese nt Illness No Information Functional Status Date Functional Assessmen t No Information Instructions Date Instruction Additional Infor mation No Information Assessments Type Assessment Date No Information Patient Care Teams Name Effective Dates (start - stop) Status Members No Information
--- OUTSIDE RECORDS SUMMARY | 2007-12-20 04:35 | XMS_ITS | Continuity of Care Document ---
Author Organization [facility] Address [address] [place] [address] [address] Phone Care Team Providers Care Service Greeter Name Role Phone Castillo Acosta MD Unavailable Unavailable Procedures Procedure Date Office/outpatient visit,[facility] 2007 Drain/inject intermed joint/bursa X-ray exam of ankle, complete 8 Office/outpatient visit,[facility] 2006 Drain/inject intermed joint/bursa Depo Medrol Methylprednisolone 40 MG inj Office/outpatient visit,[facility] 2006 Drain/inject major jointor bursa 2006 Depo Medrol Methylprednisolone 40 MG inj Office/outpatient visit,[facility] 2006 X-ray exam of ankle, complete 7 Advance Directives Directive Yes / No Effective Date File Name No Information Encounters Encounter Description Practice Location Reason(s) For Visit Diagnoses Date Provider Providers Copied on Encounter Office/outpat ient visit,[facility], [address] [place] [address], [id number], tel:[phone] [facility] No Information 8 Karla Chong. [address] [place] [address], [place], [place], [id number] , [place]. [phone] Office/outpat ient visit,[facility], [address] [place] [address], [id number], tel:[phone] [facility] No Information 7 Karla Castillo. [address] [facility], [address], [place], [place], [id number] , [place]. tel: [phone] Office/outpat ient visit,est, low [facility], [address], [id number], [place] [phone] [facility] No Information 7 Kostajorge Chong. [address] [facility], [facility] [address], [place], [place], [id number] , [place]. tel: [phone] Office/outpat ient visit,[place], [address], [id number], [place] [phone] [facility] No Information 0 7 Kostajorge Chong. [address], [id number] , [place]. tel: [phone] Family History Family Member Type Diagnosis Age [...]
--- OUTSIDE RECORDS SUMMARY | 2025-07-17 06:24 | XMS_ITS | Continuity of Care Document ---
Author Organization [facility] Address [address] [place] [phone] Phone Care Team Providers Care Assistant Real Estate Manager Name Role Phone Magdiel MORFIN, FACC, GISSELLE, Jameson Unavailable Unava ilable Allergies, Adverse Reactions, Alerts Substance Reaction Status Criticality METOPROLOL TARTRATE Abnormal sexual function Active No Information ezetimibe Myalgias Active No Information Toxtmwe-OII-QcO Reductase Inhibitors Myalgias Acti ve No Information ROSUVASTATIN CALCIUM Myalgias Active No Info rmation Medications Medication Instructions Dosage Effective Dates (start - stop) Status Comments amiodarone 100 mg tablet take 1 tablet by oral route every day 100 MG - Active amiodarone 200 mg tablet take 1/ 2 tablet by oral route every day = 100mg as ordered - Active dilTIAZem HCl ER Coated Beads 120 MG Oral Capsule Extended Release 24 Take 1 capsule by mouth once daily - Active atorvastatin 10 mg tablet Take 1 tablet by mouth daily - Active dabigatran etexilate 150 mg capsule take 1 capsule by oral route 2 times every day 150 MG - Active hydrocodone 5 mg-acetaminophen 325 mg tablet - Active sildenafil 50 mg tablet TAKE 1 TABLET BY MOUTH ONCE A WEEK TAKE ONE-HALF HOUR BEFORE SEX NEEDED. GO TO ER IF ERECTION LASTS MORE THAN 4 HOURS - Active meloxicam 7.5 mg tablet TAKE 1 TABLET BY MOUTH TWICE DAILY NEEDED FOR 15 DAYS - Active cyclobenzaprine 5 mg tablet TAKE 1 TABLET BY MOUTH THREE TIMES DAILY NEEDED FOR MUSCLE SPASM - Active omeprazole 20 mg capsule,delayed release - Active amoxicillin 875 mg-potassium clavulanate 125 mg tablet TAKE 1 TABLET BY MOUTH EVERY 12 HOURS FOR 7 DAYS - Active Cartia XT 120 mg capsule,extended release TAKE 1 CAPSULE BY MOUTH ONCE DAILY - Active amiodarone 100 mg tablet take 1 tablet by oral route every day 100 MG - No Longer Active Procedures Procedure Date Complex e/m visit add on OFFICE/OUTPATIENT VISIT, EST ELECTROCARDIOGRAM, COMPLETE Complex e/m visit add on OFFICE/OUTPATIENT VISIT, EST Advance Directives Directive Yes / No Effective Date File Name No Information Encounters Encounter Description Practice Location Reason(s) For Visit Diagnoses Date Provider Providers Copied on Encounter [facility] , [address] [place] [address], [address] [place] [address] , tel:[phone] [facility] [place] No Information Jul-[address], [address], [id number] , [place]. tel:[phone] [facility] , [address] [place] [address], [id number] , tel: [phone] [facility] [place] No Information Sep-[address], [address], [id number] , [place]. tel: [phone] [facility] , [address] [place] [address], [id number] , tel:[phone] [facility] [place] No Information Sep-[address], [address], [id number] , [place]. tel: [phone] OFFICE/OUTPA TIENT VISIT, EST [facility] , [address] [place] [address], [id number] , tel: [phone] [facility] cardiology examination (chief complaint) Body mass index [BMI] 27.0-27.9, adultEssential hypertensionParoxy smal atrial fibrillationHyperl ipidemiaAtheroscle rotic heart disease of ramp[place] coronary artery without angina pectoris [address] , [address], [place], [place], [id number] , [place]. tel: [phone] Referring Provider: Andrea boyd, [address] [facility], [place], [place], [facility]. tel:[phone] OFFICE/OUTPA TIENT VISIT, [facility] , [address] [place] [address], [id number] , [place] tel: [phone] [facility] Follow Up of cardiology exam (chief complaint) Essential hypertensionParoxy smal atrial fibrillationHyperl ipidemiaAtheroscle rotic heart disease of ramp[place] coronary artery without angina pectorisNonrheumat ic aortic valve regurgitationTricu spid valve regurgitationEncou nter for therapeutic drug level monitoring [address]. [address] , [place], [place], [id number] , [place]. tel: [phone] Referring Provider: Andrea boyd, [address], [place], [place], [facility]. tel:[phone] [facility] , [address] [place] [address], [id number] , tel: [phone] [facility] Encounter for screening for cardiovascular disordersBradycard ia, unspecifiedEncount er for therapeutic drug level monitoringHyperlip idemia, unspecifiedLong term (current) use of anticoagulantsParo xysmal atrial fibrillationObstru ctive sleep apnea (adult) (pediatric)Nonrheu matic tricuspid (valve) insufficiencyNonrh eumatic aortic (valve) insufficiencyEssen tial (primary) hypertensionObesit y, unspecifiedAtheros clerotic heart disease of ramp[place] coronary artery without angina pectoris [address]. [address] , [place], [place], [id number] , [place]. tel: [phone] Referring Provider: Andrea boyd, [address], [place], [address]. tel:[phone] Family History Family Member Type Diagnosis Age At Onset Problem (finding) Family history of Cance r, unknown type Payers Payer name Insurance type Covered constitution party ID Authoredis coleman(s) [employer] [id number] [place] MED[place] PART B [id number] Social History Type Description Quantity Date Captured Comments Alcohol Use Details Unknown Caffeine Use Details Unknown Tobacco Use Status No Information Smoking Status No Information Sex Male Chief Complaint And Reason For Visit No Information Reason For Referral Reason For Referral No Information Plan Of Treatment Date Type Action Status Goal Dietary manageme nt education, guidance, and counseling completed Appointment Bill Colon BOOKED Future Order: Radiology Order Pu lmonary function tests (46836), Ordered on: Ordered History Of Present Illness Encounter Date Complaint History Of Prese nt Illness cardiology examination Follow Up of cardiology exam Functional Status Date Functional Assessmen t No Information Instructions Date Instruction Additional Infor ling Dietary management e ducation, guidance, and counseling Related to Body mass index [BMI] 27.0-27.9, adult Assessments Type Assessment Date No Information Patient Care Teams Name Effective Dates (start - stop) Status Members No Information
--- NOTE | ~2025-07-29 | MR_ITS ---
EXAMINATION: MR lumbar spine wo con DATE: 07/29/2025 10:10 INDICATION: Lumbar spondylosis without myelopathy or radiculopathy. TECHNIQUE: Magnetic resonance imaging (MRI) of the lumbar spine was performed without intravenous contrast. Sequences included sagittal T2-weighted FSE, sagittal T2-weighted FS FSE, sagittal T1-weighted FSE, and axial T2-weighted FSE. COMPARISON: Lumbar spine MRI 03/23/2017 FINDINGS: There is 7 degrees dextrocurvature of lumbar spine. There is 3 mm retrolisthesis of L1 on L2 and L2 on L3. There is mild chronic anterior wedging of T11-L2 vertebral bodies. There is moderately decreased disc height at L1-L2 and L2-L3 and severely decreased disc height from L3-L4 through L5-S1. The distal spinal cord signal intensity is normal. The conus medullaris is at L1. There are cysts in the kidneys measuring up to 3.0 cm on the right. The following disc levels are specifically discussed: L1-L2: The disc is bulging. There is severe right and moderate left facet joint osteoarthritis. There is mild right and moderate left neural foraminal stenosis. There is mild central canal stenosis. L2-L3: The disc is bulging. There is severe bilateral facet joint osteoarthritis. There is moderate bilateral neural foraminal stenosis. There is mild central canal stenosis. L3-L4: The disc is bulging and has an annular fissure. There is severe bilateral facet joint osteoarthritis. There is moderate bilateral neural foraminal stenosis. There is moderate central canal stenosis. L4-L5: The disc is bulging and has an annular fissure. There is severe bilateral facet joint osteoarthritis. There is moderate bilateral neural foraminal stenosis. There is mild central canal stenosis. L5-S1: The disc is bulging and has an annular fissure. There is severe bilateral facet joint osteoarthritis. There is mild bilateral neural foraminal stenosis. There is mild central canal stenosis. IMPRESSION: 1. Severe lumbar spondylosis, mildly worsened from 03/23/2017. Reviewed, dictated and finalized at location E.
--- OUTSIDE RECORDS SUMMARY | 2025-07-29 10:18 | XMS_ITS | Clinical Summary ---
Author Organization [facility] Facility Address [address] [address] Care Team Providers Care Senior Quality Assurance Analyst Name Role Phone Andrea Car MD Primary Care Provider [phone] Social History Tobacco Use Types Packs/Day Years Used Date Smoking Tobacco: Never Assessed Sex and Gender Information Value Date Recorded Sex Assigned at Not on file Legal Sex Male 11:09 AM EST Gender Identity Not on file Sexual Orientation Not on file Plan of Treatment Health Maintenance Due Date Last Done Comments Influenza Vaccine (#1) 2025 , 08/05/2020, 08/26/2019, Additional history exists Pneumococcal Vaccine: 50+ Years Completed 11/12/2018, 11/06/2017 Hepatitis B Vaccine Aged Out No longe r eligible based on patient's age to complete this topic Insurance Medicare [facility] [place] [address] Care Teams Senior Quality Assurance Analyst Relationship Specialty Start Date End Date Andrea Car MD [address] [facility], [address] [place] [address] PCP - General Internal Medicine 10/31/24
--- OUTSIDE RECORDS SUMMARY | 2025-07-29 10:18 | XMS_ITS | Encounter Summary ---
Author Organization [facility] Address [address] [facility] [place] [address] Care Team Providers Care Applications Programmer Name Role Phone Unavailable Primary Care Provider Unavailabl e Encounter Details Date Type Department Care Team (Late st Contact Info) Description 08/29/2023 Lab Requisition 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 Received: 08/29/2023 02:11 PM Pathologist: Elizabeth Robles MD Specimen: Skin, top of right helix 3:30 PM CDT DERMATOPATHOLOGY LABORATORY Final Diagnosis Specimen A. SKIN, top of right helix: SQUAMOUS CELL CARCINOMA, WELL DIFFERENTIATED (C44.222) 3:30 PM CDT DERMATOPATHOLOGY LABORATORY at 1530 CDT Clinical History R/O SCC 3:30 PM CDT [...] determined by the Dermatopathology Laboratory at [facility], directed by Dr. Diana Loving. These tests need not be, and therefore are not, approved by the [place] Food and Drug Administration. The tests are used for clinical purposes. Billing Codes Specimen Charges Stain Charges 74199 1 3:30 PM CDT DERMATOPATHOLOGY LABORATORY Embedded Images 3:30 PM CDT DERMATOPATHOLOGY LABORATORY Pathology/Cytolo gy TISSUE SPECIMEN FROM SKIN / Unknown 08/28/2023 3:33 AM CDT 08/29/2023 2:11 PM CDT Andre Sutton MD LAB - PATHOLOGY/CYTOLOGY ORD ERABLES Final Result DERMATOPATHOLOGY LABORATORY [facility] - Department of Dermatology [address] [place] [address], [facility] [phone] documented in this encounter Visit Diagnoses Not on filedocumented in this encounter
--- OUTSIDE RECORDS SUMMARY | 2025-07-29 10:18 | XMS_ITS | Encounter Summary ---
Author Organization [facility] Address [address] [address] Care Team Providers Care Trade Embalmer Name Role Phone Unavailable Primary Care Provider Unavailabl e Encounter Details Date Type Department Care Team (Late st Contact Info) Description 12/11/2019 Lab Requisition [facility] [address] [place] [address] Andre Sutton MD [address] [place] [address] Social History Tobacco Use Types Packs/Day Years Used Date Smoking Tobacco: Never Assessed Sex and Gender Information Value Date Recorded Sex Assigned at Not on file Legal Sex Male 6:02 PM RODEO RIDER Gender Identity Not on file Sexual Orientation Not on file documented as of this encounter Plan of Treatment Not on file documented as of this encounter Procedures Procedure Name Priority Date/Time Associated Diagnosis Comments DERMATOPATHOLOGY Routine 12/09/2019 12:0 0 AM RODEO RIDER documented in this encounter Results * DERMATOPATHOLOGY (12/09/2019 12:00 AM RODEO RIDER) Case Report Dermatopathology Report Case: [id number] Authorizing Provider: Andre Sutton MD Collected: 12/09/2019 12:00 AM Ordering Location: [facility] Received: 12/11/2019 12:17 PM Pathologist: Brayan Loving MD Specimen: Skin, top left shoulder 0 4:52 PM RODEO RIDER DERMATOPATHOLOGY LABORATORY Final Diagnosis Specimen A. SKIN, top left shoulder: BENIGN VERRUCOUS KERATOSIS, INFLAMED (L82.1) 0 4:52 PM RODEO RIDER DERMATOPATHOLOGY LABORATORY at 1652 RODEO RIDER Clinical History R/O SCC. 0 4:52 PM [facility] DERMATOPATHOLOGY LABORATORY Gross Description Specimen A: Received is one formalin filled container labeled with the patient's name and designated top left shoulder. The specimen consists of a shave biopsy measuring 8w0s6zf, bisected. Jar 0. 0 4:52 PM [facility] DERMATOPATHOLOGY LABORATORY Microscopic Description Specimen A. SKIN, top left shoulder: Sections show hyperkeratosis, papillomatosis, hypergranulosis, and acanthosis. Inflammatory cells are present within the dermis. These histological findings can be seen in a verruca vulgaris or a seborrheic keratosis. 0 4:52 PM [facility] DERMATOPATHOLOGY LABORATORY Disclaimer An external and internal positive and negative controls are appropriate for the histochemical, immunohistochemical and immunofluorescence stain(s) in this case (if any), except where stated explicitly. The performance characteristics of the stain(s) cited in this report were developed and its performance characteristic determined by the Dermatopathology Laboratory at [facility], directed by Dr. Diana Loving. These tests need not be, and therefore are not, approved by the [place] Food and Drug Administration. The tests are used for clinical purposes. Billing Codes Specimen Charges Stain Charges 30686 1 0 4:52 PM [facility] DERMATOPATHOLOGY LABORATORY Embedded Images 0 4:52 PM [facility] DERMATOPATHOLOGY LABORATORY Pathology/Cytolog y TISSUE SPECIMEN FROM SKIN / Unknown 12/09/2019 12/11/2019 12:17 PM RODEO RIDER Andre Sutton MD LAB - PATHOLOGY/CYTOLOGY ORD ERABLES Final Result DERMATOPATHOLOGY LABORATORY [facility] - Department of Dermatology [address], 5th [place] [address], [facility] [phone] documented in this encounter Visit Diagnoses Not on filedocumented in this encounter
--- OUTSIDE RECORDS SUMMARY | 2025-07-29 10:18 | XMS_ITS | Clinical Summary ---
Author Organization [facility] Address [address] [place] [address] Care Team Providers Care Chocolate Finisher Operator Name Role Phone Unavailable Primary Care Provider Unavailabl e Source Comments [facility],non-owned Affiliates and Associated Physician Practices is amultiple site organization consisting of ambulatory clinics and hospital sitesin [place], [place], [place] and [place]. This disclosure is being madepursuant to the Care Everywhere program and may not contain all information available regarding this patient. 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 Gender Identity Not on file Sexual Orientation Not on file Plan of Treatment Health Maintenance Due Date Last Done Comments MEDICARE AWV 12 MONTHS 1944 DTAP/TDAP/TD VACCINES (1 - Tdap) 1963 PNEUMOCOCCAL VACCINE 50+ (1 of 1 - PCV) 1994 ZOSTER VACCINE (1 of 2) 1994 Respiratory Syncytial Virus (RSV) Vaccine Pt: or over 60 yrs (1 - 1-dose 75+ series) 2019 DEPRESSION SCREENING 11/05/2024 COVID-19 VACCINE (1 - 2023-2 5 season) 2025 INFLUENZA VACCINE (#1) 2025 HEPATITIS B VACCINE Aged Out No longe [...] age to complete this topic Insurance MEDICARE [facility] MEDICARE [facility]
--- OUTSIDE RECORDS SUMMARY | 2025-07-29 10:18 | XMS_ITS | Encounter Summary ---
Author Organization [facility] Address [address] [place] [address] Care Team Providers Care Lead Injection Mold Technician Name Role Phone Unavailable Primary Care Provider Unavailabl e Encounter Details Date Type Department Care Team (Late st Contact Info) Description 08/01/2021 Lab Requisition [facility] [address] [place] [address] Andre Sutton MD [address] [place] [address] Social History Tobacco Use Types Packs/Day Years Used Date Smoking Tobacco: Never Assessed Sex and Gender Information Value Date Recorded Sex Assigned at Not on file Legal Sex Male 6:02 PM 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 Gender Identity Not on file Sexual Orientation Not on file documented as of this encounter Plan of Treatment Not on file documented as of this encounter Procedures Procedure Name Priority Date/Time Associated Diagnosis Comments DERMATOPATHOLOGY Routine 07/29/2021 12:0 0 AM CDT documented in this encounter Results * DERMATOPATHOLOGY (07/29/2021 12:00 AM CDT) Case Report Dermatopathology Report Case: [id number] Authorizing Provider: Andre Sutton MD Collected: 07/29/2021 12:00 AM Ordering Location: [facility] Received: 08/01/2021 01:01 PM Pathologist: [...] IN 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 Check margins. B-D: R/O SCC. 2:54 PM CDT DERMATOPATHOLOGY LABORATORY Gross Description Specimen A: Received is one formalin filled container labeled with the patients name and designated right side nose. The specimen consists of a shave removal measuring 0m0d5mg. The margin is inked green. Jar 0. Specimen B: Received is one formalin filled container labeled with the patient's name and designated right medial cheek below eye. The specimen consists of a shave biopsy measuring 8f0v5pw and 2f8t8af. Jar 0. Specimen C: Received is one formalin filled container labeled with the patient's name and designated behind middle of left earlobe. The specimen consists of a shave biopsy measuring 0y4l9fd. Jar 0. Specimen D: Received is one formalin filled container labeled with the patient's name and designated dorsal left hand. The specimen consists of a shave biopsy measuring 0l7r0np. Jar 0. 2:54 PM CDT DERMATOPATHOLOGY LABORATORY Microscopic Description Specimen [...] characteristic determined by the Dermatopathology Laboratory at [facility], directed by Dr. Diana Loving. These tests need not be, and therefore are not, approved by the [place] Food and Drug Administration. The tests are used for clinical purposes. Billing Codes Specimen Charges Stain Charges 57718 33798 98460 87712 1 1 1 1 1 2:54 PM [...] Sutton MD LAB - PATHOLOGY/CYTOLOGY ORD ERABLES Edited Result - Final DERMATOPATHOLOGY LABORATORY [facility] - Department of Dermatology [facility] Medicine [address] [place] [address], [address]rd [address] [phone] documented in this encounter Visit Diagnoses Not on filedocumented in this encounter
--- OUTSIDE RECORDS SUMMARY | 2025-07-29 10:18 | XMS_ITS | Clinical Summary ---
Author Organization [facility] [address] [place] [id number] Care Team Providers Care Java Android Developer Name Role Phone Dwayne Car MD Primary Care Provide r Jared White MD Unavailable AnsNorbert nicholson MD Unavailable [phone] Allergies No known active allergies Medications amiodarone [...] (10/18/2021): Added automatically from request for surgery [id number] Lumbar spondylosis with right S1 radiculopathy 0 [...] drink = 0.6 oz pur e alcohol) [facility] Utilities Answer Date Recorded In the past 12 months has [employer], gas, oil, or water [employer] threatened to shut off services in your home? No 10/19/2023 Social Connection and Isolation Panel Answer Date Recorded In a typical week, how many times do you talk on the phone with family, friends, or neighbors? Patient unable to answer 10/19/2023 How often do you get togethe r with friends or relatives? Patient unable to answer 10/19/2023 How often do you attend [facility] or catholic services? More than 4 times [...] place to sleep or slept in a fpc (including now)? No 10/19/2023 Personal Safety Answer Date Recorded Have you ever been in or are you currently in a harmful physical or emotional relationship or is someone making you feel afraid or unsafe? 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 Gender Identity Not on file Sexual Orientation Not on file Obstetrics History Last Filed Vital Signs Vital Sign Reading Time Taken Comments Blood Pressure 124/72 10/20/2023 7:54 AM TYPEWRITERS FUNCTIONAL TESTER Pulse 62 10/20/2023 7:54 AM TYPEWRITERS FUNCTIONAL TESTER Temperature 36.9 C (98.4 F) 10/20/2023 7:54 AM TYPEWRITERS FUNCTIONAL TESTER Respiratory Rate 19 10/20/2023 7:54 AM TYPEWRITERS FUNCTIONAL TESTER Oxygen Saturation 95% 10/20/2023 7:54 AM TYPEWRITERS FUNCTIONAL TESTER Inhaled Oxygen Concentration - - Weight 74.4 kg (164 lb 0.4 oz) 10/18/2023 6:15 P M TYPEWRITERS FUNCTIONAL TESTER Height 169 cm (5' 6.54) 10/18/2023 6:15 PM TYPEWRITERS FUNCTIONAL TESTER Body Mass Index 26.05 10/18/2023 6:15 PM TYPEWRITERS FUNCTIONAL TESTER Plan of Treatment Health Maintenance Due Date Last Done Comments DTaP/Tdap/Td Vaccine (1 - Tdap) 1955 Hepatitis B Screening 1962 Well Visit 65+ 2009 Depression Screening 11/17/2022 11/17/2021 Fall Risk Assessment 10/20/2024 10/20/2023 Covid-19 Vaccine (2024-12 6 season) 2025 09/26/2021, 01/11/2021, 01/03/2021, Additional history exists Influenza Vaccine (#1) 2025 , 08/05/2021, 08/05/2020, Additional history exists Pneumococcal vaccine 65+ Completed 11/12/2018, 12/2017 Zoster Vaccine Completed 10/27/2019, 08/26/2019 Medical Devices Implanted Type Area Offset Printing Operator Device Identifier Shelf Expiration Date Model / Serial / Lot [employer] Mark [id number] Wallflex Permalume 10mm 8.5fr 60mm 194cm Fully Cover Catheter - [id number] Implanted:Qty: 1 on 10/25/2021 by Norbert Pichardo MD at [facility] Stent [employer] Mark 07/25/2023 [id number] / / [id number] [employer] [id number] Advanix Naviflex 10fr 7cm Preload Radiopaque Rapid Exchange - [id number] Implanted:Qty: 1 on 10/20/2021 by Norbert Pichardo MD at [facility] N/A: Other - see comments [employer] 09/08/2023 [id number] / / [id number] Description:COMMON BILE DUCT [employer] 6541 4fr 3cm Pliable Pigtail Curve Stent Pancreatic - [id number] Implanted:Qty: 1 on 10/20/2021 by Norbert Pichardo MD at [facility] N/A: Pancreas [employer] 01/03/2026 [id number] / / [id number] Insurance MEDICARE [facility] MEDICARE [facility] MEDICARE [facility] Advance Directives For more information, please contact: [phone] * Full Code (Latest Code Status on [...] 2:30 AM 10/20/2021 10:35 AM Care Teams Java Android Developer Relationship Specialty Start Date End Date Dwayne Car MD [address] [address] PCP - General Internal Medicine 07/05/18 Jared White MD [address] [address] Surgeon General Surgery 10/21/21 Norbert Pichardo MD [address] [address] Consulting Physician Gastroenterology 10/28/21
--- OUTSIDE RECORDS SUMMARY | 2025-07-29 10:18 | XMS_ITS | Encounter Summary ---
Author Organization [facility] Address [address] [place] [address] Care Team Providers Care Stretcher Helper Name Role Phone Unavailable Primary Care Provider Unavailabl e Encounter Details Date Type Department Care Team (Late st Contact Info) Description 05/12/2019 Lab Requisition [facility] Care DermPath Lab [address] [place] [address] Andre Sutton MD [address] [place] [address] Social History Tobacco Use Types Packs/Day Years Used Date Smoking Tobacco: Never Assessed Sex and Gender Information Value Date Recorded Sex Assigned at Not on file Legal Sex Male 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 PM 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 Gender Identity Not on file Sexual Orientation Not on file documented as of this encounter Plan of Treatment Not on file documented as of this encounter Procedures Procedure Name Priority Date/Time Associated Diagnosis Comments DERMATOPATHOLOGY Routine 05/09/2019 12:0 0 AM CDT documented in this encounter Results * DERMATOPATHOLOGY (05/09/2019 12:00 AM CDT) Case Report Dermatopathology Report Case: [id number] Authorizing Provider: Andre Sutton MD Collected: 05/09/2019 12:00 AM Pathologist: Brayan Loving MD Received: 05/12/2019 01:16 PM Specimen: Skin, right upper lateral cutaneous lip 9 4:19 PM CDT DERMATOPATHOLOGY LABORATORY Final Diagnosis Specimen A. SKIN, right upper lateral cutaneous lip: VERRUCA VULGARIS, IRRITATED AND INFLAMED (B07.8) OVERLYING CUTANEOUS HORN (L85.8) 9 4:19 PM CDT DERMATOPATHOLOGY LABORATORY at 1619 CDT Clinical History R/O ISK, SCC, HAK 4:19 [...] determined by the Dermatopathology Laboratory at [facility], directed by Dr. Diana Loving. These tests need not be, and therefore are not, approved by the [place] Food and Drug Administration. The tests are used for clinical purposes. Billing Codes Specimen Charges Stain Charges 37001 1 4:19 PM CDT DERMATOPATHOLOGY LABORATORY Embedded Images 4:19 PM CDT DERMATOPATHOLOGY LABORATORY Pathology/Cytolog y TISSUE SPECIMEN FROM SKIN / Unknown 05/09/2019 05/12/2019 1:16 PM CDT us Andre Sutton MD LAB - PATHOLOGY/CYTOLOGY ORD ERABLES Final Result DERMATOPATHOLOGY LABORATORY [facility] - Department of Dermatology [facility] [facility], [address]th [place] [address], [facility] [phone] documented in this encounter Visit Diagnoses Not on filedocumented in this encounter
--- OUTSIDE RECORDS SUMMARY | 2025-07-29 10:18 | XMS_ITS | Encounter Summary ---
Author Organization [facility] Address [address] [place] [address] Care Team Providers Care Electronic Pagination System Operator Name Role Phone Unavailable Primary Care Provider Unavailabl e Encounter Details Date Type Department Care Team (Late st Contact Info) Description 11/20/2018 Lab Requisition [facility] Care DermPath Lab [address] [facility] [place] [address] Andre Sutton MD [address] [place] [address] Social History Tobacco Use Types Packs/Day Years Used Date Smoking Tobacco: Never Assessed Sex and Gender Information Value Date Recorded Sex Assigned at Not on file Legal Sex Male 6:02 PM CHEMICAL DEPENDENCY THERAPIST Gender Identity Not on file Sexual Orientation Not on file documented as of this encounter Plan of Treatment Not on file documented as of this encounter Procedures Procedure Name Priority Date/Time Associated Diagnosis Comments DERMATOPATHOLOGY Routine 11/19/2018 12:0 0 AM CHEMICAL DEPENDENCY THERAPIST documented in this encounter Results * DERMATOPATHOLOGY (11/19/2018 12:00 AM CHEMICAL DEPENDENCY THERAPIST) Case Report Dermatopathology Report Case: [id number] Authorizing Provider: Andre Sutton MD Collected: 11/19/2018 12:00 AM Pathologist: Brayan Loving MD Received: 11/20/2018 11:33 AM Specimens: A) - Skin, left lateral upper eyelid B) - Skin, left lateral end of brow C) - Skin, left post edge of helix rim superiorly D) - Skin, left neck behind earlobe 9 2:45 PM CHEMICAL DEPENDENCY THERAPIST DERMATOPATHOLOGY LABORATORY Final Diagnosis Specimen A. SKIN, [...] CARCINOMA, INFILTRATIVE PATTERN (C44.41) 9 2:45 PM [facility] DERMATOPATHOLOGY LABORATORY at 1445 CHEMICAL DEPENDENCY THERAPIST Clinical History A-B: R/O BCC. C: R/O dys nevus, lentigo. D: R/O SCC. 9 2:45 PM [facility] DERMATOPATHOLOGY LABORATORY Gross Description Specimen A: Received is one formalin filled container labeled with the patient's name and designated left lateral upper eyelid. The specimen consists of a shave biopsy (2 pieces) measuring 2r2k8to & 1b8s2db. Jar 0+. Specimen B: Received is one formalin filled container labeled with the patient's name and designated left lateral end of brow. The specimen consists of a shave biopsy (2 pieces) measuring 8g6s1jf & 4e6f2wt. Jar 0. Specimen C: Received is one formalin filled container labeled with the patient's name and designated left post edge of helix rim superiorly. The specimen consists of a shave biopsy measuring 2z9d9lj. Jar 0. Specimen D: Received is one formalin filled container labeled with the patient's name and designated left neck behind earlobe. The specimen consists of a shave biopsy measuring 3m8r8ex. Jar 0. 9 2:45 PM [facility] DERMATOPATHOLOGY LABORATORY Microscopic Description Specimen A. [...] nests that infiltrate the dermis. 2:45 PM CHEMICAL DEPENDENCY THERAPIST DERMATOPATHOLOGY LABORATORY Disclaimer An external and internal positive and negative controls are appropriate for the histochemical, immunohistochemical and immunofluorescence stain(s) in this case (if any), except where stated explicitly. The performance characteristics of the stain(s) cited in this report were developed and its performance characteristic determined by the Dermatopathology Laboratory at [facility], directed by Dr. Diana Loving. These tests need not be, and therefore are not, approved by the [place] Food and Drug Administration. The tests are used for clinical purposes. Billing Codes Specimen Charges Stain Charges 78945 03148 09730 54718 1 1 1 1 17472 1 2:45 PM CHEMICAL DEPENDENCY THERAPIST DERMATOPATHOLOGY LABORATORY Embedded Images 2:45 PM CHEMICAL DEPENDENCY THERAPIST DERMATOPATHOLOGY LABORATORY Pathology/Cytology TISSUE SPECIMEN FROM SKIN / Unknown 11/19/2018 11/20/2018 11:33 AM CHEMICAL DEPENDENCY THERAPIST Miscellaneous samples (specimen) TISSUE SPECIMEN FROM SKIN / Unknown 11/19/2018 11/20/2018 11:33 AM CHEMICAL DEPENDENCY THERAPIST Miscellaneous samples (specimen) TISSUE SPECIMEN FROM SKIN / Unknown 11/19/2018 11/20/2018 11:33 AM CHEMICAL DEPENDENCY THERAPIST Miscellaneous samples (specimen) TISSUE SPECIMEN FROM SKIN / Unknown 11/19/2018 11/20/2018 11:33 AM CHEMICAL DEPENDENCY THERAPIST Andre Sutton MD LAB - PATHOLOGY/CYTOLOGY ORD ERABLES Final Result DERMATOPATHOLOGY LABORATORY [facility] - Department of Dermatology [facility] [facility], [address]th [place] [address], [facility] [phone] documented in this encounter Visit Diagnoses Not on filedocumented in this encounter
== END 2025-07-29 09:35 | disposition home or self-care (01) ==
PROVIDERS: PCP Internal Medicine; Visit Provider Orthopaedic Surgery
DX: M47.816 Spondylosis without myelopathy or radiculopathy, lumbar region (principal)
CPT/HCPCS: 72148

== ENCOUNTER 2025-10-05 12:13 | Outpatient (CLI) | payer MEDICARE, OTHER, SELFPAY ==
--- NOTE | ~2025-10-05 | CT_ITS ---
EXAMINATION: CT ankle RT wo con COMPARISON: None HISTORY: M25.579 - Pain in unspecified ankle and joints of unspeci... TECHNIQUE: Axial images were obtained without IV contrast. Sagittal, coronal reconstruction images were obtained from the axial views. CT scan performed using dose optimization techniques including the following automated exposure control; adjustment of mA and/or kV; use of iterative reconstruction technique. Automatic exposure control was used to reduce radiation dose. Permanent radiation dose record is archived to PACS. FINDINGS: Postsurgical changes are noted with fusion of the calcaneotalar joints and the tibiotalar joint, the hardware is intact although there is lucency surrounding some of the screws. There is a defect related to previous screw placement. Deformity noted of the distal fibula probably postoperative in nature versus sequelae of a remote fracture. There is bony fusion of the tibiotalar joint. 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 There are moderate degenerative changes of the remaining tarsal joints and the tarsometatarsal joints with subchondral cyst formation and osteophytosis. No acute fracture is identified. Soft tissue swelling noted. No subcutaneous air or radiopaque foreign body noted. IMPRESSION: Postsurgical and degenerative changes detailed above. Reviewed, dictated and finalized at location P. E REVIEWER
--- OUTSIDE RECORDS SUMMARY | 2025-10-05 13:28 | XMS_ITS | Continuity of Care Document ---
Author Organization [place] - S MD [facility] Internal Med [address] [facility] [place] [address] Care Team Providers Care Sodium Chlorite Operator Name Role Phone ANDREA CAR Primary Care Provider [phone] ANDREA CAR Referring Provider FELIX VELOZ Processing Mgr [facility] PULMON[facility] Pulmonologi st CATIA PERDOMO Hand Surgeon Unavailable TAMELA WHITE Orthopedic Surgeon CHIN ROSEN Porcelain Waxer Assessment Encounter Date Assessment Date Assessment LastModified by Organization Details LastModified Time 09/01/2025 09/01/2025 12/06/2021: PSA 0.37 04/09/2023: MCV 99.1 08/07/2023: PSA 1.2 Glob 2.5, TP WNL MCV 99.3 01/01/2024: Glob 2.5L WBC 11.9, MCV 98.8 03/15/2024: Sushil H/H 12.4/38.8 06/06/2024: Na 131 10/06/2204: Na 129 MCV 100 02/18/2025: Na 131 MCV 100.00 04/21/2025: PSA 0.31 08/26/2025: Gluc 103 MCV 102.2 [email or web address] Not available 08/31/2025 17:11:42 Plan of Treatment Reminders Order Date Submit Date Provider Last Modified By Organization Details Last Modified Time Details Appointments Any 15 2025 10:45A Brayan salguero MD Not available Not available Not available Lab CBC w/ auto diff [address] [facility], [address] [place], [address], 09/01/2025 12:01:58 vitamin B12 + folate, serum or blood [address] [facility], [address] [place], [address], 09/01/2025 12:01:57 lipid panel, serum [address] [facility], [address] [place], [address], 09/01/2025 12:01:56 CMP, serum or plasma [address] [facility], [address] [place], [address], 09/01/2025 12:01:57 CBC w/ auto diff [address] [facility], [address] [place], [address], 09/01/2025 12:01:57 TSH + free T4, serum [address] [facility], [address] [place], [address], 09/01/2025 12:01:57 Referral nephrolog ist referral 2024 025 [place], [address], [place] [address], [place], [address], 09/01/2025 14:20:57 pulmonolo gist referral - Please call patient to schedule an appointme nt. Thank you. 2024 025 Helen Cerda, [address] [facility] [address], [place], [address], 09/01/2025 14:20:57 Procedures None recorded. Surgeries None recorded. Imaging None recorded. Medication Orders None recorded. Patient TargetsNo targets recorded. Patient InstructionsNo instructions recorded. Reason for Referral Chyron Operator Referral for D yspnea on exertion Please call patient to schedule an appointment. Thank you. Referring Physician: Andrea Car, Internal Medicine, Encounter Date: 09/01/2025 Porcelain Waxer Referral for Hy ponatremia Referring Physician: Andrea Car, Internal Medicine, Encounter Date: 09/01/2025 Results Created Date Observation Date Name Description Value Unit Range Abnormal Flag Note LastModifiedBy Organization Detail LastModifiedTime 08/26/2008/26/2025 faye atkins/cleopatra tao tic resul t No observ ation record ed. [place] [id number] [facility] [address], [place], [address], 08/26/2025 14:18:50 Result Notes None recorded. Problems Name Problem SNOMED Code Status Onset Date Resolution Date Notes Provider Name and Address Organization Details Recorded Time Cervical radiculiti s 63311046 Active Not Available [facility] 3 00:31:43 Nocturia 871069663 Active Not Available [facility] 3 00:31:44 Radiothera py follow-up 756393866 Active Not Available [facility] 3 00:31:44 Raynaud's phenomenon 592745102 Active Not Available [facility] 3 00:31:44 Osteoarthr itis 353437531 Active Not Available [facility] 3 00:31:44 Rupture of tendon of biceps 597743620 Active Not Available [facility] 3 00:31:44 Disorder of tendon of biceps 701996595 Active Not Available [facility] 3 00:31:44 Hyperlipid emia 58501719 Active Not Available [facility] 3 00:31:44 Essential hypertensi on 66289473 Active Not Available [facility] 3 00:31:44 Rheumatoid arthritis 49140418 Active Not Available [facility] 3 00:31:44 Atrial fibrillati on 24415149 Active 2016 Not Available [facility] 3 00:31:44 Disorder of prostate 37826237 Active 2021 Not Available [facility] 3 00:31:44 COVID-19 579481883 Active 2021 [facility] Available [facility] 3 00:31:44 Localized, primary osteoarthr itis of the hand 970553810 Active 2022 Not Available [facility] 3 00:31:44 Chronic constipati on 841692668 Active 2022 Not Available [facility] 3 00:31:44 Hypothyroi dism 46300788 Active 2022 Not Available [facility] 3 00:31:44 Gastroesop hageal reflux disease without esophagiti s 927884297 Active 2022 Not Available [facility] 3 00:31:44 Obstructiv e sleep apnea syndrome 30909858 Active 2022 Not Available [facility] 3 00:31:44 Skin lesion 78978760 Active 2022 Not Available [facility] 3 00:31:44 Small bowel obstructio n 100071072 Active 2022 Not Available [facility] 3 00:31:44 Cataract 389003184 Active 2022 Not Available [facility] 3 00:31:44 Pain in right foot 4614442214623 07 Active 2022 Not Available [facility] 3 00:31:44 Pain of bilateral hands 0872956858738 9109 Active 2022 Not Available [facility] 3 00:31:44 Cholecysti tis 20364000 Active 2022 Not Available [facility] 3 00:31:44 Benign paroxysmal positional vertigo 223476734 Active 2022 Not Available [facility] 3 00:31:44 Arthritis 1231549 Active 2022 Not Available [facility] 3 00:31:44 Dyspnea on exertion 61832249 Active 2022 Not Available [facility] 3 00:31:44 Pain of left knee joint 4358540049894 07 Active 2022 Not Available [facility] 3 00:31:44 Anemia 417144113 Active 2022 Angy Lazaro null, [place] [facility] [place] [facility] 3 14:24:26 Macrocytos is 882594610 Active 2022 Andrea boyd MD [address], [place], [address] , [place] [facility] 3 09:15:36 Leukocytos is 902155212 Active 2023 Andrea boyd MD [address], [place], [address] , [place] [facility] 4 09:58:35 Pain of right ankle joint 9599091352022 9106 Active 2023 Andrea boyd MD [address], [place], [address] , [place] [facility] 4 10:03:53 Bronchitis 30583887 Active 2023 Andrea boyd MD [address], [place], [address] , [place] [facility] 4 17:06:06 Nasal congestion 25272976 Active 2023 Chay Louis CMA null, [place] [facility] [place] [facility] 4 15:20:42 Hyponatrem ia 43057875 Active 2023 Andrea boyd MD [address], [place], [address] , [place] [facility] 4 22:19:41 Pain of bilateral hip joints 3644539631412 9100 Active 2024 Andrea boyd MD [address], [address], [place], [address] , [facility] 5 10:44:15 Sore throat 130639584 Active 2024 CLARISSE Hernandez, [facility] 5 16:53:50 Low back pain 232512090 Active 2024 Andrea boyd MD [address], [address], [place], [address] , [facility] 5 17:14:38 Notes:Medical History: COVID infection 04/2021 Eosinophils 10/uL [...] CPT Code, subsequent completed Zay Grace LPN [facility] 10/14/2024 08:24:27 10/14/20 24 Advanced Care Planning completed Zay Grace LPN [facility] 10/14/2024 10:55:34 06/10/20 24 Medicare Wellness CPT Code, subsequent completed Zay Grace LPN [facility] 06/10/2024 08:22:38 04/12/20 23 Medicare Wellness CPT Code, subsequent completed Kati [place] RN [facility] 04/12/2023 09:19:11 05/18/20 22 Colonoscopy completed Not Available [facility] 01/03/2023 01:12:49 05/24/20 21 Knee Replacement completed Not Available [facility] 01/03/2023 01:12:49 06/16/20 19 Cataract Surgery completed Not Available [facility] 01/03/2023 01:12:49 08/03/20 15 repair of ruptured tendon completed Not Available [facility] 01/03/2023 01:12:49 Colon Surgery completed Not Available [facility] 01/03/2023 01:12:49 Orthopedic Surgery completed Not Available [facility] 01/03/2023 01:12:49 Orthopedic Surgery completed Not Available [facility] 01/03/2023 01:12:49 Orthopedic Surgery completed Not Available [facility] 01/03/2023 01:12:49 Orthopedic Surgery completed Not Available [facility] 01/03/2023 01:12:49 Cataract Surgery completed Not Available [facility] 01/03/2023 01:12:49 Cholecystectomy completed Not Available [facility] 01/03/2023 01:12:49 Ankle Surgery completed CLARISSE Hernandez Ubaldo MD [facility] 10/14/2024 10:13:26 Imaging Results None recorded. Procedure Notes None recorded. Medical Equipment None [...] sildenafi l 50 mg tablet TAKE 1 TABLET BY MOUTH ONCE A WEEK TAKE ONE-HALF HOUR BEFORE SEX NEEDED. GO TO ER IF ERECTION LASTS MORE THAN 4 HOURS active Not Available Not Available No t Available atorvasta tin 10 mg tablet TAKE 1 TABLET BY MOUTH ONCE DAILY active Not Available Not Available No t Available azithromy nellie 250 mg tablet TAKE 2 TABLETS BY MOUTH ON DAY 1, AND THEN TAKE 1 TABLET BY MOUTH ONCE A DAY ON DAY 2 THROUGH DAY 5 09/01 completed Not Available Not Available Not Available ofloxacin 0.3 % eye drops INSTILL 1 DROP 3 TIMES DAILY STARTING 2 DAYS BEFORE SURGERY, CONTINUI NG FOR 1 WEEK AFTER. 12/14 completed Not Available Not Available Not Available amiodaron e 200 mg tablet TAKE 1/2 (ONE-JOSÉ F) TABLET BY MOUTH ONCE DAILY active Not [...] MOUTH EVERY 6 HOURS NEEDED FOR PAIN 09/01 completed Not Available Not Available Not Available [...] Available meloxicam 7.5 mg tablet TAKE 1 TABLET BY MOUTH TWICE DAILY NEEDED FOR 15 DAYS 09/01 completed Not Available Not Available Not Available Zofran 4 mg tablet Take 1 [...] n for injection in office 08/30 completed [facility]: 0003-049 02-22 Not Available Not Available Not Available hydrocodo [...] BY MOUTH DIRECTED ON INSIDE OF PACKAGE 09/01 completed Not Available Not Available Not Available [...] MOUTH EVERY 12 HOURS FOR 7 DAYS 02/24 completed Not Available Not Available Not Available [...] THREE TIMES DAILY NEEDED FOR MUSCLE SPASM 02/24 completed Not Available Not Available Not Available [...] administ ered by the provider 04/06 completed [facility]: 0409-427 6-17 Not Available Not Available Not Available Bystolic 10 mg tablet Take 1 tablet every day by oral route. active Not Available Not Available No t Available GaviLyte- G 236 gram-22.7 4 gram-6.74 gram-5.86 gram oral solution USE DIRECTED 08/10 completed Not Available Not Available Not Available dabigatra n etexilate 150 mg capsule Take 1 capsule twice a day by oral route. active Not Available Not Available No t Available [facility]anna [facility] 180 mg tablet Take 1 tablet every day by oral route for 6 days. active Not Available Not Available No t Available ropivacai ne (PF) 5 mg/mL (0.5 %) injection solution in office 08/30 completed [facility] 46036-11 4-01 Not Available Not Available Not Available Xarelto 20 mg tablet Take 1 tablet every day by oral route. 09/01 completed Not Available Not Available Not Available lidocaine 5 % topical ointment 10/15 [...] Shingrix (PF) 50 mcg/0.5 mL intramusc ular aliya n, kit 11/25 completed Not Available Not Available Not Available Paxlovid 300 mg (150 mg x 2)-100 mg tablets in a dose pack Take 1 dose pk by oral route as directed for 5 days. 01/07 completed Not Available Not Available Not Available Vitals Date Recorded Body height Body mass index (BMI) Body weight Body temperature Pain severity - 0-10 verbal numeric rating [Score] - Reported Heart rate Oxygen saturation Systolic And Diastolic Provider Name and Address Organization Details Last Updated DateTime 5 165.1 cm 27 kg/m2 35150.9 6 g 97.9 [degF] 0 73 /min 97 % 120/62 mm[Hg] Nelsy Romero [place] [facility] 5 11:22:11 Social History Question Answer Notes LastModified by Organization Details LastModified Time Tobacco Smoking Status Never Smoker Not Available [facility] 01/03/2023 01:10:23 Do You Have An Advance Directive? No PATIENT DECLINED INFORMATION MIGRATION.030 [id number] Information not available 01/03/2023 Are You Blind Or Do You Have Difficulty Seeing? No MIGRATION.030 773170 Information not available 01/03/2023 What Is Your Level Of Caffeine Consumption? Heavy MIGRATION.[id number] Information not available 01/03/2023 In The 14 Days Before Symptom Onset, Have You Had Close Contact With A Laboratory-conf irmed COVID-19 While That Case Was Ill? No MIGRATION.030 932673 Information not available 01/03/2023 In The 14 Days Before Symptom Onset, Have You Had Close Contact With A Person Who Is Under Investigation For COVID-19 While That Person Was Ill? No MIGRATION.030 228967 Information not available 01/03/2023 Are You Deaf Or Do You Have Serious Difficulty Hearing? Yes MIGRATION.030 682607 Information not available 01/03/2023 What Type Of Diet Are You Following? REGULAR MIGRATION.030191589 Information not available 01/03/2023 What Is The Highest Grade Or Level Of School You Have Completed Or The Highest Degree You Have Received? [id number] MIGRATION.0301 660209 Information not available 01/03/2023 Do You Have An Electrostatic Air Filter? No Information not available 03/15/2023 Have There Been Any Changes To Your Family Or Social Situation? Yes MIGRATION.0301 618778 Information not available 01/03/2023 What Is The Fluoride Status Of Your Home? Unknown MIGRATION.0301 217994 Information not available 01/03/2023 Are There Any Guns Present In Your Home? Yes MIGRATION.0301 261289 Information not available 01/03/2023 Do You Have A Humidifier? No Information not available 03/15/2023 Do You Use Insect Repellent Routinely? No MIGRATION.0301 362235 Information not available 01/03/2023 Where Do You Live? [place] MIGRATION.0301 958992 Information not available 01/03/2023 Do You Have A Medical Power Of Paint Department Supervisor? No MIGRATION.0301 934837 Information not available 01/03/2023 Do You Have Moisture Problems In Your Home? No Information not available 03/15/2023 What Was The Date Of Your Most Recent Tobacco Screening? 09/01/2025 [email or web address] Information not available 09/01/2025 Do You Have Any Pets? No MIGRATION.0301 726738 Information not available 01/03/2023 What Is Your Relationship Status? MIGRATION.0301 450980 Information not available 01/03/2023 Do You Use Your Seat Belt Or Car Seat Routinely? Yes MIGRATION.0301 408983 Information not available 01/03/2023 Do You Have Smoke And Carbon Monoxide Detectors In Your Home? Yes MIGRATION.0301 533539 Information not available 01/03/2023 Are You Passively Exposed To Smoke? No MIGRATION.0301 182565 Information not available 01/03/2023 Are There Any Smokers In Your House? No MIGRATION.0301 466461 Information not available 01/03/2023 What Types Of Sporting Activities Do You Participate In? None MIGRATION.0301 028587 Information not available 01/03/2023 Do You Use Sunscreen Routinely? Yes MIGRATION.0301 171228 Information not available 01/03/2023 Has Tobacco Cessation Counseling Been Provided? No N/a MIGRATION.0301 548642 Information not available 01/03/2023 Have You Recently Traveled Abroad? No MIGRATION.0301 524338 Information not available 01/03/2023 Do You Have Difficulty Walking Or Climbing Stairs? No MIGRATION.0301 201404 Information not available 01/03/2023 Do You Have Any Dietary Restrictions? No MIGRATION.0301 377804 Information not available 01/03/2023 Sex: Male Functional Status Question Answer Note LastModified by Organiz39 Health Details LastModified Time Do you use any illicit or recreational drugs? No MIGRATION.478200 6527 Information not available 01/03/2023 Do you or have you ever used any other forms of tobacco or nicotine? No MIGRATION.280198 0151 Information not available 01/03/2023 What is your level of alcohol consumption? None MIGRATION.555930 1069 Information not available 01/03/2023 Are you currently employed? No Retired Information not available 04/12/2023 Do you have transportation difficulties? No MIGRATION.388995 4533 Information not available 01/03/2023 Are you able to walk independently without assistance or assistive devices? YESWOREST MIGRATION.931480 8765 Information not available 01/03/2023 Do you have difficulty doing errands alone? No MIGRATION.797715 8677 Information not available 01/03/2023 Are you able to care for yourself independently? Yes MIGRATION.196001 6135 Information not available 01/03/2023 Do you have difficulty dressing, bathing, grooming, or toileting? No MIGRATION.159822 6692 Information not available 01/03/2023 What is your exercise level? Occasional MIGRATION.546528 4110 Information not available 01/03/2023 Mental Status Question Answer Note LastModified by Organizat ion Details LastModified Time Do you feel stressed (tense, restless, nervous, or anxious, or unable to sleep at night)? [id number] MIGRATION.46266478 26 Information not available 01/03/2023 Do you have difficulty concentrating, remembering or making decisions? No MIGRATION.58717307 26 Information not available 01/03/2023 Family History Relationship Description Onset Age of this Age Resolved Age Notes LastModified by Organization Details LastModified Time Father Malignant neoplasm of lung MIGRATION.553 [id number] Not available 01/03/2023 01:12:57 Mother Cerebrovascu lar accident [email or web address] Not available 09/2023 11:45:57 Medical History Condition Response NERVE DISEASE N BLINDNESS N RHEUMATIC FEVER N KIDNEY STONES N BLADDER PROBLEMS N MRSA N OTHER # 1 Y POLIO N LUNG DISEASE/DISORDER N HISTORY OF DRUG ABUSE N RADIATION / CHEMOTHERAPY N COPD N Other # 2 N BLOOD DISEASES [...] Recorded Time zoster recombinant 9 completed CYNDY Hunt [facility] 06/05/2024 14:19:52 zoster recombinant 9 completed CYNDY Hunt, [facility] 06/05/2024 14:19:52 Influenza, high-dose, quadrivalent, PF 0 completed Zay Grace LPN null, [facility] 06/05/2024 14:19:52 Influenza, high-dose, quadrivalent, PF 3 [facility] 14:19[facility]52 Influenza, high-dose, quadrivalent, PF 1 completed [facility] 14:19:52 COVID-19, mRNA, LNP-S, PF, 100 mcg/0.5mL dose or 50 mcg/0.25mL dose 1 completed [facility] 14:19:52 COVID-19, mRNA, LNP-S, PF, 100 mcg/0.5mL dose or 50 mcg/0.25mL dose 1 [facility] 14:19:52 COVID-19, mRNA, LNP-S, PF, 100 mcg/0.5mL dose or 50 mcg/0.25mL dose 2 [facility] 14:19:52 COVID-19, mRNA, LNP-S, bivalent, PF, 50 mcg/0.5 mL or 25mcg/0.25 mL dose 2 [facility] 14:19:53 RSV, recombinant, protein subunit RSVpreF, adjuvant reconstituted, 0.5 mL, PF 3 [facility] 14:19:53 COVID-19, mRNA, LNP-S, PF, 50 mcg/0.5 mL 3 [facility] 14:19:53 Tdap 3 completed CYNDY Hunt, [facility] 06/05/2024 14:19:53 Influenza, high-dose, trivalent, PF 9 completed CYNDY Hunt, [facility] 06/05/2024 14:19:53 Influenza, high-dose, trivalent, PF 4 completed Not Available [facility] 09/01/2025 11:09:59 COVID-19, mRNA, LNP-S, PF, 50 mcg/0.5 mL 5 completed Not Available [facility] 09/01/2025 11:09:59 Influenza, high-dose, trivalent, PF 5 completed Not Available [facility] 09/01/2025 11:09:59 SARS-COV-2 (COVID-19) vaccine, UNSPECIFIED 1 completed CYNDY Hunt, [facility] 06/05/2024 14:19:53 SARS-COV-2 (COVID-19) vaccine, UNSPECIFIED 1 completed CYNDY Hunt, [facility] 06/05/2024 14:19:53 COVID-19, mRNA, LNP-S, PF, 100 mcg/0.5mL dose or 50 mcg/0.25mL dose 1 completed CYNDY Hunt, [facility] 06/05/2024 14:19:52 Influenza, high-dose, trivalent, PF 0 completed Zay Grace LPN null, [facility] 06/05/2024 14:19:53 Influenza, high-dose, quadrivalent, PF 2 completed Not Available [facility] 07/27/2023 00:31:47 pneumococcal polysaccharide PPV23 9 completed Not Available [facility] 07/27/2023 00:31:47 Influenza, high-dose, trivalent, PF 8 completed Not Available [facility] 07/27/2023 00:31:47 Pneumococcal conjugate PCV 13 8 completed Not Available [facility] 07/27/2023 00:31:47 Influenza, high-dose, trivalent, PF 7 completed Not Available [facility] 07/27/2023 00:31:47 Influenza, high-dose, trivalent, PF 4 completed Not Available [facility] 07/27/2023 00:31:47 Influenza, high-dose, trivalent, PF 6 completed Not Available [facility] 07/27/2023 00:31:47 Influenza, high-dose, trivalent, PF 5 completed Not Available [facility] 07/27/2023 00:31:47 Influenza, split virus, trivalent, preservative 3 completed CYNDY Hunt, [place] [facility] 06/05/2024 14:19:53 Past Encounters Encounter ID Performer Location Encounter Start Date Encounter Closed Date Diagnosis/Indication Diagnosis SNOMED-CT Code Diagnosis ICD10 Code Diagnosis IMO Codes Diagnosis Note [id number] Andrea boyd MD [facility] [address] [facility] [place] [address] 09/01/2025 11:07:35 09/01/2025 12:04:00 Screening - NAD 589715262 Z13.9 C-scope: 12/07/11 Dr Vizcarra and next [...] in 3 months as per his requestdo labsER if worseHe and his did verbalize their understand ing of the above Bronchitis 84808427 J40 [facility], treated with IV rocephinDo es well now 01/29/2024 Pulse Ox 96% on RANo SOB or POLANCO, no cough, no wheezing nowShould see pulmonary, was referred last OV Dyspnea on exertion 6084 5006 R06.09 PFT 01/24/2023 : [facility]2023 Dr Shirley 03/15/2023 OV 01/29/2024 :S/p d/c from [place] for bronchitis , does not want to see Dr Garcia to Dr Cerda in [place] OV 06/10/2024 : Referral to Dr Cerda provided again [facility] 02/08/2025 : Xray chest: Neg OV 02/24/2025 : See his pulmonary Atrial fibrillation 4943 6004 I48.91 ECHO 06/21/2022 ECHO 08/02/2023 PFT 08/10/2023 : [facility] On amiodarone 200mg dailyNot on xarelto 20mg daily d/t costNow on dabigatran 150mg bidOn diltiazem Off eliquis, unable to afford the eliquis, switched to xarelto 20mg daily 08/30/2023 , did discuss with Dr Veloz tooUbaldoL Dr Veloz 05/04/[address] [facility] [address] Veloz 05/05/[address] [facility] [address] Veloz 05/28/2024 , [facility] V Dr Veloz 10/20/2024 , next in [address] Veloz 06/22/2025 : Next apt in 6 months Hyperlipidemia 39397594 E78.5 On atorvastat in 10mg dailyGet labs Chronic constipation 236 820420 K59.09 Was given linzess in the pastCan renew as needed Hypothyroidism 71264066 E03.9 US thyroid: 04/13/2022 TSH/FT4 WNL 04/09/2023 Declines any meds 12/14/2022 Benign par oxysmal positional vertigo 294098709 H81.13 Bilateral - Doing very well now Gastroesop hageal reflux disease without esophagitis 836704991 K21.9 On PPI, take as neededDoes well Obstructiv e sleep apnea syndrome 45039329 G47.33 He does use his CPAP and is doing well on this Osteoarthritis 831054454 M19.[address] Benson, has [...] to ortho Sees Dr White Skin lesion 42451417 L98 .9 Noted on the left upper back, raised crusted, non tenderSeen by Dr Castañeda, the dermatolog ist in [place] as he has been there before Does well now History of total knee arthroplasty [id number] 105 Z96.659 S/p L TKR Does well now Small siva l obstruction [id number] K56.609 Admitted 07/20 to 07/23 [facility], seen by G surgery, NG tube placed, cr improved from 1.43 to 1.04, was able to pass gas and stool and d/c Does well today, no complaints [facility], [facility] with [facility]in Pain of bi lateral hands [id number] M79.[address] Perdomo, 04/10/2023 , next apt 05/22/2023 Pain in right foot [id number] [address] Luiz White, s/p xray 12/24/2024 Cholecystitis [id number] K 81.9 S/p ERCP 10/20 and lap herb 10/21, then diagnosed with pancreatit is, now does well Pain of le ft knee joint [id number] [address] Kc 03/08/2023 , treated with MDP Macrocytosis [id number] D 75.89 Leukocytosis 713962369 D 72.829 Repeat the labs Hyponatremia [id number] E8 7.1 Get a referral to Dr Rosen nephrologwilfredo , his sees him, also advised on fluid restrictio n and get labs again Sees Dr Rosen Pain of bi lateral hip joints [id number] M25.551 M25.552 L>RHe was working in the yard and on a truckSince a couple weeksGet on meloxicam as needed with food, caution as he is on Xarelto, if not better see Dr Kc Now has seen Dr Kc 06/17/2025 Low back pain [id number] M54.[id number] Kc 06/17/2025 MRI L spine 07/29/2025 He has declined any referrals to [facility] today 09/01/2025 , states that Dr Kc did offer pain management referral but he had declined that also Health Concerns Section Related Observation LastModified by Organization Detai ls LastModified Time None Recorded Concern Status LastModified by Organization Details LastModified Time None Recorded Payers Encounter Date Sequence Insurance Name Policy Number Policy Hinds Covered Member ID Hinds Member ID Guarantor Name 09/01/2025 1 [place] Bill Colon [id number] Bill Colon 09/01/2025 2 [employer] (MEDICARE SUPPLEMENT) Bill Colon [id number] Bill Colon Notes Date Note Type Note Provider Name and Address Organization Details Recorded Time 09/01/2025 text/html Here to establish carePast Hx:HTNGERDColon surgeryReviewed social family and surgical historyHere [...] back and would like to get a product development specialist apt OV 05/25/2020:Here for his routine aptHe [...] his wifeHe is doing wellOV 08/10/2022:Post hosp, [facility] 07/20 to 07/23 for SBOStates that he [...] well today, he is here with his OV 02/24/2025: Here for his f/u apt, he feels well today, has noted kalee hip pain, here with his , no acute or remote trauma noted OV 09/01/2025: Here for his f/u apt, he feels well today Andrea Car MD [address] [place] [address], [place] [address], [place], [address], [facility] 09/01/2025 12:01:14
--- OUTSIDE RECORDS SUMMARY | 2025-10-05 13:29 | XMS_ITS | Encounter Summary ---
Author Organization [facility] Address [address] [facility] [place] [address] Care Team Providers Care Integrated Specialist Name Role Phone Unavailable Primary Care Provider Unavailabl e Encounter Details Date Type Department Care Team (Late st Contact Info) Description 08/29/2023 Lab Requisition [facility] - DermPath Lab [address] [place] [id number] Andre Sutton MD [address] [place] [address] Social History Tobacco Use Types Packs/Day Years Used Date Smoking Tobacco: Never Assessed Sex and Gender Information Value Date Recorded Sex Assigned at Not on file 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 Gender Identity Not on file Sexual Orientation Not on file documented as of this encounter Plan of Treatment Not on file documented as of this encounter Procedures Procedure Name Priority Date/Time Associated Diagnosis Comments DERMATOPATHOLOGY Routine 08/28/2023 3:33 AM CDT documented in this encounter Results * DERMATOPATHOLOGY (08/28/2023 3:33 AM CDT) Case Report Dermatopathology Report Case: [id number] Authorizing Provider: Andre Sutton MD Collected: 08/28/2023 03:33 AM Ordering Location: [facility] DermPath Lab Received: 08/29/2023 02:11 PM [...] characteristic determined by the Dermatopathology Laboratory at [facility], directed by Dr. Diana Loving. These tests need not be, and therefore are not, approved by the [place] Food and Drug Administration. The tests are used for clinical purposes. Billing Codes Specimen Charges Stain Charges 62671 1 3:30 PM CDT DERMATOPATHOLOGY LABORATORY Embedded Images 3:30 PM CDT DERMATOPATHOLOGY LABORATORY Pathology/Cytolo gy TISSUE SPECIMEN FROM SKIN / Unknown 08/28/2023 3:33 AM CDT 08/29/2023 2:11 PM CDT Andre Sutton MD LAB - PATHOLOGY/CYTOLOGY ORD ERABLES Final Result DERMATOPATHOLOGY LABORATORY [facility] - Department of Dermatology [address] [place] [address], [facility] [phone] documented in this encounter Visit Diagnoses Not on filedocumented in this encounter
--- OUTSIDE RECORDS SUMMARY | 2025-10-05 13:29 | XMS_ITS | Encounter Summary ---
Author Organization [facility] Address [address] [facility] [place] [address] Care Team Providers Care Package Collector Name Role Phone Unavailable Primary Care Provider Unavailabl e Encounter Details Date Type Department Care Team (Late st Contact Info) Description 05/12/2019 Lab Requisition [facility] Care DermPath Lab [address] [place] [address] Andre Sutton MD [address] [place] [address] Social History Tobacco Use Types Packs/Day Years Used Date Smoking Tobacco: Never Assessed Sex and Gender Information Value Date Recorded Sex Assigned at Not on file 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 Diana Loving. These tests need not be, and therefore are not, approved by the [place] Food and Drug Administration. The tests are used for clinical purposes. Billing Codes Specimen Charges Stain Charges 03177 1 4:19 PM CDT DERMATOPATHOLOGY LABORATORY Embedded Images 4:19 PM CDT DERMATOPATHOLOGY LABORATORY Pathology/Cytolog y TISSUE SPECIMEN FROM SKIN / Unknown 05/09/2019 05/12/2019 1:16 PM CDT us Andre Sutton MD LAB - PATHOLOGY/CYTOLOGY ORD ERABLES Final Result DERMATOPATHOLOGY LABORATORY [facility] - Department of Dermatology [employer] [facility], [address] [place] [address], [facility] [phone] documented in this encounter Visit Diagnoses Not on filedocumented in this encounter
--- OUTSIDE RECORDS SUMMARY | 2025-10-05 13:29 | XMS_ITS | Clinical Summary ---
Author Organization [facility] Physician Office Building [address] [place] [address] Care Team Providers Care Supervisor Matrix Name Role Phone Dwayne Car MD Primary [...] (10/18/2021): Added automatically from request for surgery [id number] Lumbar spondylosis with right S1 radiculopathy 0 [...] drink = 0.6 oz pur e alcohol) [facility] Utilities Answer Date Recorded In the past 12 months has [employer], gas, oil, or water [employer] threatened to shut off services in your home? No 10/19/2023 Social Connection and Isolation Panel Answer Date Recorded In a typical week, how many times do you talk on the phone with family, friends, or neighbors? Patient unable to answer 10/19/2023 How often do you get togethe r with friends or relatives? Patient unable to answer 10/19/2023 How often do you attend [facility] or yarsani services? 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 Gender Identity Not on file Sexual Orientation Not on file Last Filed Vital Signs Vital Sign Reading Time Taken Comments Blood Pressure 124/72 10/20/2023 7:54 AM SPA ATTENDANT Pulse 62 10/20/2023 7:54 AM SPA ATTENDANT Temperature 36.9 C (98.4 F) 10/20/2023 7:54 AM SPA ATTENDANT Respiratory Rate 19 10/20/2023 7:54 AM SPA ATTENDANT Oxygen Saturation 95% 10/20/2023 7:54 AM SPA ATTENDANT Inhaled Oxygen Concentration - - Weight 74.4 kg (164 lb 0.4 oz) 10/18/2023 6:15 P M SPA ATTENDANT Height 169 cm (5' 6.54) 10/18/2023 6:15 PM SPA ATTENDANT Body Mass Index 26.05 10/18/2023 6:15 PM SPA ATTENDANT Plan of Treatment Health Maintenance Due Date [...] 10/27/2019, 08/26/2019 Medical Devices Implanted Type Area Acid Blower Device Identifier Shelf Expiration Date Model / Serial / Lot Apptentive Scientific Mrak [id number] Wallflex Permalume 10mm 8.5fr 60mm 194cm Fully Cover Catheter - [id number] Implanted:Qty: 1 on 10/25/2021 by Norbert Pichardo MD at [facility] Stent App[employer] Mark 07/25/2023 [id number] / / [id number] [employer] [id number] Advanix Naviflex 10fr 7cm Preload Radiopaque Rapid Exchange - [id number] Implanted:Qty: 1 on 10/20/2021 by Norbert Pichardo MD at [facility] N/A: Other - see comments [employer] 09/08/2023 [id number] / / [id number] Description:COMMON BILE DUCT [employer] 6541 4fr 3cm Pliable Pigtail Curve Stent Pancreatic - [id number] Implanted:Qty: 1 on 10/20/2021 by Norbert Pichardo MD at [facility] N/A: Pancreas [employer] 01/03/2026 [id number] / / [id number] Insurance MEDICARE [facility] MEDICARE [facility] MEDICARE [facility] Advance Directives For more information, please contact: [phone] * Full Code (Latest Code Status on [...] 2:30 AM 10/20/2021 10:35 AM Care Teams Supervisor Matrix Relationship Specialty Start Date End Date Dwayne Car MD [address] [address] PCP - General Internal Medicine 07/05/18 Jared White MD [address] [place] [address] Surgeon General Surgery 10/21/21 Norbert Pichardo MD [address] [address] Consulting Physician Gastroenterology 10/28/21
--- OUTSIDE RECORDS SUMMARY | 2025-10-05 13:29 | XMS_ITS | Encounter Summary ---
Author Organization [facility] Address [address] [facility] [place] [address] Care Team Providers Care Burn Nurse Name Role Phone Unavailable Primary Care Provider Unavailabl e Encounter Details Date Type Department Care Team (Late st Contact Info) Description 12/11/2019 Lab Requisition [facility] DermPath Lab [address] [place] [address] Andre Sutton MD [address] [place] [address] Social History Tobacco Use Types Packs/Day Years Used Date Smoking Tobacco: Never Assessed Sex and Gender Information Value Date Recorded Sex Assigned at Not on file 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 Gender Identity Not on file Sexual Orientation Not on file documented as of this encounter Plan of Treatment Not on file documented as of this encounter Procedures Procedure Name Priority Date/Time Associated Diagnosis Comments DERMATOPATHOLOGY Routine 12/09/2019 12:0 0 AM MANAGER SCHEDULING documented in this encounter Results * DERMATOPATHOLOGY (12/09/2019 12:00 AM MANAGER SCHEDULING) Case Report Dermatopathology Report Case: [id number] Authorizing Provider: Andre Sutton MD Collected: 12/09/2019 12:00 AM Ordering Location: [facility] DermPath Lab Received: 12/11/2019 12:17 PM Pathologist: Brayan Loving MD Specimen: Skin, top left shoulder 0 4:52 PM MANAGER SCHEDULING DERMATOPATHOLOGY LABORATORY Final Diagnosis Specimen A. SKIN, top left shoulder: BENIGN VERRUCOUS KERATOSIS, INFLAMED (L82.1) 0 4:52 PM MANAGER SCHEDULING DERMATOPATHOLOGY LABORATORY at 1652 MANAGER SCHEDULING Clinical History R/O SCC. 0 4:52 PM [facility] DERMATOPATHOLOGY LABORATORY Gross Description Specimen A: Received is one formalin filled container labeled with the patient's name and designated top left shoulder. The specimen consists of a shave biopsy measuring [id number], bisected. Jar 0. 0 4:52 PM [facility] DERMATOPATHOLOGY LABORATORY Microscopic Description Specimen A. SKIN, top left shoulder: Sections show hyperkeratosis, papillomatosis, hypergranulosis, and acanthosis. Inflammatory cells are present within the dermis. These histological findings can be seen in a verruca vulgaris or a seborrheic keratosis. 0 4:52 PM [facility] DERMATOPATHOLOGY LABORATORY Disclaimer An external and internal positive and negative controls are appropriate for the histochemical, immunohistochemical and immunofluorescence stain(s) in this case (if any), except where stated explicitly. The performance characteristics of the stain(s) cited in this report were developed and its performance characteristic determined by the Dermatopathology Laboratory at [facility], directed by Dr. Diana Loving. These tests need not be, and therefore are not, approved by the [place] Food and Drug Administration. The tests are used for clinical purposes. Billing Codes Specimen Charges Stain Charges 24897 1 0 4:52 PM [facility] DERMATOPATHOLOGY LABORATORY Embedded Images 0 4:52 PM [facility] DERMATOPATHOLOGY LABORATORY Pathology/Cytolog y TISSUE SPECIMEN FROM SKIN / Unknown 12/09/2019 12/11/2019 12:17 PM MANAGER SCHEDULING Andre Sutton MD LAB - PATHOLOGY/CYTOLOGY ORD ERABLES Final Result DERMATOPATHOLOGY LABORATORY [facility] - Department of Dermatology [address] [facility] [facility] [place] [address], [facility] [phone] documented in this encounter Visit Diagnoses Not on filedocumented in this encounter
--- OUTSIDE RECORDS SUMMARY | 2025-10-05 13:29 | XMS_ITS | Encounter Summary ---
Author Organization [facility] Address [address] [place] [address] Care Team Providers Care Poiser Name Role Phone Unavailable Primary Care Provider Unavailabl e Encounter Details Date Type Department Care Team (Late st Contact Info) Description 11/20/2018 Lab Requisition [facility] Care DermPath Lab [address] [place] [address] Andre Sutton MD [address] [place] [address] Social History Tobacco Use Types Packs/Day Years Used Date Smoking Tobacco: Never Assessed Sex and Gender Information Value Date Recorded Sex Assigned at Not on file Legal 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 Gender Identity Not on file Sexual Orientation Not on file documented as of this encounter Plan of Treatment Not on file documented as of this encounter Procedures Procedure Name Priority Date/Time Associated Diagnosis Comments DERMATOPATHOLOGY Routine 11/19/2018 12:0 0 AM CLOTHES SHAKER documented in this encounter Results * DERMATOPATHOLOGY (11/19/2018 12:00 AM CLOTHES SHAKER) Case Report Dermatopathology Report Case: [id number] Authorizing Provider: Andre Sutton MD Collected: 11/19/2018 12:00 AM Pathologist: Brayan Loving MD Received: 11/20/2018 11:33 AM Specimens: A) - Skin, left lateral upper eyelid B) - Skin, left lateral end of brow C) - Skin, left post edge of helix rim superiorly D) - Skin, left neck behind earlobe 9 2:45 PM [facility]ER DERMATOPATHOLOGY LABORATORY Final Diagnosis Specimen A. SKIN, [...] CARCINOMA, INFILTRATIVE PATTERN (C44.41) 9 2:45 PM [facility] DERMATOPATHOLOGY LABORATORY at 1445 CLOTHES SHAKER Clinical History A-B: R/O BCC. C: R/O dys nevus, lentigo. D: R/O SCC. 9 2:45 PM [facility] DERMATOPATHOLOGY LABORATORY Gross Description Specimen A: Received is one formalin filled container labeled with the patient's name and designated left lateral upper eyelid. The specimen consists of a shave biopsy (2 pieces) measuring 4x9q1lr & 4z0k0rz. Jar 0+. Specimen B: Received is one formalin filled container labeled with the patient's name and designated left lateral end of brow. The specimen consists of a shave biopsy (2 pieces) measuring 9f7r7al & 6p3z4ta. Jar 0. Specimen C: Received is one formalin filled container labeled with the patient's name and designated left post edge of helix rim superiorly. The specimen consists of a shave biopsy measuring 1m1n9xr. Jar 0. Specimen D: Received is one formalin filled container labeled with the patient's name and designated left neck behind earlobe. The specimen consists of a shave biopsy measuring 8b5l6hk. Jar 0. 9 2:45 PM [facility] DERMATOPATHOLOGY LABORATORY Microscopic Description Specimen [...] nests that infiltrate the dermis. 2:45 PM [facility] DERMATOPATHOLOGY LABORATORY Disclaimer An external and internal positive and negative controls are appropriate for the histochemical, immunohistochemical and immunofluorescence stain(s) in this case (if any), except where stated explicitly. The performance characteristics of the stain(s) cited in this report were developed and its performance characteristic determined by the Dermatopathology Laboratory at [facility], directed by Dr. Diana Loving. These tests need not be, and therefore are not, approved by the [place] Food and Drug Administration. The tests are used for clinical purposes. Billing Codes Specimen Charges Stain Charges 15157 60260 52338 18373 1 1 1 1 [address]04 1 2:45 PM [facility] DERMATOPATHOLOGY LABORATORY Embedded Images 2:45 PM [facility] DERMATOPATHOLOGY LABORATORY Pathology/Cytology TISSUE SPECIMEN FROM SKIN / Unknown 11/19/2018 11/20/2018 11:33 AM CLOTHES SHAKER Miscellaneous samples (specimen) TISSUE SPECIMEN FROM SKIN / Unknown 11/19/2018 11/20/2018 11:33 AM CLOTHES SHAKER Miscellaneous samples (specimen) TISSUE SPECIMEN FROM SKIN / Unknown 11/19/2018 11/20/2018 11:33 AM CLOTHES SHAKER Miscellaneous samples (specimen) TISSUE SPECIMEN FROM SKIN / Unknown 11/19/2018 11/20/2018 11:33 AM CLOTHES SHAKER Andre Sutton MD LAB - PATHOLOGY/CYTOLOGY ORD ERABLES Final Result DERMATOPATHOLOGY LABORATORY [facility] - Department of Dermatology [facility] [facility] [place] [address], [facility] [phone] documented in this encounter Visit Diagnoses Not on filedocumented in this encounter
--- OUTSIDE RECORDS SUMMARY | 2025-10-05 13:29 | XMS_ITS | Clinical Summary ---
Author Organization [facility] Address [address] [place] [address] Care Team Providers Care Disease Intervention Specialist Name Role Phone Unavailable Primary Care Provider Unavailabl e Source Comments [facility],non-owned Affiliates and Associated Physician Practices is amultiple site organization consisting of ambulatory clinics and hospital sitesin [place], [place], [place] and [place]. This disclosure is being madepursuant to the Care Everywhere program and may not contain all information available regarding this patient. 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
--- OUTSIDE RECORDS SUMMARY | 2025-10-05 13:29 | XMS_ITS | Data Portability ---
Author Organization [place] [facility] [place] [employer] [facility], Main Office Address [address] [place] [address] Care Team Providers Care Product Controller Name Role Phone MONSE CAR Primary Care Provider MONSE CAR Referring Provider [phone] JAMESON VELOZ Deputy Building Guard [facility]ULMON[facility] Pulmonologi st CATIA PERDOMO Hand Surgeon TAMELA Mercer Orthopedic Surgeon CHIN ROSEN Retirement Specialist Assessment Encounter Date Assessment Date Assessment LastModified by Organization Details LastModified Time 04/03/2024 04/03/2024 12/06/2021: PSA 0.37 04/09/2023: MCV 99.1 08/07/2023: PSA 1.2 Glob 2.5, TP WNL MCV 99.3 01/01/2024: Glob 2.5L WBC 11.9, MCV 98.8 03/13/2024: WBC 11.0H 03/25/2024: Dr Reyna H/H 12.9/39.8 12/06/2021: PSA 0.37 04/09/2023: MCV 99.1 08/07/2023: PSA 1.2 Glob 2.5, TP WNL MCV 99.3 01/01/2024: Glob 2.5L WBC 11.9, MCV 98.8 Not available 04/03/2024 10:00:30 06/10/2024 06/10/2024 12/06/2021: PSA 0.37 04/09/2023: MCV 99.1 08/07/2023: PSA 1.2 Glob 2.5, TP WNL MCV 99.3 01/01/2024: Glob 2.5L WBC 11.9, MCV 98.8 03/15/2024: Sushil H/H 12.4/38.8 06/06/2024: Na 131 [email or web address] Not available 06/10/2024 09:29:44 10/14/2024 10/14/2024 12/06/2021: PSA 0.37 04/09/2023: MCV 99.1 08/07/2023: PSA 1.2 Glob 2.5, TP WNL MCV 99.3 01/01/2024: Glob 2.5L WBC 11.9, MCV 98.8 03/15/2024: Sushil H/H 12.4/38.8 06/06/2024: Na 131 10/06/2204: Na [address] [email or web address] Not available 10/25/2024 14:16:42 02/24/2025 02/24/2025 12/06/2021: PSA 0.37 04/09/2023: MCV 99.1 08/07/2023: PSA 1.2 Glob 2.5, TP WNL MCV 99.3 01/01/2024: Glob 2.5L WBC 11.9, MCV 98.8 03/15/2024: Sushil H/H 12.4/38.8 06/06/2024: Na 131 10/06/2204: Na 129 MCV 100 02/18/2025: Na [address] [email or web address] Not available 02/22/2025 17:46:47 09/01/2025 09/01/2025 12/06/2021: PSA 0.37 04/09/2023: MCV 99.1 08/07/2023: PSA 1.2 Glob 2.5, TP WNL MCV 99.3 01/01/2024: Glob 2.5L WBC 11.9, MCV 98.8 03/15/2024: Sushil H/H 12.4/38.8 06/06/2024: Na 131 10/06/2204: Na 129 MCV 100 02/18/2025: Na 131 MCV 100.00 04/21/2025: PSA 0.31 08/26/2025: Gluc 103 MCV 102.2 Not available 08/31/2025 17:11:42 Plan of Treatment Reminders Order Date Submit Date Provider Last Modified By Organization Details Last Modified Time Details Appointments Any 15 2025 10:45A M Monse salguero MD Not available Not available Not available Lab CBC w/ auto diff [address] [facility], [address] [place], [address], 09/01/2025 12:01:58 vitamin B12 + folate, serum or blood [address] [facility], [address] [place], [address], 09/01/2025 12:01:57 lipid panel, serum [address] [facility], [address] [place], [address], 09/01/2025 12:01:56 CMP, serum or plasma [address] [facility], [address] [place], [address], 09/01/2025 12:01:57 CBC w/ auto diff [address] [facility], [address] [place], [address], 09/01/2025 12:01:57 TSH + free T4, serum [address] [facility], [address] [place], [address], 09/01/2025 12:01:57 CBC w/ auto diff [address] [facility], [address] [place], [address], 08/25/2025 09:14:55 vitamin B12 + folate, serum or blood [address] [facility], [address] [place], [address], 08/25/2025 09:14:55 lipid panel, serum [address] [facility], [address] [place], [address], 08/25/2025 09:14:55 CMP, serum or plasma [address] [facility], [address] [place], [address], 08/25/2025 09:14:55 CBC w/ auto diff [address] [facility], [address] [place], [address], 08/25/2025 09:14:55 TSH + free T4, serum [address] [facility], [address] [place], [address], 08/25/2025 09:14:55 vitamin B12 + folate, serum or blood [address] [facility], [address] [place], [address], 04/14/2025 10:01:56 lipid panel, serum 2023 024 [facility], [address] [place], [address], 02/18/2025 12:46:12 CMP, serum or plasma [address] [facility], [address] [place], [address], 04/14/2025 10:01:56 CBC w/ auto diff 2023 024 [facility] Lab, [address] [place], [address], 02/18/2025 11:18:51 TSH + free T4, serum [address] [facility], [address] [place], [address], 04/14/2025 10:01:56 CBC w/ auto diff [address] [facility], [address] [place], [address], 04/14/2025 10:01:56 CMP, serum or plasma 2023 024 [facility], [address] [place], [address], 02/18/2025 12:46:18 CBC w/ auto diff [address] [facility], [address] [place], [address], 12/11/2024 12:17:27 vitamin B12 + folate, serum or blood [address] [facility], [address] [place], [address], 12/11/2024 12:17:27 lipid panel, serum [address] [facility], [address] [place], [address], 12/11/2024 12:17:26 CMP, serum or plasma [address] [facility], [address] [place], [address], 12/11/2024 12:17:27 CBC w/ auto diff [address] [facility], [address] [place], [address], 12/11/2024 12:17:27 TSH + free T4, serum [address] [facility], [address] [place], [address], 12/11/2024 12:17:27 CBC w/ auto diff 2023 024 [facility], [address] [place], [address], 06/06/2024 10:35:58 vitamin B12 + folate, serum or blood [address] [facility], [address] [place], [address], 10/06/2024 09:05:59 lipid panel, serum 2023 024 [facility] Out[facility] Lab, [address] [place], [address], 06/06/2024 11:01:46 CMP, serum or plasma 2023 024 [facility] Lab, [address] [place], [address], 06/06/2024 11:01:55 CBC w/ auto diff [address] [facility], [address] [place], [address], 10/06/2024 09:05:59 TSH + free T4, serum [address] [facility], [address] [place], [address], 10/06/2024 09:05:59 Referral nephrolog ist referral 2024 025 [email or web address] [place], [address], [address], [place], [address], 09/01/2025 14:20:57 pulmonolo gist referral - Please call patient to schedule an appointme nt. Thank you. 2024 025 [email or web address] Helen Zaida, [address] [place] [address] [address], [place], [address], 09/01/2025 14:20:57 pulmonolo gist referral - Please call patient to schedule an appointme nt. Thank you. 2024 025 [email or web address] Helen Hoffmanzaki, [address] [place] [address] [address], [place], [address], 05/27/2025 09:17:25 orthopedi c surgeon referral - Please call patient to schedule. 2023 024 [email or web address] Tamela Reyna MD, [address] [place] [address] [address], [place], [address], 10/27/2024 17:49:38 pulmonolo gist referral 2023 024 [email or web address] Helen Zaida, [address] [facility] [address], [place], [address], 10/14/2024 13:28:08 nephrolog ist referral - Please call patient to schedule. 2023 024 [place], [address], [address], [place], [address], 06/29/2025 10:02:31 orthopedi c surgeon referral 2023 024 [email or web address] Tamela Reyna MD, [address] [place] [address] [address], [place], [address], 12/11/2024 12:17:16 pulmonolo gist referral 2023 024 [email or web address] Helen Cerda, [address] [facility] [address], [place], [address], 12/11/2024 12:17:14 orthopedi c surgeon referral 2023 024 [email or web address] Tamela Reyna MD, [address] [place] [address] [address], [place], [address], 10/06/2024 09:05:40 podiatris t referral 2023 024 [email or web address] Tamela Reyna MD, [address] [place] [address] [address], [place], [address], 11/03/2024 17:20:35 cardiolog ist referral 2023 024 [email or web address] [place], [address] [facility], [facility] [address], [address], 10/06/2024 09:05:39 pulmonolo gist referral 2023 024 [email or web address] Helen Cerda, [address] [place] [address] [address], [address], 10/06/2024 09:05:38 Procedures None recorded. Surgeries None recorded. Imaging None recorded. Medication Orders meloxicam 7.5 mg tablet 2024 025 [facility], [address] [place], [address], 09/01/2025 11:22:46 Patient TargetsNo targets recorded. Patient Instructions Encounter Date Encounter Id Patient Instructions Last Modified By Organization Details Last Modified Time 06/10/2024 [id number] Personalized Hea lth Plan and Screening Recommendations Advance Directives - Do you have one? Advance Directives - Do we have your advance directive on file in your health record? Primary Prevention/Interven tion (prevents or decreases the chance of common diseases from occurring) Smoking Risk: Alcohol Misuse Screening: Weight: Physical activity: Nutrition: Fall Risk (screened today): Vaccines Pneumococcal: Influenza: Chronic Disease Risks Stroke: Active diagnosis, Continue current treatment plan Heart Attack: Active diagnosis, Continue current treatment plan Clogging of the Arteries: Active diagnosis, Continue current treatment plan Diabetes: Active diagnosis, Continue current treatment plan Secondary Prevention/Interven tion (detects treatable diseases before they may cause symptoms, disability, or ) Prostate Cancer Screening: Colon Cancer Screening: Date Screening Last Performed: Eye Disease Screening: Your next exam in: Dementia Risk: Depression Screening: Active diagnosis, Continue current treatment plan [email or web address] Not available 06/10/2024 08:22:36 10/14/2024 [id number] dementia rating scale-2* [email or web address] Not available 11/03/2024 16:56:49 alcohol misuse* [email or web address] Not available 11/03/2024 16:56:59 depression screening* Not available 11/03/2024 16:57:04 Timed Up and Go test (TUG)* [email or web address] Not available 11/03/2024 16:57:13 multi-dimensiona l health assessment questionnaire* [email or web address] Not available 10/14/2024 11:26:14 advance care planning: care instructions [email or web address] Not available 10/25/2024 14:16:44 advance directiv es: care instructions [email or web address] Not available 10/25/2024 14:16:44 [place] Advance Directives [email or web address] Not available 10/25/2024 [...] Non Smoker Alcohol Misuse Screening: Negative Weight: Overweight try to lose 10% of your body weight Physical activity: Need more exercise/physical activity minimum of 20-30 minutes activity that causes mild breathlessness/day Nutrition: Average Refer to attached handout Heart-Healthy Diet: After Your Visit Fall Risk (screened today): Intermediate Refer to attached handout Preventing Falls: After your Visit Vaccines Pneumococcal: No further needed Influenza: Recommended today Chronic Disease Risks Stroke: Intermediate Risk Follow Heart Healthy Diet. Heart Attack: Intermediate Risk Follow Heart Healthy Diet. Clogging of the Arteries: Intermediate Risk Follow Heart Healthy Diet. Diabetes: Intermediate Risk Drastically limit sugar and products made with any type of flour (bread, pasta, cereal, cookies, crackers, etc.) Secondary Prevention/Interven tion (detects treatable diseases before they may cause symptoms, disability, or ) Prostate Cancer Screening: Your next PSA in: Ordered Colon Cancer Screening: Colonoscopy Date Screening Last Performed: 05/21/2022 Eye Disease Screening: Recommended today Dementia Risk: Low I have no recommendations Depression Screening: Negative [email or web address] Not available 10/14/2024 08:28:55 Reason for Referral Customer Program Manager Referral for D yspnea on exertion Referring Physician: Monse Car Internal Medicine, Encounter Date: 06/10/2024 Orthopedic Surgeon Referral for Osteoarthritis Referring Physician: Zeus Loomis, Encounter Date: 06/10/2024 Customer Program Manager Referral for D yspnea on exertion Referring Physician: Zeus Loomis Medicine, Encounter Date: 04/03/2024 Deputy Building Guard Referral for At rial fibrillation Referring Physician: Zeus Loomis, Encounter Date: 04/03/2024 Orthopedic Surgeon Referral for Pain of right ankle joint Referring Physician: Zeus Loomis, Encounter Date: 04/03/2024 Collection Card Clerk Referral for Pain in right foot Referring Physician: Zeus Loomis, Encounter Date: 04/03/2024 Customer Program Manager Referral for D yspnea on exertion Referring Physician: Zeus Loomis, Encounter Date: 10/14/2024 Orthopedic Surgeon Referral for Osteoarthritis Please call patient to schedule. Referring Physician: Zeus Loomis, Encounter Date: 10/14/2024 Retirement Specialist Referral for Hy ponatremia Please call patient to schedule. Referring Physician: Zeus Loomis, Encounter Date: 10/14/2024 Customer Program Manager Referral for D yspnea on exertion Please call patient to schedule an appointment. Thank you. Referring Physician: Monse Car Internal Medicine, Encounter Date: 02/24/2025 Customer Program Manager Referral for D yspnea on exertion Please call patient to schedule an appointment. Thank you. Referring Physician: Monse Car Internal Medicine, Encounter Date: 09/01/2025 Retirement Specialist Referral for Hy ponatremia Referring Physician: Monse Car Internal Medicine, Encounter Date: 09/01/2025 Results Created Date Observation Date Name Description Value Unit Range Abnormal Flag Note LastModifiedBy Organization Detail LastModifiedTime 06/06/20 24 06/06/2024 CBC/C OMPLE TE BLD COUNT W/DIF F white blood cells 4.6 x10'3 /uL 4.2-10 .8 Not Available [facility] (Lab) [address] [place], [address], 06/06/2024 10:35:58 06/06/20 24 06/06/2024 CBC/C OMPLE TE BLD COUNT W/DIF F red blood cells 4.34 x10'6 /uL 4.10-5 .80 Not Available [facility] (Lab) [address] [place], [address], 06/06/2024 10:35:58 06/06/20 24 06/06/2024 CBC/C OMPLE TE BLD COUNT W/DIF F hemoglobin 13.8 g/dL 13.2-1 7.0 Not Available [facility] (Lab) [address] [place], [address], 06/06/2024 10:35:58 06/06/20 24 06/06/2024 CBC/C OMPLE TE BLD COUNT W/DIF F hematocrit 41.5 % 39.3-5 0.0 Not Available [facility] (Lab) [address] [place], [address], 06/06/2024 10:35:58 06/06/20 24 06/06/2024 CBC/C OMPLE TE BLD COUNT W/DIF F mean red cell volume 95.6 fL 80.0-9 7.0 Not Available [facility] (Lab) [address] [place], [address], 06/06/2024 10:35:58 06/06/20 24 06/06/2024 CBC/C OMPLE TE BLD COUNT W/DIF F mean red cell hemoglobin 31.8 pg 27.0-3 3.0 Not Available [facility] (Lab) [address] [place], [address], 06/06/2024 10:35:58 06/06/20 24 06/06/2024 CBC/C OMPLE TE BLD COUNT W/DIF F mean RBC HGB concentratio n 33.3 g/dL 31.0-3 6.0 Not Available [facility] (Lab) [address] [place], [address], 06/06/2024 10:35:58 06/06/20 24 06/06/2024 CBC/C OMPLE TE BLD COUNT W/DIF F red cell distribution width 12.6 % 11.8-1 5.5 Not Available [facility] (Lab) [address] [place], [address], 06/06/2024 10:35:58 06/06/20 24 06/06/2024 CBC/C OMPLE TE BLD COUNT W/DIF F platelets 281 x10'3 /uL 150-40 0 Not Available [facility] (Lab) [address] [place], [address], 06/06/2024 10:35:58 06/06/20 24 06/06/2024 CBC/C OMPLE TE BLD COUNT W/DIF F mean platelet volume 9.8 fL 9.0-12 .4 Not Available [facility] (Lab) [address] [place], [address], 06/06/2024 10:35:58 06/06/20 24 06/06/2024 CBC/C OMPLE TE BLD COUNT W/DIF F neutrophils 55.2 % 39.0-7 2.0 Not Available [facility] (Lab) [address] [place], [address], 06/06/2024 10:35:58 06/06/20 24 06/06/2024 CBC/C OMPLE TE BLD COUNT W/DIF F lymphocytes 29.2 % 16.0-4 7.0 Not Available [facility] (Lab) [address] [place], [address], 06/06/2024 10:35:58 06/06/20 24 06/06/2024 CBC/C OMPLE TE BLD COUNT W/DIF F monocytes 10.3 % 5.0-12 .0 Not Available [facility] (Lab) [address] [place], [address], 06/06/2024 10:35:58 06/06/20 24 06/06/2024 CBC/C OMPLE TE BLD COUNT W/DIF F eosinophils 4.2 % 1.0-7. 0 Not Available [facility] (Lab) [address] [place], [address], 06/06/2024 10:35:58 06/06/20 24 06/06/2024 CBC/C OMPLE TE BLD COUNT W/DIF F basophils 0.9 % 0.0-2. 0 Not Available [facility] (Lab) [address] [place], [address], 06/06/2024 10:35:58 06/06/20 24 06/06/2024 CBC/C OMPLE TE BLD COUNT W/DIF F immature granulocytes 0.2 % 0.00-0 .50 Not Available [facility] (Lab) [address] [place], [address], 06/06/2024 10:35:58 06/06/20 24 06/06/2024 CBC/C OMPLE TE BLD COUNT W/DIF F neutrophils, absolute count 2.51 x10'3 /uL 1.5-8. 0 Not Available [facility] (Lab) [address] [place], [address], 06/06/2024 10:35:58 06/06/20 24 06/06/2024 CBC/C OMPLE TE BLD COUNT W/DIF F lymphocytes, absolute count 1.33 x10'3 /uL 1.07-3 .43 Not Available [facility] (Lab) [address] [place], [address], 06/06/2024 10:35:58 06/06/20 24 06/06/2024 CBC/C OMPLE TE BLD COUNT W/DIF F monocytes, absolute count 0.47 x10'3 /uL 0.29-0 .99 Not Available [facility] (Lab) [address] [place], [address], 06/06/2024 10:35:58 06/06/20 24 06/06/2024 CBC/C OMPLE TE BLD COUNT W/DIF F eosinophils, absolute count 0.19 x10'3 /uL 0.02-0 .53 Not Available [facility] (Lab) [address] [place], [address], 06/06/2024 10:35:58 06/06/20 24 06/06/2024 CBC/C OMPLE TE BLD COUNT W/DIF F basophils, absolute count 0.04 x10'3 /uL 0.01-0 .08 Not Available [facility] (Lab) [address] [place], [address], 06/06/2024 10:35:58 06/06/20 24 06/06/2024 CBC/C OMPLE TE BLD COUNT W/DIF F immature granulocytes ,absolute 0.01 x10'3 /uL 0.00-0 .05 Not Available [facility] (Lab) [address] [place], [address], 06/06/2024 10:35:58 06/06/20 24 06/06/2024 CBC/C OMPLE TE BLD COUNT W/DIF F nucleated red blood cells 0.0 % -0 Not Available [facility] (Lab) [address] [place], [address], 06/06/2024 10:35:58 06/06/20 24 06/06/2024 CBC/C OMPLE TE BLD COUNT W/DIF F NRBC# 0.00 x10'3 /uL Not Available [facility] (Lab) [address] [place], [address], 06/06/2024 10:35:58 06/06/20 24 06/06/2024 LIPID PANEL cholesterol 136 mg/dL 140-19 9 low NIH ROBERTO NSUS RECOM MENDA TION FOR STEF STERO L: ADULT CHILD LOW RISK: <200 <170 BORDE RLINE : <200- 239 ----- HIGH RISK: >240 >200 Not Available [facility] (Lab) [address] [place], [address], 06/06/2024 11:01:46 06/06/20 24 06/06/2024 LIPID PANEL triglyceride s 82 mg/dL 0-150 NIH ROBERTO NSUS REPOR T RECOM MENDA TION FOR TRIGL YCERI OLYA: ADULT CHILD LOW RISK: <150 ----- BODER LINE: 150-1 99 ----- HIGH RISK: >200 ----- Not Available [facility] (Lab) [address] [place], [address], 06/06/2024 11:01:46 08/02/06/06/2024 LIPID PANEL HDL cholesterol 60 mg/dL 40- Not Available [facility] (Lab) [address] [place], [address], 06/06/2024 11:01:46 06/06/20 24 06/06/2024 LIPID PANEL LDL cholesterol, calculated 60 mg/dL 0-130 NIH ROBERTO NSUS REPOR T RECOM MENDA TIONS FOR LDL: ADULT CHILD LOW RISK <130 <110 (OPTI MAL LDL) <100 ----- BORDE RLINE : 130-1 59 ----- HIGH RISK: >160 >130 A TRIGL YCERI DE RESUL T >400 INVAL IDATE S THE CALCU LATIO N FOR LDL FRACT IONAT ION - THE LDL RESUL T WILL NOT BE REPOR MONICO. Not Available [facility] (Lab) [address] [place], [address], 06/06/2024 11:01:46 06/06/20 24 06/06/2024 COMPR EHENS KARINA METAB OLIC PANEL sodium 131 mmol/ L 137-14 5 low Not Available [facility] (Lab) [address] [place], [address], 06/06/2024 11:01:55 06/06/20 24 06/06/2024 COMPR EHENS KARINA METAB OLIC PANEL potassium 4.5 mmol/ L 3.5-5. 1 Not Available [facility] (Lab) [address] [place], [address], 06/06/2024 11:01:55 06/06/20 24 06/06/2024 COMPR EHENS KARINA METAB OLIC PANEL chloride 100 mmol/ L 98-107 Not Available [facility] (Lab) [address] [place], [address], 06/06/2024 11:01:55 06/06/20 24 06/06/2024 COMPR EHENS KARINA METAB OLIC PANEL carbon dioxide 28 mmol/ L 22-30 Not Available [facility] (Lab) [address] [place], [address], 06/06/2024 11:01:55 06/06/20 24 06/06/2024 COMPR EHENS KARINA METAB OLIC PANEL anion gap 7.5 mmol/ L 14-22 low Not Available [facility] (Lab) [address] [place], [address], 06/06/2024 11:01:55 06/06/20 24 06/06/2024 COMPR EHENS KARINA METAB OLIC PANEL glucose 93 mg/dL 70-99 Not Available [facility] (Lab) [address] [place], [address], 06/06/2024 11:01:55 06/06/20 24 06/06/2024 COMPR EHENS KARINA METAB OLIC PANEL BUN 7 mg/dL 8-19 low Not Available [facility] (Lab) [address] [place], [address], 06/06/2024 11:01:55 06/06/20 24 06/06/2024 COMPR EHENS KARINA METAB OLIC PANEL creatinine 0.88 mg/dL 0.66-1 .25 Not Available [facility] (Lab) [address] [place], [address], 06/06/2024 11:01:55 06/06/20 24 06/06/2024 COMPR EHENS KARINA METAB OLIC PANEL GFR >60 Refer ence Range : [place] ge GFR Healt hy Adult : >60 [...] calcu lator is avail able on the [facility] websi te: https ://ww w.kid yun.o rg/pr ofess ional s/kdo qi/gf r_cal culat or Not Available [facility] (Lab) [address] [place], [address], 06/06/2024 11:01:55 06/06/20 24 06/06/2024 COMPR EHENS KARINA METAB OLIC PANEL alkaline phosphatase 85 U/L 38-126 Not Available [facility] (Lab) [address] [place], [address], 06/06/2024 11:01:55 06/06/20 24 06/06/2024 COMPR EHENS KARINA METAB OLIC PANEL alanine aminotransfe rase 27 U/L 0-50 Not Available [facility] (Lab) [address] [place], [address], 06/06/2024 11:01:55 06/06/20 24 06/06/2024 COMPR EHENS KARINA METAB OLIC PANEL aspartate aminotransfe rase 39 U/L 15-46 Not Available [facility] (Lab) [address] [place], [address], 06/06/2024 11:01:55 06/06/20 24 06/06/2024 COMPR EHENS KARINA METAB OLIC PANEL bilirubin, total 0.90 mg/dL 0.20-1 .30 Not Available [facility] (Lab) [address] [place], [address], 06/06/2024 11:01:55 06/06/20 24 06/06/2024 COMPR EHENS KARINA METAB OLIC PANEL calcium 9.7 mg/dL 8.4-10 .2 Not Available [facility] (Lab) [address] [place], [address], 06/06/2024 11:01:55 06/06/20 24 06/06/2024 COMPR EHENS KARINA METAB OLIC PANEL total protein 7.2 g/dL 6.3-8. 2 Not Available [facility] (Lab) [address] [place], [address], 06/06/2024 11:01:55 06/06/20 24 06/06/2024 COMPR EHENS KARINA METAB OLIC PANEL albumin 4.3 g/dL 3.0-4. 4 Not Available [facility] (Lab) [address] [place], [address], 06/06/2024 11:01:55 06/06/20 24 06/06/2024 COMPR EHENS KARINA METAB OLIC PANEL globulin 2.9 g/dL 2.6-4. 2 Not Available [facility] (Lab) [address] [place], [address], 06/06/2024 11:01:55 06/06/20 24 06/06/2024 COMPR EHENS KARINA METAB OLIC PANEL A/G ratio 1.5 ratio 1.0-2. 0 Not Available [facility] (Lab) [address] [place], [address], 06/06/2024 11:01:55 06/06/20 24 06/06/2024 TSH thyroid-stim ulating hormone 3.130 uIU/m L 0.465- 4.680 Not Available [facility] (Lab) [address] [place], [address], 06/06/2024 11:44:17 06/06/20 24 06/06/2024 T4 FREE free T4 1.27 NG/dL 0.78-2 .19 Not Available [facility] (Lab) [address] [place], [address], 06/06/2024 11:44:33 06/06/20 24 06/06/2024 VITAM IN B12 ([facility] ) vb12 474 pg/mL 239-93 1 Not Available [facility] (Lab) [address] [place], [address], 06/06/2024 12:07:47 06/06/20 24 06/06/2024 FOLAT E, SERUM /PLAS MA folate >20.0 NG/mL 2.76-2 0.0 Not Available [facility] (Lab) [address] [place], [address], 06/06/2024 12:08:07 03/13/20 24 03/13/2024 CT, angio gram, abdom en + pelvi s, w/ contr ast No observ ation record ed. [address], [address], 05/21/2024 17:48:22 03/13/20 24 03/13/2024 XR, abdom en No observ ation record ed. [address], [address], 05/21/2024 17:48:45 03/13/20 24 03/13/2024 XR, chest , 1 view No observ ation record ed. [address], [address], 05/21/2024 17:48:59 03/13/20 24 03/13/2024 XR, abdom en No observ ation record ed. [address], [address], 05/22/2024 12:31:18 03/14/20 24 03/14/2024 XR, kidne y + urete r + bladd er No observ ation record ed. [address] [facility], [place], [address], 05/22/2024 12:31:39 03/14/20 24 03/14/2024 RF, small bowel , w/ contr ast PO No observ ation record ed. [address] [address], [place], [address], 05/22/2024 12:32:31 03/15/20 24 03/15/2024 XR, kidne y + urete r + bladd er No observ ation record ed. [address] [address], [place], [address], 05/22/2024 12:35:13 04/28/20 24 04/28/2024 imagi ng/di agnos tic resul t No observ ation record ed. [address] [facility] [address] , [place], [address], 09/11/2024 09:18:30 05/15/20 24 05/15/2024 imagi ng/di agnos tic resul t No observ ation record ed. [address] [address], [place], [address], 09/11/2024 09:19:46 05/21/20 24 05/21/2024 XR, ankle No observ ation record ed. [address] [address], [place], [address], 09/15/2024 10:11:08 08/25/20 24 08/14/2024 compl ete PFT w/ post [facility] hodil ator mehreen metry * No observ ation record ed. [address] [facility], [place], [address], 09/15/2024 15:52:01 08/26/20 24 08/14/2024 PFT, compl ete No observ ation record ed. [email or web address] [facility] [address], [place], [address], 09/18/2024 09:48:20 09/09/20 24 09/09/2024 imagi ng/di agnos tic resul t No observ ation record ed. [facility] [address] [facility] [address], [place], [address], 09/09/2024 10:30:49 09/11/20 24 XR, hand, 3 or more view [facility] [address] [place] [address] [phone] Patien t Name: BILL WRIGHT ion #: [id number] Sex: M : 1945 4 Dictat [...] 2023 10:41: 33 AM Page 1 [email or web address] [facility] ([facility]) [address] [place], [address], 09/11/2024 14:46:49 09/11/20 24 09/11/2024 imagi ng/di agnos tic resul t No observ ation record ed. [facility] [address] [facility], [place], [address], 09/11/2024 11:45:38 11/25/19 25 11/12/2024 XR, ankle No observ ation record ed. JOEL Not Available 2024 10:35:10 12/03/19 25 12/02/2024 imagi ng/di agnos tic resul t No observ ation record ed. [facility] [address], [place], [address], 12/03/2024 19:57:11 02/09/20 25 02/08/2025 imagi ng/di agnos tic resul t No observ ation record ed. [address], [place], [address], 02/08/2025 09:58:28 05/01/20 25 04/29/2025 imagi ng/di agnos tic resul t No observ ation record ed. [address], [place], [address], 05/01/2025 12:02:57 05/19/20 25 05/19/2025 imagi ng/di agnos tic resul t No observ ation record ed. [address], [place], [address], 05/19/2025 12:51:35 06/30/20 25 06/30/2025 imagi ng/di agnos tic resul t No observ ation record ed. [facility] [address] [facility] [address], [place], [address], 06/30/2025 14:32:22 07/30/2007/29/2025 imagi ng/di agnos tic resul t No observ ation record ed. [facility] [address] [facility] [address], [place], [address], 07/30/2025 10:59:10 08/26/2008/26/2025 imagi ng/di agnos tic resul t No observ ation record ed. [facility] [address] [facility] [address], [place], [address], 08/26/2025 14:18:50 Result Notes Documentation Provider Name and Address Organization Details Recorded Time Xr, Hand, 3 Or More View : [id number] Patient Name: BILL COLON Sex: M : 1945 Dictated By: Carmelita Cash Attending Physician: CATIA PERDOMO Ordering Physician: CATIA PERDOMO Exam Date: 09/11/2024 10:27 AM Exam Name: XR HAND RT 3V Admitting Diagnosis(es): PROCEDURE: Right hand radiographs. INDICATION: 78 years old, Male; RT HAND PAIN. TECHNIQUE: 3 views of the right hand were obtained. COMPARISON: Radiographs of the right hand performed on 02/21/2023. FINDINGS: There is no evidence of fracture or dislocation. There is narrowing of the proximal and distal interphalangeal joints with central erosions, consistent with erosive arthritis. This is increased since prior radiograph from 02/21/2023. There is severe 1st carpometacarpal joint space narrowing. The joint spaces are otherwise maintained. There are vascular calcifications in the wrist. IMPRESSION: 1. Severe erosive osteoarthritis, increased since the prior radiograph from 2022. 2. Severe carpometacarpal osteoarthritis. 3. No fracture or dislocation. Page 1 BlaireABNER [place], [place] [facility] 09/11/2024 14:46:49 Problems Name Problem SNOMED Code Status Onset Date Resolution Date Notes Provider Name and Address Organization Details Recorded Time Cervical radiculiti s 01785870 Active Not Available [facility] 3 00:31:43 Nocturia 994185864 Active Not Available [facility] 3 00:31:44 Radiothera py follow-up 920409142 Active Not Available [facility] 3 00:31:44 Raynaud's phenomenon 463160265 Active Not Available [facility] 3 00:31:44 Osteoarthr itis 596820628 Active Not Available [facility] 3 00:31:44 Rupture of tendon of biceps 128458927 Active Not Available [facility] 3 00:31:44 Disorder of tendon of biceps 784828199 Active Not Available [facility] 3 00:31:44 Hyperlipid emia 54766179 Active Not Available [facility] 3 00:31:44 Essential hypertensi on 64953997 Active Not Available [facility] 3 00:31:44 Rheumatoid arthritis 61226333 Active Not Available [facility] 3 00:31:44 Atrial fibrillati on 48312040 Active 2016 Not Available [facility] 3 00:31:44 Disorder of prostate 98147302 Active 2021 Not Available [facility] 3 00:31:44 COVID-19 536217132 Active 2021 Not Available [facility] 3 00:31:44 Localized, primary osteoarthr itis of the hand 831868208 Active 2022 Not Available [facility] 3 00:31:44 Chronic constipati on 604625335 Active 2022 Not Available [facility] 3 00:31:44 Hypothyroi dism 04858435 Active 2022 Not Available [facility] 3 00:31:44 Gastroesop hageal reflux disease without esophagiti s 982998774 Active 2022 Not Available [facility] 3 00:31:44 Obstructiv e sleep apnea syndrome 88064055 Active 2022 Not Available [facility] 3 00:31:44 Skin lesion 41266322 Active 2022 Not Available [facility] 3 00:31:44 Small bowel obstructio n 163370106 Active 2022 Not Available [facility] 3 00:31:44 Cataract 387075693 Active 2022 Not Available [facility] 3 00:31:44 Pain in right foot 3944576167686 07 Active 2022 Not Available [facility] 3 00:31:44 Pain of bilateral hands 6757338633526 9109 Active 2022 Not Available [facility] 3 00:31:44 Cholecysti tis 37030959 Active 2022 Not Available [facility] 3 00:31:44 Benign paroxysmal positional vertigo 244610127 Active 2022 Not Available [facility] 3 00:31:44 Arthritis 5476076 Active 2022 Not Available [facility] 3 00:31:44 Dyspnea on exertion 61586919 Active 2022 Not Available [facility] 3 00:31:44 Pain of left knee joint 7052095309848 07 Active 2022 Not Available [facility] 3 00:31:44 Anemia 597381792 Active 2022 Angy vernon, [facility] 3 14:24:26 Macrocytos is 037131892 Active 2022 Monse boyd MD [address], [facility] [address], [address] , [facility] [place] [facility] 3 09:15:36 Leukocytos is 479624533 Active 2023 Monse boyd MD [address], [address], [place], [address] , [facility] [place] [facility] 4 09:58:35 Pain of right ankle joint 4602841982751 9106 Active 2023 Monse boyd MD [address], [address], [place], [address] , [facility] [place] [facility] 4 10:03:53 Bronchitis 78633034 Active 2023 Monse boyd MD [address], [address], [place], [address] , [facility] [place] [facility] 4 17:06:06 Nasal congestion 29552819 Active 2023 Chay Louis CMA null, [place] [facility] 4 15:20:42 Hyponatrem ia 69730177 Active 2023 Monse boyd MD [address], [address], [place], [address] , [facility] 4 22:19:41 Pain of bilateral hip joints 2537371657227 9100 Active 2024 Monse boyd MD [address], [address], [place], [address] , [facility] 5 10:44:15 Sore throat 630259826 Active 2024 Bell Garg Mary null, [place] [facility] [place] [facility] 5 16:53:50 Low back pain 035450485 Active 2024 Monse boyd MD [address], [address] [address], [place], [address] , [facility] [place] [facility] 5 17:14:38 Notes:Medical History: COVID infection 04/2021 Eosinophils 10/uL JULIA on CPAP c/o [employer] Atrial fibrillation on Pacerone/Eliquis since 2017 Hypertension Hyperlipidemia ZECHARIAH B12 deficiency RA of fingers Raynaud's phenomenon Procedure History: Exploratory laparotomy for bowel perforation 1999 5 colonoscopies 1999- 2021 Right ankle fusion 2004 Left knee replacement surgery 2020 Cholecystectomy 2020 EGD 2020 Problem Notes None recorded. Procedures Surgical History Date Name Laterality Status Provider Name and Address Organization Details Recorded Time 10/14/20 24 Medicare Wellness CPT Code, subsequent completed Zay Grace LPN [employer] 10/14/2024 08:24:27 10/14/20 24 Advanced Care Planning completed Zay Grace LPN [employer] 10/14/2024 10:55:34 06/10/20 24 Medicare Wellness CPT Code, subsequent completed Zay Grace LPN [employer] 06/10/2024 08:22:38 04/12/20 23 Medicare Wellness CPT Code, subsequent completed Kati Lancaster RN [facility] [employer] 04/12/2023 09:19:11 05/18/20 22 Colonoscopy completed Not Available [facility] 01/03/2023 01:12:49 05/24/20 21 Knee Replacement completed Not Available [facility] 01/03/2023 01:12:49 06/16/20 19 Cataract Surgery completed Not Available [facility] 01/03/2023 01:12:49 08/03/20 15 repair of ruptured tendon completed Not Available [facility] 01/03/2023 01:12:49 Colon Surgery completed Not Available [facility] 01/03/2023 01:12:49 Orthopedic Surgery completed Not Available [facility] 01/03/2023 01:12:49 Orthopedic Surgery completed Not Available [facility] 01/03/2023 01:12:49 Orthopedic Surgery completed Not Available [facility] 01/03/2023 01:12:49 Orthopedic Surgery completed Not Available [facility] 01/03/2023 01:12:49 Cataract Surgery completed Not Available [facility] 01/03/2023 01:12:49 Cholecystectomy completed Not Available [facility] 01/03/2023 01:12:49 Ankle Surgery completed CLARISSE Hernandez [email or web address] 10/14/2024 10:13:26 Imaging Results None recorded. Procedure [...] n for injection in office 08/30 completed ND: [id number] 4-20 Not Available Not [...] administ ered by the provider 04/06 completed [facility]: [phone] 17 Not Available Not Available Not Available By[employer] [...] %) injection solution in office 08/30 completed [facility] 79034-24 02-03 Not Available Not Available Not Available Xarelto [...] Body weight Body temperature Heart rate Systolic And Diastolic Provider Name and Address Organization Details Last Updated DateTime 5 165.1 cm 26.8 kg/m2 58405.3 7 g 97.7 [degF] 60 /min 120/60 mm[Hg] CLARISSE Hernandez [place] [facility] [place] [employer] [facility] 5 10:23:34 Date Recorded Body height Body mass index (BMI) Body weight Body temperature Heart rate Systolic And Diastolic Provider Name and Address Organization Details Last Updated DateTime 4 165.1 cm 27 kg/m2 11308.9 6 g 97.7 [degF] 78 /min 144/76 mm[Hg] Bell Garg Mary [facility] [employer] [facility] 4 09:51:27 Date Recorded Body height Body temperature Heart rate Oxygen saturation Systolic And Diastolic Provider Name and Address Organization Details Last Updated DateTime 4 165.1 cm 98.1 [degF] 66 /min 99 % 136/62 mm[Hg] Nelsy Romero MA [facility] [employer] [facility] 4 09:48:03 Date Recorded Body height Body mass index (BMI) Body weight Body temperature Pain severity - 0-10 verbal numeric rating [Score] - Reported Heart rate Oxygen saturation Systolic And Diastolic Provider Name and Address Organization Details Last Updated DateTime 5 165.1 cm 27 kg/m2 69318.9 6 g 97.9 [degF] 0 73 /min 97 % 120/62 mm[Hg] Nelsy Romero MA [facility] [employer] [facility] 5 11:22:11 Date Recorded Body height Body mass index (BMI) Body weight Body temperature Heart rate Systolic And Diastolic Provider Name and Address Organization Details Last Updated DateTime 4 165.1 cm 27.1 kg/m2 84173.5 6 g 97.7 [degF] 66 /min 120/68 mm[Hg] Bell Garg Mary [facility] [employer] [facility] 4 10:15:11 Date Recorded Respiratory rate Pain severity - 0-10 verbal numeric rating [Score] - Reported Provider Name and Address Organization Details Last Updated DateTime 10/14/2024 16 /min 0 Zay Grace LPN [facility] [employer] [facility] 10/14/2024 10:54:51 Social History Question Answer Notes LastModified by Organization Details LastModified Time Tobacco Smoking Status Never Smoker Not Available [employer] 01/03/2023 01:10:23 Do You Have An Advance Directive? No PATIENT DECLINED INFORMATION MIGRATION.0301 [id number] Information not available 01/03/2023 Are You Blind Or Do You Have Difficulty Seeing? No MIGRATION.030 020598 Information not available 01/03/2023 What Is Your Level Of Caffeine Consumption? Heavy MIGRATION.0301 296343 Information not available 01/03/2023 In The 14 Days Before Symptom Onset, Have You Had Close Contact With A Laboratory-conf irmed COVID-19 While That Case Was Ill? No MIGRATION.0301 [id number] Information not available 01/03/2023 In The 14 Days Before Symptom Onset, Have You Had Close Contact With A Person Who Is Under Investigation For COVID-19 While That Person Was Ill? No MIGRATION.0301 241758 Information not available 01/03/2023 Are You Deaf Or Do You Have Serious Difficulty Hearing? Yes MIGRATION.0301 835906 Information not available 01/03/2023 What Type Of Diet Are You Following? REGULAR MIGRATION.0301 443563 Information not available 01/03/2023 What Is The Highest Grade Or Level Of School You Have Completed Or The Highest Degree You Have Received? BY88025-2 MIGRATION.030 761220 Information not available 01/03/2023 Do You Have An Electrostatic Air Filter? No Information not available 03/15/2023 Have There Been Any Changes To Your Family Or Social Situation? Yes MIGRATION.0301 005280 Information not available 01/03/2023 What Is The Fluoride Status Of Your Home? Unknown MIGRATION.0301 788926 Information not available 01/03/2023 Are There Any Guns Present In Your Home? Yes MIGRATION.0301 330825 Information not available 01/03/2023 Do You Have A Humidifier? No Information not available 03/15/2023 Do You Use Insect Repellent Routinely? No MIGRATION.0301 845580 Information not available 01/03/2023 Where Do You Live? [place] MIGRATION.0301 092886 Information not available 01/03/2023 Do You Have A Medical Power Of Heavy Equipment Operator? No MIGRATION.0301 765796 Information not available 01/03/2023 Do You Have Moisture Problems In Your Home? No Information not available 03/15/2023 What Was The Date Of Your Most Recent Tobacco Screening? 09/01/2025 [email or web address] Information not available 09/01/2025 Do You Have Any Pets? No MIGRATION.0301 120721 Information not available 01/03/2023 What Is Your Relationship Status? MIGRATION.0301 889882 Information not available 01/03/2023 Do You Use Your Seat Belt Or Car Seat Routinely? Yes MIGRATION.0301 744347 Information not available 01/03/2023 Do You Have Smoke And Carbon Monoxide Detectors In Your Home? Yes MIGRATION.0301 245401 Information not available 01/03/2023 Are You Passively Exposed To Smoke? No MIGRATION.0301 041360 Information not available 01/03/2023 Are There Any Smokers In Your House? No MIGRATION.0301 338349 Information not available 01/03/2023 What Types Of Sporting Activities Do You Participate In? None MIGRATION.0301 417449 Information not available 01/03/2023 Do You Use Sunscreen Routinely? Yes MIGRATION.0301 624864 Information not available 01/03/2023 Has Tobacco Cessation Counseling Been Provided? No N/a MIGRATION.0301 065630 Information not available 01/03/2023 Have You Recently Traveled Abroad? No MIGRATION.0301 219369 Information not available 01/03/2023 Do You Have Difficulty Walking Or Climbing Stairs? No MIGRATION.0301 503252 Information not available 01/03/2023 Do You Have Any Dietary Restrictions? No MIGRATION.0301 812162 Information not available 01/03/2023 Sex: Male Functional Status Question Answer Note LastModified by Organizat ion Details LastModified Time Do you use any illicit or recreational drugs? No MIGRATION.647726 9592 Information not available 01/03/2023 Do you or have you ever used any other forms of tobacco or nicotine? No MIGRATION.262958 3712 Information not available 01/03/2023 What is your level of alcohol consumption? None MIGRATION.969526 4777 Information not available 01/03/2023 Are you currently employed? No Retired Information not available 04/12/2023 Do you have transportation difficulties? No MIGRATION.457101 9334 Information not available 01/03/2023 Are you able to walk independently without assistance or assistive devices? YESWOREST MIGRATION.843472 7344 Information not available 01/03/2023 Do you have difficulty doing errands alone? No MIGRATION.076405 1102 Information not available 01/03/2023 Are you able to care for yourself independently? Yes MIGRATION.965884 6380 Information not available 01/03/2023 Do you have difficulty dressing, bathing, grooming, or toileting? No MIGRATION.913680 8881 Information not available 01/03/2023 What is your exercise level? Occasional MIGRATION.201377 7931 Information not available 01/03/2023 Mental Status Question Answer Note LastModified by Organizat ion Details LastModified Time Do you feel stressed (tense, restless, nervous, or anxious, or unable to sleep at night)? [id number] MIGRATION.41400803 26 Information not available 01/03/2023 Do you have difficulty concentrating, remembering or making decisions? No MIGRATION.25899557 26 Information not available 01/03/2023 Family History Relationship Description Onset Age of this Age Resolved Age Notes LastModified by Organization Details LastModified Time Father Malignant neoplasm of lung MIGRATION.050 [id number] Not available 01/03/2023 01:12:57 Mother Cerebrovascu lar [...] Details Recorded Time zoster recombinant 9 completed Zay Grace LPN null, [facility] 06/05/2024 14:19:52 zoster recombinant 9 completed CYNDY Hunt, [facility] 06/05/2024 14:19:52 Influenza, high-dose, quadrivalent, PF 0 completed Zay Grace LPN null, [facility] 06/05/2024 14:19:52 Influenza, high-dose, quadrivalent, PF 3 completed Zay Grace LPN null, [facility] 06/05/2024 14:19:52 Influenza, high-dose, quadrivalent, PF 1 completed CYNDY Hunt, [facility] 06/05/2024 14:19:52 COVID-19, mRNA, LNP-S, PF, 100 mcg/0.5mL dose or 50 mcg/0.25mL dose 1 completed CYNDY Hunt, [facility] 06/05/2024 14:19:52 COVID-19, mRNA, LNP-S, PF, 100 mcg/0.5mL dose or 50 mcg/0.25mL dose 1 completed Zay Grace LPN null, [facility] 06/05/2024 14:19:52 COVID-19, mRNA, LNP-S, PF, 100 mcg/0.5mL dose or 50 mcg/0.25mL dose 2 [facility] 14:19:52 COVID-19, mRNA, LNP-S, bivalent, PF, 50 mcg/0.5 mL or 25mcg/0.25 mL dose 2 completed CYNDY Hunt, [facility] 06/05/2024 14:19:53 RSV, recombinant, protein subunit RSVpreF, adjuvant reconstituted, 0.5 mL, PF 3 [facility]24 14:19:53 COVID-19, mRNA, LNP-S, PF, 50 mcg/0.5 mL 3 [facility]/05/2024 14:19:53 Tdap 3 completed [facility] 06/05/2024 14:19:53 Influenza, high-dose, trivalent, PF 9 [facility]2024 14:19:53 Influenza, high-dose, trivalent, PF 4 completed Not Available [facility] 09/01/2025 11:09:59 COVID-19, mRNA, LNP-S, PF, 50 mcg/0.5 mL 5 completed Not Available [facility] 09/01/2025 11:09:59 Influenza, high-dose, trivalent, PF 5 completed Not Available [facility] 09/01/2025 11:09:59 SARS-COV-2 (COVID-19) vaccine, UNSPECIFIED 1 completed CYNDY Hunt, [facility] 06/05/2024 14:19:53 SARS-COV-2 (COVID-19) vaccine, UNSPECIFIED 1 [facility]05/2024 14:19:53 COVID-19, mRNA, LNP-S, PF, 100 mcg/0.5mL dose or 50 mcg/0.25mL dose 1 completed CYNDY Hunt, [facility] [employer] [facility] 06/05/2024 14:19:52 Influenza, high-dose, trivalent, PF 0 completed CYNDY Hunt, [facility] [employer] [facility] 06/05/2024 14:19:53 Influenza, high-dose, quadrivalent, PF 2 completed Not Available [facility] 07/27/2023 00:31:47 pneumococcal polysaccharide PPV23 9 completed Not Available [facility] 07/27/2023 00:31:47 Influenza, high-dose, trivalent, PF 8 completed Not Available [facility] 07/27/2023 00:31:47 Pneumococcal conjugate PCV 13 8 completed Not Available [facility] 07/27/2023 00:31:47 Influenza, high-dose, trivalent, PF 7 completed Not Available [facility] 07/27/2023 00:31:47 Influenza, high-dose, trivalent, PF 4 completed Not Available [facility] 07/27/2023 00:31:47 Influenza, high-dose, trivalent, PF 6 completed Not Available [facility] 07/27/2023 00:31:47 Influenza, high-dose, trivalent, PF 5 completed Not Available [facility] 07/27/2023 00:31:47 Influenza, split virus, trivalent, preservative 3 completed CYNDY Hunt, [facility] [employer] [facility] 06/05/2024 14:19:53 Past Encounters Encounter ID Performer Location Encounter Start Date Encounter Closed Date Diagnosis/Indication Diagnosis SNOMED-CT Code Diagnosis ICD10 Code Diagnosis IMO Codes Diagnosis Note [id number] Catia Perdomo MD [facility] [address], [address] [address] 01/12/2021 00:00:00 01/12/2021 15:50:11 [id number] Monse boyd MD [facility] [address] [facility] [address] [place] [address] 03/15/2021 00:00:00 03/15/2021 15:21:49 [id number] MD SONAL Dye[facility] [address] [place] [address] 03/24/2021 00:00:00 03/24/2021 15:05:25 [id number] MD SONAL Benz[facility] [place] [address] [facility] [address] [place] [address] 04/12/2021 00:00:00 04/19/2021 09:47:22 [id number] MD SONAL Spear[facility] Internal Med [facility] [address] [facility] [address] [place] [address] 04/28/2021 00:00:00 05/12/2021 10:17:56 [id number] MD SONAL Dye_GMPoly [address] [address] 06/02/2021 00:00:00 06/02/2021 10:51:39 [id number] MD IVY SpearS_GMG Internal Med [facility] [address] [place] [address], [facility] 15 [place] [address] 06/07/2021 00:00:00 06/07/2021 18:00:53 [id number] MD SONAL Dye_GMPoly [facility] [address] [place] [address] 06/23/2021 00:00:00 07/03/2021 21:24:45 [id number] MD SONAL Dye_GMPoly [address] [address] 07/07/2021 00:00:00 07/07/2021 11:44:45 [id number] MD SONAL Dye_GMPoly [address] [place] [address] 08/25/2021 00:00:00 08/25/2021 12:43:03 [id number] Catia Perdomo MD [facility] [place] [address] [facility] [place] [address] 08/30/2021 00:00:00 08/30/2021 12:50:00 [id number] Monse boyd MD S_GMG Internal Med [facility] [address] [place] [address] 01/05/2022 00:00:00 01/05/2022 18:36:52 [id number] MD SONAL Benz_GMPoly [facility] [place] [address] [facility] [place] [address] 02/14/2022 00:00:00 02/14/2022 12:31:28 [id number] Monse boyd MD S_GMG Internal Med [facility] [address] [place] [address] 04/06/2022 00:00:00 04/12/2022 12:19:52 [id number] _ATHN_MIGR ATION_1 _ATHENA_M IGRATION_ DEFAULT_1 _1 , 04/26/2022 00:00:00 04/26/2022 12:23:04 [id number] Kuldeep Kc MD [facility] [address] [place] [address] 06/01/2022 00:00:00 06/01/2022 14:57:27 [id number] Catia Perdomo MD Ubaldo_GM [facility] [place] [address] [facility] [place] [address] 07/26/2022 00:00:00 07/26/2022 17:46:04 [id number] MD SONAL Spear_GMG Internal Med [address] [address] 08/10/2022 00:00:00 08/10/2022 11:08:42 [id number] MD ONELIA Benz [facility] [place] [address] [facility] [address] [place] [address] 10/25/2022 00:00:00 10/25/2022 17:25:47 [id number] MD SONAL Spear_Poly Internal Med [facility] [address] [facility] 15 [place] [address] 12/14/2022 00:00:00 12/14/2022 09:39:41 [id number] MD ONELIA Benz [facility] [place] [address] [facility] [address] [place] [address] 02/21/2023 15:55:42 02/21/2023 16:26:04 Pain of bilateral hands 1567440270 0672583 M79.641 M79.642 sterile technique in standard protocol we injected 1 cc xylocaine 1 cc Kenalog into the right index D IP and PIP and the right long D IP and PIP Localized, primary osteoarthritis of the hand 032287709 M19.049 we will schedule the patient to [...] having failed extensive conservati ve treatment Osteoarthritis 927085047 M19.90 [id number] MD SONAL Dye_Poly Ortho [address], [address] [place] [address] 03/08/2023 10:36:51 03/08/2023 16:31:40 Pain of left knee joint 1818614944 81951 M25.562 [id number] MD SONAL Rivera_Poly Pulmonolo gy [address] [address] 03/15/2023 10:42:20 03/16/2023 08:36:00 Dyspnea on exertion 39261466 R06.09 R05.9 T78.40XA D89.9 [id number] MD SONAL Spear_Poly [facility] [place] [address] [facility] [place] [address] [place] [address] 04/12/2023 08:49:16 04/12/2023 09:33:28 Screening - NAD 657022155 Z13.9 C-scope: 12/07/11 Dr Vizcarra and next [...] 06/21/2022 Not on amiodarone On diltiazemO n Mylene V Dr Veloz 05/04/[address] [facility] [address] Veloz 05/05/2022 Hyperlipidemia 11768354 E78.5 On atorvastat in 10mg dailyGet labs Chronic constipation 236 418711 K59.09 Was given linzess in the pastCan renew Hypothyroidism 67381912 E03.9 US thyroid: 04/13/2022 TSH/FT4 WNL 04/09/2023 Declines any meds 12/14/2022 Benign par oxysmal positional vertigo 587812534 H81.13 Bilateral -Doing very well now Gastroesop hageal reflux disease without esophagitis 441334324 K21.9 On PPI, take as neededDoes well Obstructiv e sleep apnea syndrome 38807894 G47.33 He does use his CPAP and is doing well on this Osteoarthritis 766642051 M19.[address] Benson, has given him shots in the neckDid see Dr Downs, and was told he may need surgery, he did get PT and he felt betterDoes wellDr Perdomo 07/26/2022 , next 10/25/2022 Skin lesion 06772293 L98 .9 Noted on the left upper back, raised crusted, non tenderSeen by Dr Castañeda, the dermatolog ist in [place] as he has been there beforeDoes well now History of total knee arthroplasty 0320341296 105 Z96.659 S/p L TKRDoes well now Small siva l obstruction 638315512 K56.609 Admitted 07/20 to 07/23 [facility], seen by G surgery, NG tube placed, cr improved from 1.43 to 1.04, was able to pass gas and stool and d/cDoes well today, no complaints Cataract 199621052 H26.9 Is to get L eye cataract surgeryDat e: TBDSurgeon : Dr Forbes Pain of bi lateral hands 3106541703 7560117 M79.[address] Perdomo, 04/10/2023 , next apt 05/22/2023 Pain in right foot 45782 48755 [address] Dudley Cholecystitis 22323987 K 81.9 S/p ERCP 10/20 and lap stef 10/21, then diagnosed with pancreatit is, now does well Dyspnea on exertion 6084 5006 R06.09 PFT 01/24/2023 : [facility] chest 03/15/2023 Dr Shirley 03/15/2023 Pain of le ft knee joint 6385259133 [address] Kc 03/08/2023 , treated with MDP Screening for malignant neoplasm of prostate 866114541 Z12.5 Adult heal th examination 878168942 Z00.00 Screening for disorder 944759214 Z13.9 [id number] Catia Perdomo MD [facility] [place] [address] [place] [address] 04/10/2023 13:47:16 04/10/2023 14:04:45 Arthritis 5811808 M19.049 remove sutures today. We will start him out with david taping for the 1st few weeks for the left index and long PIP. Localized, primary osteoarthritis of the hand 578195704 M19.049 Injected the right index and long PIP and D IP starting standard protocol with 1 cc xylocaine 1 cc Kenalog standard technique sterile protocol for each [id number] Catia Perdomo MD [facility] [place] [address] [place] [address] 05/22/2023 13:42:13 05/22/2023 14:10:58 Localized, primary osteoarthritis of the hand 431493221 M19.049 [id number] Kuldeep Kc MD [facility] [place] [address] [place] [address] 06/15/2023 14:01:02 06/15/2023 15:39:43 Localized, primary osteoarthritis of the hand 266750541 M19.733 [id number] Monse boyd MD [facility] Med [place] [address] [facility], [place] [address] [place] [address] 08/30/2023 09:08:09 08/30/2023 10:36:13 Screening - NAD 547853095 Z13.9 C-scope: 12/07/11 Dr Vizcarra and next [...] bottles with 7 pills each, lot # [id number], exp 06/2025[facility] V Dr Veloz 05/04/[address] [facility] [address] Veloz 05/05/2022 Hyperlipidemia 17754130 E78.5 On atorvastat in 10mg daily Get labs Chronic constipation 236 333980 K59.09 Was given linzess in the past Can renew Hypothyroidism 70493313 E03.9 thyroid: 04/13/2022 TSH/FT4 WNL 04/09/2023 Declines any meds 12/14/2022 Benign par oxysmal positional vertigo 558303030 H81.13 Bilateral - Doing very well now Gastroesop hageal reflux disease without esophagitis 682695437 K21.9 On PPI, take as neededDoes well Obstructiv e sleep apnea syndrome 85028561 G47.33 He does use his CPAP and is doing well on this Osteoarthritis 306150755 M19.[address] Benosn, has given him shots in the neck Did see Dr Downs, and was told he may need surgery, he did get PT and he felt better Does well Dr Perdomo 07/26/2022 , next 10/25/2022 Skin lesion 77027491 L98 .9 Noted on the left upper back, raised crusted, non tenderSeen by Dr Castañeda, the dermatolog ist in [place] as he has been there before Does well now History of total knee arthroplasty 4361680978 105 Z96.659 S/p L TKR Does well now Small siva l obstruction 464654898 K56.609 Admitted 07/20 to 07/23 [facility], seen by G surgery, NG tube placed, cr improved from 1.43 to 1.04, was able to pass gas and stool and d/c Does well today, no complaints Cataract 522570247 H26.9 Is to get L eye cataract surgery Date: TBDSurgeon : Dr Forbes Pain of bi lateral hands 2326693287 6317827 M79.[address] Perdomo, 04/10/2023 , next apt 05/22/2023 Pain in right foot 18441 72380 [address] Dudley Cholecystitis 78944827 K 81.9 S/p ERCP 10/20 and lap stef 10/21, then diagnosed with pancreatit is, now does well Dyspnea on exertion 6084 5006 R06.09 PFT 01/24/2023 : [facility] chest 03/15/2023 Dr Shirley 03/15/2023 Pain of le ft knee joint 4190532277 [address] Kc 03/08/2023 , treated with MDP Macrocytosis 917848391 D 75.89 [id number] Monse boyd MD [facility]_G Internal Med [facility] [address] [facility] [place] [address] [place] [address] 01/08/2024 09:23:05 01/08/2024 10:05:49 Screening - NAD 416280479 Z13.9 C-scope: 12/07/11 Dr Vizcarra and next [...] bottles with 7 pills each, lot # [id number], exp 06/2025SL V Dr Veloz 05/04/[address] [facility] [address] Veloz 05/05/2022 Hyperlipidemia 53517612 E78.5 On atorvastat in 10mg daily Get labs Chronic constipation 236 686471 K59.09 Was given linzess in the past Can renew Hypothyroidism 89053923 E03.9 US thyroid: 04/13/2022 TSH/FT4 WNL 04/09/2023 Declines any meds 12/14/2022 Benign par oxysmal positional vertigo 480474194 H81.13 Bilateral - Doing very well now Gastroesop hageal reflux disease without esophagitis 150905034 K21.9 On PPI, take as neededDoes well Obstructiv e sleep apnea syndrome 68341716 G47.33 He does use his CPAP and is doing well on this Osteoarthritis 367116420 M19.[address] Benson, has given him shots in the neck Did see Dr Downs, and was told he may need surgery, he did get PT and he felt better Does well Dr Perdomo 07/26/2022 , next 10/25/2022 Skin lesion 89986653 L98 .9 Noted on the left upper back, raised crusted, non tenderSeen by Dr Castañeda, the dermatolog ist in [place] as he has been there before Does well now History of total knee arthroplasty 2131405207 105 Z96.659 S/p L TKR Does well now Small siva l obstruction 350503427 K56.609 Admitted 07/20 to 07/23 [facility], seen by G surgery, NG tube placed, cr improved from 1.43 to 1.04, was able to pass gas and stool and d/c Does well today, no complaints Cataract 205107613 H26.9 Is to get L eye cataract surgery Date: TBDSurgeon : Dr Forbes Pain of bi lateral hands 6198676372 7646816 M79.[address] Perdomo, 04/10/2023 , next apt 05/22/2023 Pain in right foot 08115 43115 [address] Dudley Cholecystitis 13567622 K 81.9 S/p ERCP 10/20 and lap stef 10/21, then diagnosed with pancreatit is, now does well Dyspnea on exertion 6084 5006 R06.09 PFT 01/24/2023 : [facility]ray chest 03/15/2023 Dr Shirley 03/15/2023 Pain of le ft knee joint 8391433256 [address] Kc 03/08/2023 , treated with MDP Macrocytosis 222794780 D 75.89 Leukocytosis 068123050 D 72.829 Repeat the labs Pain of ri ght ankle joint 7429286342 2593806 M25.620 [id number] Monse boyd MD [facility] [place] [address], [place] [address] [place] [address] 01/29/2024 16:31:21 01/29/2024 17:20:09 Screening - NAD 607813101 Z13.9 C-scope: 12/07/11 Dr Vizcarra and next [...] their understand ing of the above Bronchitis 47828447 J40 [facility], treated with IV rocephinDo es well now 01/29/2024 Pulse Ox 96% on RANo SOB or POLANCO, no cough, no wheezing nowShould see pulmonary, was referred last OV Dyspnea on exertion 6084 5006 R06.09 PFT 01/24/2023 : [facility] chest 03/15/2023 Dr Shirley 03/15/2023 OV 01/29/2024 :S/p d/c from [place] for bronchitis , does not want to see Dr Garcia to Dr Cerda in [place] [id number] Monse boyd MD [facility]_G Internal Med [facility] [address] [facility] [address] [place] [address] 06/10/2024 09:24:37 06/10/2024 10:22:53 Screening - NAD 884659865 Z13.9 C-scope: 12/07/11 Dr Vizcarra and next [...] in 3 months as per his requestdo angelicaER if worseHe and his did verbalize their understand ing of the above Bronchitis 44684421 J40 [facility] and [facility], treated with IV rocephinDo es well now 01/29/2024 Pulse Ox 96% on RANo SOB or POLANCO, no cough, no wheezing nowShould see pulmonary, was referred last OV Dyspnea on exertion 6084 5006 R06.09 PFT 01/24/2023 : [facility]ray chest 03/15/2023 Dr Shirley 03/15/2023 OV 01/29/2024 :S/p d/c from [place] for bronchitis , does not want to see Dr Garcia to Dr Cerda in [place] OV 06/10/2024 : Referral to Dr Cerda [...] Veloz 05/28/2024 , next in 11/2024 Hyperlipidemia 98309230 E78.5 On atorvastat in 10mg dailyGet labs Chronic constipation 236 639958 K59.09 Was given linzess in the pastCan renew as needed Hypothyroidism 63668714 E03.9 US thyroid: 04/13/2022 TSH/FT4 WNL 04/09/2023 Declines any meds 12/14/2022 Benign par oxysmal positional vertigo 012874505 H81.13 Bilateral - Doing very well now Gastroesop hageal reflux disease without esophagitis 415300740 K21.9 On PPI, take as neededDoes well Obstructiv e sleep apnea syndrome 81679354 G47.33 He does use his CPAP and is doing well on this Osteoarthritis 049687904 M19.[address] Benson, has [...] femurGet a referral to ortho Sees Dr Reyna Skin lesion 16318200 L98 .9 Noted on the left upper back, raised crusted, non tenderSeen by Dr Castañeda, the dermatolog ist in [place] as he has been there before Does well now History of total knee arthroplasty 8141234692 105 Z96.659 S/p L TKR Does well now Small siva l obstruction 683577663 K56.609 Admitted 07/20 to 07/23 [facility], seen by G surgery, NG tube placed, cr improved from 1.43 to 1.04, was able to pass gas and stool and d/c Does well today, no complaints Admitted and [facility], [facility], treated with augmentin Cataract 978827871 H26.9 Is to get L eye cataract surgery Date: TBDSurgeon : Dr Forbes Pain of bi lateral hands 4965703253 9330061 M79.[address] Perdomo, 04/10/2023 , next apt 05/22/2023 Pain in right foot 49272 76982 0[address] M[address] Luiz Reyna Cholecystitis 86087355 K 81.9 S/p ERCP 10/20 and lap stef 10/21, then diagnosed with pancreatit is, now does well Pain of le ft knee joint 0640586146 [address] Kc 03/08/2023 , treated with MDP Macrocytosis 737734449 D 75.89 Leukocytosis 185554067 D 72.829 Repeat the labs [id number] Monse boyd MD [facility] Med [place] [address], [address] [place] [address] 04/03/2024 09:40:41 04/03/2024 10:21:12 Screening - NAD 321095822 Z13.9 C-scope: 12/07/11 Dr Vizcarra and next [...] their understand ing of the above Bronchitis 85038142 J40 [facility] and [facility], treated with IV rocephinDo es well now 01/29/2024 Pulse Ox 96% on RANo SOB or POLANCO, no cough, no wheezing nowShould see pulmonary, was referred last OV OV 04/03/2024 :Dr Shirley 03/05/2023, needs a f/u apt Dyspnea on exertion 6084 5006 R06.09 PFT 01/24/2023 : [facility] chest 03/15/2023 Dr Shirley 03/15/2023 OV 01/29/2024 :S/p d/c from [place] for bronchitis , does not want to see Dr Garcia to Dr Cerda in [place] Atrial fibrillation 4943 6004 I48.91 ECHO 06/21/2022 ECHO 08/02/2023 PFT 08/10/2023 : [facility] On amiodarone On xareltoOn diltiazem On eliquis, unable to afford the eliquis, will switch to xarelto 20mg daily 08/30/2023 , did discuss with Dr Veloz too today and he agrees samples provided with 6 bottles with 7 pills each, lot # [id number], exp 06/2025S V Dr Veloz 05/04/[address] [facility] [address] Veloz 05/05/2022 Hyperlipidemia 54474831 E78.5 On atorvastat in 10mg daily Get labs Chronic constipation 236 413020 K59.09 Was given linzess in the past Can renew Hypothyroidism 47594675 E03.9 US thyroid: 04/13/2022 TSH/FT4 WNL 04/09/2023 Declines any meds 12/14/2022 Benign par oxysmal positional vertigo 957392777 H81.13 Bilateral - Doing very well now Gastroesop hageal reflux disease without esophagitis 801889593 K21.9 On PPI, take as neededDoes well Obstructiv e sleep apnea syndrome 08975151 G47.33 He does use his CPAP and is doing well on this Osteoarthritis 021427042 M19.[address] Benson, has given him shots in the neckDid see Dr Downs, and was told he may need surgery, he did get PT and he felt better Does well Dr Perdomo 07/26/2022 Skin lesion 57315560 L98 .9 Noted on the left upper back, raised crusted, non tenderSeen by Dr Castañeda, the dermatolog ist in [place] as he has been there before Does well now History of total knee arthroplasty 4086645289 105 Z96.659 S/p L TKR Does well now Small siva l obstruction 505092560 K56.609 Admitted 07/20 to 07/23 [facility], seen by G surgery, NG tube placed, cr improved from 1.43 to 1.04, was able to pass gas and stool and d/c Does well today, no complaints Admitted and D/c [facility] 03/13/2024 to 03/15/2024 , treated for enteritis with augmentin, does well now Pain in right foot 89630 605[address] Chava mistry sees Dr Reyna and is to get surgery on 04/28/2024 to fuse the R ankle Cholecystitis 44742258 K 81.9 S/p ERCP 10/20 and lap stef 10/21, then diagnosed with pancreatit is, now does well Pain of le ft knee joint 3939564023 [address] cK 03/08/2023 , treated with MDP Macrocytosis 440078214 D 75.89 Leukocytosis 789801655 D 72.829 Repeat the labs Pain of ri ght ankle joint 8615783317 0316217 M25.[address] Reyna [id number] Monse boyd MD [facility] Med [facility] [address] [facility], [address] [place] [address] 10/14/2024 10:03:23 10/14/2024 11:08:17 Screening - NAD 530279328 Z13.9 C-scope: 12/07/11 Dr Vizcarra and next [...] their understand ing of the above Bronchitis 95677050 J40 Ad[facility] and [facility], treated with IV rocephinDo es well now 01/29/2024 Pulse Ox 96% on RANo SOB or POLANCO, no cough, no wheezing nowShould see pulmonary, was referred last OV Dyspnea on exertion 6084 5006 R06.09 PFT 01/24/2023 : [facility]Xray chest 03/15/2023 Dr Shirley 03/15/2023 OV 01/29/2024 :S/p d/c from [place] for bronchitis , does not want to see Dr Garcia to Dr Cerda in [place] OV 06/10/2024 : Referral to Dr Cerda provided again Atrial fibrillation 4943 6004 I48.91 ECHO 06/21/2022 ECHO 08/02/2023 PFT 08/10/2023 : [facility] On amiodarone 200mg dailyOn xarelto 20mg dailyOn diltiazem Off eliquis, unable to afford the eliquis, switched to xarelto 20mg daily 08/30/2023 , [facility] 05/04/[address] Veloz 05/05/[address] Veloz 05/28/2024 , next in 11/2024 Hyperlipidemia 53996699 E78.5 On atorvastat in 10mg dailyGet labs Chronic constipation 236 658506 K59.09 Was given linzess in the pastCan renew as needed Hypothyroidism 06933663 E03.9 US thyroid: 04/13/2022 TSH/FT4 WNL 04/09/2023 Declines any meds 12/14/2022 Benign par oxysmal positional vertigo 509242233 H81.13 Bilateral - Doing very well now Gastroesop hageal reflux disease without esophagitis 780604971 K21.9 On PPI, take as neededDoes well Obstructiv e sleep apnea syndrome 26341978 G47.33 He does use his CPAP and is doing well on this Osteoarthritis 821271231 M19.[address] Benson, has [...] femurGet a referral to ortho Sees Dr Reyna Skin lesion 43839271 L98 .9 Noted on the left upper back, raised crusted, non tenderSeen by Dr Castañeda, the dermatolog ist in [place] as he has been there before Does well now History of total knee arthroplasty 6716272583 105 Z96.659 S/p L TKR Does well now Small siva l obstruction 586396597 K56.609 Admitted 07/20 to 07/23 [facility], seen by G surgery, NG tube placed, cr improved from 1.43 to 1.04, was able to pass gas and stool and d/c Does well today, no complaints Admitted and d[facility], [facility], treated with augmentin Pain of bi lateral hands 1362765779 5129675 M79.[address] Perdomo, 04/10/2023 , next apt 05/22/2023 Pain in right foot 61823 07646 [address] Luiz Reyna Cholecystitis 50044302 K 81.9 S/p ERCP 10/20 and lap stef 10/21, then diagnosed with pancreatit is, now does well Pain of le ft knee joint 3284847861 [address] Kc 03/08/2023 , treated with MDP Macrocytosis 550501881 D 75.89 Leukocytosis 070187303 D 72.829 Repeat the labs Hyponatremia 81850374 E8 7.1 Get a referral to Dr Rosen nephrologwilfredo , his sees him, also advised on fluid restrictio n and get labs again Adult heal th examination 837315053 Z00.00 Screening for disorder 003256579 Z13.9 [id number] Monse boyd MD S_GMG Internal Med [facility] [address] [facility], [facility] [address] [place] [address] 02/24/2025 10:04:41 02/24/2025 11:07:04 Screening - NAD 788968396 Z13.9 C-scope: 12/07/11 Dr Vizcarra and next [...] their understand ing of the above Bronchitis 40321284 J40 [facility] and [facility], treated with IV rocephinDo es well now 01/29/2024 Pulse Ox 96% on RANo SOB or POLANCO, no cough, no wheezing nowShould see pulmonary, was referred last OV Dyspnea on exertion 6084 5006 R06.09 PFT 01/24/2023 : [facility]ray chest 03/15/2023 Dr Shirley 03/15/2023 OV 01/29/2024 :S/p d/c from [place] for bronchitis , does not want to see Dr Garcia to Dr Cerda in [place] OV 06/10/2024 : Referral to Dr Cerda provided again [facility] 02/08/2025 : Xray chest: Neg OV 02/24/2025 : See his pulmonary Atrial fibrillation 4943 6004 I48.91 ECHO 06/21/2022 ECHO 08/02/2023 PFT 08/10/2023 : [facility] On amiodarone 200mg dailyOn xarelto 20mg dailyOn diltiazem Off eliquis, unable to afford the eliquis, switched to xarelto 20mg daily 08/30/2023 , did discuss with Dr Veloz [facility] Dr Veloz 05/04/[address] [facility] [address] Veloz 05/05/[address] [facility] [address] Veloz 05/28/2024 , next in 11/2024[facility] V Dr Veloz 10/20/2024 , next in 6 months Hyperlipidemia 53199868 E78.5 On atorvastat in 10mg dailyGet labs Chronic constipation 236 599412 K59.09 Was given linzess in the pastCan renew as needed Hypothyroidism 47238651 E03.9 US thyroid: 04/13/2022 TSH/FT4 WNL 04/09/2023 Declines any meds 12/14/2022 Benign par oxysmal positional vertigo 549860214 H81.13 Bilateral - Doing very well now Gastroesop hageal reflux disease without esophagitis 220159766 K21.9 On PPI, take as neededDoes well Obstructiv e sleep apnea syndrome 84465470 G47.33 He does use his CPAP and is doing well on this Osteoarthritis 584868329 M19.[address] Benson, has [...] femurGet a referral to ortho Sees Dr Reyna Skin lesion 81931188 L98 .9 Noted on the left upper back, raised crusted, non tenderSeen by Dr Castañeda, the dermatolog ist in [place] as he has been there before Does well now History of total knee arthroplasty 2436651101 105 Z96.659 S/p L TKR Does well now Small siva l obstruction 979456138 K56.609 Admitted 07/20 to 07/23 [facility], seen by G surgery, NG tube placed, cr improved from 1.43 to 1.04, was able to pass gas and stool and d/c Does well today, no complaints Admitted and d[facility], [facility], treated with augmentin Pain of bi lateral hands 3835931790 1382860 M79.[address] Perdomo, 04/10/2023 , next apt 05/22/2023 Pain in right foot 20020 13439 09[address] Luiz Reyna, s/p xray 12/24/2024 Cholecystitis 59730660 K 81.9 S/p ERCP 10/20 and lap stef 10/21, then diagnosed with pancreatit is, now does well Pain of le ft knee joint [id number] [address] Kc 03/08/2023 , treated with MDP Macrocytosis 210423504 D 75.89 Leukocytosis 025744633 D 72.829 Repeat the labs Hyponatremia 91760495 E8 7.1 Get a referral to Dr Rosen nephrologi , his sees him, also advised on fluid restrictio n and get labs again Sees Dr Rosen Pain of bi lateral hip joints [id number] 2560816 M25.551 M25.552 L>RHe was working in the yard and on a truckSince a couple weeksGet on meloxicam as needed with food, caution as he is on Xarelto, if not better see Dr Kc [id number] Monse boyd MD [facility] [address], [address] [place] [address] 09/01/2025 11:07:35 09/01/2025 12:04:00 Screening - NAD 892545042 Z13.9 C-scope: 12/07/11 Dr Vizcarra and next [...] their understand ing of the above Bronchitis 93011283 J40 [facility], treated with IV rocephinDo es well now 01/29/2024 Pulse Ox 96% on RANo SOB or POLANCO, no cough, no wheezing nowShould see pulmonary, was referred last OV Dyspnea on exertion 6084 5006 R06.09 PFT 01/24/2023 : [facility] chest 03/15/2023 Dr Shirley 03/15/2023 OV 01/29/2024 :S/p d/c from [place] for bronchitis , does not want to see Dr Garcia to Dr Cerda in [place] OV 06/10/2024 : Referral to Dr Cerda provided again [facility] 02/08/2025 : Xray chest: Neg OV 02/24/2025 : See his pulmonary Atrial fibrillation 4943 6004 I48.91 ECHO 06/21/2022 ECHO 08/02/2023 PFT 08/10/2023 : [facility] On amiodarone 200mg dailyNot on xarelto 20mg daily d/t costNow on dabigatran 150mg bidOn diltiazem Off eliquis, unable to afford the eliquis, switched to xarelto 20mg daily 08/30/2023 , did [facility]diel [facility] Dr Veloz 05/04/[address] [facility] [address] Veloz 05/05/[address] [facility] [address] Veloz 05/28/2024 , next in 11/2024SL V Dr Veloz 10/20/2024 , next in [address] Veloz 06/22/2025 : Next apt in 6 months Hyperlipidemia 40967094 E78.5 On atorvastat in 10mg dailyGet labs Chronic constipation 236 475159 K59.09 Was given linzess in the pastCan renew as needed Hypothyroidism 27259287 E03.9 US thyroid: 04/13/2022 TSH/FT4 WNL 04/09/2023 Declines any meds 12/14/2022 Benign par oxysmal positional vertigo 860462136 H81.13 Bilateral - Doing very well now Gastroesop hageal reflux disease without esophagitis 223089717 K21.9 On PPI, take as neededDoes well Obstructiv e sleep apnea syndrome 13341788 G47.33 He does use his CPAP and is doing well on this Osteoarthritis 829817242 M19.[address] Benson, has [...] femurGet a referral to ortho Sees Dr Reyna Skin lesion 78104189 L98 .9 Noted on the left upper back, raised crusted, non tenderSeen by Dr Castañeda, the dermatolog ist in [place], [place] as he has been there before Does well now History of total knee arthroplasty 6499112699 105 Z96.659 S/p L TKR Does well now Small siva l obstruction 438495627 K56.609 Admitted 07/20 to 07/23 [facility], seen by G surgery, NG tube placed, cr improved from 1.43 to 1.04, was able to pass gas and stool and d/c Does well today, no complaints Ad[facility] and [facility], [facility] with [facility]in Pain of bi lateral hands 4370017529 9550120 M79.[address] Perdomo, 04/10/2023 , next apt 05/22/2023 Pain in right foot 20120 16775 [address] Luiz Reyna, s/p xray 12/24/2024 Cholecystitis 13960562 K 81.9 S/p ERCP 10/20 and lap stef 10/21, then diagnosed with pancreatit is, now does well Pain of le ft knee joint 1166286861 [address] Kc 03/08/2023 , treated with MDP Macrocytosis 539635040 D 75.89 Leukocytosis 351090438 D 72.829 Repeat the labs Hyponatremia 75405507 E8 7.1 Get a referral to Dr Rosen nephrologi , his sees him, also advised on fluid restrictio n and get labs again Sees Dr Rosen Pain of bi lateral hip joints 4270045002 8076651 M25.551 M25.552 L>RHe was working in the yard and on a truckSince a couple weeksGet on meloxicam as needed with food, caution as he is on Xarelto, if not better see Dr Kc Now has seen Dr Kc 06/17/2025 Low back pain 345876417 M54.[id number] Kc 06/17/2025 MRI L spine 07/29/2025 [...] Directive N: PATIENT DECLINED INFORMAT ION Payers Insurance Date Sequence Insurance Name Policy Number Policy Hinds Covered Member ID Hinds Member ID Guarantor Name 09/01/2025 1 [place] Bill Colon [id number] Bill Colon 09/04/2025 2 [facility] (MEDICARE SUPPLEMENT) Bill Colon [id number] Bill Colon Notes Date Note Type Note Provider Name and Address Organization Details Recorded Time 04/03/2024 text/html Here to establish carePast Hx:HTNGERDColon surgeryReviewed [...] back and would like to get a audio narrator apt OV 05/25/2020:Here for his routine aptHe [...] his wifeHe is doing wellOV 08/10/2022:Post hosp, [facility] 07/20 to 07/23 for SBOStates that [...] does very well now Monse Car MD [address] [place] [address], [facility] [address], [place], [address], [facility] [employer] 04/03/2024 10:43:43 06/10/2024 text/html Here to establish carePast Hx:HTNGERDColon surgeryReviewed [...] back and would like to get a audio narrator apt OV 05/25/2020:Here for his routine aptHe [...] his wifeHe is doing wellOV 08/10/2022:Post hosp, [facility] 07/20 to 07/23 for SBOStates that [...] here with his Monse Car MD [address] [facility], [facility] [address], [place], [address], [facility] [employer] 06/10/2024 10:26:42 10/14/2024 text/html Here to establish carePast Hx:HTNGERDColon surgeryReviewed [...] back and would like to get a audio narrator apt OV 05/25/2020:Here for his routine aptHe [...] his wifeHe is doing wellOV 08/10/2022:Post hosp, [facility] 07/20 to 07/23 for SBOStates that [...] is here with his Monse Car MD [address] [facility], [facility] [address], [place], [address], [facility] [employer] 10/25/2024 14:19:28 02/24/2025 text/html Here to establish carePast Hx:HTNGERDColon surgeryReviewed [...] back and would like to get a audio narrator apt OV 05/25/2020:Here for his routine aptHe [...] his wifeHe is doing wellOV 08/10/2022:Post hosp, [facility] 07/20 to 07/23 for SBOStates that [...] , no acute or remote trauma noted Monse Car MD [address] [facility], [address], [place], [address], [facility] [employer] 02/24/2025 18:19:31 09/01/2025 text/html Here to establish carePast Hx:HTNGERDColon [...] back and would like to get a audio narrator apt OV 05/25/2020:Here for his routine aptHe [...] his wifeHe is doing wellOV 08/10/2022:Post hosp, [facility] 07/20 to 07/23 for SBOStates that [...] his f/u apt, he feels well today Monse Car MD [address], [address], [place], [address], [place] [facility] 09/01/2025 12:01:14
--- OUTSIDE RECORDS SUMMARY | 2025-10-05 13:29 | XMS_ITS | Encounter Summary ---
Author Organization [facility] Address [address] [facility] [place] [address] Care Team Providers Care Hotel Manager Name Role Phone Unavailable Primary Care Provider Unavailabl e Encounter Details Date Type Department Care Team (Late st Contact Info) Description 08/01/2021 Lab Requisition [facility] [address] [place] [address] Andre Sutton MD [address] [place] [address] Social History Tobacco Use Types Packs/Day Years Used Date Smoking Tobacco: Never Assessed Sex and Gender Information Value Date Recorded Sex Assigned at Not on file Legal Sex Male 6:02 PM [employer] Gender Identity Not on file Sexual Orientation Not on file documented as of this encounter Plan of Treatment Not on file documented as of this encounter Procedures Procedure Name Priority Date/Time Associated Diagnosis Comments DERMATOPATHOLOGY Routine 07/29/2021 12:0 0 AM CDT documented in this encounter Results * DERMATOPATHOLOGY (07/29/2021 12:00 AM CDT) Case Report Dermatopathology Report Case: [id number] Authorizing Provider: Andre Sutton MD Collected: 07/29/2021 12:00 AM Ordering Location: [facility] Received: 08/01/2021 01:01 PM [...] specimen consists of a shave removal measuring [id number]. The margin is inked green. Jar 0. Specimen B: Received is one formalin filled container labeled with the patient's name and designated right medial cheek below eye. The specimen consists of a shave biopsy measuring [id number] and 4p1a6gw. Jar 0. Specimen C: Received is one formalin filled container labeled with the patient's name and designated behind middle of left earlobe. The specimen consists of a shave biopsy measuring 2y2g1xl. Jar 0. Specimen D: Received is one formalin filled container labeled with the patient's name and designated dorsal left hand. The specimen consists of a shave biopsy measuring 9g3n8bd. Jar 0. 2:54 PM CDT DERMATOPATHOLOGY LABORATORY [...] characteristic determined by the Dermatopathology Laboratory at [facility], directed by Dr. Diana Loving. These tests need not be, and therefore are not, approved by the [place] Food and Drug Administration. The tests are used for clinical purposes. Billing Codes Specimen Charges Stain Charges 51910 10258 17424 22778 1 1 1 1 1 2:54 PM [...] DERMATOPATHOLOGY LABORATORY [facility] - Department of Dermatology [facility] Medicine [address] [place] [address], [address] [phone] documented in this encounter Visit Diagnoses Not on filedocumented in this encounter
== END 2025-10-05 12:14 | disposition home or self-care (01) ==
PROVIDERS: PCP Internal Medicine; Visit Provider Orthopaedic Surgery
DX: M25.571 Pain in right ankle and joints of right foot (principal)
CPT/HCPCS: 73700